=== PATIENT | male | born 1935 | race Caucasian/White ===

== ENCOUNTER 2019-10-30 22:46 | Inpatient (IN) | payer MEDICARE, SELFPAY ==
--- NOTE | ~2019-10-30 | XR_ITS ---
EXAMINATION: XR chest 2V DATE: 10/31/2019 00:09 INDICATION: Leukocytosis TECHNIQUE: PA and lateral views of the chest were obtained. COMPARISON: None FINDINGS: The lungs are clear with no focal airspace opacities, pulmonary edema, pleural effusion or pneumothor ax. The cardiomediastinal silhouette is normal with mildly prominent left paracardial fat pad. There are bridging osteophytes at multiple levels in the spine, consistent with diffuse idiopathic skeletal hyperostosis (DISH). IMPRESSION: 1. No acute cardiopulmonary disease. Reviewed, dictated and finalized at location A. NET MAKER
--- NOTE | ~2019-10-30 | CT_ITS ---
EXAMINATION: CT abdomen pelvis wo con DATE: 10/31/2019 00:12 INDICATION: Right lower abdominal pain and hematuria. TECHNIQUE: Computed tomography (CT) of the abdomen and pelvis was performed without intravenous contr ast. Automated exposure control and iterative reconstruction technique were employed. The dose-length product was 904.75 mGy-cm. COMPARISON: None FINDINGS: Lung bases are clear. Heart size is normal. Mild atherosclerotic calcification at the left main coron oneal artery. Small amount of aortic valve calcification. Tiny pericardial effusion. Small sliding-type hiatal hernia. Liver, gallbladder, spleen, pancreas, bilateral adrenal glands and left kidney are no rmal. Mild to moderate right hydroureteronephrosis. No urolithiasis. There is a likely malignant and obstru cting 6.1 x 5.7 cm mass involving the right trigonal region of the bladder which appears to extend in to the right seminal vesicle. The mass also appears contiguous with the enlarged prostate and is uncl ear whether this represents a primary bladder cancer or prostate cancer. There is some stranding arou nd the right seminal vesicle concerning for local invasion with 12 x 8 mm nodule along the right inte rnal iliac vasculature is suspicious for regional metastatic lymph node. No other evident pathologica lly enlarged abdominal or pelvic lymphadenopathy. There is moderate colonic diverticulosis with a sigmoid predominance. There is no adjacent inflammat ory change to suggest diverticulitis. Small bowel and appendix are normal. Trace ascites in the pelvi s. No free intraperitoneal gas. Severe lumbar spondylosis. There are bridging osteophytes at multiple levels in the lower thoracic spine, consistent with diffuse idiopathic skeletal hyperostosis (DISH). Bone island at the right sacral ala. No other suspicious lytic or blastic bone lesions. IMPRESSION: 1. 6.1 x 5.7 cm mass on the right trigonal region of the bladder which could represent either prostat e cancer of bladder cancer and which obstructs the distal right ureter results in mild to moderate ri ght hydroureteronephrosis. Likely local invasion of the right seminal vesicle and adjacent fat and li edita regional metastatic right internal iliac lymph node. Recommend urologic consultation. 2. Small sliding-type type hiatal hernia. 3. Moderate diverticulosis. Reviewed, dictated and finalized at location A. RS AND LAKES BOATMAN IMPRESSION: 1. 6.1 x 5.7 cm mass on the right trigonal region of the bladder which could re present either prostate cancer of bladder cancer and which obstructs the distal right ureter results in mild to moderate right hydroureteronephrosis. Likely l ocal invasion of the right seminal vesicle and adjacent fat and likely regional metastatic right internal iliac lymph node. Recommend urologic consultation. 2. Small sliding-type type hiatal hernia. 3. Moderate diverticulosis.
--- NOTE | ~2019-10-30 | XR_ITS ---
EXAMINATION: XR abdomen/kub 1V DATE: 10/31/2019 00:09 INDICATION: Hematuria TECHNIQUE: A supine view of the abdomen was obtained. COMPARISON: None. FINDINGS: Small to moderate amount of gas and stool throughout the colon. No dilated loops of gas-filled bowel to suggest obstruction. There appears to be moderate right hydroureteronephrosis extending from the r ight renal hilum. No evident urolithiasis. IMPRESSION: 1. Just of right hydroureteronephrosis with no evident urolithiasis. Reviewed, dictated and finalized at location A. NER MANAGER
--- NOTE | ~2019-10-30 | US_ITS ---
US renal BI 11/03/2019 11:01 Procedure: Realtime transabdominal ultrasound of the kidneys and bladder. Indication: Hydronephrosis Comparison: Ultrasound dated 10/31/2019 Findings: Renal echotexture is normal bilaterally without contour deforming mass or renal calculus. T here is persistent mild right hydronephrosis. The right kidney measures 10.3 cm and left kidney measu res 11.3 cm. Dietz catheter present in the bladder which is decompressed. Impression: 1: Mild right hydronephrosis. Reviewed, dictated and finalized at location A. EMIC PROGRAM SPECIALIST Impression: 1: Mild right hydronephrosis.
--- NOTE | ~2019-10-30 | US_ITS ---
EXAMINATION: US renal BI DATE: 10/31/2019 09:02 INDICATION: Right hydronephrosis on prior CT. TECHNIQUE: Multiple ultrasound grayscale images of the kidneys were obtained. COMPARISON: 10/24/2018 FINDINGS: The right kidney measures 10.6 x 5.6 x 5.8 cm. The left kidney measures 10.2 x 5.1 x 4.9 cm. The kidn eys demonstrate normal echogenicity. Mild right hydronephrosis. No hydronephrosis at the left kidney. No stones identified. The bladder is decompressed around a Dietz catheter which limits evaluation. T here appears to be increased hypoechoic soft tissue density posterior to the Dietz catheter bulb like ly representing the mass identified on prior CT. IMPRESSION: 1. Mild right hydronephrosis. 2. Hypoechoic region posterior to the Dietz catheter bulb within the decompressed bladder which likel y represents the mass of concern seen on prior CT. Reviewed, dictated and finalized at location A. H DRILLER IMPRESSION: 1. Mild right hydronephrosis. 2. Hypoechoic region posterior to the Dietz catheter bulb within the decompress ed bladder which likely represents the mass of concern seen on prior CT.
--- NOTE | ~2019-10-30 | XR_ITS ---
EXAMINATION: XR retrograde pyelo w/stent RT DATE: 11/02/2019 14:02 INDICATION: Right internal ureteral stent placement TECHNIQUE: Fluoroscopic images from a right internal ureteral stent placement are submitted for shawn islas 4 seconds of fluoroscopy time. 6 fluoroscopic images. FINDINGS: There is a right double-J internal ureteral stent projecting in expected position, with proximal Devens loop at the level of the renal pelvis. The distal cope loop is not demonstrated.. IMPRESSION: 1. Right internal ureteral stent placement. Please refer to real-time procedural findings for naman fung. Reviewed, dictated and finalized at location B. ANCE EDUCATION DIRECTOR IMPRESSION: 1. Right internal ureteral stent placement. Please refer to real-time procedu ral findings for details.
[2019-10-30 22:59] VITALS: BP 168/74; PULSE 73; RESP 18; TEMP 36.8; O2SAT 100
--- NOTE | 2019-10-30 23:03 | ED.MALEGU ---
HPI - Male Genitourinary General Chief complaint: Urogenital-Male Stated complaint: prostate issues Time Seen by Provider: 10/30/19 23:02 Source: patient, family and RN notes reviewed Mode of arrival: other Limitations: no limitations History of Present Illness HPI Narrative: Pt is an 83 y/o male who presents to the ED with c/o dysuria that began 3 days ago (10/27/19), but has worsened today. Pt is supposed to see Dr. Jerome on and have a surgery to clamp his prostate. Pt last saw Dr. Jerome two weeks ago. He states that he was given a medication from Dr. Jerome, but he is unable to clarify what the medication is. Pt is taking Flomax. He states that he is taking Prednisone because he had pruritic urticaria from taking Lisinopril. Pt's spouse notes that the pt is not currently himself. Pt also reports penile pain, frequent urination, urinary retention, difficulty sleeping d/t his dysuria, and intermittent RLQ abdominal pain, but denies nausea, vomiting, testicular pain, testicular swelling, fever, chills, and weakness. MD Complaint: dysuria Onset (ago): day(s) (3) Duration: progressively worsening Associated symptoms: Reports urinary retention and other (penile pain, frequent urination, difficulty sleeping d/t his dysuria, intermittent RLQ abdominal pain) Related Data Home Medications Medication Instructions Recorded Confirmed tamsulosin 0.4 mg PO HS 08/10/19 10/31/19 prednisone 30 mg PO DAILY 10/31/19 10/31/19 triamcinolone acetonide 1 applic TOPICAL BID 10/31/19 10/31/19 Allergies Allergy/AdvReac Type Severity Reaction Status Date / Time aspartame Allergy Unknown Unknown Verified 08/20/19 13:15 meperidine Allergy Unknown Unknown Verified 08/20/19 13:15 Review of Systems Review of Systems: All systems reviewed & are unremarkable except as noted in HPI and below Constitutional: Constitutional: Denies chills, Reports difficulty sleeping (d/t his dysuria) and Denies fever(s) Gastrointestinal: Gastrointestinal: Reports abdominal pain (intermittent RLQ), Denies nausea and Denies vomiting Genitourinary: Genitourinary: Reports dysuria, Denies scrotal swelling, Denies testicular pain and Reports other (penile pain, frequent urination, urinary retention) Neurologic: Denies weakness PMFSH Past Medical History Medical History (Updated 10/31/19 @ 06:52 by Bertha Vidal MD) Anemia in chronic kidney disease Anxiety with depression Benign prostatic hyperplasia BPPV (benign paroxysmal positional vertigo) Chronic idiopathic urticaria Chronic kidney disease, stage 4 (severe) Elbow fracture, right Essential (primary) hypertension Hyperparathyroidism 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 HEAD: Normocephalic, atraumatic EYES: PERRLA and EOMI, conjunctiva clear without discharge THROAT:Mucous membranes moist, Oropharynx normal without erythema, exudate, peritonsillar swelling or fluctuance NECK: Supple, without lymphadenopathy or mass RESPIRATORY: No respiratory distress, Airway patent, Respirations non-labored, Clear to auscultation without rales, rhonchi or wheeze HEART: Regular rate and rhythm. No murmur heard. Normal peripheral pulses. ABDOMEN: Soft, right lower abdominal tenderness, nondistended, normal active bowel sounds. No masses. No re
[2019-10-30 23:41] LABS: Basophils Percent Auto 0.1 % (0.2-1.2); Hematocrit 37.3 % (42.0-52.0); Hemoglobin 12.5 g/dL (14.0-18.0); Immature Granulocyte Absolute 0.14 K/mm3 (0.00-0.031); Immature Granulocyte Percent A 0.9 % (0-0.5); Lymphocytes Absolute Auto 0.78 K/mm3 (0.9-3.2); Lymphocytes Percent Auto 5.1 % (18.3-44.2); Mean Corpuscular HGB Conc 33.5 g/dl (32-36); Mean Corpuscular Hemoglobin 33.2 pg (26-34); Mean Corpuscular Volume 98.9 fl (80-100); Mean Platelet Volume 10.8 fl (7.4-10.4); Monocytes Absolute Auto 1.4 K/mm3 (0.1-0.6); Monocytes Percent Auto 8.8 % (2.6-8.5); Neutrophils Absolute Auto 13.1 K/mm3 (1.3-6.7); Neutrophils Percent Auto 85.1 % (45.5-73.1); Platelet Count Result 128 k/mm3 (150-375); Red Blood Count 3.77 M/mm3 (4.6-6.20); Red Cell Distribution Width 14.1 % (11.5-14.5); White Blood Count 15.4 K/mm3 (4.5-10.0)
[2019-10-30 23:46] LABS: Add Urine Microscopic? YES; Appearance Urine Clear (Clear); Bilirubin Urine Negative (Negative); Blood Urine 2+ (Negative); Color Urine Yellow (Yellow); Glucose Urine UA 3+ mg/dL (Negative); Ketones Urine Negative (Negative); Leukocyte Esterase Ur Negative LEU/UL (Negative); Mucus Urine Rare /lpf; Nitrate Urine Negative (Negative); Protein Urine 1+ mg/dL (Negative); Specific Grav Ur 1.021 (1.001-1.035); Squamous Epithelial Cell Urine Rare /hpf (Few); Urobilinogen Urine Negative mg/dL (<2.0); WBC Urine 0-3 /hpf
[2019-10-31] VITALS (17 sets, daily range): BP systolic 134–164; BP diastolic 42–72; PULSE 64–114; RESP 13–22; TEMP 36.6–37.2; O2SAT 93–99; BMI 31.6
[2019-10-31 00:10] LABS: Alanine Aminotransferase 16 U/L (4-50); Albumin Level 3.9 g/dL (3.5-5.1); Alkaline Phosphatase 88 U/L (38-126); Aspartate Amino Transferase 18 U/L (17-59); Bilirubin,Total 0.4 mg/dL (0.2-1.3); Blood Urea Nitrogen 42 mg/dL (9-20); Calcium 9.1 mg/dL (8.4-10.2); Carbon Dioxide 18 mmol/L (22-30); Chloride 103 mmol/L (98-107); Estimated CRCL calculation 25 ml/min; Estimated Glomerular Filt Rate 29; Glucose 165 mg/dL (75-110); Potassium 6.6 mmol/L (3.4-5.0); Sodium 133 mmol/L (137-145)
--- NOTE | 2019-10-31 00:14 | ECG_ITS ---
Measurements Intervals Cool Rate: 66 P: -6 TN: 167 QRS: -14 QRSD: 90 T: 42 QT: 347 QTc: 365 Interpretive Statements SINUS RHYTHM BORDERLINE R WAVE PROGRESSION, ANTERIOR LEADS BASELINE ARTIFACT- I, III, V1-V2 BORDERLINE ECG Electronically Signed On 10-31-2019 7:00:30 POWER ELECTRONICS RESEARCH ENGINEER by John Torres D.O.
[2019-10-31] MEDS: ALBUTEROL SULFATE NEB 2.5 MG/0.5 ML INH 10 MG INHALATION (01:08)
[2019-10-31] MEDS: DEXTROSE 50% 25 GM/50 ML SYRINGE IV PUSH (01:20)
[2019-10-31] MEDS: SODIUM BICARBONATE 8.4% 50 MEQ/50 ML VIAL IV PUSH (01:21)
[2019-10-31] MEDS: INSULIN HUMAN REGULAR (*BKC) 100 UNITS/ML 10 UNITS IV PUSH (01:22)
[2019-10-31] MEDS: CALCIUM GLUC 1,000 MG/NS 50 ML 1,000 MG/50 ML BAG 100 MG IVPB (01:40)
[2019-10-31] MEDS: SODIUM CHLORIDE 0.9% IV 1,000 ML 125 ML IV CONT ×3 (02:13→17:03)
--- NOTE | 2019-10-31 02:13 | PC.NURSE ---
Report faxed to IMU 2nd floor.
--- NOTE | 2019-10-31 02:13 | PM.IMHP ---
H&P: HPI History of Present Illness Chief complaint: obstructive uropathy,acute renal failure,prostate Narrative: This is a pleasant 83 year old male who presented to the hospital [facility] with a complaint of acute lower pelvic discomfort tonight. The patient has had ongoing painful urination over the past three days as well as increased urinary frequency, retention, and difficulty sleeping due to his symptoms. He denies any fevers or chills. He just recently finished a course of antibiotics for a urinary tract infection. The patient is known to follow up with Dr. Jerome for his prostate issues and was scheduled to see Dr. Jerome to discuss surgical options for his enlarged prostate. In the ER tonight the patient was found to have acute renal failure w/ hyperkalemia. Dietz catheter was placed in the ER and we have been asked to admit the patient to the hospital. He denies any other symptoms at this time. 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 IGOR (obstructive sleep apnea) S/P ORIF (open reduction internal fixation) fracture left arm Surgical History Surgical History H/O varicose vein ligation History of orthopedic surgery left arm reconstruction, right elbow surgery Social History Social History Smoking status: Never smoker Alcohol intake: never Substance use: never Gender identity (if verbalized by the patient): Male Agree to blood products: Yes Meds Home Medications and Allergies Home Medications Medication Instructions Recorded Confirmed Type compr.stocking,knee,long,large #2 each 08/10/19 08/20/19 Rx tamsulosin 0.4 mg PO HS 08/10/19 10/31/19 History losartan 50 mg tablet 50 mg PO DAILY #30 tablet 10/26/19 10/31/19 Rx prednisone 30 mg PO DAILY 10/31/19 10/31/19 History triamcinolone acetonide 1 applic TOPICAL BID 10/31/19 10/31/19 History Allergies Allergy/AdvReac Type Severity Reaction Status Date / Time aspartame Allergy Unknown Unknown Verified 08/20/19 13:15 meperidine Allergy Unknown Unknown Verified 08/20/19 13:15 Vital Signs Vital Signs - 24 hr 10/30/19 22:59 10/31/19 00:10 10/31/19 00:19 Temperature 36.8 C Pulse Rate 73 74 73 Respiratory Rate 18 18 Blood Pressure 168/74 H 163/71 H Pulse Oximetry 100 98 10/31/19 01:10 10/31/19 01:14 Temperature Pulse Rate 72 70 Respiratory Rate 18 13 Blood Pressure 156/72 H Pulse Oximetry 99 Exam Const: General: cooperative, healthy appearing, no acute distress, alert and awake Nutritional Appearance: well nourished Orientation/consciousness: patient oriented x3 HENMT: Head: normal to inspection General nose exam: Normal external nose present Face and sinus: normal facial exam Mouth: Yes Normal oral and palatal mucosa present and Yes oropharynx normal Eyes: Pupils: Equal, round and reactive pupils present EOM: EOMs intact bilaterally Neck: Neck: supple and no JVD Thyroid: thyroid normal Lymphatic: lymphadenopathy not noted Resp: Effort & Inspection: normal respiratory effort Auscultation: clear to auscultation bilaterally Cardio: Rate: regular rate Rhythm: regular rhythm Heart sounds: no murmurs GI: Inspection: normal to inspection Auscultation: normal bowel sounds Skin: General skin exam: normal color and no rashes or lesions noted Neuro: General: patient oriented x3 Cranial
[2019-10-31 05:14] LABS: Blood Urea Nitrogen 42 mg/dL (9-20); Calcium 9.3 mg/dL (8.4-10.2); Carbon Dioxide 21 mmol/L (22-30); Chloride 107 mmol/L (98-107); Estimated CRCL calculation 27 ml/min; Estimated Glomerular Filt Rate 30; Glucose 111 mg/dL (75-110); Potassium 5.4 mmol/L (3.4-5.0); Sodium 134 mmol/L (137-145)
--- NOTE | 2019-10-31 06:58 | ADMGEN ---
This patient, Dayron Areraga, was admitted to IMU Room 209-. Patient/family oriented to hospital policies and general routines including ID bracelet, bed and alarms, visiting hours, pain management, procedures, bathroom and other care routines, personal items, smoking policy, room service/diet, and visiting hours. Valuables list has been completed. Information on how to activate the Rapid Response Team has been discussed. Patient/Family are encouraged to report perceived risks to care and to ask questions if they do not understand what they are told or what they should do.
--- NOTE | 2019-10-31 17:21 | PM.IMPN ---
Progress Note: A&P Assessment and Plan (1) Hyperkalemia: Code(s): E87.5 - Hyperkalemia Status: Acute Assessment and Plan: Potassium 6.6 on admission related to the obstructive process and the acute kidney injury worsened by being on losartan. The patient received insulin, dextrose, albuterol and sodium bicarbonate in the ER. Potassium 5.4 today. Will continue monitoring closely with repeat lab work. Consider Kayexalate. Continue telemetry. (2) Acute on chronic renal failure: Qualifiers: Acute renal failure type: unspecified Chronic kidney disease stage: stage 3 (moderate) Qualified Code(s): N17.9 - Acute kidney failure, unspecified; N18.3 - Chronic kidney disease, stage 3 (moderate) Code(s): N17.9 - Acute kidney failure, unspecified; N18.9 - Chronic kidney disease, unspecified Status: Acute Assessment and Plan: Patient's estimated GFR runs in the 40-50 range consistent with CKD stage 3. Creatinine worse since admission probably related to the obstruction. Creatinine 2.2 on admission and relatively unchanged today. Patient may have mild ATN related to the obstructive process. Renal ultrasound results noted. Hopefully this will improve with time. Continue Dietz catheter. Continue IV fluid. Continue to monitor renal function and urine output. (3) Bladder mass: Code(s): N32.89 - Other specified disorders of bladder Status: Acute Assessment and Plan: CT scan showing 6.1 x 5.7 cm mass on the right trigonal region of the bladder which could represent either prostate cancer of bladder cancer. This is obstructing the distal right ureter resulting in mild to moderate right hydroureteronephrosis. 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 Patient informed of the above findings. Urology has been consulted and appreciate their input. (4) Urinary retention: Code(s): R33.9 - Retention of urine, unspecified Status: Acute Assessment and Plan: As above. Suspect mass was obstructing the urethral opening as well. Dietz catheter in place. Urology consultation. Appreciate Urology recommendations. Flomax continued. (5) Anemia in chronic kidney disease: Qualifiers: Chronic kidney disease stage: stage 3 (moderate) Qualified Code(s): N18.3 - Chronic kidney disease, stage 3 (moderate); D63.1 - Anemia in chronic kidney disease Code(s): N18.9 - Chronic kidney disease, unspecified; D63.1 - Anemia in chronic kidney disease Status: Chronic Assessment and Plan: Hemoglobin 10.8 which is similar to his baseline. Chronic anemia felt related to CKD. Continue to monitor hemoglobin. (6) Essential (primary) hypertension: Code(s): I10 - Essential (primary) hypertension Status: Chronic Assessment and Plan: Blood pressure was elevated earlier but better controlled today. Losartan on hold due to renal failure. Will add low-dose amlodipine. (7) Thrombocytopenia: Code(s): D69.6 - Thrombocytopenia, unspecified Status: Acute Assessment and Plan: Platelet count 128K on admission. Not repeated today. Will continue to monitor. (8) Leukocytosis: Qualifiers: Leukocytosis type: unspecified Qualified Code(s): D72.829 - Elevated white blood cell count, unspecified Code(s): D72.829 - Elevated white blood cell count, unspecified Status: Acute Assessment and Plan: WBC 15.4K on admission. Not repeated today. Chest x-ray is clear. UA not consistent with UTI. Elevated white count probably related to above. Repeat CBC in the morning. Subjective Date/time seen: 10/31/19 17:21 Interval history: 83yo male here for dysuria and found to have hyperkalemia and KEE. The is having burning at the catheter site. No n/v. No CP or palpitations. Does havae a headache
[2019-10-31] MEDS: ACETAMINOPHEN 325 MG TABLET 650 MG PO (17:44)
[2019-10-31 18:04] LABS: Blood Urea Nitrogen 41 mg/dL (9-20); Calcium 8.2 mg/dL (8.4-10.2); Carbon Dioxide 20 mmol/L (22-30); Chloride 103 mmol/L (98-107); Estimated CRCL calculation 26 ml/min; Estimated Glomerular Filt Rate 29; Glucose 155 mg/dL (75-110); Potassium 5.7 mmol/L (3.4-5.0); Sodium 134 mmol/L (137-145)
[2019-10-31] MEDS: TAMSULOSIN HCL 0.4 MG CAPSULE PO (21:46)
[2019-10-31] MEDS: SODIUM POLYSTYRENE SULFONONATE 15 GM/60 ML BTL PO (21:47)
[2019-11-01] VITALS (18 sets, daily range): BP systolic 114–146; BP diastolic 52–63; PULSE 61–73; RESP 17–20; TEMP 36.6–37.2; O2SAT 97–100
[2019-11-01] MEDS: ACETAMINOPHEN 325 MG TABLET 650 MG PO (00:36)
[2019-11-01] MEDS: SODIUM CHLORIDE 0.9% IV 1,000 ML 125 ML IV CONT ×3 (01:01→20:43)
[2019-11-01 05:18] LABS: Basophils Percent Auto 0.1 % (0.2-1.2); Eosinophils Absolute Auto 0.1 K/mm3 (0-0.3); Eosinophils Percent Auto 0.6 % (0-4.4); Hematocrit 31.8 % (42.0-52.0); Hemoglobin 10.5 g/dL (14.0-18.0); Immature Granulocyte Absolute 0.06 K/mm3 (0.00-0.031); Immature Granulocyte Percent A 0.6 % (0-0.5); Lymphocytes Absolute Auto 1.27 K/mm3 (0.9-3.2); Lymphocytes Percent Auto 11.9 % (18.3-44.2); Mean Platelet Volume 10.9 fl (7.4-10.4); Monocytes Percent Auto 9.6 % (2.6-8.5); Neutrophils Absolute Auto 8.2 K/mm3 (1.3-6.7); Neutrophils Percent Auto 77.2 % (45.5-73.1); Platelet Count Result 104 k/mm3 (150-375); Red Blood Count 3.18 M/mm3 (4.6-6.20); Red Cell Distribution Width 14.5 % (11.5-14.5); White Blood Count 10.6 K/mm3 (4.5-10.0)
[2019-11-01 05:53] LABS: Albumin Level 2.9 g/dL (3.5-5.1); Blood Urea Nitrogen 36 mg/dL (9-20); Carbon Dioxide 22 mmol/L (22-30); Chloride 109 mmol/L (98-107); Estimated CRCL calculation 27 ml/min; Estimated Glomerular Filt Rate 30; Glucose 101 mg/dL (75-110); Phosphorus 3.3 mg/dL (2.5-4.5); Potassium 5.3 mmol/L (3.4-5.0); Sodium 134 mmol/L (137-145)
--- NOTE | 2019-11-01 07:29 | WPDURCON ---
Assessment and Plan Assessment and plan (1) Obstructive uropathy: Code(s): N13.9 - Obstructive and reflux uropathy, unspecified Status: Acute Assessment and Plan: For etiology is unclear at this point time. Dietz catheter in place and creatinine still at 2.1. Renal ultrasound reveals some only some mild right hydroureter. Given the persistent elevation in creatinine question of a mass in the bladder will proceed with cystoscopy right retrograde pyelogram tomorrow. Will also discuss possible transurethral resection of any abnormal findings at that setting i.e. TURBT or TURP. Will need to be NPO after midnight. Will discuss possibility of nephrostomy tube if unable to locate or place a stent. (2) Bladder mass: Code(s): N32.89 - Other specified disorders of bladder Status: Acute Assessment and Plan: See above Urology Consult Note HPI Date Seen: 11/01/19 Requesting Physician: Cristóbal Quintana MD Primary Care Provider: Michele Lovell DO Consult Narrative Narrative: Dayron Arreaga is a 83 year old male with history of BPH who was admitted with hyperkalemia mild right hydronephrosis and slightly elevated creatinine level of 2.4. He was most recently seen in the office 1-2 weeks ago for some voiding symptoms. He had been on Flomax and was increased to b.i.d.. He developed some discomfort in his right flank as well as right lower quadrant and presented to the emergency room. Dietz catheter was placed in the emergency room. The time my evaluation his pain in his flank and his discomfort in his pelvis had improved slightly. CT scan reveals a some question of a 6 cm mass obstructing the right UVJ with differential of bladder versus prostate. Wea re asked to see for further management. 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 IGOR (obstructive sleep apnea) S/P ORIF (open reduction internal fixation) fracture left arm Surgical History Surgical History H/O varicose vein ligation History of orthopedic surgery left arm reconstruction, right elbow surgery Social History Social History Smoking status: Never smoker Alcohol intake: never Substance use: never Gender identity (if verbalized by the patient): Male Agree to blood products: Yes Meds Home Medications and Allergies Home Medications Medication Instructions Recorded Confirmed Type compr.stocking,knee,long,large #2 each 08/10/19 08/20/19 Rx tamsulosin 0.4 mg PO HS 08/10/19 10/31/19 History losartan 50 mg tablet 50 mg PO DAILY #30 tablet 10/26/19 10/31/19 Rx prednisone 30 mg PO DAILY 10/31/19 10/31/19 History triamcinolone acetonide 1 applic TOPICAL BID 10/31/19 10/31/19 History Allergies Allergy/AdvReac Type Severity Reaction Status Date / Time aspartame Allergy Unknown Unknown Verified 08/20/19 13:15 meperidine Allergy Unknown Unknown Verified 08/20/19 13:15 Vital Signs Vital Signs - 24 hr 10/31/19 08:00 10/31/19 10:00 10/31/19 12:00 Temperature 36.6 C 37.2 C Pulse Rate 72 80 73 Respiratory Rate 20 18 Blood Pressure 138/53 L 134/50 L Pulse Oximetry 99 98 10/31/19 14:00 10/31/19 16:00 10/31/19 18:00 Temperature 37.0 C Pulse Rate 69 71 76 Respiratory Rate 22 H Blood Pressure 145/60 H Pulse Oximetry 98 10/31/19 19:36 10/31/19 20:00 10/31/19
[2019-11-01] MEDS: SODIUM POLYSTYRENE SULFONONATE 15 GM/60 ML BTL PO (09:50)
[2019-11-01] MEDS: TRIAMCINOLONE ACET 0.1% CREAM 15 GM TUBE 1 APPLIC TOPICAL (09:51)
[2019-11-01] MEDS: AMLODIPINE BESYLATE 2.5 MG TABLET PO (09:51)
[2019-11-01 18:57] LABS: Potassium 4.7 mmol/L (3.4-5.0)
[2019-11-01 19:32] LABS: Prostate Specific Antigen 9.4 ng/mL (< OR = 4.0)
[2019-11-01] MEDS: TAMSULOSIN HCL 0.4 MG CAPSULE PO (20:42)
--- NOTE | 2019-11-01 22:17 | PM.IMPN ---
Progress Note: A&P Assessment and Plan (1) Acute on chronic renal failure: Qualifiers: Acute renal failure type: unspecified Chronic kidney disease stage: stage 3 (moderate) Qualified Code(s): N17.9 - Acute kidney failure, unspecified; N18.3 - Chronic kidney disease, stage 3 (moderate) Code(s): N17.9 - Acute kidney failure, unspecified; N18.9 - Chronic kidney disease, unspecified Status: Acute Assessment and Plan: Patient's estimated GFR runs in the 40-50 range consistent with CKD stage 3. Creatinine worse since admission probably related to the obstruction. Creatinine 2.2 on admission and relatively unchanged today. Patient may have mild ATN related to the obstructive process. UOP okay. Continue Dietz catheter. Continue IV fluid but decrease rate. Continue to monitor renal function and urine output. (2) Hyperkalemia: Code(s): E87.5 - Hyperkalemia Status: Acute Assessment and Plan: Potassium 6.6 on admission related to the obstructive process and the acute kidney injury worsened by being on losartan. The patient received insulin, dextrose, albuterol and sodium bicarbonate in the ER. Potassium 5.3 today. Kayexalate given. Potasium on recheck 4.7. Will continue monitoring closely. (3) Bladder mass: Code(s): N32.89 - Other specified disorders of bladder Status: Acute Assessment and Plan: CT scan showing 6.1 x 5.7 cm mass on the right trigonal region of the bladder which could represent either prostate cancer or bladder cancer. This is obstructing the distal right ureter resulting in mild to moderate right hydroureteronephrosis and possibly obstructing uropathy. 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 PSA ordered. Plan for cysto in the morning. Discussed with urology. (4) Urinary retention: Code(s): R33.9 - Retention of urine, unspecified Status: Acute Assessment and Plan: As above. Suspect mass was obstructing the urethral opening as well. Dietz catheter in place. Urology consultation. Appreciate Urology recommendations. Flomax continued. . (5) Anemia in chronic kidney disease: Qualifiers: Chronic kidney disease stage: stage 3 (moderate) Qualified Code(s): N18.3 - Chronic kidney disease, stage 3 (moderate); D63.1 - Anemia in chronic kidney disease Code(s): N18.9 - Chronic kidney disease, unspecified; D63.1 - Anemia in chronic kidney disease Status: Chronic Assessment and Plan: Hemoglobin normally in the 11-12 range but dropped to 10.5 today. mild chronic anemia felt related to CKD. Continue to monitor hemoglobin. (6) Essential (primary) hypertension: Code(s): I10 - Essential (primary) hypertension Status: Chronic Assessment and Plan: Blood pressure reviewed on 11/01/19. BP was elevated earlier but better controlled today. Losartan on hold due to renal failure. Continue amlodipine. (7) Leukocytosis: Qualifiers: Leukocytosis type: unspecified Qualified Code(s): D72.829 - Elevated white blood cell count, unspecified Code(s): D72.829 - Elevated white blood cell count, unspecified Status: Acute Assessment and Plan: WBC 15.4K on admission. Chest x-ray is clear. UA not consistent with UTI. Elevated white count probably related to above. Repeat WBC 10.6K. Contineu to follow. (8) Thrombocytopenia: Code(s): D69.6 - Thrombocytopenia, unspecified Status: Acute Assessment and Plan: Platelet count 128K on admission and has dropped to 104K. Autoimmune? Doubt TTP. Reactionary to above? Will continue to monitor for now. Subjective Date/time seen: 11/01/19 22:17 Interval history: 83yo male here for dysuria and found to have hyperkalemia and KEE. No complaints today. No CP or SOB. +BM. Exam Narrative: Ex
[2019-11-02] VITALS (18 sets, daily range): BP systolic 131–166; BP diastolic 54–77; PULSE 56–77; RESP 12–20; TEMP 36.5–37.2; O2SAT 13–100
[2019-11-02 05:24] LABS: Hematocrit 30.2 % (42.0-52.0); Mean Corpuscular HGB Conc 33.1 g/dl (32-36); Mean Corpuscular Hemoglobin 33.4 pg (26-34); Mean Platelet Volume 10.9 fl (7.4-10.4); Platelet Count Result 83 k/mm3 (150-375); Red Blood Count 2.99 M/mm3 (4.6-6.20); White Blood Count 9.3 K/mm3 (4.5-10.0)
[2019-11-02 05:50] LABS: Blood Urea Nitrogen 30 mg/dL (9-20); Calcium 7.7 mg/dL (8.4-10.2); Carbon Dioxide 18 mmol/L (22-30); Chloride 108 mmol/L (98-107); Estimated CRCL calculation 29 ml/min; Estimated Glomerular Filt Rate 34; Glucose 98 mg/dL (75-110); Potassium 4.6 mmol/L (3.4-5.0); Sodium 133 mmol/L (137-145)
[2019-11-02] MEDS: SODIUM CHLORIDE 0.9% IV 1,000 ML 70 ML IV CONT (07:26)
[2019-11-02 07:37] LABS: INR 1.2; Prothrombin Time 14.5 Seconds (11.1-14.7)
[2019-11-02 07:38] LABS: Partial Thromboplastin Time 27.8 SECONDS (22.3-36.8)
[2019-11-02] MEDS: AMLODIPINE BESYLATE 2.5 MG TABLET PO (08:10)
--- NOTE | 2019-11-02 10:02 | WPDANESEPP ---
Anes - Eval Pre Procedure Procedure: Operation Date: 11/02/19 11:30 Proposed Procedures p Cystoscopy, Bilateral Retrograde Pyelogram, Possible Bilateral Stent Placement, - J Luis Jerome MD s Possible Trans Urethral Resection Bladder Tumor, Possible Trans Urethral Resection Prostate - J Luis Jerome MD Date/Time: 11/02/19 10:02 Pre Op Diagnosis: obstructive uropathy,acute renal failure,prostate Patient Data Age: 83 Gender: M Height: 1.73 m Weight: 95.2 kg Last Vital Signs Temp 37.0 C 11/02/19 03:47 Pulse 58 L 11/02/19 08:00 Resp 16 11/02/19 03:47 BP 140/54 L 11/02/19 03:47 Pulse Ox 100 11/02/19 03:47 Allergies Allergy/AdvReac Type Severity Reaction Status Date / Time aspartame Allergy Unknown Unknown Verified 08/20/19 13:15 meperidine Allergy Unknown Unknown Verified 08/20/19 13:15 Home Medications Medication Instructions Recorded Confirmed Type compr.stocking,knee,long,large #2 each 08/10/19 08/20/19 Rx tamsulosin 0.4 mg PO HS 08/10/19 10/31/19 History losartan 50 mg tablet 50 mg PO DAILY #30 tablet 10/26/19 10/31/19 Rx prednisone 30 mg PO DAILY 10/31/19 10/31/19 History triamcinolone acetonide 1 applic TOPICAL BID 10/31/19 10/31/19 History Laboratory Tests 11/01/19 11/02/19 11/02/19 18:44 04:23 04:23 WBC 9.3 K/mm3 K/mm3 (4.5-10.0) RBC 2.99 M/mm3 L M/mm3 (4.6-6.20) Hgb 10.0 g/dL L g/dL (14.0-18.0) Hct 30.2 % L % (42.0-52.0) MCV 101.0 fl H fl (80-100) MCH 33.4 pg pg (26-34) MCHC 33.1 g/dl g/dl (32-36) RDW 14.0 % % (11.5-14.5) Plt Count 83 k/mm3 L k/mm3 (150-375) MPV 10.9 fl H fl (7.4-10.4) PT INR APTT Sodium 133 mmol/L L mmol/L (137-145) Potassium 4.7 mmol/L mmol/L 4.6 mmol/L mmol/L (3.4-5.0) (3.4-5.0) Chloride 108 mmol/L H mmol/L (98-107) Carbon Dioxide 18 mmol/L L mmol/L (22-30) BUN 30 mg/dL H mg/dL (9-20) Creatinine 1.90 mg/dL H mg/dL (0.7-1.3) Estim Creat Clear Calc 29 ml/min ml/min Estimated GFR 34 L (59 - ) Glucose 98 mg/dL mg/dL (75-110) Calcium 7.7 mg/dL L mg/dL (8.4-10.2) Prostate Specific Ag 9.4 ng/mL H ng/mL (< OR = 4.0) 11/02/19 07:22 WBC RBC Hgb Hct MCV MCH MCHC RDW Plt Count MPV PT 14.5 Seconds Seconds (11.1-14.7) INR 1.2 APTT 27.8 SECONDS SECONDS (22.3-36.8) Sodium Potassium Chloride Carbon Dioxide BUN Creatinine Estim Creat Clear Calc Estimated GFR Glucose Calcium Prostate Specific Ag Patient hx anesthesia problems: none Family hx anesthesia problems: none [facility] Past Medical History Medical History (Updated 11/02/19 @ 10:04 by Magdy Bullock MD) Anemia in chronic kidney disease Anxiety with depression Benign prostatic hyperplasia BPPV (benign paroxysmal positional vertigo) Chronic idiopathic urticaria Chronic kidney disease, stage 4 (severe) Elbow fracture, right Essential (primary) hypertension Hyperparathyroidism 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
--- NOTE | 2019-11-02 10:10 | PC.NURSE ---
To OR per stretcher. Family at bedside
[2019-11-02] MEDS: LACTATED RINGERS 1,000 ML 30 ML IV CONT ×2 (10:40→14:10)
--- NOTE | 2019-11-02 12:15 | WPDANESEPPF ---
Anes - Initial Pre Proc Eval Procedure: Operation Date: 11/02/19 11:30 Proposed Procedures p Cystoscopy, Bilateral Retrograde Pyelogram, Possible Bilateral Stent Placement, - J Luis Jerome MD s Possible Trans Urethral Resection Bladder Tumor, Possible Trans Urethral Resection Prostate - J Luis Jerome MD Date/Time: 11/02/19 12:15 Surgeon: Cristóbal Quintana MD Pre Op Diagnosis: obstructive uropathy,acute renal failure,prostate Patient Data Age: 83 Gender: M Height: 5 ft 8 in Weight: 95.2 kg Last Vital Signs Temp 98.9 F 11/02/19 11:16 Pulse 65 11/02/19 11:16 Resp 20 11/02/19 11:16 BP 137/55 L 11/02/19 11:16 Pulse Ox 98 11/02/19 11:16 Allergies Allergy/AdvReac Type Severity Reaction Status Date / Time lisinopril Allergy Intermediate Rash Verified 11/02/19 11:14 aspartame Allergy Unknown HIVE Verified 11/02/19 11:14 Home Medications Medication Instructions Recorded Confirmed Type compr.stocking,knee,long,large #2 each 08/10/19 08/20/19 Rx tamsulosin 0.4 mg PO HS 08/10/19 10/31/19 History losartan 50 mg tablet 50 mg PO DAILY #30 tablet 10/26/19 10/31/19 Rx prednisone 30 mg PO DAILY 10/31/19 10/31/19 History triamcinolone acetonide 1 applic TOPICAL BID 10/31/19 10/31/19 History Laboratory Tests 11/01/19 11/02/19 11/02/19 18:44 04:23 04:23 WBC 9.3 K/mm3 K/mm3 (4.5-10.0) RBC 2.99 M/mm3 L M/mm3 (4.6-6.20) Hgb 10.0 g/dL L g/dL (14.0-18.0) Hct 30.2 % L % (42.0-52.0) MCV 101.0 fl H fl (80-100) MCH 33.4 pg pg (26-34) MCHC 33.1 g/dl g/dl (32-36) RDW 14.0 % % (11.5-14.5) Plt Count 83 k/mm3 L k/mm3 (150-375) MPV 10.9 fl H fl (7.4-10.4) PT INR APTT Sodium 133 mmol/L L mmol/L (137-145) Potassium 4.7 mmol/L mmol/L 4.6 mmol/L mmol/L (3.4-5.0) (3.4-5.0) Chloride 108 mmol/L H mmol/L (98-107) Carbon Dioxide 18 mmol/L L mmol/L (22-30) BUN 30 mg/dL H mg/dL (9-20) Creatinine 1.90 mg/dL H mg/dL (0.7-1.3) Estim Creat Clear Calc 29 ml/min ml/min Estimated GFR 34 L (59 - ) Glucose 98 mg/dL mg/dL (75-110) Calcium 7.7 mg/dL L mg/dL (8.4-10.2) Prostate Specific Ag 9.4 ng/mL H ng/mL (< OR = 4.0) 11/02/19 07:22 WBC RBC Hgb Hct MCV MCH MCHC RDW Plt Count MPV PT 14.5 Seconds Seconds (11.1-14.7) INR 1.2 APTT 27.8 SECONDS SECONDS (22.3-36.8) Sodium Potassium Chloride Carbon Dioxide BUN Creatinine Estim Creat Clear Calc Estimated GFR Glucose Calcium Prostate Specific Ag Patient hx anesthesia problems: none Family hx anesthesia problems: none [facility] Past Medical History Medical History (Updated 11/02/19 @ 10:04 by Magdy Bullock MD) Anemia in chronic kidney disease Anxiety with depression Benign prostatic hyperplasia BPPV (benign paroxysmal positional vertigo) Chronic idiopathic urticaria Chronic kidney disease, stage 4 (severe) Elbow fracture, right Essential (primary) hypertension Hyperparathyroidism 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
[2019-11-02] MEDS: ceFAZolin 2 GM/D5W 50 ML 2 GM/50 ML BAG IVPB (12:30)
[2019-11-02] MEDS: METHYLENE BLUE 0.5% INJ 10 ML AMPULE IRRIGATION (13:29)
[2019-11-02] MEDS: LIDOCAINE HCL 2% GEL UROJET 10 ML PKG MUCOUS MEM (13:49)
--- NOTE | 2019-11-02 14:01 | PM.PROC ---
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 Once general anesthesia was obtained he was placed in dorsal lithotomy position and prepped and draped in usual sterile fashion. Twenty-four [place] resectoscope sheath inserted in the bladder. Bladder inspected. He has an enlarged friable prostate which is obstructive in nature and invading into the bladder neck area. Ureteral orifices are not visualized at this time. We went ahead and resected the prostate including all visible tissue invading the the bladder at the bladder neck and trigonal area. The boundaries were the proximal bladder neck area as well as the vera. After continued resection we were able to identify a right ureteral orifice. It took quite a bit of a resecting to identified. We then were able to place a [place] and angled guidewire into it and advanced it all the way up to the kidney. Pyelogram was then performed to confirm placement of this into the collecting system. Six [place] contour stent was then placed with the proximal end coiled in the renal pelvis and the distal end in the bladder. We were never able to visualize the left ureteral orifice. There was no hydro nephrosis at this point time on the recent ultrasound or CT scan. We will see how he does clinically he may require a ultrasound in the morning. If his renal function deteriorates or develops left hydronephrosis he will need a percutaneous nephrostomy tube on that side. 2% viscous lidocaine was inserted into the urethra. Twenty-four [place] [address] was placed with 20 cc in the balloon. He is taken recovery room in stable condition. Anesthesia: GLMA Surgeon: J Luis Jerome MD Drains: Yes Packing: No Pathology: yes Complications: No immediate complications Condition: stable Disposition: PACU
--- NOTE | 2019-11-02 16:32 | PM.IMPN ---
Progress Note: A&P Assessment and Plan (1) Acute on chronic renal failure: Qualifiers: Acute renal failure type: unspecified Chronic kidney disease stage: stage 3 (moderate) Qualified Code(s): N17.9 - Acute kidney failure, unspecified; N18.3 - Chronic kidney disease, stage 3 (moderate) Code(s): N17.9 - Acute kidney failure, unspecified; N18.9 - Chronic kidney disease, unspecified Status: Acute Assessment and Plan: Patient's estimated GFR runs in the 40-50 range consistent with CKD stage 3. Creatinine 2.2 on admission and related to the obstructive uropathy +/- ATN. Renal function better today at 1.9. UOP okay. Continue Dietz catheter. CBI running for post-op hematuria. Continue to monitor renal function and urine output. (2) Hyperkalemia: Code(s): E87.5 - Hyperkalemia Status: Acute Assessment and Plan: Potassium 6.6 on admission related to the obstructive process and the acute kidney injury worsened by being on losartan. The patient received insulin, dextrose, albuterol and sodium bicarbonate in the ER. Potassium 5.3 yesterday and Kayexalate given. Potasium today is 4.6. Will continue monitoring closely. (3) Bladder mass: Code(s): N32.89 - Other specified disorders of bladder Status: Acute Assessment and Plan: CT scan showing 6.1 x 5.7 cm mass on the right trigonal region of the bladder which appears most likely prostate cancer. This is obstructing the distal right ureter resulting in mild to moderate right hydroureteronephrosis and possibly the left side as well. TURP completed today and stent placed in the right. Left was difficult to visualized buth no hydro. 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 PSA 9.4. Discussed with urology. (4) Urinary retention: Code(s): R33.9 - Retention of urine, unspecified Status: Acute Assessment and Plan: As above. Mass was potentially obstructing both ureter openings and possibly the urethral opening as well. Dietz catheter in place. Flomax continued. Discussed with Urology. (5) Anemia in chronic kidney disease: Qualifiers: Chronic kidney disease stage: stage 3 (moderate) Qualified Code(s): N18.3 - Chronic kidney disease, stage 3 (moderate); D63.1 - Anemia in chronic kidney disease Code(s): N18.9 - Chronic kidney disease, unspecified; D63.1 - Anemia in chronic kidney disease Status: Chronic Assessment and Plan: Hemoglobin normally in the 11-12 range but dropped to 10.0 today. Mild chronic anemia felt related to CKD but now may drop further from the post-operative bleeding. Continue to monitor hemoglobin. (6) Essential (primary) hypertension: Code(s): I10 - Essential (primary) hypertension Status: Chronic Assessment and Plan: Blood pressure reviewed on 11/02/19. BP was reasonable this morning but more elevated now possibly related to pain. Losartan on hold due to renal failure. Continue amlodipine. (7) Leukocytosis: Qualifiers: Leukocytosis type: unspecified Qualified Code(s): D72.829 - Elevated white blood cell count, unspecified Code(s): D72.829 - Elevated white blood cell count, unspecified Status: Acute Assessment and Plan: WBC 15.4K on admission. Chest x-ray is clear. UA not consistent with UTI. Elevated white count probably related to above. Repeat WBC normal. Continue to follow. (8) Thrombocytopenia: Code(s): D69.6 - Thrombocytopenia, unspecified Status: Acute Assessment and Plan: Platelet count 128K on admission and has dropped to 83K today. Autoimmune? Consumptive? Doubt TTP. Spleen is normal. Reactionary to above? Will check plt Ab, LDH ect. Subjective Date/time seen: 11/02/19 16:32 Interval history: 83yo male here for dysuria and found to have
[2019-11-02] MEDS: MORPHINE SULFATE 2 MG/ML INJ IV PUSH (17:01)
[2019-11-02] MEDS: DOCUSATE SODIUM 100 MG CAPSULE PO (17:02)
[2019-11-02 20:03] LABS: Lactate Dehydrogenase 410 U/L (313-618)
[2019-11-02] MEDS: TAMSULOSIN HCL 0.4 MG CAPSULE PO (20:55)
[2019-11-02] MEDS: DEXTROSE 5%/LACTATED RINGERS 1,000 ML 125 ML IV CONT (20:56)
[2019-11-03] VITALS (7 sets, daily range): BP systolic 121–149; BP diastolic 44–55; PULSE 57–72; RESP 12–20; TEMP 36.9–37.7; O2SAT 97–99
[2019-11-03 04:49] LABS: Hematocrit 29.8 % (42.0-52.0); Hemoglobin 9.8 g/dL (14.0-18.0)
[2019-11-03 04:55] LABS: Blood Urea Nitrogen 21 mg/dL (9-20); Calcium 7.9 mg/dL (8.4-10.2); Carbon Dioxide 21 mmol/L (22-30); Chloride 105 mmol/L (98-107); Estimated CRCL calculation 46 ml/min; Estimated Glomerular Filt Rate 58; Glucose 145 mg/dL (75-110); Potassium 4.5 mmol/L (3.4-5.0); Sodium 131 mmol/L (137-145)
[2019-11-03] MEDS: DEXTROSE 5%/LACTATED RINGERS 1,000 ML 125 ML IV CONT (05:16)
--- NOTE | 2019-11-03 08:26 | WPDANESPN ---
Anes - Prog Note Post-Op Date/Time: 11/03/19 08:26 Cardiovascular status: normal Respiratory status: normal Airway patency: baseline Mental status: baseline Post-Op hydration status: normal Vital Signs: Last Vital Signs Temp 37.3 C 11/03/19 04:00 Pulse 72 11/03/19 08:00 Resp 12 11/03/19 04:00 BP 149/45 H 11/03/19 04:00 Pulse Ox 97 11/03/19 04:00 I/O: Intake & Output 11/02/19 11/03/19 11/03/19 23:59 07:59 15:59 Intake Total 300 1000 Output Total 850 1550 Balance -550 -550 Laboratory Tests 11/03/19 04:25 11/03/19 04:25 11/02/19 11/02/19 11/02/19 19:44 19:44 19:44 Hgb Hct [id number] Activity Pending [id number] Activity Intrp Pending Sodium Potassium Chloride Carbon Dioxide BUN Creatinine Estim Creat Clear Calc Estimated GFR Glucose Calcium Lactate Dehydrogenase 410 Vitamin B12 Direct Plt-Bound IgG Ab Heparin-induced Plt Ab Pending MAURO UFH Low Dose 0.1 Pending MAURO UFH Low Dose 0.5 Pending MAURO UFH High Dose 100 Pending MAURO Unfract Heparin Com Pending Hep-Induced Plt Ab Cmmt Pending LATON, Poly Interpret ALTON, Complement Interp 11/02/19 11/02/19 11/02/19 19:44 19:44 19:44 Hgb Hct [id number] Activity [id number] Activity Intrp Sodium Potassium Chloride Carbon Dioxide BUN Creatinine Estim Creat Clear Calc Estimated GFR Glucose Calcium Lactate Dehydrogenase Vitamin B12 254.0 Direct Plt-Bound IgG Ab Pending Heparin-induced Plt Ab MAURO UFH Low Dose 0.1 MAURO UFH Low Dose 0.5 MAURO UFH High Dose 100 MAURO Unfract Heparin Com Hep-Induced Plt Ab Cmmt ALTON, Poly Interpret Negative ALTON, Complement Interp Not Performed 11/03/19 11/03/19 04:25 04:25 Hgb 9.8 L Hct 29.8 L [id number] Activity [id number] Activity Intrp Sodium 131 L Potassium 4.5 Chloride 105 Carbon Dioxide 21 L BUN 21 H Creatinine 1.20 Estim Creat Clear Calc 46 Estimated GFR 58 L Glucose 145 H Calcium 7.9 L Lactate Dehydrogenase Vitamin B12 Direct Plt-Bound IgG Ab Heparin-induced Plt Ab MAURO UFH Low Dose 0.1 MAURO UFH Low Dose 0.5 MAURO UFH High Dose 100 MAURO Unfract Heparin Com Hep-Induced Plt Ab Cmmt ALTON, Poly Interpret ALTON, Complement Interp Post-procedural complaints: none Patient Feedback: Patient satisfied with anesthetic care.
[2019-11-03] MEDS: CEPHALEXIN 500 MG CAPSULE PO ×4 (08:41→21:25)
[2019-11-03] MEDS: DOCUSATE SODIUM 100 MG CAPSULE PO ×2 (08:41→17:26)
[2019-11-03] MEDS: AMLODIPINE BESYLATE 2.5 MG TABLET PO (08:42)
[2019-11-03 09:33] LABS: Hematocrit 29.3 % (42.0-52.0); Hemoglobin 9.7 g/dL (14.0-18.0); Immature Platelet Fraction Pct 4.1 % (0.9-11.2); Mean Corpuscular HGB Conc 33.1 g/dl (32-36); Mean Corpuscular Hemoglobin 33.2 pg (26-34); Mean Corpuscular Volume 100.3 fl (80-100); Mean Platelet Volume 10.8 fl (7.4-10.4); Platelet Count Result 77 k/mm3 (150-375); Red Blood Count 2.92 M/mm3 (4.6-6.20); Red Cell Distribution Width 13.6 % (11.5-14.5)
--- NOTE | 2019-11-03 09:33 | WPDUROPN2 ---
Progress Note: A&P Assessment and Plan (1) Obstructive uropathy: Code(s): N13.9 - Obstructive and reflux uropathy, unspecified Status: Acute (2) Urinary retention: Code(s): R33.9 - Retention of urine, unspecified Status: Acute (3) Acute on chronic renal failure: Qualifiers: Acute renal failure type: unspecified Chronic kidney disease stage: stage 3 (moderate) Qualified Code(s): N17.9 - Acute kidney failure, unspecified; N18.3 - Chronic kidney disease, stage 3 (moderate) Code(s): N17.9 - Acute kidney failure, unspecified; N18.9 - Chronic kidney disease, unspecified Status: Acute Assessment and Plan: Tolerated urological procedure yesterday well and renal function seems much improved with placement stent and catheter. Urine clear - will stop CBI today and entertain possible voiding trial in 1-2 days. Subjective Subjective Date/Time Seen: 11/03/19 09:33 POD #1 s/p TURP/right stent placement. Comfortable, no complaints. Review of Systems Cardiovascular: Cardiovascular: Denies chest pain, Denies lightheadedness, Denies palpitations and Denies dyspnea Respiratory: Respiratory: Denies dyspnea Gastrointestinal: Gastrointestinal: Denies diarrhea, Denies nausea and Denies vomiting Genitourinary: Genitourinary: Denies hematuria and Denies dysuria Endocrine: Endocrine: Denies palpitations Exam Const: General: no acute distress Resp: Effort & Inspection: normal respiratory effort GI: Inspection: non-distended GI Palp: No abdominal tenderness and No Guarding due to palpation present (GI) Auscultation: normal bowel sounds Objective Data Vital Signs Vital Signs: Vital Signs - 24 hr 11/02/19 11:16 11/02/19 14:10 11/02/19 14:20 Temperature 98.9 F 97.8 F Pulse Rate 65 74 62 Respiratory Rate 20 12 14 Blood Pressure 137/55 L 147/74 H 163/77 H Pulse Oximetry 98 100 96 11/02/19 14:38 11/02/19 14:41 11/02/19 14:56 Temperature Pulse Rate 63 63 60 Respiratory Rate 16 12 12 Blood Pressure 154/63 H 166/69 H 162/67 H Pulse Oximetry 98 96 98 11/02/19 15:11 11/02/19 15:20 11/02/19 17:00 Temperature 98 F Pulse Rate 59 L 58 L 56 L Respiratory Rate 17 14 18 Blood Pressure 156/56 H 166/64 H 150/58 H Pulse Oximetry 98 13 L 98 11/02/19 18:00 11/02/19 20:00 11/02/19 22:00 Temperature 98.8 F Pulse Rate 62 59 L 56 L Respiratory Rate 12 Blood Pressure 151/55 H Pulse Oximetry 99 11/03/19 00:00 11/03/19 04:00 11/03/19 08:00 Temperature 99.8 F H 99.1 F Pulse Rate 59 L 61 72 Respiratory Rate 14 12 Blood Pressure 138/55 L 149/45 H Pulse Oximetry 99 97 Intake/Output Intake/Output: Intake & Output 10/31/19 11/01/19 11/02/19 11/03/19 23:59 23:59 23:59 23:59 Intake Total 3570 3480 2630 1000 Output Total 1999 1625 4350 1550 Balance 1570 1855 -1720 -550 Meds/Results Medications: Active Medications Generic Name Dose Route Start Last Admin Trade Name Freq PRN Reason Stop Dose Admin Acetaminophen 650 mg 10/31/19 17:20 11/01/19 00:36 Tylenol Tablet PO 650 mg Q6H PRN Administration Mild Pain (1-3) or Fever Hydrocodone Bitart/Acetaminophen 1 tab 11/02/19 15:42 11/03/19 08:42 [place] 5-325 Mg PO 1 tab Q4H PRN Administration Pain Rated 4-6 Amlodipine Besylate 2.5 mg 11/01/19 09:00 11/03/19 08:42 Norvasc PO 2.5 mg QAM VIVEK Administration Cephalexin HCl 500 mg 11/03/19 09:00 11/03/19 08:41 Keflex Capsule PO 500 mg QID VIVEK Administration Docusate Sodium 100 mg 11/02/19 17:00 11/03/19 08:41 Colace Capsule PO 100 mg BID VIVEK Administration Hyoscyamine 0.125 mg 11/02/19 15:42 Levsin Tablet SUBLINGUAL Q6H PRN Bladder Spasm Dextrose/Lactated Ringer's 1,000 mls @ 125 mls/hr 11/02/19 15:42 11/03/19 05:16 Dextrose 5%/Lactated Ringers IV CONT 125 mls/hr .Q8H VIVEK Administration Morphine Sulfate 2 mg 11/02/19 15:42 11/02/19 17:01 Morphine S
--- NOTE | 2019-11-03 11:18 | PM.IMPN ---
Progress Note: A&P Assessment and Plan (1) Acute on chronic renal failure: Qualifiers: Acute renal failure type: unspecified Chronic kidney disease stage: stage 3 (moderate) Qualified Code(s): N17.9 - Acute kidney failure, unspecified; N18.3 - Chronic kidney disease, stage 3 (moderate) Code(s): N17.9 - Acute kidney failure, unspecified; N18.9 - Chronic kidney disease, unspecified Status: Acute Assessment and Plan: Patient's eGFR runs in the 40-50 range consistent with CKD stage 3. Creatinine 2.2 on admission and related to the obstructive uropathy +/- ATN. Renal function better today at 1.2. UOP unreliable due to the CBA. Continue Dietz catheter. Okay to stop IVF. Continue to monitor renal function and urine output. (2) Hyperkalemia: Code(s): E87.5 - Hyperkalemia Status: Acute Assessment and Plan: Potassium 6.6 on admission related to the obstructive process and KEE worsened by being on losartan. The patient received insulin, dextrose, albuterol and sodium bicarbonate in the ER. Potassium came down to 5.3 and Kayexalate given. Potasium today is 4.5 and stable. Will continue monitoring closely. Continue to hold Losartan (3) Bladder mass: Code(s): N32.89 - Other specified disorders of bladder Status: Acute Assessment and Plan: CT scan showing 6.1 x 5.7 cm mass on the right trigonal region of the bladder which appears most likely prostate cancer. This is obstructing the right ureter resulting in mild to moderate right hydroureteronephrosis and possibly the left side as well. TURP completed on 11/02/19 and stent placed in the right. Left was difficult to visualized but no hydro. Also concern for local invasion of the right seminal vesicle, adjacent fat and regional metastatic right internal iliac lymph node. Hematuria post-procedure but urine cleraing normally. CBI turned off this morning. Continue to monitor. PSA 9.4. Biopsy results pending. (4) Urinary retention: Code(s): R33.9 - Retention of urine, unspecified Status: Acute Assessment and Plan: As above. Mass was potentially obstructing both ureter openings and possibly the urethral opening as well. Dietz catheter in place. Flomax continued. (5) Anemia in chronic kidney disease: Qualifiers: Chronic kidney disease stage: stage 3 (moderate) Qualified Code(s): N18.3 - Chronic kidney disease, stage 3 (moderate); D63.1 - Anemia in chronic kidney disease Code(s): N18.9 - Chronic kidney disease, unspecified; D63.1 - Anemia in chronic kidney disease Status: Chronic Assessment and Plan: Hemoglobin normally in the 11-12 range but dropped to 9.8 today. Mild chronic anemia and family states he is followed by Dr Wagoner for this. Continue to monitor hemoglobin. (6) Essential (primary) hypertension: Code(s): I10 - Essential (primary) hypertension Status: Chronic Assessment and Plan: Blood pressure reviewed on 11/03/19. BP reasonable but elevated at times. Losartan on hold due to renal failure. Continue amlodipine. (7) Leukocytosis: Qualifiers: Leukocytosis type: unspecified Qualified Code(s): D72.829 - Elevated white blood cell count, unspecified Code(s): D72.829 - Elevated white blood cell count, unspecified Status: Acute Assessment and Plan: WBC 15.4K on admission. Chest x-ray is clear. UA not consistent with UTI. Elevated white count probably related to above. Repeat WBC remaining normal. Continue to follow. (8) Thrombocytopenia: Code(s): D69.6 - Thrombocytopenia, unspecified Status: Acute Assessment and Plan: Platelet count 128K on admission and has dropped to 77K today. Autoimmune? Consumptive? Doubt TTP. Spleen is normal on imaging. Reactionary to above? Autoimmune workup last year negative including TYLOR and Complements. Here, labs pending. B12 lev
[2019-11-03] MEDS: CYANOCOBALAMIN INJ 1,000 MCG/ML VIAL 1000 MCG IM (12:42)
[2019-11-03 12:46] LABS: Iron 43 ug/dL (49-181)
[2019-11-03 12:55] LABS: Percent Iron Saturation 21 % (20-50)
[2019-11-03] MEDS: AMINOCAPROIC ACID INJ 5,000 MG in DEXTROSE 5% IN WATER 250 ML 250 MG IVPB (13:12)
[2019-11-03] MEDS: AMINOCAPROIC ACID INJ 5,000 MG in DEXTROSE 5% IN WATER 250 ML 50 MG IVPB ×2 (14:14→19:47)
[2019-11-03] MEDS: TAMSULOSIN HCL 0.4 MG CAPSULE PO (21:25)
[2019-11-03] MEDS: FLUTICASONE PROPIONATE 0.05% NA SPR 16 GM BTL (*BKC) 1 SPRAY NASAL (22:28)
--- NOTE | 2019-11-04 03:10 | PC.NURSE ---
Daylight Savings Time For Daylight Savings Time Ending in the Fall - Clocks are moved back. For Daylight Savings Time Beginning in the Spring - Clocks are moved ahead. For [facility], the time of change occurs at 0200 hrs. Time is taken from the observer gravity prospecting. This entry on the patient's chart recognizes the change in time reflected during documentation. Example: 2 entries for vital signs may be charted for 0200 hrs.
[2019-11-04 05:03] LABS: Hematocrit 27.1 % (42.0-52.0); Mean Corpuscular HGB Conc 33.2 g/dl (32-36); Mean Corpuscular Hemoglobin 32.8 pg (26-34); Mean Corpuscular Volume 98.9 fl (80-100); Mean Platelet Volume 11.4 fl (7.4-10.4); Platelet Count Result 78 k/mm3 (150-375); Red Blood Count 2.74 M/mm3 (4.6-6.20); Red Cell Distribution Width 13.6 % (11.5-14.5); White Blood Count 8.2 K/mm3 (4.5-10.0)
[2019-11-04 05:25] LABS: Albumin Level 2.7 g/dL (3.5-5.1); Blood Urea Nitrogen 17 mg/dL (9-20); Calcium 7.8 mg/dL (8.4-10.2); Carbon Dioxide 21 mmol/L (22-30); Chloride 107 mmol/L (98-107); Estimated CRCL calculation 47 ml/min; Estimated Glomerular Filt Rate 58; Glucose 107 mg/dL (75-110); Phosphorus 2.9 mg/dL (2.5-4.5); Potassium 3.9 mmol/L (3.4-5.0); Sodium 131 mmol/L (137-145)
[2019-11-04 08:24] VITALS: BP 139/59; PULSE 68; RESP 20; TEMP 37.3; O2SAT 98
[2019-11-04] MEDS: CYANOCOBALAMIN 1,000 MCG TABLET 1000 MCG PO (10:12)
[2019-11-04] MEDS: DOCUSATE SODIUM 100 MG CAPSULE PO ×2 (10:12→16:53)
[2019-11-04] MEDS: AMLODIPINE BESYLATE 2.5 MG TABLET PO (10:12)
[2019-11-04] MEDS: CEPHALEXIN 500 MG CAPSULE PO ×4 (10:12→21:33)
--- NOTE | 2019-11-04 10:57 | WPDUROPN2 ---
Progress Note: A&P Assessment and Plan (1) Benign prostatic hyperplasia: Code(s): N40.0 - Benign prostatic hyperplasia without lower urinary tract symptoms Status: Acute (2) Obstructive uropathy: Code(s): N13.9 - Obstructive and reflux uropathy, unspecified Status: Acute Assessment and Plan: Urine remains clear. Creat. 1.2 this morning. Will defer voiding trial until pt. more ambulatory. Subjective Subjective Date/Time Seen: 11/04/19 10:57 Comfortable, urine clear. Review of Systems Cardiovascular: Cardiovascular: Denies chest pain, Denies lightheadedness, Denies palpitations and Denies dyspnea Respiratory: Respiratory: Denies dyspnea Gastrointestinal: Gastrointestinal: Denies diarrhea, Denies nausea and Denies vomiting Genitourinary: Genitourinary: Denies hematuria and Denies dysuria Endocrine: Endocrine: Denies palpitations Exam Const: General: no acute distress Resp: Effort & Inspection: normal respiratory effort GI: Inspection: non-distended GI Palp: No abdominal tenderness and No Guarding due to palpation present (GI) Auscultation: normal bowel sounds Urinary Catheter: Urinary Catheter: patent and draining and urine clear Objective Data Vital Signs Vital Signs: Vital Signs - 24 hr 11/03/19 12:00 11/03/19 16:00 11/03/19 19:29 Temperature 98.8 F 99.6 F 99.0 F Pulse Rate 64 65 63 Respiratory Rate 20 16 18 Blood Pressure 129/52 L 132/55 L 126/44 L Pulse Oximetry 99 98 97 11/03/19 23:59 11/04/19 08:24 Temperature 99.2 F 99.2 F Pulse Rate 64 68 Respiratory Rate 20 20 Blood Pressure 121/46 L 139/59 L Pulse Oximetry 98 98 Intake/Output Intake/Output: Intake & Output 11/01/19 11/02/19 11/03/19 11/05/19 23:59 23:59 23:59 00:59 Intake Total 3480 2630 1650 450 Output Total 1625 4350 1550 1175 Balance 1855 -1720 100 -725 Meds/Results Medications: Active Medications Generic Name Dose Route Start Last Admin Trade Name Freq PRN Reason Stop Dose Admin Acetaminophen 650 mg 10/31/19 17:20 11/01/19 00:36 Tylenol Tablet PO 650 mg Q6H PRN Administration Mild Pain (1-3) or Fever Hydrocodone Bitart/Acetaminophen 1 tab 11/02/19 15:42 11/03/19 22:39 [place] 5-325 Mg PO 1 tab Q4H PRN Administration Pain Rated 4-6 Amlodipine Besylate 2.5 mg 11/01/19 09:00 11/04/19 10:12 Norvasc PO 2.5 mg QAM VIVEK Administration Cephalexin HCl 500 mg 11/03/19 09:00 11/04/19 10:12 Keflex Capsule PO 500 mg QID [facility]IVEK Administration Cyanocobalamin 1,000 mcg 11/04/19 09:00 11/04/19 10:12 Vitamin B-12 Tab PO 1,000 mcg QAM [facility] Administration Docusate Sodium 100 mg 11/02/19 17:00 11/04/19 10:12 Colace Capsule PO 100 mg BID [facility] Administration Fluticasone Propionate 1 spray 11/03/19 21:45 11/04/19 10:13 Flonase 0.05% Nasal [place] NASAL Not Given Q12HR [facility] Hyoscyamine 0.125 mg 11/02/19 15:42 Levsin Tablet SUBLINGUAL Q6H PRN Bladder Spasm Morphine Sulfate 2 mg 11/02/19 15:42 11/02/19 17:01 Morphine Sulfate Inj IV PUSH 2 mg Q2H PRN Administration Pain Rated 7-10 Naloxone HCl 0.1 mg 11/02/19 15:42 Narcan IV PUSH Q2M PRN Opiate Reversal Ondansetron HCl 4 mg 11/02/19 15:42 Zofran Inj IV PUSH Q12H PRN Nausea And Vomiting Sodium Chloride 1 spray 11/03/19 15:09 [place] Nasal [place] NASAL Q6HR PRN Congestion Tamsulosin HCl 0.4 mg 10/31/19 21:00 11/03/19 21:25 Flomax PO 0.4 mg HS [facility] Administration Triamcinolone Acetonide 1 applic 10/31/19 09:00 11/04/19 10:12 Kenalog 0.1% Cream TOPICAL Not Given BID [facility] Radiology Results: ITS Impressions Chest X-Ray 10/31/19 07:45 IMPRESSION: 1. No acute cardiopulmonary disease. Abdomen X-Ray 10/31/19 07:47 IMPRESSION: 1. Just of right hydroureteronephrosis with no evident urolithiasis. Abdomen/Pelvis CT 10/31/19 07:49 IMPRESSION: 1. 6.1
[2019-11-04 16:00] VITALS: BP 137/52; PULSE 63; RESP 20; TEMP 37.3; O2SAT 100
--- NOTE | 2019-11-04 17:13 | PM.IMPN ---
Progress Note: A&P Assessment and Plan (1) Acute on chronic renal failure: Qualifiers: Acute renal failure type: unspecified Chronic kidney disease stage: stage 3 (moderate) Qualified Code(s): N17.9 - Acute kidney failure, unspecified; N18.3 - Chronic kidney disease, stage 3 (moderate) Code(s): N17.9 - Acute kidney failure, unspecified; N18.9 - Chronic kidney disease, unspecified Status: Acute Assessment and Plan: Patient's eGFR runs in the 40-50 range consistent with CKD stage 3. Creatinine 2.2 on admission and related to the obstructive uropathy +/- ATN. Renal function better today at 1.2. Continue Dietz catheter. Continue to monitor. Home if no further workup required. (2) Hyperkalemia: Code(s): E87.5 - Hyperkalemia Status: Acute Assessment and Plan: Potassium 6.6 on admission related to the obstructive process and KEE worsened by being on losartan. The patient received insulin, dextrose, albuterol and sodium bicarbonate in the ER. Potassium came down to 5.3 and Kayexalate given. Potasium today is 3.9 and stable. Will continue monitoring closely. Continue to hold Losartan (3) Bladder mass: Code(s): N32.89 - Other specified disorders of bladder Status: Acute Assessment and Plan: CT scan showing 6.1 x 5.7 cm mass on the right trigonal region of the bladder which appears most likely prostate cancer. PSA 9.4. This is obstructing the right ureter resulting in mild to moderate right hydroureteronephrosis and possibly the left side as well. TURP completed on 11/02/19 and stent placed in the right. Left was difficult to visualized but no hydro. Also concern for local invasion of the right seminal vesicle, adjacent fat and regional metastatic right internal iliac lymph node. Hematuria post-procedure but urine has now cleared. Continue to monitor. Biopsy results pending. (4) Urinary retention: Code(s): R33.9 - Retention of urine, unspecified Status: Acute Assessment and Plan: As above. Bladder mass was potentially obstructing both ureter openings and possibly the urethral opening as well. Dietz catheter in place. Flomax continued. (5) Anemia in chronic kidney disease: Qualifiers: Chronic kidney disease stage: stage 3 (moderate) Qualified Code(s): N18.3 - Chronic kidney disease, stage 3 (moderate); D63.1 - Anemia in chronic kidney disease Code(s): N18.9 - Chronic kidney disease, unspecified; D63.1 - Anemia in chronic kidney disease Status: Chronic Assessment and Plan: Hemoglobin normally in the 11-12 range but dropped to 9 range. Mild chronic anemia that he is followed by Dr Wagoner for this. There is also acute component with the recent procedure and gross hematuria. Continue to monitor hemoglobin. (6) Essential (primary) hypertension: Code(s): I10 - Essential (primary) hypertension Status: Chronic Assessment and Plan: Blood pressure reviewed on 11/04/19. BP well controlled. Losartan on hold due to renal failure. Continue amlodipine. (7) Leukocytosis: Qualifiers: Leukocytosis type: unspecified Qualified Code(s): D72.829 - Elevated white blood cell count, unspecified Code(s): D72.829 - Elevated white blood cell count, unspecified Status: Acute Assessment and Plan: WBC 15.4K on admission. Chest x-ray is clear. UA not consistent with UTI. Elevated white count probably related to above. Repeat WBC remaining normal. Continue to follow. (8) Thrombocytopenia: Code(s): D69.6 - Thrombocytopenia, unspecified Status: Acute Assessment and Plan: Platelet count 128K on admission and dropped to 77K yesterday. Platelet count today is relatively unchanged. Autoimmune? Consumptive? Doubt TTP. Spleen is normal on imaging. Reactionary to above? Autoimmune workup last year was negative including TYLOR and Complements. H
--- NOTE | 2019-11-04 19:52 | CONS_ITS ---
DATE OF CONSULTATION: 11/04/2019 REASON FOR CONSULTATION: Bleeding diastasis and thrombocytopenia. HISTORY OF PRESENTING ILLNESS: This is an 83-year-old pleasant male, who had been seeing me for history of anemia and last seen in 2018. The patient also has a history of elevated ferritin likely secondary to reactive process. He came into the hospital with complaints of lower pelvic discomfort. He was also dealing with dysuria over the last 3 days as well as increased urinary frequency and retention. He finished course of antibiotic therapy for UTI. He was followed up by Dr. Jerome for his prostate issues. He was brought into the hospital with the above complaint and found to be in acute renal failure along with hyperkalemia. CT abdomen and pelvis was performed on October 30, that showed 6.1 x 5.7 cm mass in the right trigonal region of the bladder could represent prostate cancer or bladder cancer as well as obstruction of distal ureter with moderate right hydroureteronephrosis. There was likely invasion of the right seminal vesicle and likely metastatic right inguinal lymphadenopathy. On November 01, patient had cystoscopy with transurethral resection of the prostate as well as right ureteral stent placement. He developed hematuria in the Dietz catheter. He was started on CBI. Labs showed platelet count of 77,000. PT and PTT were normal. I started him on Amicar to control the hematuria. Now, his urine looks yellow, but no further hematuria. Pathology report is pending. REVIEW OF SYSTEMS: 12-point review of system was reviewed and as per HPI, otherwise negative. PAST MEDICAL HISTORY: Anemia of chronic kidney disease, anxiety, benign prostatic hyperplasia, chronic kidney stage 4 disease, essential hypertension, hyperparathyroidism, obstructive sleep apnea, status post ORIF of left arm. PAST SURGICAL HISTORY: Status post ORIF, varicose vein ligation. SOCIAL HISTORY: The patient denies any history of smoking and drinking. The patient is . HOME MEDICATIONS: Reviewed. ALLERGIES: REVIEWED. PHYSICAL EXAMINATION: GENERAL: This patient is a well-developed, well-nourished male, in no apparent distress. Alert and oriented. VITAL SIGNS: Per nursing note. HEENT: Normocephalic, atraumatic. Clear oropharynx. LUNGS: Clear to auscultation bilaterally. CARDIOVASCULAR: Regular rate and rhythm. No murmurs. ABDOMEN: Soft, nontender, nondistended. Bowel sounds are positive in all 4 quadrants. No hepatosplenomegaly. EXTREMITIES: No edema. NEUROLOGIC: Grossly intact. LABORATORY DATA: WBC 8.2, hemoglobin 9.0, MCV 98, platelets 78,000, neutrophils 77%, lymphocytes 11%, reticulocyte count 4.1, INR 1.2, PTT 27. Creatinine 1.2, iron 43, iron saturation 21%, ferritin 630, vitamin B12 250, LDH 410, PSA 9.4. ASSESSMENT AND PLAN: 1. Thrombocytopenia, unclear etiology. I ordered the platelet antibodies unlikely a HIT. Abdominal CT showed no evidence of splenomegaly. We will continue to monitor. No need for bone marrow biopsy at this time. 2. Bleeding diathesis. The patient was having hematuria after the transurethral resection of the prostate done. Amicar was given with clearing of the hematuria. The patient will continue the CBI. Likely discharge home in the morning. 3. Likely prostate cancer. The patient is status post cystoscopy and TURP with right ureteral stent placement. Pathology is pending. CT scan showed a 6.1 x 5.7 cm mass of the right trigonal region of the bladder could represent either prostate or bladder cancer with invasion into the right seminal vesicle and metastatic right inguinal lymphadenopathy. PSA was elevated at 9.4. The patient will follow up with me in the office. For the confirmation of the diagnosis, we will order t
[2019-11-04] MEDS: FLUTICASONE PROPIONATE 0.05% NA SPR 16 GM BTL (*BKC) 1 SPRAY NASAL (21:33)
[2019-11-04] MEDS: TAMSULOSIN HCL 0.4 MG CAPSULE PO (21:33)
[2019-11-05 04:09] VITALS: BP 121/49; PULSE 60; RESP 18; TEMP 36.7; O2SAT 98
[2019-11-05 05:23] LABS: Basophils Percent Auto 0.1 % (0.2-1.2); Eosinophils Absolute Auto 0.3 K/mm3 (0-0.3); Eosinophils Percent Auto 4.4 % (0-4.4); Hematocrit 27.4 % (42.0-52.0); Hemoglobin 9.3 g/dL (14.0-18.0); Immature Granulocyte Absolute 0.03 K/mm3 (0.00-0.031); Immature Granulocyte Percent A 0.4 % (0-0.5); Lymphocytes Absolute Auto 1.01 K/mm3 (0.9-3.2); Lymphocytes Percent Auto 14.5 % (18.3-44.2); Mean Corpuscular HGB Conc 33.9 g/dl (32-36); Mean Corpuscular Hemoglobin 33.6 pg (26-34); Mean Corpuscular Volume 98.9 fl (80-100); Mean Platelet Volume 11.1 fl (7.4-10.4); Monocytes Absolute Auto 0.6 K/mm3 (0.1-0.6); Neutrophils Percent Auto 71.6 % (45.5-73.1); Platelet Count Result 90 k/mm3 (150-375); Red Blood Count 2.77 M/mm3 (4.6-6.20); Red Cell Distribution Width 13.3 % (11.5-14.5)
[2019-11-05 05:45] LABS: Blood Urea Nitrogen 16 mg/dL (9-20); Carbon Dioxide 22 mmol/L (22-30); Chloride 107 mmol/L (98-107); Estimated CRCL calculation 51 ml/min; Estimated Glomerular Filt Rate > 60; Glucose 102 mg/dL (75-110); Sodium 133 mmol/L (137-145)
--- NOTE | 2019-11-05 07:49 | WPDUROPN2 ---
Progress Note: A&P Assessment and Plan (1) Obstructive uropathy: Code(s): N13.9 - Obstructive and reflux uropathy, unspecified Status: Acute (2) Urinary retention: Code(s): R33.9 - Retention of urine, unspecified Status: Acute Assessment and Plan: Urine remains clear off CBI. Voiding trial today. Subjective Subjective Date/Time Seen: 11/05/19 07:49 Comfortable, urine remains clear. Review of Systems Cardiovascular: Cardiovascular: Denies chest pain, Denies lightheadedness, Denies palpitations and Denies dyspnea Respiratory: Respiratory: Denies dyspnea Gastrointestinal: Gastrointestinal: Denies diarrhea, Denies nausea and Denies vomiting Genitourinary: Genitourinary: Denies hematuria and Denies dysuria Endocrine: Endocrine: Denies palpitations Exam Const: General: no acute distress Resp: Effort & Inspection: normal respiratory effort GI: Inspection: non-distended GI Palp: No abdominal tenderness and No Guarding due to palpation present (GI) Auscultation: normal bowel sounds Objective Data Vital Signs Vital Signs: Vital Signs - 24 hr 11/04/19 08:24 11/04/19 16:00 11/05/19 04:09 Temperature 99.2 F 99.1 F 98.1 F Pulse Rate 68 63 60 Respiratory Rate 20 20 18 Blood Pressure 139/59 L 137/52 L 121/49 L Pulse Oximetry 98 100 98 Intake/Output Intake/Output: Intake & Output 11/02/19 11/03/19 11/04/19 11/05/19 22:59 22:59 23:59 23:59 Intake Total 1260 Output Total 1600 Balance -340 Meds/Results Medications: Active Medications Generic Name Dose Route Start Last Admin Trade Name Freq PRN Reason Stop Dose Admin Acetaminophen 650 mg 10/31/19 17:20 11/01/19 00:36 Tylenol Tablet PO 650 mg Q6H PRN Administration Mild Pain (1-3) or Fever Hydrocodone Bitart/Acetaminophen 1 tab 11/02/19 15:42 11/03/19 22:39 [place] 5-325 Mg PO 1 tab Q4H PRN Administration Pain Rated 4-6 Amlodipine Besylate 2.5 mg 11/01/19 09:00 11/04/19 10:12 Norvasc PO 2.5 mg QAM [facility]IVEK Administration Cephalexin HCl 500 mg 11/03/19 09:00 11/04/19 21:33 Keflex Capsule PO 500 mg QID [facility] Administration Cyanocobalamin 1,000 mcg 11/04/19 09:00 11/04/19 10:12 Vitamin B-12 Tab PO 1,000 mcg QAM [facility] Administration Docusate Sodium 100 mg 11/02/19 17:00 11/04/19 16:53 Colace Capsule PO 100 mg BID [facility] Administration Fluticasone Propionate 1 spray 11/03/19 21:45 11/04/19 21:33 Flonase 0.05% Nasal [place] NASAL 1 spray Q12HR [facility] Administration Hyoscyamine 0.125 mg 11/02/19 15:42 Levsin Tablet SUBLINGUAL Q6H PRN Bladder Spasm Morphine Sulfate 2 mg 11/02/19 15:42 11/02/19 17:01 Morphine Sulfate Inj IV PUSH 2 mg Q2H PRN Administration Pain Rated 7-10 Naloxone HCl 0.1 mg 11/02/19 15:42 Narcan IV PUSH Q2M PRN Opiate Reversal Ondansetron HCl 4 mg 11/02/19 15:42 Zofran Inj IV PUSH Q12H PRN Nausea And Vomiting Sodium Chloride 1 spray 11/03/19 15:09 [place] Nasal [place] NASAL Q6HR PRN Congestion Tamsulosin HCl 0.4 mg 10/31/19 21:00 11/04/19 21:33 Flomax PO 0.4 mg HS [facility] Administration Triamcinolone Acetonide 1 applic 10/31/19 09:00 11/04/19 16:52 Kenalog 0.1% Cream TOPICAL Not Given BID [facility] Radiology Results: ITS Impressions Chest X-Ray 10/31/19 07:45 IMPRESSION: 1. No acute cardiopulmonary disease. Abdomen X-Ray 10/31/19 07:47 IMPRESSION: 1. Just of right hydroureteronephrosis with no evident urolithiasis. Abdomen/Pelvis CT 10/31/19 07:49 IMPRESSION: 1. 6.1 x 5.7 cm mass on the right trigonal region of the bladder which could represent either prostate cancer of bladder cancer and which obstructs the distal right ureter results in mild to moderate right hydroureteronephrosis. Likely local invasion of the right seminal vesicle and adjacent fat and likely regional metastatic right internal il
[2019-11-05 07:54] VITALS: BP 129/66; PULSE 64; RESP 20; TEMP 37; O2SAT 99
[2019-11-05] MEDS: CYANOCOBALAMIN 1,000 MCG TABLET 1000 MCG PO (09:52)
[2019-11-05] MEDS: AMLODIPINE BESYLATE 2.5 MG TABLET PO (09:52)
[2019-11-05] MEDS: CEPHALEXIN 500 MG CAPSULE PO ×3 (09:52→17:37)
[2019-11-05] MEDS: DOCUSATE SODIUM 100 MG CAPSULE PO ×2 (09:53→17:37)
[2019-11-05] MEDS: FLUTICASONE PROPIONATE 0.05% NA SPR 16 GM BTL (*BKC) 1 SPRAY NASAL (09:53)
[2019-11-05 10:11] VITALS: O2SAT 100
--- NOTE | 2019-11-05 14:27 | PM.DS ---
DS: Diagnosis Admitting Diagnosis Admitting Diagnosis: Hyperkalemia Discharge Diagnosis (1) Acute on chronic renal failure: Qualifiers: Acute renal failure type: unspecified Chronic kidney disease stage: stage 3 (moderate) Qualified Code(s): N17.9 - Acute kidney failure, unspecified; N18.3 - Chronic kidney disease, stage 3 (moderate) Code(s): N17.9 - Acute kidney failure, unspecified; N18.9 - Chronic kidney disease, unspecified Status: Acute Assessment and Plan: Patient's eGFR runs in the 40-50 range consistent with CKD stage 3. Creatinine 2.2 on admission and related to the obstructive uropathy +/- ATN. Renal function better today at 1.1 with eGFR>60. Dietz catheter removed. Repeat lab work as outpatient (2) Hyperkalemia: Code(s): E87.5 - Hyperkalemia Status: Acute Assessment and Plan: Potassium 6.6 on admission related to the obstructive process and KEE worsened by being on losartan. The patient received insulin, dextrose, albuterol and sodium bicarbonate in the ER. Potassium came down to 5.3 and Kayexalate given. Potasium today is 4 and stable. WContinue to hold Losartan (3) Bladder mass: Code(s): N32.89 - Other specified disorders of bladder Status: Acute Assessment and Plan: CT scan showing 6.1 x 5.7 cm mass on the right trigonal region of the bladder which appears most likely prostate cancer. PSA 9.4. This is obstructing the right ureter resulting in mild to moderate right hydroureteronephrosis and possibly obstructing the left side as well but no left sided hydro noted. TURP completed on 11/02/19 and stent placed in the right. Left was difficult to visualized. Also concern for local invasion of the right seminal vesicle, adjacent fat and regional metastatic right internal iliac lymph node. Hematuria post-procedure but urine has now cleared with CBI. Biopsy results pending. Dietz removed and patient voiding normally. (4) Urinary retention: Code(s): R33.9 - Retention of urine, unspecified Status: Acute Assessment and Plan: As above. Bladder mass was potentially obstructing both ureter openings and possibly the urethral opening as well. s/p TURP now. Dietz catheter removed. Home Flomax continued. (5) Anemia in chronic kidney disease: Qualifiers: Chronic kidney disease stage: stage 3 (moderate) Qualified Code(s): N18.3 - Chronic kidney disease, stage 3 (moderate); D63.1 - Anemia in chronic kidney disease Code(s): N18.9 - Chronic kidney disease, unspecified; D63.1 - Anemia in chronic kidney disease Status: Chronic Assessment and Plan: Hemoglobin normally in the 11-12 range but dropped to 9 range. Mild chronic anemia that he sees Dr Wagoner for this. There is also acute component with the recent procedure and gross hematuria. Hemoglobin low but stable in the 9 range. (6) Essential (primary) hypertension: Code(s): I10 - Essential (primary) hypertension Status: Chronic Assessment and Plan: Blood pressure monitored closely. BP remained well controlled. Losartan on hold due to renal failure. Amlodipine added. (7) Leukocytosis: Qualifiers: Leukocytosis type: unspecified Qualified Code(s): D72.829 - Elevated white blood cell count, unspecified Code(s): D72.829 - Elevated white blood cell count, unspecified Status: Acute Assessment and Plan: WBC 15.4K on admission. Chest x-ray is clear. UA not consistent with UTI. Elevated white count probably related to above. Repeat WBC remaining normal. (8) Thrombocytopenia: Code(s): D69.6 - Thrombocytopenia, unspecified Status: Acute Assessment and Plan: Platelet count 128K on admission and dropped to 77K. Platelet count slowly climbed to 90K at time of discharge. Etiology unclear. B12 level 254 and this was replaced. Dr. Wagoner was consulted. DS: Sandhya
[2019-11-05 16:00] VITALS: BP 135/66; PULSE 77; RESP 14; TEMP 36.5; O2SAT 100
[2019-11-05] MEDS: polyethylene glycoL 3350 17 GM POWD.PACK PO (17:37)
[2019-11-06 10:45] LABS: ADAMTS-13 Activity 82 % Activity (68-163)
[2019-11-06 13:31] LABS: Heparin Induced Platelet Antib Negative (Negative)
[2019-11-06 14:44] LABS: UFH SRA Result Interpretation Negative (Negative)
[2019-11-08 02:01] LABS: Platelet Antibody, Direct IgG NEGATIVE (NEGATIVE)
--- NOTE | 2019-11-14 12:38 | PC.NURSE ---
Plt Ab direct IgG- negative ADAMT- 81 Hep Induced Ab- negative MAURO- negative Prostate Adenocarcinoma Faxed to . Dr. Quintana aware
== END 2019-11-05 17:20 | disposition home or self-care (01) | DRG 713 ==
LOC: ANHED 23:15 → ANHIMU 10-31 01:49
PROVIDERS: Internal Medicine Hematology & Oncology; Urology; Admitting Provider Family Medicine; Emergency Provider General Practice; PCP Internal Medicine; Visit Provider Internal Medicine
PROC: 0VT08ZZ Resection of Prostate, Via Natural or Artificial Opening Endoscopic (ICD-10-PCS; CPT 52352; principal; 2019-11-02 11:30)
PROC: 0VT08ZZ Resection of Prostate, Via Natural or Artificial Opening Endoscopic (ICD-10-PCS; CPT 52601; 2019-11-02 11:30)
DX: C61 Malignant neoplasm of prostate (principal); N17.0 Acute kidney failure with tubular necrosis; C77.4 Secondary and unspecified malignant neoplasm of inguinal and lower limb lymph nodes; N18.4 Chronic kidney disease, stage 4 (severe); N13.1 Hydronephrosis with ureteral stricture, not elsewhere classified; T46.5X5A Adverse effect of other antihypertensive drugs, initial encounter; I12.9 Hypertensive chronic kidney disease with stage 1 through stage 4 chronic kidney disease, or unspecified chronic kidney disease; E87.5 Hyperkalemia; N40.1 Benign prostatic hyperplasia with lower urinary tract symptoms; R33.9 Retention of urine, unspecified; N13.9 Obstructive and reflux uropathy, unspecified; D63.1 Anemia in chronic kidney disease; D72.829 Elevated white blood cell count, unspecified; D69.6 Thrombocytopenia, unspecified; F41.8 Other specified anxiety disorders; E21.3 Hyperparathyroidism, unspecified; G47.33 Obstructive sleep apnea (adult) (pediatric)
CPT/HCPCS: 36415; 51703; 71046; 74018; 74176; 74420; 76775; 80048; 80053; 80069; 81001; 82607; 82728; 83540; 83550; 83615; 84132; 84153; 85014; 85018; 85025; 85027; 85055; 85397; 85610; 85730; 86022; 86023; 86880; 87804; 88305; 88342; 93005; 94640; 96365; 96375; 99291; A9270; C1758; C1769; C2617; J0131; J0610; J0690; J1815; J2270; J2704; J3010; J3420; J7030; J7060; J7120; J7121; Q9966; Q9968

== ENCOUNTER 2019-11-12 09:59 | Inpatient (IN) | payer MEDICARE, SELFPAY ==
[2019-11-12] VITALS (15 sets, daily range): BP systolic 92–152; BP diastolic 46–65; PULSE 78–106; RESP 11–25; TEMP 36.8–39.1; O2SAT 94–100; BMI 30.6
--- NOTE | ~2019-11-12 | CT_ITS ---
EXAMINATION: CT abdomen pelvis wo con DATE: 11/12/2019 12:23 INDICATION: Blocked stent TECHNIQUE: Computed tomography (CT) of the abdomen and pelvis was performed without intravenous contr ast. Automated exposure control and iterative reconstruction technique were employed. Exam dose: 747 .20 mGy-cm total exam DLP. COMPARISON: 10/2019 CT abdomen pelvis FINDINGS: Again noted is abnormal soft tissue thickening of the right trigone of the urinary bladder, extending along the bladder wall and into the supra right seminal vesicle and prostate gland. This m ay be a primary prostate or primary bladder malignancy. There is an internal stent on the right, the distal pigtail situated in the right posterolateral superior aspect of the urinary bladder, the proxi mal pigtail in the right renal pelvis. There is mild diminished right hydroureteronephrosis compared to 10/31/2019. There is right greater than left perinephric stranding. Stable pelvic lymphadenopathy. The lung bases are clear of infiltrate or consolidation. Borderline heart size. No pericardial or ple ural effusion. The liver, gallbladder, bile ducts, spleen, pancreas and adrenal glands are unremarkable. No renal ma ss lesion is evident. There is atherosclerotic calcification of the abdominal aorta and prominent calcification at the orig in of the left renal artery. Diverticulosis of left and right colon; no CT evidence of diverticulitis. Normal appendix. No bowel obstruction or intraperitoneal free air. No suspicious osteolytic or osteoblastic lesions are noted. Degenerative changes of the thoracic and lumbar spine. IMPRESSION: Right internal urinary stent Again noted is either primary prostate or bladder malignancy with abnormal soft tissue density at the superior posterolateral aspect of the right urinary bladder, bladder trigone, extending into the rig ht seminal vesicle and prostate gland. Diminished hydroureteronephrosis of right kidney since 10/31/2019 Reviewed, dictated and finalized at [facility]. Reviewed, dictated and finalized at [facility]. IMPRESSION: Right internal urinary stent Again noted is either primary prostate or bladder malignancy with abnormal soft tissue density at the superior posterolateral aspect of the right urinary blad haley, bladder trigone, extending into the right seminal vesicle and prostate gla nd. Diminished hydroureteronephrosis of right kidney since 10/31/2019
--- NOTE | 2019-11-12 10:26 | ED.FEVER ---
HPI - Fever General Chief Complaint: Fever Stated Complaint: weakness,vomiting Time Seen by Provider: 11/12/19 10:26 Source: patient and family () Mode of arrival: ambulatory Limitations: no limitations History of Present Illness HPI Narrative: An 83 y/o male presents to the ED with c/o a fever and generalized weakness for a few days. Per , pt had surgery on his prostate on 11/01/[address] Norton because his prostate was invading his bladder and he had a stent placed because his kidney was not draining into his bladder. Pt has been experiencing decreased appetite since the surgery and he has lost weight. Pt had a couple episodes of N/V this morning. Pt has difficulty walking due to his generalized weakness and he keeps running into things. Pt takes a stool softener and notes that he had a BM yesterday. He denies constipation, hematuria, and any current pain in the ED bed. Onset (ago): day(s) (few) Context: recent procedure Related Data Home Medications Medication Instructions Recorded Confirmed tamsulosin 0.4 mg PO HS 08/10/19 10/31/19 Allergies Allergy/AdvReac Type Severity Reaction Status Date / Time lisinopril Allergy Intermediate Rash Verified 11/12/19 10:28 aspartame Allergy Unknown HIVE Verified 11/12/19 10:28 Review of Systems Review of Systems: All systems reviewed & are unremarkable except as noted in HPI and below Constitutional: Constitutional: Reports fever(s) Comments: Reports: generalized weakness, decreased appetite, weight loss; Denies: any current pain in the ED bed Gastrointestinal: Gastrointestinal: Denies constipation, Reports nausea and Reports vomiting Genitourinary: Genitourinary: Denies hematuria [facility] Past Medical History Medical History Anemia in chronic kidney disease Anxiety with depression Benign prostatic hyperplasia BPPV (benign paroxysmal positional vertigo) Chronic idiopathic urticaria Chronic kidney disease, stage 4 (severe) Elbow fracture, right Essential (primary) hypertension Hyperparathyroidism 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 Lovell Exam Const: General: no acute distress and alert Orientation/consciousness: patient oriented x3 HENMT: Head: normal to inspection Eyes: Conjunctivae: conjunctivae normal Pupils: Equal, round and reactive pupils present Neck: Neck: normal visual inspection Chest: Chest palpation & inspection: normal inspection of the chest Resp: Effort & Inspection: normal respiratory effort Auscultation: clear to auscultation bilaterally Cardio: Rate: regular rate Rhythm: regular rhythm GI: GI Palp: Yes Soft to palpation Back/Spine/Pelvis: Back: no CVA tenderness Skin: General skin exam: normal color Rashes: no rashes Neuro: General: patient oriented x3, moves all extremities, no meningeal signs and CN's II-XI intact bilaterally Course Course Emergency Course: informed pt and family about his lab and CT scan , will admit to the hospital will start on IV Zosyn and consult Dr Adan norton Consultations Consultation #1: Discussed case with Dr. Antoine and accepted admission. Date: 11/12/19 Time: 12:39 Vital Signs Vital signs: Vital Signs Pulse Rate 95 11/12/19 10:12 Respiratory Rate 11 L 11/12/19 10:12 Blood Pressure 138/59 L 11/12/19 10:12 Temperature 38.6 C H 11/12/19
[2019-11-12] MEDS: SODIUM CHLORIDE 0.9% IV 1,000 ML 150 ML IV CONT (10:41)
[2019-11-12] MEDS: ONDANSETRON INJ 4 MG/2 ML VIAL IV PUSH ×2 (10:41→16:38)
[2019-11-12 10:49] LABS: Basophils Percent Auto 0.1 % (0.2-1.2); Eosinophils Percent Auto 0.1 % (0-4.4); Hematocrit 28.7 % (42.0-52.0); Hemoglobin 9.7 g/dL (14.0-18.0); Immature Granulocyte Absolute 0.18 K/mm3 (0.00-0.031); Immature Granulocyte Percent A 1.2 % (0-0.5); Lymphocytes Percent Auto 4.7 % (18.3-44.2); Mean Corpuscular HGB Conc 33.8 g/dl (32-36); Mean Corpuscular Volume 97.6 fl (80-100); Mean Platelet Volume 10.7 fl (7.4-10.4); Monocytes Absolute Auto 1.1 K/mm3 (0.1-0.6); Monocytes Percent Auto 7.4 % (2.6-8.5); Neutrophils Absolute Auto 12.8 K/mm3 (1.3-6.7); Neutrophils Percent Auto 86.5 % (45.5-73.1); Platelet Count Result 206 k/mm3 (150-375); Red Blood Count 2.94 M/mm3 (4.6-6.20); Red Cell Distribution Width 13.5 % (11.5-14.5); White Blood Count 14.8 K/mm3 (4.5-10.0)
[2019-11-12 11:00] LABS: Alanine Aminotransferase 13 U/L (4-50); Albumin Level 3.4 g/dL (3.5-5.1); Alkaline Phosphatase 86 U/L (38-126); Aspartate Amino Transferase 18 U/L (17-59); Bilirubin,Total 0.6 mg/dL (0.2-1.3); Blood Urea Nitrogen 19 mg/dL (9-20); Calcium 8.2 mg/dL (8.4-10.2); Carbon Dioxide 21 mmol/L (22-30); Chloride 100 mmol/L (98-107); Estimated Glomerular Filt Rate 41; Glucose 181 mg/dL (75-110); Lactic Acid Reflex 1.3 mmol/L (0.7-2.1); Potassium 3.9 mmol/L (3.4-5.0); Sodium 130 mmol/L (137-145)
[2019-11-12 11:06] LABS: Add Urine Microscopic? YES; Appearance Urine Cloudy (Clear); Bacteria Urine Trace /hpf; Bilirubin Urine Negative (Negative); Blood Urine 2+ (Negative); Color Urine Yellow (Yellow); Glucose Urine UA Negative (Negative); Ketones Urine Trace mg/dL (Negative); Leukocyte Esterase Ur 3+ LEU/UL (Negative); Mucus Urine Few /lpf; Nitrate Urine Negative (Negative); Protein Urine 3+ mg/dL (Negative); RBC Urine >75 /hpf (0-2); Specific Grav Ur 1.013 (1.001-1.035); Squamous Epithelial Cell Urine Rare /hpf (Few); Urobilinogen Urine Negative mg/dL (<2.0); WBC Urine >75 /hpf
[2019-11-12 11:19] LABS: Lipase < 10 U/L (23-300)
--- NOTE | 2019-11-12 11:34 | ECG_ITS ---
Measurements Intervals [place] Rate: 82 P: 8 MD: 172 QRS: -17 QRSD: 97 T: 61 QT: 328 QTc: 384 Interpretive Statements SINUS RHYTHM NONSPECIFIC T-WAVE ABNORMALITY- ANTEROLAT/LAT LEADS BASELINE ARTIFACT- V3 BORDERLINE ECG Electronically Signed On 11-12-2019 12:20:04 CDT by John Torres D.O.
--- NOTE | 2019-11-12 12:59 | WPDURCON ---
Assessment and Plan Assessment and plan (1) Obstructive uropathy: Code(s): N13.9 - Obstructive and reflux uropathy, unspecified Status: Acute Assessment and Plan: Right ureteral stent in correct position, hydro is resolving. No Left sided hydronephrosis. No further surgical evaluation at this time. (2) Prostate cancer: Code(s): C61 - Malignant neoplasm of prostate Status: Acute Assessment and Plan: Patient was informed that his biopsy did come back positive for prostate cancer and that he will be starting hormone therapy in the office once he is well with Dr. Jerome. (3) Leukocytosis: Qualifiers: Leukocytosis type: unspecified Qualified Code(s): D72.829 - Elevated white blood cell count, unspecified Code(s): D72.829 - Elevated white blood cell count, unspecified Status: Acute Assessment and Plan: Urine culture pending, continue IV antibiotics and tailor to culture results. No further evaluation needed at this time. Urology Consult Note HPI Date Seen: 11/12/19 Primary Care Provider: Michele Lovell DO Consult Narrative Narrative: Dayron Arreaga is a 83 year old male who presented to the ER today with acute onset of vomiting , fever, chills, decreased appetite and increased weakness/fatigue. He is s/p TURP on 11/02/[address] Jerome. His WBC is 14.8, creatinine is 1.60, UA is suspcious for a UTI, urine culture is pending. A repeat CT scan shows right stent is in place and right hydronephrosis is improved, as well as no change in the malignant prostate protruding into the bladder. He denies hematuria, dysuria, abdominal pain or flank pain. He does state that he has RLQ irritation with urination from his stent but it goes away as soon as he stops urinating. He was informed that his prostate biopsy did come back showing prostate cancer with a [place] score of 10. Review of Systems Respiratory: Respiratory: Reports no additional respiratory complaints Gastrointestinal: Gastrointestinal: Reports abdominal pain, Denies nausea and Reports vomiting Genitourinary: Genitourinary: Denies hematuria, Denies dysuria, Denies flank pain and Denies urinary urgency PMFSH Past Medical History Medical History Anemia in chronic kidney disease Anxiety with depression Benign prostatic hyperplasia BPPV (benign paroxysmal positional vertigo) Chronic idiopathic urticaria Chronic kidney disease, stage 4 (severe) Elbow fracture, right Essential (primary) hypertension Hyperparathyroidism 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 Obesity IGOR (obstructive sleep apnea) S/P ORIF (open reduction internal fixation) fracture left arm Surgical History Surgical History H/O varicose vein ligation History of orthopedic surgery left arm reconstruction, right elbow surgery Social History Social History Smoking status: Never smoker Alcohol intake: never Substance use: never Gender identity (if verbalized by the patient): Female Agree to blood products: Yes Meds Home Medications and Allergies Home Medications Medication Instructions Recorded Confirmed Type compr.stocking,knee,long,large #2 each 08/10/19 11/02/19 Rx tamsulosin 0.4 mg PO HS 08/10/19 10/31/19 History losartan 50 mg tablet 50 mg PO DAILY #30 tablet 10/26/19 10/31/19 Rx amlodipine 2.5 mg PO QAM #30 tablet 11/05/19 Rx cyanocobalamin (vitamin B-12) 1,000 mcg PO QAM #30 tablet 11/05/19 Rx [Vitamin B-12] docusate sodium 100 mg PO BID #60 cap 11/05/19 Rx fluticasone propionate 1 spray INTRANASAL Q12HR #9.9 ml 11/05/19 Rx sodium chloride [Saline Mist] 1 spray INTRANASAL Q6HR PRN #15 ml 11/05/19 Rx Allergies Allergy/AdvReac Type Severity Reaction Status Date / Time lisinopril Allergy Intermed
--- NOTE | 2019-11-12 15:40 | ADMGEN ---
This patient, Dayron Arreaga, was admitted to [facility] Surg Room 302-01. Patient/family oriented to hospital policies and general routines including ID bracelet, bed and alarms, visiting hours, pain management, procedures, bathroom and other care routines, personal items, smoking policy, room service/diet, and visiting hours. Valuables list has been completed. Information on how to activate the Rapid Response Team has been discussed. Patient/Family are encouraged to report perceived risks to care and to ask questions if they do not understand what they are told or what they should do.
[2019-11-12] MEDS: SODIUM CHLORIDE 0.9% IV 1,000 ML 125 ML IV CONT (16:37)
--- NOTE | 2019-11-12 20:30 | PC.NURSE ---
notified of pt's vs:99.3,92,20,96/46,95(RA). MD also made aware that pt had received ABT in ER without any blood cultures being drawn prior to administration. (Pt also made aware). asked if pt requires cardiac monitoring- states that this is not necessary but that he is going to order an IV fluid bolus. 5(RA)
[2019-11-12] MEDS: SODIUM CHLORIDE 0.9% IV 500 ML 999 ML IV CONT ×2 (21:10→23:17)
[2019-11-12 21:14] LABS: Lactic Acid Reflex 1.2 mmol/L (0.7-2.1)
--- NOTE | 2019-11-12 23:39 | PM.IMHP ---
H&P: HPI History of Present Illness Chief complaint: weakness,vomiting Narrative: This is a pleasant 83 year old male with known history of BPH, CKD stage IV, and HTN who presented to the hospital today with a complaint of generalized weakness, vomiting, and not feeling well for the past few days. The patient states that he felt very nauseated and has had intermittent fevers. He just recently had a TURP on 11/02/[address] Jerome. He denies any chest pain or shortness of breath but has had an intermittent dry cough. The patient was just diagnosed with prostate cancer. He was evaluated in the ER today and found to be septic with an elevated WBC of 14,800, tachycardic and hypotensive. Urinalysis was grossly abnormal. The patient was admitted to our service for further care and IV antibiotics were started. On my encounter with the patient he denies any other symptoms at this time although he does seem somewhat confused. 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 Meds Home Medications and Allergies Home Medications Medication Instructions Recorded Confirmed Type compr.stocking,knee,long,large #2 each 08/10/19 11/12/19 Rx tamsulosin [Flomax] 0.4 mg PO HS 08/10/19 11/12/19 History cyanocobalamin (vitamin B-12) 1,000 mcg PO QAM #30 tablet 11/05/19 11/12/19 Rx [Vitamin B-12] amlodipine [Norvasc] 2.5 mg PO QAM 11/12/19 11/12/19 History bupropion HCl 150 mg PO QAM 11/12/19 11/12/19 History docusate sodium [Colace] 100 mg PO QAM 11/12/19 11/12/19 History fluticasone propionate [Flonase 1 spray INTRANASAL Q12HR PRN 11/12/19 11/12/19 History Allergy Relief] paroxetine HCl 40 mg PO QPM 11/12/19 11/12/19 History Allergies Allergy/AdvReac Type Severity Reaction Status Date / Time lisinopril Allergy Intermediate Rash Verified 11/12/19 10:28 aspartame Allergy Unknown HIVE Verified 11/12/19 10:28 Vital Signs Vital Signs - 24 hr 11/12/19 10:12 11/12/19 10:15 11/12/19 10:16 Temperature Pulse Rate 95 82 83 Respiratory Rate 11 L 14 13 Blood Pressure 138/59 L 128/51 L Pulse Oximetry 99 98 11/12/19 10:23 11/12/19 10:31 11/12/19 10:46 Temperature 38.6 C H Pulse Rate 83 80 106 H Respiratory Rate 14 12 22 H Blood Pressure 125/52 L 124/49 L 97/47 L Pulse Oximetry 100 98 11/12/19 11:01 11/12/19 11:16 11/12/19 14:39 Temperature Pulse Rate 89 88 104 H Respiratory Rate 25 H 24 H 16 Blood Pressure 120/47 L 119/46 L 130/65 Pulse Oximetry 94 11/12/19 14:45 11/12/19 17:38 11/12/19 18:08 Temperature 39.1 C H 39.1 C H 36.8 C Pulse Rate 105 H Respiratory Rate 18 Blood Pressure 152/52 H Pulse Oximetry 95 11/12/19 18:49 11/12/19 19:55 11/12/19 22:00 Temperature 36.8 C 37.4 C 37.1 C Pulse Rate 92 78 Respirat
[2019-11-13] MEDS: SODIUM CHLORIDE 0.9% IV 1,000 ML 125 ML IV CONT ×2 (01:38→11:14)
[2019-11-13 05:15] VITALS: TEMP 38.5
[2019-11-13] MEDS: ONDANSETRON INJ 4 MG/2 ML VIAL IV PUSH (05:15)
[2019-11-13] MEDS: ACETAMINOPHEN 325 MG TABLET 650 MG PO (05:15)
[2019-11-13 05:55] LABS: Basophils Percent Auto 0.2 % (0.2-1.2); Hematocrit 25.6 % (42.0-52.0); Hemoglobin 8.5 g/dL (14.0-18.0); Immature Granulocyte Percent A 1.6 % (0-0.5); Lymphocytes Absolute Auto 0.55 K/mm3 (0.9-3.2); Lymphocytes Percent Auto 4.5 % (18.3-44.2); Mean Corpuscular HGB Conc 33.2 g/dl (32-36); Mean Corpuscular Hemoglobin 33.2 pg (26-34); Mean Platelet Volume 10.1 fl (7.4-10.4); Monocytes Absolute Auto 0.9 K/mm3 (0.1-0.6); Monocytes Percent Auto 7.3 % (2.6-8.5); Neutrophils Absolute Auto 10.6 K/mm3 (1.3-6.7); Neutrophils Percent Auto 86.4 % (45.5-73.1); Platelet Count Result 147 k/mm3 (150-375); Red Blood Count 2.56 M/mm3 (4.6-6.20); Red Cell Distribution Width 13.7 % (11.5-14.5); White Blood Count 12.3 K/mm3 (4.5-10.0)
[2019-11-13 06:00] VITALS: BP 115/47; PULSE 91; RESP 20; TEMP 38.5; O2SAT 96
[2019-11-13 06:04] LABS: Hemoglobin A1C 6.1 % (<5.7)
[2019-11-13 06:09] LABS: Blood Urea Nitrogen 20 mg/dL (9-20); Calcium 7.1 mg/dL (8.4-10.2); Carbon Dioxide 22 mmol/L (22-30); Chloride 105 mmol/L (98-107); Estimated CRCL calculation 32 ml/min; Estimated Glomerular Filt Rate 39; Glucose 127 mg/dL (75-110); Potassium 3.7 mmol/L (3.4-5.0); Sodium 130 mmol/L (137-145)
[2019-11-13 06:15] VITALS: TEMP 37.1
[2019-11-13] MEDS: CYANOCOBALAMIN 1,000 MCG TABLET 1000 MCG PO (09:36)
--- NOTE | 2019-11-13 10:59 | PM.IMPN ---
Progress Note: A&P Assessment and Plan (1) Sepsis: Qualifiers: Acute renal failure type: unspecified Sepsis acute organ dysfunction status: with acute organ dysfunction Sepsis type: sepsis due to unspecified organism Severe sepsis acute organ dysfunction type: acute renal failure Severe sepsis shock status: without septic shock Qualified Code(s): A41.9 - Sepsis, unspecified organism; R65.20 - Severe sepsis without septic shock; N17.9 - Acute kidney failure, unspecified <Maryannanton Martines PA-C - Last Filed: 11/13/19 17:21> Code(s): A41.9 - Sepsis, unspecified organism <Maryann Robles Martines PA-C - Last Filed: 11/13/19 17:21> Status: Acute <Maryann Robles Martines PA-C - Last Filed: 11/13/19 17:21> Assessment and Plan: Patient previously met SIRS criteria with fever, tachycardia, and leukocytosis. Today, WBC decreased to 12.2, heart rate and respiratory rate stable. Temperature 98.7F. Source of infection likely due to urinary tract infection. Blood pressure still low at 115/47. Lactic within normal limits at 1.2. - Continue IV normal saline - Continue IV Zosyn - Continue to monitor vitals - Consider central line placement with vasopressors if hypotension becomes refractory to IV fluids. <Maryann Martines PA-C - Last Filed: 11/13/19 17:21> (2) UTI (urinary tract infection): Qualifiers: Hematuria presence: without hematuria Urinary tract infection type: site unspecified Qualified Code(s): N39.0 - Urinary tract infection, site not specified <Maryannanton Martines PA-C - Last Filed: 11/13/19 17:21> Code(s): N39.0 - Urinary tract infection, site not specified <Maryannanton Martines PA-C - Last Filed: 11/13/19 17:21> Status: Acute <Maryannanton Martines PA-C - Last Filed: 11/13/19 17:21> Assessment and Plan: Urinalysis revealed 3+ leuk esterase and >75 WBC. Urine culture pending - Continue IV Zosyn. Await results of urine culture. Tailor antibiotics based on culture and sensitivity. - Continue IV fluids - Patient currently has condom catheter in place but indication is unclear. Will await urology recommendations and d/c catheter as appropriate. <Maryann Martines PA-C - Last Filed: 11/13/19 17:21> (3) Prostate cancer: Code(s): C61 - Malignant neoplasm of prostate <Maryann Martines PA-C - Last Filed: 11/13/19 17:21> Status: Acute <Maryann Martines PA-C - Last Filed: 11/13/19 17:21> Assessment and Plan: Patient informed of positive malignancy of prostate. - Will begin hormone therapy with Dr. Jerome as an outpatient. <Maryann Martines PA-C - Last Filed: 11/13/19 17:21> (4) Obstructive uropathy: Code(s): N13.9 - Obstructive and reflux uropathy, unspecified <Maryann Martines PA-C - Last Filed: 11/13/19 17:21> Status: Acute <Maryann Martines PA-C - Last Filed: 11/13/19 17:21> Assessment and Plan: Patient is s/p placement of right ureteral stent on 11/02/2019. Previously with right hydronephrosis which appears to be resolving. - Continue to monitor. Urology recommendations are appreciated. <Maryann Martines PA-C - Last Filed: 11/13/19 17:21> (5) Acute on chronic renal failure: Qualifiers: Acute renal failure type: unspecified Chronic kidney disease stage: stage 4 (severe) Qualified Code(s): N17.9 - Acute kidney failure, unspecified; N18.4 - Chronic kidney disease, stage 4 (severe) <Maryann Martines PA-C - Last Filed: 11/13/19 17:21> Code(s): N17.9 - Acute kidney failure, unspecified; N18.9 - Chronic kidney disease, unspecified <Maryann Martines PA-C - Last Filed: 11/13/19 17:21> Status: Acute <Maryann Martines PA-C - Last Filed: 11/13/19 17:21> Assessment and Plan: Creatinine at admission was 1.6. Creatinine 1.7 today. May be pre-renal and will continue IV fluids. However, may be
--- NOTE | 2019-11-13 11:03 | WPDUROPN2 ---
Progress Note: A&P Assessment and Plan (1) Prostate cancer: Code(s): C61 - Malignant neoplasm of prostate Status: Acute Assessment and Plan: Will need to initiate outpatient hormonal therapy. Can follow up once discharged. (2) Obstructive uropathy: Code(s): N13.9 - Obstructive and reflux uropathy, unspecified Status: Acute Assessment and Plan: Unclear as to the need for condom catheter. Will have to check postvoid residual. Subjective Subjective Date/Time Seen: 11/13/19 11:03 Principal diagnosis: Leukocytosis, adenocarcinoma of the prostate. Weakness Interval history: Dayron is feeling slightly better today. He currently has a condom catheter on. Not exactly sure why he needs a catheter. will need to address that. Review of Systems Review of Systems: All systems reviewed & are unremarkable except as noted in HPI and below Exam HENMT: General nose exam: Normal nares present GI: Inspection: non-distended Objective Data Vital Signs Vital Signs: Vital Signs - 24 hr 11/12/19 11:16 11/12/19 14:39 11/12/19 14:45 Temperature 39.1 C H Pulse Rate 88 104 H 105 H Respiratory Rate 24 H 16 18 Blood Pressure 119/46 L 130/65 152/52 H Pulse Oximetry 94 95 11/12/19 17:38 11/12/19 18:08 11/12/19 18:49 Temperature 39.1 C H 36.8 C 36.8 C Pulse Rate Respiratory Rate Blood Pressure Pulse Oximetry 11/12/19 19:55 11/12/19 22:00 11/13/19 05:15 Temperature 37.4 C 37.1 C 38.5 C H Pulse Rate 92 78 Respiratory Rate 20 20 Blood Pressure 96/46 L 92/46 L Pulse Oximetry 95 96 11/13/19 06:00 11/13/19 06:15 Temperature 38.5 C H 37.1 C Pulse Rate 91 Respiratory Rate 20 Blood Pressure 115/47 L Pulse Oximetry 96 Intake/Output Intake/Output: Intake & Output 11/10/19 11/11/19 11/12/19 11/13/19 23:59 23:59 23:59 23:59 Intake Total 1880 1600 Output Total 500 500 Balance 1380 1100 Meds/Results Medications: Active Medications Generic Name Dose Route Start Last Admin Trade Name Freq PRN Reason Stop Dose Admin Acetaminophen 650 mg 11/12/19 13:07 11/13/19 05:15 Tylenol Tablet PO 650 mg Q4H PRN Administration Mild Pain (1-3) or Fever Cyanocobalamin 1,000 mcg 11/13/19 09:00 11/13/19 09:36 Vitamin B-12 Tab PO 1,000 mcg QAM VIVEK Administration Fluticasone Propionate 1 spray 11/12/19 23:08 Flonase 0.05% Nasal [place] NASAL Q12HR PRN Allergic Symptoms Sodium Chloride 1,000 mls @ 125 mls/hr 11/12/19 13:10 11/13/19 05:16 Normal Saline Iv IV CONT Not Given .Q8H VIVEK Acetaminophen 1,000 mg in 100 mls @ 400 mls/hr 11/12/19 17:16 11/12/19 17:53 Ofirmev 1,000 Mg Ivpb IVPB 11/13/19 17:17 Infused Q6H PRN Infusion Fever Piperacillin/Tazobactam/Dextrose 3.375 gm in 50 mls @ 100 mls/hr 11/12/19 18:45 11/13/19 05:45 Zosyn 3.375 Gm/D5w 50ml Pm IVPB Infused Q6HR VIVEK Infusion Ondansetron HCl 4 mg 11/12/19 13:07 11/13/19 05:15 Zofran Inj IV PUSH 4 mg Q4H PRN Administration Nausea Paroxetine HCl 40 mg 11/13/19 18:00 Paxil PO QPM [facility] Radiology Results: ITS Impressions Abdomen/Pelvis CT 11/12/19 12:24 IMPRESSION: Right internal urinary stent Again noted is either primary prostate or bladder malignancy with abnormal soft tissue density at the superior posterolateral aspect of the right urinary bladder, bladder trigone, extending into the right seminal vesicle and prostate gland. Diminished hydroureteronephrosis of right kidney since 10/31/2019 Labs Labs: Laboratory Results - last 24 hr 11/12/19 11/12/19 11/12/19 10:40 10:49 20:55 WBC RBC Hgb Hct MCV MCH MCHC RDW Plt Count MPV Immature Gran % (Auto) Neut % (Auto) Lymph % (Auto) [place] % (Auto) Eos % (Auto) Baso % (Auto) Lymph # (Auto) [place] # (Auto) Eos # (Auto) Baso # (Auto) Abs Immat Gran (auto) [place]
[2019-11-13 14:00] VITALS: BP 125/49; PULSE 91; RESP 16; TEMP 37.9; O2SAT 97
[2019-11-13] MEDS: PAROXETINE 20 MG TABLET 40 MG PO (17:48)
[2019-11-13] MEDS: SODIUM CHLORIDE 0.9% IV 1,000 ML 90 ML IV CONT (20:47)
[2019-11-13 22:00] VITALS: BP 135/54; PULSE 78; RESP 16; TEMP 38.3; O2SAT 98
[2019-11-14 06:00] VITALS: BP 127/53; PULSE 69; RESP 16; TEMP 37.1; O2SAT 98
[2019-11-14] MEDS: CYANOCOBALAMIN 1,000 MCG TABLET 1000 MCG PO (08:59)
[2019-11-14] MEDS: SODIUM CHLORIDE 0.9% IV 1,000 ML 90 ML IV CONT (09:00)
[2019-11-14 09:09] LABS: Basophils Percent Auto 0.2 % (0.2-1.2); Eosinophils Absolute Auto 0.2 K/mm3 (0-0.3); Hematocrit 25.8 % (42.0-52.0); Hemoglobin 8.7 g/dL (14.0-18.0); Immature Granulocyte Absolute 0.16 K/mm3 (0.00-0.031); Immature Granulocyte Percent A 1.7 % (0-0.5); Lymphocytes Absolute Auto 0.63 K/mm3 (0.9-3.2); Lymphocytes Percent Auto 6.6 % (18.3-44.2); Mean Corpuscular HGB Conc 33.7 g/dl (32-36); Mean Corpuscular Hemoglobin 33.5 pg (26-34); Mean Corpuscular Volume 99.2 fl (80-100); Mean Platelet Volume 10.6 fl (7.4-10.4); Neutrophils Absolute Auto 7.6 K/mm3 (1.3-6.7); Neutrophils Percent Auto 79.5 % (45.5-73.1); Platelet Count Result 147 k/mm3 (150-375); Red Cell Distribution Width 13.5 % (11.5-14.5); White Blood Count 9.6 K/mm3 (4.5-10.0)
[2019-11-14 09:22] LABS: Alanine Aminotransferase 19 U/L (4-50); Albumin Level 2.7 g/dL (3.5-5.1); Alkaline Phosphatase 82 U/L (38-126); Aspartate Amino Transferase 28 U/L (17-59); Bilirubin,Total 0.3 mg/dL (0.2-1.3); Blood Urea Nitrogen 23 mg/dL (9-20); Calcium 7.4 mg/dL (8.4-10.2); Carbon Dioxide 20 mmol/L (22-30); Chloride 104 mmol/L (98-107); Estimated CRCL calculation 36 ml/min; Estimated Glomerular Filt Rate 45; Glucose 98 mg/dL (75-110); Potassium 3.8 mmol/L (3.4-5.0); Sodium 130 mmol/L (137-145)
--- NOTE | 2019-11-14 12:09 | PM.IMPN ---
Progress Note: A&P Assessment and Plan (1) Sepsis: Qualifiers: Acute renal failure type: unspecified Sepsis acute organ dysfunction status: with acute organ dysfunction Sepsis type: sepsis due to unspecified organism Severe sepsis acute organ dysfunction type: acute renal failure Severe sepsis shock status: without septic shock Qualified Code(s): A41.9 - Sepsis, unspecified organism; R65.20 - Severe sepsis without septic shock; N17.9 - Acute kidney failure, unspecified <Maryannanton Martines PA-C - Last Filed: 11/14/19 14:18> Code(s): A41.9 - Sepsis, unspecified organism <Maryann Robles Martines, PA-C - Last Filed: 11/14/19 14:18> Status: Acute <Maryann Robles Martines PA-C - Last Filed: 11/14/19 14:18> Assessment and Plan: Patient previously met SIRS criteria with fever, tachycardia, and leukocytosis. Today, WBC decreased to 9.6, heart rate and respiratory rate stable. Temperature 98.7F. Source of infection likely due to urinary tract infection. Blood pressure stable at 127/53. Lactic within normal limits at 1.2. - Continue IV normal saline - Stop IV Zosyn - Continue IV Vancomycin - Continue to monitor vitals <Maryann Martines PA-C - Last Filed: 11/14/19 14:18> (2) UTI (urinary tract infection): Qualifiers: Hematuria presence: without hematuria Urinary tract infection type: site unspecified Qualified Code(s): N39.0 - Urinary tract infection, site not specified <Maryannanton Martines PA-C - Last Filed: 11/14/19 14:18> Code(s): N39.0 - Urinary tract infection, site not specified <Maryann Robles Martines, PA-C - Last Filed: 11/14/19 14:18> Status: Acute <Maryannanton Martines PA-C - Last Filed: 11/14/19 14:18> Assessment and Plan: Urinalysis revealed 3+ leuk esterase and >75 WBC. Urine culture reveals >100,000 CFU Enterococcus with susceptibility to Vancomycin. - Discontinue IV Zosyn. - Continue IV Vancomycin. Monitor trough and renal function. - Continue IV fluids - Patient currently has condom catheter due to difficulty of use with urinal. Will await urology recommendations and d/c catheter as appropriate. <Maryann BarahonaAdan Martines PA-C - Last Filed: 11/14/19 14:18> (3) Prostate cancer: Code(s): C61 - Malignant neoplasm of prostate <Maryann JunAdan Martines, PA-C - Last Filed: 11/14/19 14:18> Status: Acute <Maryann JAdan Ermelindajason, PA-C - Last Filed: 11/14/19 14:18> Assessment and Plan: Patient informed of positive malignancy of prostate. - Will begin hormone therapy with Dr. Jerome as an outpatient. <Maryann Martines PA-C - Last Filed: 11/14/19 14:18> (4) Obstructive uropathy: Code(s): N13.9 - Obstructive and reflux uropathy, unspecified <Maryann JAdan Martines, PA-C - Last Filed: 11/14/19 14:18> Status: Acute <Maryann JAdan Stimjason, PA-C - Last Filed: 11/14/19 14:18> Assessment and Plan: Patient is s/p placement of right ureteral stent on 11/02/2019. Previously with right hydronephrosis which appears to be resolving. - Will continue to monitor <Maryann JAdan Martines PA-C - Last Filed: 11/14/19 14:18> (5) Acute on chronic renal failure: Qualifiers: Acute renal failure type: unspecified Chronic kidney disease stage: stage 4 (severe) Qualified Code(s): N17.9 - Acute kidney failure, unspecified; N18.4 - Chronic kidney disease, stage 4 (severe) <Maryann JAdan Martines, PA-C - Last Filed: 11/14/19 14:18> Code(s): N17.9 - Acute kidney failure, unspecified; N18.9 - Chronic kidney disease, unspecified <Maryann J. Conrad, PA-C - Last Filed: 11/14/19 14:18> Status: Acute <Maryann JAdan Stimac, PA-C - Last Filed: 11/14/19 14:18> Assessment and Plan: Creatinine at admission was 1.6. Creatinine 1.5 today. Baseline Cr appears to be 1.1. - Continue IV fluids watching closely for fluid overload. - Avoid nephrotoxic agents - Continue to m
[2019-11-14 14:00] VITALS: BP 124/54; PULSE 72; RESP 16; TEMP 36.6; O2SAT 98
[2019-11-14] MEDS: SODIUM CHLORIDE 0.9% IV 1,000 ML 100 ML IV CONT (19:33)
[2019-11-14] MEDS: ACETAMINOPHEN 325 MG TABLET 650 MG PO (19:34)
[2019-11-14] MEDS: ONDANSETRON INJ 4 MG/2 ML VIAL IV PUSH (19:34)
[2019-11-14] MEDS: TAMSULOSIN HCL 0.4 MG CAPSULE PO (19:47)
[2019-11-14 22:00] VITALS: BP 134/58; PULSE 70; RESP 16; TEMP 37.2; O2SAT 99
[2019-11-15 06:00] VITALS: BP 131/56; PULSE 75; RESP 16; TEMP 37.1; O2SAT 98
[2019-11-15 06:17] LABS: Basophils Percent Auto 0.2 % (0.2-1.2); Eosinophils Absolute Auto 0.4 K/mm3 (0-0.3); Eosinophils Percent Auto 4.2 % (0-4.4); Hematocrit 27.4 % (42.0-52.0); Immature Granulocyte Absolute 0.15 K/mm3 (0.00-0.031); Immature Granulocyte Percent A 1.7 % (0-0.5); Lymphocytes Absolute Auto 0.59 K/mm3 (0.9-3.2); Lymphocytes Percent Auto 6.8 % (18.3-44.2); Mean Corpuscular HGB Conc 32.8 g/dl (32-36); Mean Corpuscular Hemoglobin 32.7 pg (26-34); Mean Corpuscular Volume 99.6 fl (80-100); Mean Platelet Volume 10.3 fl (7.4-10.4); Monocytes Absolute Auto 0.9 K/mm3 (0.1-0.6); Monocytes Percent Auto 10.7 % (2.6-8.5); Neutrophils Absolute Auto 6.6 K/mm3 (1.3-6.7); Neutrophils Percent Auto 76.4 % (45.5-73.1); Platelet Count Result 163 k/mm3 (150-375); Red Blood Count 2.75 M/mm3 (4.6-6.20); Red Cell Distribution Width 13.6 % (11.5-14.5); White Blood Count 8.6 K/mm3 (4.5-10.0)
[2019-11-15 06:28] LABS: Alanine Aminotransferase 42 U/L (4-50); Albumin Level 2.7 g/dL (3.5-5.1); Alkaline Phosphatase 114 U/L (38-126); Aspartate Amino Transferase 56 U/L (17-59); Bilirubin,Total 0.3 mg/dL (0.2-1.3); Blood Urea Nitrogen 23 mg/dL (9-20); Calcium 7.5 mg/dL (8.4-10.2); Carbon Dioxide 20 mmol/L (22-30); Chloride 106 mmol/L (98-107); Estimated CRCL calculation 42 ml/min; Estimated Glomerular Filt Rate 53; Glucose 93 mg/dL (75-110); Potassium 4.1 mmol/L (3.4-5.0); Sodium 132 mmol/L (137-145)
[2019-11-15] MEDS: SODIUM CHLORIDE 0.9% IV 1,000 ML 100 ML IV CONT (07:22)
[2019-11-15] MEDS: buPROPion HCL XL (24 HR) 150 MG TABCR PO (08:28)
[2019-11-15] MEDS: DOCUSATE SODIUM 100 MG CAPSULE PO (08:28)
[2019-11-15] MEDS: CYANOCOBALAMIN 1,000 MCG TABLET 1000 MCG PO (08:28)
--- NOTE | 2019-11-15 11:07 | PM.IMPN ---
Progress Note: A&P Assessment and Plan (1) Sepsis: Qualifiers: Acute renal failure type: unspecified Sepsis acute organ dysfunction status: with acute organ dysfunction Sepsis type: sepsis due to unspecified organism Severe sepsis acute organ dysfunction type: acute renal failure Severe sepsis shock status: without septic shock Qualified Code(s): A41.9 - Sepsis, unspecified organism; R65.20 - Severe sepsis without septic shock; N17.9 - Acute kidney failure, unspecified <Maryann BarahonaAdan Martines PA-C - Last Filed: 11/15/19 17:29> Code(s): A41.9 - Sepsis, unspecified organism <Maryannanton Wadsworthjason, PA-C - Last Filed: 11/15/19 17:29> Status: Acute <Maryannanton Wadsworthjason, PA-C - Last Filed: 11/15/19 17:29> Assessment and Plan: Patient previously met SIRS criteria with fever, tachycardia, and leukocytosis. Today, WBC decreased to 8.6, heart rate and respiratory rate stable. Temperature 98.8F and afebrile since 11/12. Source of infection likely due to urinary tract infection. Blood pressure stable at 127/53. Lactic within normal limits at 1.2. Blood cultures NGTD. Treated with IV Zosyn 11/11-11/12. - Stop IV normal saline - Continue IV Vancomycin - Continue to monitor vitals <Maryann BarahonaAdan Martiens PA-C - Last Filed: 11/15/19 17:29> (2) UTI (urinary tract infection): Qualifiers: Hematuria presence: without hematuria Urinary tract infection type: site unspecified Qualified Code(s): N39.0 - Urinary tract infection, site not specified <Maryann JAdan Ermelindajason, PA-C - Last Filed: 11/15/19 17:29> Code(s): N39.0 - Urinary tract infection, site not specified <Maryann JAdan Martines, PA-C - Last Filed: 11/15/19 17:29> Status: Acute <Maryann JunAdan Ermelindajason, PA-C - Last Filed: 11/15/19 17:29> Assessment and Plan: Urinalysis revealed 3+ leuk esterase and >75 WBC. Urine culture reveals >100,000 CFU Enterococcus with susceptibility to Vancomycin. - Continue IV Vancomycin. Monitor trough and renal function. - Stop IV fluids - Discontinue external catheter. Patient able to ambulate or use urinal. Continue to monitor for urinary symptoms. <Maryann Martines PA-C - Last Filed: 11/15/19 17:29> (3) Prostate cancer: Code(s): C61 - Malignant neoplasm of prostate <Maryann Martines PA-C - Last Filed: 11/15/19 17:29> Status: Acute <Maryann Robles Martines PA-C - Last Filed: 11/15/19 17:29> Assessment and Plan: Patient informed of positive malignancy of prostate. - Will begin hormone therapy with Dr. Jerome as an outpatient. <Maryann Martines PA-C - Last Filed: 11/15/19 17:29> (4) Obstructive uropathy: Code(s): N13.9 - Obstructive and reflux uropathy, unspecified <Maryannanton Martines PA-C - Last Filed: 11/15/19 17:29> Status: Acute <Maryannanton Martines PA-C - Last Filed: 11/15/19 17:29> Assessment and Plan: Patient is s/p placement of right ureteral stent on 11/02/2019. Previously with right hydronephrosis which appears to be resolving. - Will continue to monitor <Maryann Martines PA-C - Last Filed: 11/15/19 17:29> (5) Acute on chronic renal failure: Qualifiers: Acute renal failure type: unspecified Chronic kidney disease stage: stage 4 (severe) Qualified Code(s): N17.9 - Acute kidney failure, unspecified; N18.4 - Chronic kidney disease, stage 4 (severe) <Maryannanton Martines PA-C - Last Filed: 11/15/19 17:29> Code(s): N17.9 - Acute kidney failure, unspecified; N18.9 - Chronic kidney disease, unspecified <Maryann JAdan Martines PA-C - Last Filed: 11/15/19 17:29> Status: Acute <Maryann JAdan Martines PA-C - Last Filed: 11/15/19 17:29> Assessment and Plan: Creatinine at admission was 1.6. Creatinine 1.3 today. Baseline Cr appears to be 1.1. - Discontinue IV fluids - Avoid nephrotoxic agents - Continue to monitor kidney function <Maryann
[2019-11-15 14:00] VITALS: BP 121/55; PULSE 69; RESP 18; TEMP 37.3; O2SAT 100
[2019-11-15] MEDS: PAROXETINE 20 MG TABLET 40 MG PO (16:52)
[2019-11-15] MEDS: BISACODYL 10 MG SUPPOSITORY RECTAL (16:57)
[2019-11-15] MEDS: TAMSULOSIN HCL 0.4 MG CAPSULE PO (21:25)
[2019-11-15] MEDS: MIRTAZAPINE 15 MG TABLET PO (21:25)
[2019-11-15 22:00] VITALS: BP 148/55; PULSE 83; RESP 16; TEMP 36.9; O2SAT 97
[2019-11-16 06:00] VITALS: BP 134/58; PULSE 95; RESP 18; TEMP 37; O2SAT 97
[2019-11-16 06:16] LABS: Hematocrit 27.4 % (42.0-52.0); Hemoglobin 9.1 g/dL (14.0-18.0); Mean Corpuscular HGB Conc 33.2 g/dl (32-36); Mean Corpuscular Hemoglobin 32.4 pg (26-34); Mean Corpuscular Volume 97.5 fl (80-100); Mean Platelet Volume 11.2 fl (7.4-10.4); Platelet Count Result 202 k/mm3 (150-375); Red Blood Count 2.81 M/mm3 (4.6-6.20); Red Cell Distribution Width 13.9 % (11.5-14.5); White Blood Count 8.4 K/mm3 (4.5-10.0)
[2019-11-16 06:28] LABS: Blood Urea Nitrogen 21 mg/dL (9-20); Calcium 7.9 mg/dL (8.4-10.2); Carbon Dioxide 23 mmol/L (22-30); Chloride 103 mmol/L (98-107); Estimated CRCL calculation 42 ml/min; Estimated Glomerular Filt Rate 53; Glucose 95 mg/dL (75-110); Potassium 4.4 mmol/L (3.4-5.0); Sodium 131 mmol/L (137-145)
--- NOTE | 2019-11-16 08:24 | PCOTNOTE ---
Attempted to see patient this am, however patient declined at this time. Pt reported ordering breakfast and stated, I'd like to lay here until it comes.
[2019-11-16] MEDS: buPROPion HCL XL (24 HR) 150 MG TABCR PO (09:05)
[2019-11-16] MEDS: CYANOCOBALAMIN 1,000 MCG TABLET 1000 MCG PO (09:05)
[2019-11-16] MEDS: DOCUSATE SODIUM 100 MG CAPSULE PO (09:05)
--- NOTE | 2019-11-16 10:30 | P.CDI_ITS ---
CDI Query Clarification Request -UTI documented -Urine culture growing >100,000 enterococcus -There is documentation that patient has an indwelling right ureteral stent since 11/01 Please clarify if the UTI is: * Due to indwelling right ureteral stent * Not due to indwelling stent * Unable to determine if due to indwelling stent or not
--- NOTE | 2019-11-16 10:30 | WPDCDIQUERY2 ---
CDI Query Clarification Request -UTI documented -Urine culture growing >100,000 enterococcus -There is documentation that patient has an indwelling right ureteral stent since 11/01 Please clarify if the UTI is: Due to indwelling right ureteral stent Not due to indwelling stent Unable to determine if due to indwelling stent or not
--- NOTE | 2019-11-16 12:22 | PM.IMPN ---
Progress Note: A&P Assessment and Plan (1) Sepsis: Qualifiers: Acute renal failure type: unspecified Sepsis acute organ dysfunction status: with acute organ dysfunction Sepsis type: sepsis due to unspecified organism Severe sepsis acute organ dysfunction type: acute renal failure Severe sepsis shock status: without septic shock Qualified Code(s): A41.9 - Sepsis, unspecified organism; R65.20 - Severe sepsis without septic shock; N17.9 - Acute kidney failure, unspecified Code(s): A41.9 - Sepsis, unspecified organism Status: Resolved Assessment and Plan: Cancelled document - discharged on 11/16/2019. See discharge summary Patient previously met SIRS criteria with fever, tachycardia, and leukocytosis. Today, WBC decreased to 8.6, heart rate and respiratory rate stable. Temperature 98.8F and afebrile since 11/12. Source of infection likely due to urinary tract infection. Blood pressure stable at 127/53. Lactic within normal limits at 1.2. Blood cultures NGTD. Treated with IV Zosyn 11/11-11/12. - Stop IV normal saline - Continue IV Vancomycin - Continue to monitor vitals (2) UTI (urinary tract infection): Qualifiers: Hematuria presence: without hematuria Urinary tract infection type: site unspecified Qualified Code(s): N39.0 - Urinary tract infection, site not specified Code(s): N39.0 - Urinary tract infection, site not specified Status: Acute Assessment and Plan: Urinalysis revealed 3+ leuk esterase and >75 WBC. Urine culture reveals >100,000 CFU Enterococcus with susceptibility to Vancomycin. - Continue IV Vancomycin. Monitor trough and renal function. - Stop IV fluids - Discontinue external catheter. Patient able to ambulate or use urinal. Continue to monitor for urinary symptoms. (3) Prostate cancer: Code(s): C61 - Malignant neoplasm of prostate Status: Acute Assessment and Plan: Patient informed of positive malignancy of prostate. - Will begin hormone therapy with Dr. Jerome as an outpatient. (4) Obstructive uropathy: Code(s): N13.9 - Obstructive and reflux uropathy, unspecified Status: Acute Assessment and Plan: Patient is s/p placement of right ureteral stent on 11/02/2019. Previously with right hydronephrosis which appears to be resolving. - Will continue to monitor (5) Acute on chronic renal failure: Qualifiers: Acute renal failure type: unspecified Chronic kidney disease stage: stage 4 (severe) Qualified Code(s): N17.9 - Acute kidney failure, unspecified; N18.4 - Chronic kidney disease, stage 4 (severe) Code(s): N17.9 - Acute kidney failure, unspecified; N18.9 - Chronic kidney disease, unspecified Status: Acute Assessment and Plan: Creatinine at admission was 1.6. Creatinine 1.3 today. Baseline Cr appears to be 1.1. - Discontinue IV fluids - Avoid nephrotoxic agents - Continue to monitor kidney function (6) Abnormal glucose: Code(s): R73.09 - Other abnormal glucose Status: Acute Assessment and Plan: Patient had elevated glucose at admission of 181. Today, glucose is 93 and has been well controlled throughout stay. Hgb A1c is 6.1 which indicates increased risk for developing diabetes. - Discuss importance of diet and exercise - Continue to monitor blood sugars - Consider initiation of sliding scale insulin if blood sugars become uncontrolled. - Will need follow up as an outpatient with primary care. (7) Normocytic anemia: Code(s): D64.9 - Anemia, unspecified Status: Acute Assessment and Plan: CBC evaluated today with Hgb 9.0 and Hct 27.4. The patient is asymptomatic, there is no sign of active bleeding, and vitals are stable. Baseline from prior hospitalization appears to be 10-12. Anemia likely explained by CKD. - Continue to monitor H&H - Transfuse prn. (8) Essential (primary) hypertension:
[2019-11-16 13:05] LABS: Vitamin D 25 Hydroxy 21.2 ng/mL
[2019-11-16 14:00] VITALS: BP 133/48; PULSE 73; RESP 18; TEMP 37.6; O2SAT 97
[2019-11-16 15:39] LABS: Folic Acid 9.8 ng/mL (2.76->20)
--- NOTE | 2019-11-16 16:29 | PM.DS ---
DS: Diagnosis Admitting Diagnosis Admitting Diagnosis: Obstructive and reflux uropathy, unspecified <FRANCISCO Leavitt-C - Last Filed: 11/17/19 08:56> Discharge Diagnosis (1) Sepsis: Qualifiers: Acute renal failure type: unspecified Sepsis acute organ dysfunction status: with acute organ dysfunction Sepsis type: sepsis due to unspecified organism Severe sepsis acute organ dysfunction type: acute renal failure Severe sepsis shock status: without septic shock Qualified Code(s): A41.9 - Sepsis, unspecified organism; R65.20 - Severe sepsis without septic shock; N17.9 - Acute kidney failure, unspecified <Maryann Martines PA-C - Last Filed: 11/17/19 08:56> Code(s): A41.9 - Sepsis, unspecified organism <Maryann Martines PA-C - Last Filed: 11/17/19 08:56> Status: Resolved <Maryann Martines PA-C - Last Filed: 11/17/19 08:56> Assessment and Plan: Dayron Arreaga is a 83 year old male with a past medical history significant for BPH, prostate cancer, CKD stage IV, and HTN who presented to the emergency department on 11/12/2019 with weakness, vomiting, fever, and general malaise. He was septic at admission with fever, leukocytosis, and tachycardia. He was mildly hypotensive. Source of infection was UTI. He was started on IV Zosyn and IV fluids. Urine culture revealed >100,000 CFU Enterococcus and he was started on Vancomycin. His white count and vitals improved and he remained afebrile. Blood cultures reveal NGTD and lactic remained within normal limits. <Maryann Martines PA-C - Last Filed: 11/17/19 08:56> (2) UTI (urinary tract infection): Qualifiers: Hematuria presence: without hematuria Urinary tract infection type: site unspecified Qualified Code(s): N39.0 - Urinary tract infection, site not specified <Maryann Martines PA-C - Last Filed: 11/17/19 08:56> Code(s): N39.0 - Urinary tract infection, site not specified <Maryann Martines PA-C - Last Filed: 11/17/19 08:56> Status: Acute <Maryann JAdan Martines PA-C - Last Filed: 11/17/19 08:56> Assessment and Plan: He was urinating without difficulty. He was discharged with 5 days of oral macrobid, creatinine clearance was noted. He was followed by Dr. Jerome while hospitalized and will call to set up an outpatient follow up appointment. <Maryann Martines PA-C - Last Filed: 11/17/19 08:56> (3) Prostate cancer: Code(s): C61 - Malignant neoplasm of prostate <Maryann JAdan Martines, PA-C - Last Filed: 11/17/19 08:56> Status: Acute <Maryann JAdan Martines PA-C - Last Filed: 11/17/19 08:56> Assessment and Plan: Will begin hormone therapy with Dr. Jerome as an outpatient. <Maryann Martines PA-C - Last Filed: 11/17/19 08:56> (4) Obstructive uropathy: Code(s): N13.9 - Obstructive and reflux uropathy, unspecified <Maryann JAdan Martines, PA-C - Last Filed: 11/17/19 08:56> Status: Acute <Maryann JAdan Martines, PA-C - Last Filed: 11/17/19 08:56> Assessment and Plan: Patient is s/p placement of right ureteral stent on 11/02/2019. Previously with right hydronephrosis which has resolved. <Maryann Martines PA-C - Last Filed: 11/17/19 08:56> (5) Acute on chronic renal failure: Qualifiers: Acute renal failure type: unspecified Chronic kidney disease stage: stage 4 (severe) Qualified Code(s): N17.9 - Acute kidney failure, unspecified; N18.4 - Chronic kidney disease, stage 4 (severe) <Maryann JAdan Martines PA-C - Last Filed: 11/17/19 08:56> Code(s): N17.9 - Acute kidney failure, unspecified; N18.9 - Chronic kidney disease, unspecified <Maryann JAdan Martines, PA-C - Last Filed: 11/17/19 08:56> Status: Acute <Maryann JAdan Stimac, PA-C - Last Filed: 11/17/19 08:56> Assessment and Plan: Creatinine at admission was 1.6 and improved to 1.3 at discharge, progressing back toward ba
== END 2019-11-16 18:06 | disposition home or self-care (01) | DRG 872 ==
LOC: ANHED 13:12 → ANH3MEDSUR 11-13 06:53
PROVIDERS: Family Medicine; Admitting Provider Hospitalist; Emergency Provider Family Medicine; PCP Internal Medicine; Visit Provider Physician Assistant
DX: A41.9 Sepsis, unspecified organism (principal); N39.0 Urinary tract infection, site not specified; N17.9 Acute kidney failure, unspecified; E87.1 Hypo-osmolality and hyponatremia; N18.4 Chronic kidney disease, stage 4 (severe); E87.2 Acidosis; R65.20 Severe sepsis without septic shock; B95.2 Enterococcus as the cause of diseases classified elsewhere; I12.9 Hypertensive chronic kidney disease with stage 1 through stage 4 chronic kidney disease, or unspecified chronic kidney disease; N40.0 Benign prostatic hyperplasia without lower urinary tract symptoms; N13.9 Obstructive and reflux uropathy, unspecified; C61 Malignant neoplasm of prostate; R73.09 Other abnormal glucose; D63.1 Anemia in chronic kidney disease; F41.8 Other specified anxiety disorders; G47.33 Obstructive sleep apnea (adult) (pediatric); E66.9 Obesity, unspecified; Z68.30 Body mass index [BMI] 30.0-30.9, adult
CPT/HCPCS: 36415; 74176; 80048; 80053; 81001; 82306; 82607; 82746; 83036; 83605; 83690; 84443; 85025; 85027; 87040; 87077; 87086; 87088; 87186; 93005; 96361; 96374; 96375; 97110; 97116; 97161; 97165; 97530; 97535; 99285; A9270; J0131; J2405; J2543; J3370; J7030; J7040

== ENCOUNTER 2020-02-19 14:53 | Outpatient (CLI) | payer MEDICARE, SELFPAY ==
[2020-02-19 15:24] LABS: Basophils Percent Auto 0.5 % (0.2-1.2); Eosinophils Absolute Auto 0.2 K/mm3 (0-0.3); Eosinophils Percent Auto 3.5 % (0-4.4); Hematocrit 29.6 % (42.0-52.0); Hemoglobin 9.8 g/dL (14.0-18.0); Immature Granulocyte Absolute 0.01 K/mm3 (0.00-0.031); Immature Granulocyte Percent A 0.2 % (0-0.5); Lymphocytes Absolute Auto 1.35 K/mm3 (0.9-3.2); Lymphocytes Percent Auto 21.7 % (18.3-44.2); Mean Corpuscular HGB Conc 33.1 g/dl (32-36); Mean Corpuscular Hemoglobin 31.1 pg (26-34); Monocytes Absolute Auto 0.6 K/mm3 (0.1-0.6); Monocytes Percent Auto 9.2 % (2.6-8.5); Neutrophils Percent Auto 64.9 % (45.5-73.1); Platelet Count Result 227 k/mm3 (150-375); Red Blood Count 3.15 M/mm3 (4.6-6.20); Red Cell Distribution Width 14.4 % (11.5-14.5); White Blood Count 6.2 K/mm3 (4.5-10.0)
[2020-02-19 15:40] LABS: Alanine Aminotransferase 10 U/L (4-50); Albumin Level 4.1 g/dL (3.5-5.1); Alkaline Phosphatase 92 U/L (38-126); Aspartate Amino Transferase 19 U/L (17-59); Bilirubin,Total 0.3 mg/dL (0.2-1.3); Blood Urea Nitrogen 28 mg/dL (9-20); Calcium 9.5 mg/dL (8.4-10.2); Carbon Dioxide 22 mmol/L (22-30); Chloride 103 mmol/L (98-107); Estimated Glomerular Filt Rate 34; Glucose 125 mg/dL (75-110); Potassium 4.1 mmol/L (3.4-5.0); Sodium 134 mmol/L (137-145)
== END 2020-02-19 14:54 | disposition home or self-care (01) ==
PROVIDERS: PCP Internal Medicine; Visit Provider Internal Medicine
DX: D64.9 Anemia, unspecified (principal); R53.1 Weakness
CPT/HCPCS: 36415; 80053; 85025

== ENCOUNTER 2020-02-26 09:53 | Outpatient (CLI) | payer MEDICARE, SELFPAY ==
[2020-02-26 10:12] LABS: Basophils Percent Auto 0.5 % (0.2-1.2); Eosinophils Absolute Auto 0.2 K/mm3 (0-0.3); Eosinophils Percent Auto 3.5 % (0-4.4); Hematocrit 31.5 % (42.0-52.0); Hemoglobin 10.3 g/dL (14.0-18.0); Immature Granulocyte Absolute 0.02 K/mm3 (0.00-0.031); Immature Granulocyte Percent A 0.3 % (0-0.5); Lymphocytes Absolute Auto 1.47 K/mm3 (0.9-3.2); Lymphocytes Percent Auto 22.1 % (18.3-44.2); Mean Corpuscular HGB Conc 32.7 g/dl (32-36); Mean Corpuscular Hemoglobin 30.9 pg (26-34); Mean Corpuscular Volume 94.6 fl (80-100); Mean Platelet Volume 9.6 fl (7.4-10.4); Monocytes Absolute Auto 0.7 K/mm3 (0.1-0.6); Monocytes Percent Auto 10.8 % (2.6-8.5); Neutrophils Absolute Auto 4.2 K/mm3 (1.3-6.7); Neutrophils Percent Auto 62.8 % (45.5-73.1); Platelet Count Result 236 k/mm3 (150-375); Red Blood Count 3.33 M/mm3 (4.6-6.20); Red Cell Distribution Width 14.2 % (11.5-14.5); White Blood Count 6.7 K/mm3 (4.5-10.0)
[2020-02-26 12:00] LABS: Iron 91 ug/dL (49-181)
[2020-02-26 12:08] LABS: Alanine Aminotransferase 10 U/L (4-50); Alkaline Phosphatase 98 U/L (38-126); Aspartate Amino Transferase 19 U/L (17-59); Bilirubin,Total 0.2 mg/dL (0.2-1.3); Blood Urea Nitrogen 27 mg/dL (9-20); Calcium 9.7 mg/dL (8.4-10.2); Carbon Dioxide 24 mmol/L (22-30); Chloride 100 mmol/L (98-107); Estimated Glomerular Filt Rate 36; Glucose 116 mg/dL (75-110); Potassium 4.2 mmol/L (3.4-5.0); Sodium 134 mmol/L (137-145)
[2020-02-26 12:10] LABS: Percent Iron Saturation 31 % (20-50)
[2020-02-26 12:32] LABS: Prostate Specific Antigen 0.7 ng/mL (< OR = 4.0)
== END 2020-02-26 09:54 | disposition home or self-care (01) ==
PROVIDERS: PCP Internal Medicine; Visit Provider Internal Medicine Hematology & Oncology
DX: C61 Malignant neoplasm of prostate (principal); R79.89 Other specified abnormal findings of blood chemistry
CPT/HCPCS: 36415; 80053; 82728; 83540; 83550; 84153; 85025

== ENCOUNTER 2020-04-04 15:41 | Outpatient (CLI) | payer MEDICARE, SELFPAY | END 2020-04-04 15:42 | disposition home or self-care (01) | PROVIDERS: PCP Internal Medicine; Visit Provider Urology | DX: N39.0 Urinary tract infection, site not specified (principal) | CPT/HCPCS: 87086 ==

== ENCOUNTER 2020-04-05 01:07 | Outpatient (CLI) | payer MEDICARE, SELFPAY ==
[2020-04-05 18:11] LABS: SARS-CoV-2 RNA PCR Negative
== END 2020-04-05 01:08 | disposition home or self-care (01) ==
LOC: ANHCOVIDDT 01:12
PROVIDERS: PCP Internal Medicine; Visit Provider Urology
DX: Z01.812 Encounter for preprocedural laboratory examination (principal); Z11.59 Encounter for screening for other viral diseases; N13.30 Unspecified hydronephrosis
CPT/HCPCS: 87635; C9803; U0003

== ENCOUNTER 2020-04-08 01:58 | Day surgery (SDC) | payer MEDICARE, SELFPAY ==
[2020-04-04 13:25] VITALS: BMI 27.5
[2020-04-08] VITALS (17 sets, daily range): BP systolic 122–161; BP diastolic 54–73; PULSE 64–85; RESP 12–18; TEMP 36.2–36.7; O2SAT 96–100
--- NOTE | ~2020-04-08 | XR_ITS ---
EXAMINATION: XR retrograde pyelo w/stent RT EXAM DATE: 04/08/2020 13:50 INDICATION: Right stent exchange. TECHNIQUE: Fluoroscopy used during XR retrograde pyelo w/stent RT performed by Dr. J Luis levine MD. The DAP for this procedure was 0.3 mGym2. FINDINGS: Document Clerk images Image demonstrates a right-sided double-J ureteral stent. Pyelogram demonstrat ing moderate right-sided caliectasis. Final images demonstrate a double-J ureteral stent again overly ing expected position. Correlate with procedure note. IMPRESSION: Fluoroscopy used during XR retrograde pyelo w/stent RT. Reviewed, dictated and finalized at location A.
[2020-04-08] MEDS: LACTATED RINGERS 1,000 ML 30 ML IV CONT ×2 (09:40→15:06)
--- NOTE | 2020-04-08 10:45 | WPDANESEPPF ---
Anes - Initial Pre Proc Eval Procedure: Operation Date: 04/08/20 11:30 Proposed Procedures p Cystoscopy, Bilateral Retrograde Pyelogram, Possible Bilateral Stent Exchange - J Luis Jerome MD Date/Time: 04/08/20 10:45 Surgeon: J Luis Jerome MD Pre Op Diagnosis: Hydronephrosis Patient Data Age: 84 Gender: M Height: 5 ft 8 in Weight: 82.2 kg Last Vital Signs Temp 36.3 C L 04/08/20 09:54 Pulse 65 04/08/20 09:54 Resp 16 04/08/20 09:54 BP 123/60 04/08/20 09:54 Pulse Ox 100 04/08/20 09:54 Allergies Allergy/AdvReac Type Severity Reaction Status Date / Time aspartame Allergy Severe HIVE Verified 04/08/20 09:21 lisinopril AdvReac Intermediate Rash Verified 04/08/20 09:21 Home Medications Medication Instructions Recorded Confirmed Type compr.stocking,knee,long,large #2 each 08/10/19 11/12/19 Rx cyanocobalamin (vitamin B-12) 1,000 mcg PO QAM #30 tablet 11/05/19 04/08/20 Rx [Vitamin B-12] amlodipine [Norvasc] 2.5 mg PO QAM PRN 11/12/19 04/08/20 History docusate sodium [Colace] 100 mg PO QAM 11/12/19 04/08/20 History fluticasone propionate [Flonase 1 spray INTRANASAL Q12HR PRN 11/12/19 04/08/20 History Allergy Relief] paroxetine HCl 20 mg tablet 20 mg PO DAILY #90 tablet 11/27/19 04/08/20 Rx tamsulosin 0.4 mg capsule 0.4 mg PO HS #90 cap 02/21/20 04/08/20 Rx enzalutamide [Xtandi] 120 mg PO DAILY 04/04/20 04/08/20 History Patient hx anesthesia problems: none Family hx anesthesia problems: none PMFSH Past Medical History Medical History Anemia in chronic kidney disease Anxiety with depression Benign prostatic hyperplasia BPPV (benign paroxysmal positional vertigo) Chronic idiopathic urticaria Chronic kidney disease, stage 4 (severe) Depression Elbow fracture, right Essential (primary) hypertension Hyperparathyroidism Nocturnal myoclonus Obesity IGOR (obstructive sleep apnea) S/P ORIF (open reduction internal fixation) fracture left arm Surgical History Surgical History H/O varicose vein ligation History of orthopedic surgery left arm reconstruction, right elbow surgery Social History Social History Smoking status: Never smoker Second hand tobacco smoke exposure: No Alcohol intake: never Substance use: never Living arrangements: with family Gender identity (if verbalized by the patient): Male Spiritual care concerns: No Agree to blood products: Yes Anes - Eval Final PreProcedure Day of Procedure 04/08/20 10:45 Patient weight: overweight Heart: regular rate and rhythm Lungs: clear to auscultation Airway: Mallampati scale class II Neurological: alert and oriented Last oral intake: >/= 8 hours ASA classification: III Emergent: no Anesthetic plan: proceed Anesthesia type and monitoring: general LMA and standard monitoring Informed Consent: The patient's anesthetic plan and its attendant risks and benefits were discussed with the patient/family/POA. Questions were solicited and answers provided to the satisfaction of the patient/family/POA.
--- NOTE | 2020-04-08 12:38 | WPDHPUPDATE1 ---
History and Physical Update Update Date/Time: 04/08/20 12:38 History and Physical has been reviewed, including an updated exam of the patient. There are NO changes in the patient's condition. Risks, benefits, and alternatives have been discussed and questions answered. Patient agrees to proceed with procedure.
[2020-04-08] MEDS: ceFAZolin 2 GM/D5W 50 ML 2 GM/50 ML BAG IVPB (13:04)
--- NOTE | 2020-04-08 13:52 | PM.PROC ---
Procedure Note - Detailed Date of procedure: 04/08/20 Pre-op diagnosis: Hydronephrosis Post-op diagnosis: same Procedure performed: Cystoscopy, right retrograde pyelogram, right ureteral stent exchange 6 Moroccan contour, transurethral resection of friable prostatic tissue Description of procedure: patient was taken the operative suite and correctly identified. Once anesthesia was obtained he was placed in the dorsal lithotomy position and prepped and draped usual sterile fashion. Twenty-two Moroccan scope was inserted into the bladder direct vision. He does have some friable prostatic tissue consistent with his prostate carcinoma. It was very friable in oozy. It did appear to overlie near the right ureteral orifice. We were able to grasp the prior stent in retrieve it. A guidewire was placed through it and a [place] was passed over the wire. Pyelogram was then performed to confirm placement. There was some mild hydronephrosis. Six Moroccan contour stent was then placed with the proximal end coiled in the renal pelvis and the distal in the bladder. It was somewhat difficult to visualize the left ureteral orifice however there was no hydronephrosis on renal ultrasound. At this point time we exchanged the scope out for a 24 Moroccan resectoscope sheath. Some of the friable tissue was then resected and sent for analysis. Used a rollerball for hemostasis. 2% viscous lidocaine was inserted urethra and a [address] was [address]. 15 cc were placed in the balloon. He is taken recovery stable condition. We will see how his urine does with continuous bladder irrigation recovery room. For able to clear it he may simply go home with a Dietz catheter never removed later in the week. If it appears it is somewhat bloody a will keep him overnight for continuous bladder irriga Surgeon: J Luis Jerome MD Drains: Yes Packing: No Pathology: yes Complications: No immediate complications Condition: stable Disposition: PACU
[2020-04-08] MEDS: LIDOCAINE HCL 2% GEL UROJET 10 ML PKG MUCOUS MEM (14:31)
--- NOTE | 2020-04-08 16:32 | SUR.PHASEII ---
[address] CABALLERO- UPDATE GIVEN. ORDERED TO ADMIT PT OVERNIGHT WITH [facility].
--- NOTE | 2020-04-08 18:13 | ADMGEN ---
This patient, Dayron Arreaga, was admitted to [facility] Surg Room 320-01 @ 1736. Patient/family oriented to hospital policies and general routines including ID bracelet, bed and alarms, visiting hours, pain management, procedures, bathroom and other care routines, personal items, smoking policy, room service/diet, and visiting hours. Valuables list has been completed. Information on how to activate the Rapid Response Team has been discussed. Patient/Family are encouraged to report perceived risks to care and to ask questions if they do not understand what they are told or what they should do.
[2020-04-08] MEDS: DOCUSATE SODIUM 100 MG CAPSULE PO (18:28)
[2020-04-08] MEDS: HYOSCYAMINE SULFATE 0.125 MG TABLET SUBLINGUAL (20:51)
[2020-04-08] MEDS: TAMSULOSIN HCL 0.4 MG CAPSULE PO (20:52)
[2020-04-09 02:00] VITALS: BP 119/44; PULSE 82; RESP 18; TEMP 36.8; O2SAT 97
[2020-04-09] MEDS: HYOSCYAMINE SULFATE 0.125 MG TABLET SUBLINGUAL (05:25)
[2020-04-09 05:54] VITALS: BP 119/46; PULSE 72; RESP 18; TEMP 36.8; O2SAT 96
--- NOTE | 2020-04-09 08:24 | WPDANESPN ---
Anes - Prog Note Post-Op Date/Time: 04/09/20 08:24 Cardiovascular status: normal Respiratory status: normal Airway patency: baseline Mental status: baseline Post-Op hydration status: normal Vital Signs: Last Vital Signs Temp 36.8 C 04/09/20 05:54 Pulse 72 04/09/20 05:54 Resp 18 04/09/20 05:54 BP 119/46 L 04/09/20 05:54 Pulse Ox 96 04/09/20 05:54 Pain Score (VAS): 0/10. Patient resting in bed at time of assessment, appears comfortable. I/O: Intake & Output 04/08/20 04/09/20 04/09/20 23:59 07:59 15:59 Intake Total 4020 500 Output Total 4300 600 Balance -280 -100 Post-procedural complaints: none Patient Feedback: Patient satisfied with anesthetic care.
[2020-04-09] MEDS: DOCUSATE SODIUM 100 MG CAPSULE PO (09:23)
[2020-04-09] MEDS: PARoxetine 20 MG TABLET PO (09:23)
[2020-04-09] MEDS: CYANOCOBALAMIN 1,000 MCG TABLET 1000 MCG PO (09:23)
[2020-04-09 10:18] VITALS: BP 136/48; PULSE 73; RESP 18; TEMP 36.6; O2SAT 98
--- NOTE | 2020-04-09 12:25 | WPDUROPN2 ---
Progress Note: A&P Assessment and Plan (1) Prostate cancer: Code(s): C61 - Malignant neoplasm of prostate Status: Acute Assessment and Plan: Patient ok to discharge home with Lugo. Will come in Tuesday to remove the lugo. Urine is clear off CBI. NO further evaluation at this time. (2) Urinary retention: Code(s): R33.9 - Retention of urine, unspecified Status: Acute Subjective Subjective Date/Time Seen: 04/09/20 12:25 POD #1 Cystoscopy, right retrograde pyelogram, right ureteral stent exchange 6 American contour, transurethral resection of friable prostatic tissue. URine clear off CBI. No pain, tolerating diet. Review of Systems Cardiovascular: Cardiovascular: Denies chest pain Respiratory: Respiratory: Reports no additional respiratory complaints Gastrointestinal: Gastrointestinal: Denies abdominal pain, Denies nausea and Denies vomiting Genitourinary: Genitourinary: Denies hematuria and Reports other Exam Resp: Effort & Inspection: normal respiratory effort Cardio: Rate: regular rate GI: GI Palp: Yes Soft to palpation and No Tenderness to palpation present (GI) : General: Yes no CVA tenderness Meatus: Blood at meatus present Urinary Catheter: Urinary Catheter: patent and draining and urine clear Extrem: General: no edema Objective Data Vital Signs Vital Signs: Vital Signs - 24 hr 04/08/20 13:58 04/08/20 14:15 04/08/20 14:31 Temperature 97.2 F L Pulse Rate 68 68 66 Respiratory Rate 12 16 13 Blood Pressure 156/73 H 144/60 H 125/60 Pulse Oximetry 100 100 97 04/08/20 14:45 04/08/20 15:02 04/08/20 15:07 Temperature Pulse Rate 64 65 77 Respiratory Rate 14 14 14 Blood Pressure 133/55 L 129/64 161/68 H Pulse Oximetry 96 97 04/08/20 15:30 04/08/20 16:00 04/08/20 16:30 Temperature Pulse Rate 71 67 80 Respiratory Rate 14 14 14 Blood Pressure 146/68 H 144/67 H 155/67 H Pulse Oximetry 04/08/20 17:00 04/08/20 17:28 04/08/20 17:45 Temperature 97.4 F L Pulse Rate 73 66 71 Respiratory Rate 14 14 18 Blood Pressure 160/68 H 123/61 122/68 Pulse Oximetry 100 04/08/20 18:03 04/08/20 18:15 04/08/20 19:30 Temperature 97.4 F L 97.6 F 97.3 F L Pulse Rate 70 66 83 Respiratory Rate 18 18 18 Blood Pressure 125/54 L 148/55 H 147/60 H Pulse Oximetry 100 99 99 04/08/20 22:00 04/09/20 02:00 04/09/20 05:54 Temperature 98.1 F 98.3 F 98.3 F Pulse Rate 85 82 72 Respiratory Rate 18 18 18 Blood Pressure 149/61 H 119/44 L 119/46 L Pulse Oximetry 98 97 96 04/09/20 10:18 Temperature 97.9 F Pulse Rate 73 Respiratory Rate 18 Blood Pressure 136/48 L Pulse Oximetry 98 Intake/Output Intake/Output: Intake & Output 04/06/20 04/07/20 04/08/20 04/09/20 23:59 23:59 23:59 23:59 Intake Total 4620 740 Output Total 6250 600 Balance -1630 140 Meds/Results Medications: Active Medications Generic Name Dose Route Start Last Admin Trade Name Freq PRN Reason Stop Dose Admin Hydrocodone Bitart/Acetaminophen 1 tab 04/08/20 17:30 04/09/20 05:25 [place] 5-325 Mg PO 1 tab Q4H PRN Administration Pain Rated 1-6 Amlodipine Besylate 2.5 mg 04/08/20 17:30 Norvasc PO QAM PRN Blood Pressure Cephalexin HCl 500 mg 04/09/20 13:00 Keflex Capsule PO QID VIVEK Cyanocobalamin 1,000 mcg 04/09/20 09:00 04/09/20 09:23 Vitamin B-12 Tab PO 1,000 mcg QAM VIVEK Administration Docusate Sodium 100 mg 04/08/20 18:30 04/09/20 09:23 Colace Capsule PO 100 mg BID VIVEK Administration Fluticasone Propionate 1 spray 04/08/20 17:30 Flonase 0.05% Nasal [place] NASAL Q12HR PRN Allergic Symptoms Hyoscyamine 0.125 mg 04/08/20 17:30 04/09/20 05:25 Levsin Tablet SUBLINGUAL 0.125 mg Q6H PRN Administration Bladder Spasm Morphine Sulfate 2 mg 04/08/20 17:30 Morphine Sulfate Inj IV PUSH Q2H PRN Pain Rated 7-10 Naloxone HCl 0.1 mg 04/08/20 17:30 Narcan IV PUSH
[2020-04-09] MEDS: CEPHALEXIN 500 MG CAPSULE PO (12:29)
[2020-04-09] MEDS: polyethylene glycoL 3350 17 GM POWD.PACK PO (12:30)
--- NOTE | 2020-04-10 13:15 | PM.DS ---
DS: Admitting Diagnosis Admitting Diagnosis Admitting Diagnosis: Hydronephrosis DS: Discharge Diagnosis Discharge Diagnosis (1) Urinary retention: Code(s): R33.9 - Retention of urine, unspecified Status: Acute (2) Hydronephrosis: Code(s): N13.30 - Unspecified hydronephrosis Status: Acute DS: Summary Hospital Course Reason for hospitalization: This is Maryjo lowery cl a nurse practitioner urology calling a discharge dictation on patient Dayron fever patient underwent cystoscopy right retrograde pyelogram right ureteral stent exchange transurethral resection of friable prostatic tissue on April 08, [address] Janay Jerome. patient's preop diagnosis hydronephrosis postop diagnosis hydronephrosis patient tolerated procedure well was transferred recovery in stable condition and to the floor for further observation he stayed overnight without complication and was discharged on April 09, 2020 Time Spent with Patient Time attestation: Total time spent providing and/or coordinating discharge services: Exam Resp: Effort & Inspection: normal respiratory effort Cardio: Rate: regular rate GI: GI Palp: Yes Soft to palpation and No Tenderness to palpation present (GI) : General: Yes no CVA tenderness Urinary Catheter: Urinary Catheter: patent and draining and urine clear Extrem: General: no edema DS: Data Data Completed and Pending Pending studies at discharge: Pending at discharge 04/09/20 09:36 Surgical [PTH] Routine Discharge Plan Discharge Patient Disposition: Home, Self-Care Discharge Instructions: Discharge to home if urine is clear with Dietz catheter. Will plan on Dietz catheter removal on if urine is clear. OXYCODONE 2.5MG WAS GIVEN TO YOU AT 3:30PM. DO NOT TAKE ADDITIONAL PAIN MEDICATION UNTIL AFTER 7:30PM. Patient Instructions: Pain Management (DC), Transurethral Prostatectomy (DC) Stand Alone Forms: Fiber Supplement, General Discharge Instructions Follow-up/Referrals: J Luis Jerome MD [Physician] - Discharge Medications: New sulfamethoxazole-trimethoprim [Bactrim DS] 800-160 mg tablet 1 tablet PO Q12H Qty: 14 RF: 0 tramadol [Ultram] 50 mg tablet 50 mg PO Q6H PRN (Reason: pain) Qty: 20 RF: 0 Continued (DME) compr.stocking,knee,long,large Misc See Rx Instructions .ROUTE .MEDSUPPLY Qty: 2 RF: 0 amlodipine [Norvasc] 2.5 mg tablet 2.5 mg PO QAM PRN (Reason: Blood Pressure) RF: 0 Hold Instructions: Hold until follow up with PCP docusate sodium [Colace] 100 mg capsule 100 mg PO QAM RF: 0 fluticasone propionate [Flonase Allergy Relief] 50 mcg/actuation spray,suspension 1 spray intranasal Q12HR PRN (Reason: Allergic Symptoms) RF: 0 cyanocobalamin (vitamin B-12) [Vitamin B-12] 1,000 mcg Tablet 1,000 mcg PO QAM Qty: 30 RF: 1 Xtandi 40 mg Capsule 120 mg PO DAILY RF: 0 paroxetine HCl 20 mg tablet 20 mg PO DAILY Qty: 90 RF: 1 tamsulosin [Flomax] 0.4 mg capsule 0.4 mg PO HS Qty: 90 RF: 1 Discharge Date/Time: 04/09/20 13:52
== END 2020-04-09 13:52 | disposition home or self-care (01) ==
LOC: ANHSURGERY 15:52 → ANH3MEDSUR 17:57
PROVIDERS: PCP Internal Medicine; Visit Provider Urology
PROC: (CPT 52352; principal; 2020-04-08 11:30)
DX: N13.30 Unspecified hydronephrosis (principal); N40.1 Benign prostatic hyperplasia with lower urinary tract symptoms; R33.8 Other retention of urine; C61 Malignant neoplasm of prostate; N18.4 Chronic kidney disease, stage 4 (severe); F41.9 Anxiety disorder, unspecified; F32.9 Major depressive disorder, single episode, unspecified; G47.33 Obstructive sleep apnea (adult) (pediatric); E66.9 Obesity, unspecified; Z68.27 Body mass index [BMI] 27.0-27.9, adult; Z79.899 Other long term (current) drug therapy
CPT/HCPCS: 52332; 52601; 74420; 88305; A9270; C1769; C2617; J0690; J1100; J2405; J2704; J3010; J7120; Q9966

== ENCOUNTER 2020-05-19 12:02 | Outpatient (CLI) | payer MEDICARE, SELFPAY | END 2020-05-19 12:03 | disposition home or self-care (01) | PROVIDERS: PCP Internal Medicine; Visit Provider Internal Medicine | DX: D64.9 Anemia, unspecified (principal); R53.1 Weakness | CPT/HCPCS: 36415; 84443; 85014; 85018 ==

== ENCOUNTER 2020-07-21 15:18 | Inpatient (IN) | payer MEDICARE, SELFPAY ==
--- NOTE | ~2020-07-21 | XR_ITS ---
EXAMINATION: XR abdomen/kub 1V DATE: 07/21/2020 17:53 INDICATION: Constipation. Rectal pain. TECHNIQUE: A supine view of the abdomen on 2 radiographs was obtained. COMPARISON: CT dated 11/12/2019 FINDINGS: Large amount of stool scattered throughout the colon extending to the rectum consistent with given hi story of constipation. No dilated loops of gas-filled small bowel to suggest obstruction. Right inter nal ureteral stent with loops in expected positions of the right renal pelvis and bladder. Visualized lung bases are clear. Heart size is normal. Severe disc height loss with vacuum phenomena at L2-L3. Otherwise mild to moderate lumbar spondylosis. IMPRESSION: 1. Large amount of colonic stool consistent with given history of constipation. Reviewed, dictated and finalized at location H. NG COMMISSIONER
--- NOTE | ~2020-07-21 | CT_ITS ---
EXAMINATION: CT abdomen pelvis w con DATE: 07/21/2020 19:01 INDICATION: Constipation. Cramping. TECHNIQUE: Computed tomography (CT) of the abdomen and pelvis was performed with 100 mL Omnipaque-350 intravenous contrast. Automated exposure control and iterative reconstruction technique were employe d. The dose-length product was 730.65 mGy-cm. COMPARISON: 11/12/2019 FINDINGS: Lung bases are clear. Borderline heart size. Atherosclerotic coronary artery calcific calcification i s. Aortic valve calcification. No pericardial or pleural effusion. Small sliding-type hiatal hernia. 6 mm cyst in the right hepatic lobe. Gallbladder, spleen, pancreas and left kidney and bilateral adre nal glands are normal. Mild right hydronephrosis and mildly delayed right nephrogram relative to the left kidney. Right internal ureteral stent is in place with proximal loop formed in the right renal p magalie and with distal loop formed in the partially decompressed bladder. Suggestion of prior transure thral prostatectomy. Again seen is asymmetric increased soft tissue density situated between the pros [place], the trigonal region of the bladder and along the right seminal vesicle which raises concern for malignancy. Large amount of stool scattered throughout the colon with 6.5 cm ball of stool at the re ctum. There is mild haziness to the perirectal fat suggestive of stercoral colitis. Small bowel and a ppendix are normal. No free intraperitoneal gas or fluid. No pathologically enlarged abdominal or pel ester lymphadenopathy. Severe degenerative disc disease at L2-L3 with posterior disc osteophyte complex resulting in at least moderate central canal stenosis. Otherwise mild to moderate lumbar spondylosis . There are bridging osteophytes at multiple levels in the lower thoracic spine, consistent with diff use idiopathic skeletal hyperostosis (DISH). IMPRESSION: 1. Large amount of colonic stool extending to the rectum where there is haziness to the perirectal fa t consistent with constipation and rectal stercoral colitis. 2. Mild right hydronephrosis and mildly delayed right nephrogram although a right internal ureteral s tent remains in expected position which suggest possibility of encrustation/obstruction of the stent. Correlate with clinical history for time since prior study change. Alternatively this could be relat ed to obstruction at the level of the distal right ureter where there is increased surrounding soft t issue density raising concern for malignancy which could be of either a bladder, prostatic or distal ureteral origin. Correlate with clinical/urologic history. 3. Small sliding-type hiatal hernia. Reviewed, dictated and finalized at location H. MAID IMPRESSION: 1. Large amount of colonic stool extending to the rectum where there is hazines s to the perirectal fat consistent with constipation and rectal stercoral colit is. 2. Mild right hydronephrosis and mildly delayed right nephrogram although a rig ht internal ureteral stent remains in expected position which suggest possibili ty of encrustation/obstruction of the stent. Correlate with clinical history fo r time since prior study change. Alternatively this could be related to obstruc tion at the level of the distal right ureter where there is increased surroundi ng soft tissue density raising concern for malignancy which could be of either a bladder, prostatic or distal ureteral origin. Correlate with clinical/urologi c history. 3. Small sliding-type hiatal hernia.
--- NOTE | ~2020-07-21 | XR_ITS ---
XR abdomen/kub 1V 07/22/2020 08:17 Indication: Fecal impaction Procedure: KUB Comparison: 07/21/2020 Findings: Bowel pattern is nonobstructive. Moderate colonic fecal loading. Right internal ureteral st ent in expected position. Moderate lumbar spondylosis. No acute abdominal abnormality. Lung bases unr emarkable. Impression: 1: Nonobstructive bowel gas pattern. Reviewed, dictated and finalized at location A. LER TENDER Impression: 1: Nonobstructive bowel gas pattern.
[2020-07-21 16:17] VITALS: BP 134/77; PULSE 72; RESP 18; TEMP 36.4; O2SAT 100
[2020-07-21 17:37] VITALS: BP 129/72; PULSE 95; RESP 17; O2SAT 99
--- NOTE | 2020-07-21 17:46 | PC.NURSE ---
Pt to XRAY via WC.
[2020-07-21] MEDS: FAMOTIDINE 20 MG/2 ML VIAL IV PUSH (18:12)
[2020-07-21] MEDS: SODIUM CHLORIDE 0.9% IV 1,000 ML 999 ML IV CONT ×2 (18:12→19:22)
[2020-07-21 18:21] LABS: Basophils Percent Auto 0.4 % (0.2-1.2); Eosinophils Absolute Auto 0.1 K/mm3 (0-0.3); Eosinophils Percent Auto 1.6 % (0-4.4); Hematocrit 32.6 % (42.0-52.0); Hemoglobin 11.1 g/dL (14.0-18.0); Immature Granulocyte Absolute 0.02 K/mm3 (0.00-0.031); Immature Granulocyte Percent A 0.4 % (0-0.5); Lymphocytes Absolute Auto 1.49 K/mm3 (0.9-3.2); Lymphocytes Percent Auto 29.1 % (18.3-44.2); Mean Corpuscular Hemoglobin 34.2 pg (26-34); Mean Corpuscular Volume 100.3 fl (80-100); Mean Platelet Volume 10.2 fl (7.4-10.4); Monocytes Absolute Auto 0.5 K/mm3 (0.1-0.6); Monocytes Percent Auto 10.4 % (2.6-8.5); Neutrophils Percent Auto 58.1 % (45.5-73.1); Platelet Count Result 207 k/mm3 (150-375); Red Blood Count 3.25 M/mm3 (4.6-6.20); Red Cell Distribution Width 13.4 % (11.5-14.5); White Blood Count 5.1 K/mm3 (4.5-10.0)
--- NOTE | 2020-07-21 18:34 | ED.GENADULT ---
HPI - General Adult General Chief complaint: Unspecified <JHONATHAN Coleman Last Filed: 07/21/20 20:52> Stated complaint: Constipation <JHONATHAN Coleman Last Filed: 07/21/20 20:52> Time Seen by Provider: 07/21/20 17:37 <JHONATHAN Coleman Last Filed: 07/21/20 20:52> Source: patient <JHONATHAN Coleman Last Filed: 07/21/20 20:52> Mode of arrival: ambulatory <JHONATHAN Coleman Last Filed: 07/21/20 20:52> Limitations: no limitations <JHONATHAN Coleman Last Filed: 07/21/20 20:52> History of Present Illness HPI narrative: Patient is an 84-year-old male who presents with constipation noting that he has not had a bowel movement in over a week he has taken a stool softener by mouth with no improvement patient denies any pain patient notes he had had constipation in the past but this is worse than normal patient notes that he has not been seen for this complaint presents per private vehicle in no distress lives at home with his denies any narcotic use <JHONATHAN Coleman Last Filed: 07/21/20 20:52> Related Data Home medications: Home Medications Medication Instructions Recorded Confirmed amlodipine [Norvasc] 2.5 mg PO QAM PRN 11/12/19 07/22/20 docusate sodium [Colace] 100 mg PO QAM 11/12/19 07/22/20 fluticasone propionate [Flonase 1 spray INTRANASAL Q12HR PRN 11/12/19 07/22/20 Allergy Relief] Xtandi 160 mg PO DAILY 04/04/20 07/22/20 <JHONATHAN Coleman Last Filed: 07/21/20 20:52> Allergies/adverse reactions: Allergies Allergy/AdvReac Type Severity Reaction Status Date / Time aspartame Allergy Severe HIVE Verified 07/22/20 00:07 lisinopril AdvReac Intermediate Rash Verified 07/22/20 00:07 <JHONATHAN Coleman Last Filed: 07/21/20 20:52> Review of Systems Review of Systems: All systems reviewed & are unremarkable except as noted in HPI and below <Raciel Soto PA-C - Last Filed: 07/21/20 20:52> PMFSH Past Medical History Medical History: Medical History Anemia in chronic kidney disease Anxiety with depression Benign prostatic hyperplasia BPPV (benign paroxysmal positional vertigo) Chronic idiopathic urticaria Chronic kidney disease, stage 4 (severe) Depression Elbow fracture, right Essential (primary) hypertension Hyperparathyroidism Nocturnal myoclonus Obesity IGOR (obstructive sleep apnea) S/P ORIF (open reduction internal fixation) fracture left arm <Raciel Soto PA-C - Last Filed: 07/21/20 20:52> Surgical History Surgical History: Surgical History H/O varicose vein ligation History of orthopedic surgery left arm reconstruction, right elbow surgery History of prostate surgery 11/26/2019 & 01/2020 <Raciel Soto PA-C - Last Filed: 07/21/20 20:52> Family History Family History: Family History Mother Breast cancer <Raciel Soto PA-C - Last Filed: 07/21/20 20:52> Social History Social History: Social History Smoking status: Never smoker Second hand tobacco smoke exposure: No Alcohol intake: never Substance use: never Living arrangements: with family Additional living arrangements comments: Lives with his . Occupation/Education: retired Gender identity (if verbalized by the patient): Male Spiritual care concerns: No Agree to blood products: Yes <Raciel Soto PA-C - Last Filed: 07/21/20 20:52> Exam Narrative: Exam Narrative: GENERAL: Well-appearing, well-nourished, and in no acute distress. HEAD: Normocephalic, atraumatic. EYES: PERRLA and EOMI. ENT: Nares clear, no rhinorrhea or epistaxis. Mucous membranes moist. CHEST: Clear to auscultation. No respiratory distress. No wheezes rales or rh
[2020-07-21 18:36] LABS: Alanine Aminotransferase 11 U/L (4-50); Alkaline Phosphatase 91 U/L (38-126); Anion Gap 9 mmol/L (8-16); Aspartate Amino Transferase 23 U/L (17-59); Bilirubin,Total 0.7 mg/dL (0.2-1.3); Blood Urea Nitrogen 26 mg/dL (9-20); Calcium 9.7 mg/dL (8.4-10.2); Carbon Dioxide 26 mmol/L (22-30); Chloride 102 mmol/L (98-107); Estimated CRCL calculation 31 ml/min; Estimated Glomerular Filt Rate 44; Glucose 109 mg/dL (75-110); Potassium 4.1 mmol/L (3.4-5.0); Sodium 137 mmol/L (137-145)
[2020-07-21] MEDS: polyethylene glycoL 3350 17 GM POWD.PACK PO (19:07)
[2020-07-21 19:24] VITALS: BP 149/83; PULSE 105; RESP 18; O2SAT 100
[2020-07-21 20:46] VITALS: BP 134/77; PULSE 99; RESP 16; O2SAT 100
--- NOTE | 2020-07-21 20:51 | PC.NURSE ---
pt unable to provide urine specimen refusing catheter at this time provider aware, no nno
--- NOTE | 2020-07-21 21:50 | PC.NURSE ---
pt sitting on bedside commode, pt still has feeling of fullness from stool. pt continues to refuse straight cath for urine specimen provider aware given update on poc
[2020-07-21 21:52] VITALS: BP 136/88; PULSE 88; RESP 16; O2SAT 98
--- NOTE | 2020-07-21 23:10 | PM.IMHP ---
H&P: HPI History of Present Illness Date/Time: 07/21/20 23:10 Chief complaint: constipation, dehydration Narrative: This is a pleasant 84 year old male with known history of prostate cancer who presented to the hospital with one week of constipation and rectal pain over the past few days. He denies any abdominal pain, nausea, vomiting, fevers, chills, headache, blurry vision, shortness of breath, dysuria, hematuria, or LE swelling. He did report some minimal rectal leakage. He denies any abdominal distension or abdominal pain. The patient was evaluated in the ER this evening and CT demonstrated a large amount of colonic stool extending to the rectum where there is haziness to the perirectal fat consistent with constipation and rectal stercoral colitis. ER provider attempted to manually disimpact the patient and was not successful. Routine labs obtained demonstrated mild dehydration. The patient does not use narcotic medications. ER provider has consulted General Surgery. No other complaints. Review of Systems Review of Systems: All systems reviewed & are unremarkable except as noted in HPI and below PMFSH Past Medical History Medical History Anemia in chronic kidney disease Anxiety with depression Benign prostatic hyperplasia BPPV (benign paroxysmal positional vertigo) Chronic idiopathic urticaria Chronic kidney disease, stage 4 (severe) Depression Elbow fracture, right Essential (primary) hypertension Hyperparathyroidism Nocturnal myoclonus Obesity IGOR (obstructive sleep apnea) S/P ORIF (open reduction internal fixation) fracture left arm Surgical History Surgical History H/O varicose vein ligation History of orthopedic surgery left arm reconstruction, right elbow surgery History of prostate surgery 11/26/2019 & 01/2020 Family History Family History Mother Breast cancer Social History Social History Smoking status: Never smoker Second hand tobacco smoke exposure: No Alcohol intake: never Substance use: never Gender identity (if verbalized by the patient): Male Spiritual care concerns: No Agree to blood products: Yes Meds Home Medications and Allergies Home Medications Medication Instructions Recorded Confirmed Type cyanocobalamin (vitamin B-12) 1,000 mcg PO QAM #30 tablet 11/05/19 07/22/20 Rx [Vitamin B-12] amlodipine [Norvasc] 2.5 mg PO QAM PRN 11/12/19 07/22/20 History docusate sodium [Colace] 100 mg PO QAM 11/12/19 07/22/20 History fluticasone propionate [Flonase 1 spray INTRANASAL Q12HR PRN 11/12/19 07/22/20 History Allergy Relief] tamsulosin 0.4 mg capsule 0.4 mg PO HS #90 cap 02/21/20 07/22/20 Rx Xtandi 160 mg PO DAILY 04/04/20 07/22/20 History paroxetine HCl 40 mg tablet 40 mg PO DAILY #90 tablet 05/26/20 07/22/20 Rx Allergies Allergy/AdvReac Type Severity Reaction Status Date / Time aspartame Allergy Severe HIVE Verified 07/22/20 00:07 lisinopril AdvReac Intermediate Rash Verified 07/22/20 00:07 Vital Signs Vital Signs - 24 hr 07/21/20 16:17 07/21/20 17:37 07/21/20 19:24 Temperature 36.4 C Pulse Rate 72 95 105 H Respiratory Rate 18 17 18 Blood Pressure 134/77 129/72 149/83 H Pulse Oximetry 100 99 100 07/21/20 20:46 07/21/20 21:52 Temperature Pulse Rate 99 88 Respiratory Rate 16 16 Blood Pressure 134/77 136/88 Pulse Oximetry 100 98 Exam Const: General: cooperative, no acute distress, alert and awake Nutritional Appearance: well nourished Orientation/consciousness: patient oriented x3 HENMT: Head: normal to inspection General nose exam: Normal external nose present Face and sinus: normal facial exam Mouth: Yes Normal oral and palatal mucosa present and Yes oropharynx normal Eyes: Pupils: Equal, round and reactive pupil
[2020-07-21 23:12] LABS: Add Urine Microscopic? YES; Appearance Urine Clear (Clear); Bacteria Urine Trace /hpf; Bilirubin Urine Negative (Negative); Blood Urine 1+ (Negative); Color Urine Yellow (Yellow); Glucose Urine UA Negative (Negative); Ketones Urine Negative (Negative); Leukocyte Esterase Ur Trace LEU/UL (Negative); Mucus Urine Rare /lpf; Nitrate Urine Negative (Negative); Protein Urine 1+ mg/dL (Negative); Squamous Epithelial Cell Urine Rare /hpf (Few); Urobilinogen Urine Negative mg/dL (<2.0)
[2020-07-21 23:16] LABS: Specific Grav Ur 1.057 (1.001-1.035)
--- NOTE | 2020-07-22 00:08 | ADMGEN ---
This patient, Dayron Arreaga, was admitted to Medical Room 255-. Patient/family oriented to hospital policies and general routines including ID bracelet, bed and alarms, visiting hours, pain management, procedures, bathroom and other care routines, personal items, smoking policy, room service/diet, and visiting hours. Information on how to activate the Rapid Response Team has been discussed. Patient/Family are encouraged to report perceived risks to care and to ask questions if they do not understand what they are told or what they should do.
[2020-07-22 00:22] VITALS: BP 161/70; PULSE 71; RESP 16; TEMP 36.2; O2SAT 100; BMI 25.9
[2020-07-22] MEDS: LACTATED RINGERS 1,000 ML 75 ML IV CONT ×2 (00:34→16:03)
[2020-07-22 05:47] VITALS: BP 133/45; PULSE 73; RESP 16; TEMP 36.2; O2SAT 100
[2020-07-22 05:56] LABS: Basophils Percent Auto 0.2 % (0.2-1.2); Eosinophils Absolute Auto 0.1 K/mm3 (0-0.3); Eosinophils Percent Auto 2.1 % (0-4.4); Hematocrit 27.2 % (42.0-52.0); Hemoglobin 9.2 g/dL (14.0-18.0); Immature Granulocyte Absolute 0.02 K/mm3 (0.00-0.031); Immature Granulocyte Percent A 0.4 % (0-0.5); Lymphocytes Absolute Auto 1.37 K/mm3 (0.9-3.2); Lymphocytes Percent Auto 26.4 % (18.3-44.2); Mean Corpuscular HGB Conc 33.8 g/dl (32-36); Mean Corpuscular Hemoglobin 33.8 pg (26-34); Mean Platelet Volume 10.3 fl (7.4-10.4); Monocytes Absolute Auto 0.5 K/mm3 (0.1-0.6); Monocytes Percent Auto 10.4 % (2.6-8.5); Neutrophils Absolute Auto 3.1 K/mm3 (1.3-6.7); Neutrophils Percent Auto 60.5 % (45.5-73.1); Platelet Count Result 169 k/mm3 (150-375); Red Blood Count 2.72 M/mm3 (4.6-6.20); Red Cell Distribution Width 13.7 % (11.5-14.5); White Blood Count 5.2 K/mm3 (4.5-10.0)
[2020-07-22 06:15] LABS: Anion Gap 7 mmol/L (8-16); Blood Urea Nitrogen 22 mg/dL (9-20); Calcium 8.7 mg/dL (8.4-10.2); Carbon Dioxide 22 mmol/L (22-30); Chloride 107 mmol/L (98-107); Estimated CRCL calculation 34 ml/min; Estimated Glomerular Filt Rate 48; Glucose 92 mg/dL (75-110); Sodium 136 mmol/L (137-145)
--- NOTE | 2020-07-22 07:06 | WPDURCON ---
Assessment and Plan Assessment and plan (1) Prostate cancer: Code(s): C61 - Malignant neoplasm of prostate Status: Chronic (2) Hydronephrosis: Qualifiers: Hydronephrosis type: unspecified Qualified Code(s): N13.30 - Unspecified hydronephrosis Code(s): N13.30 - Unspecified hydronephrosis Status: Acute Assessment and Plan: High-risk, locally advanced prostate cancer being managed with androgen deprivation Right hydronephrosis resulting from local extension of prostate cancer into the bladder trigone. Appearance of mild right hydronephrosis on admitting CT scan likely results from ureteral reflux up his ureteral stent. Given the recent change of the stent and normal serum creatinine I do not believe stent incrustation/obstruction is likely. Patient can follow-up subsequent to his admitting problem (constipation). We could order an outpatient cystogram to see if there is reflux up the stent. He is currently scheduled for have his right ureteral stent exchanged in September 2020. Urology Consult Note HPI Date Seen: 07/22/20 Requesting Physician: Maryann Martines PA-C Primary Care Provider: Michele Lovell DO Consult Narrative Narrative: Dayron Arreaga is a 84 year old male with known high-grade/ high risk prostate carcinoma diagnosed the time of a TURP. He has since developed locally extensive disease that is caused ureteral obstruction. February 2020 had a right ureteral stent placed that was changed last in late March 2020. He is admitted now with constipation and on CT scan was noted to have some mild right hydronephrosis. He denies significant flank pain or hematuria. Serum creatinine at the time of admission was normal. Review of Systems Cardiovascular: Cardiovascular: Denies chest pain, Denies lightheadedness, Denies palpitations and Denies dyspnea Respiratory: Respiratory: Denies dyspnea Gastrointestinal: Gastrointestinal: Denies diarrhea, Denies nausea and Denies vomiting Genitourinary: Genitourinary: Denies hematuria and Denies dysuria Endocrine: Endocrine: Denies palpitations PMFSH Past Medical History Medical History Anemia in chronic kidney disease Anxiety with depression Benign prostatic hyperplasia BPPV (benign paroxysmal positional vertigo) Chronic idiopathic urticaria Chronic kidney disease, stage 4 (severe) Depression Elbow fracture, right Essential (primary) hypertension Hyperparathyroidism Nocturnal myoclonus Obesity IGOR (obstructive sleep apnea) S/P ORIF (open reduction internal fixation) fracture left arm Surgical History Surgical History H/O varicose vein ligation History of orthopedic surgery left arm reconstruction, right elbow surgery History of prostate surgery 11/26/2019 & 01/2020 Family History Family History Mother Breast cancer Social History Social History Smoking status: Never smoker Second hand tobacco smoke exposure: No Alcohol intake: never Substance use: never Gender identity (if verbalized by the patient): Male Spiritual care concerns: No Agree to blood products: Yes Meds Home Medications and Allergies Home Medications Medication Instructions Recorded Confirmed Type cyanocobalamin (vitamin B-12) 1,000 mcg PO QAM #30 tablet 11/05/19 07/22/20 Rx [Vitamin B-12] amlodipine [Norvasc] 2.5 mg PO QAM PRN 11/12/19 07/22/20 History docusate sodium [Colace] 100 mg PO QAM 11/12/19 07/22/20 History fluticasone propionate [Flonase 1 spray INTRANASAL Q12HR PRN 11/12/19 07/22/20 History Allergy Relief] tamsulosin 0.4 mg capsule 0.4 mg PO HS #90 cap 02/21/20 07/22/20 Rx Xtandi 160 mg PO DAILY 04/04/20 07/22/20 History paroxetine HCl 40 mg tablet 40 mg PO DAILY #90 tablet 05/26/20
[2020-07-22] MEDS: PANTOPRAZOLE SODIUM IV 40 MG VIAL IV PUSH (09:31)
[2020-07-22] MEDS: PARoxetine 20 MG TABLET 40 MG PO (09:31)
[2020-07-22] MEDS: CYANOCOBALAMIN 1,000 MCG TABLET 1000 MCG PO (09:31)
[2020-07-22] MEDS: DOCUSATE SODIUM 100 MG CAPSULE PO (09:31)
[2020-07-22] MEDS: FAMOTIDINE 20 MG/2 ML VIAL IV PUSH ×2 (09:31→20:56)
[2020-07-22 10:00] VITALS: BP 140/59; PULSE 65; RESP 18; TEMP 36.3; O2SAT 100
--- NOTE | 2020-07-22 10:56 | PM.IMPN ---
Progress Note: A&P Assessment and Plan (1) Constipation: Qualifiers: Constipation type: unspecified constipation type Qualified Code(s): K59.00 - Constipation, unspecified Code(s): K59.00 - Constipation, unspecified Status: Acute Assessment and Plan: Patient reported constipation ongoing 1.[address] a/p showed large amount of colonic stool extending toward rectum, consistent with constipation. He received soap suds enema in the ED and had a bowel movement following. No abdominal pain, cramping, or distension. Abdominal XR today showed nonobstructive bowel gas pattern. Continue colace He will need to adhere to bowel regimen upon discharge home to prevent further episodes of constipation. (2) Colitis: Code(s): K52.9 - Noninfective gastroenteritis and colitis, unspecified Status: Acute Assessment and Plan: CT a/p showed rectal stercoral colitis secondary to constipation. No signs or symptoms of infection. General surgery has been consulted and recommendations are appreciated. Continue clear liquid diet. Continue gentle IV fluids (3) Acute dehydration: Code(s): E86.0 - Dehydration Status: Acute Assessment and Plan: Secondary to poor PO intake. Continue gentle IV fluids at this time. Plan to discontinue when patient is tolerating oral intake. (4) Hydronephrosis: Qualifiers: Hydronephrosis type: unspecified Qualified Code(s): N13.30 - Unspecified hydronephrosis Code(s): N13.30 - Unspecified hydronephrosis Status: Acute Assessment and Plan: CT a/p showed mild right hydronephrosis with suggestion of possible encrustation/obstruction of right internal ureteral stent. Urology has been consulted and recommendations are appreciated. Follow up with urology as an outpatient for cystogram to evaluate for reflux. (5) Chronic anemia: Code(s): D64.9 - Anemia, unspecified Status: Chronic Assessment and Plan: H&H consistent with baseline. Suspect anemia of chronic disease secondary to CKD and prostate cancer. No evidence of acute blood loss. VSS. Monitor H/H and transfuse prn. (6) Abnormal urinalysis: Code(s): R82.90 - Unspecified abnormal findings in urine Status: Acute Assessment and Plan: Urinalysis abnormal upon presentation. Patient denies urinary symptoms. May be secondary to contamination vs. asymptomatic bacteruria. Urine culture pending. Will hold off on antibiotics while awaiting culture results. (7) Prostate cancer: Code(s): C61 - Malignant neoplasm of prostate Status: Chronic Assessment and Plan: S/p transurethral resection. Established with Dr. Jerome. Continue xtandi (8) Chronic kidney disease, stage 4 (severe): Code(s): N18.4 - Chronic kidney disease, stage 4 (severe) Status: Chronic Assessment and Plan: Creatinine appears consistent with his baseline. Monitor renal function closely. Avoid nephrotoxic agents. Continue gentle IV hydration. (9) Essential (primary) hypertension: Code(s): I10 - Essential (primary) hypertension Status: Chronic Assessment and Plan: BP evaluated today and is stable at 133/45. Amlodipine placed on hold by PCP as BP had been borderline low. Monitor BP daily Subjective Date/time seen: 07/22/20 10:56 Interval history: Date of service: 07/22/2020 Dayron Arreaga 84-year-old male with history chronic kidney disease, hypertension, IGOR, and anemia who is seen in follow-up for constipation with associated stercoral colitis. He reports having a bowel movement yesterday. He has been passing gas. He denies abdominal pain, distention, or cramping. He notes that he just does not feel right but is having trouble elaborating on his symptoms. He endorses decreased appetite. He denies dysuria, hematuria, urgency, frequency, or other ur
--- NOTE | 2020-07-22 12:43 | PHAR ---
HOME MEDICATION: (Enzalutamide [Xtandi] 40 mg Capsule) VERIFIED BY PHARMACY
[2020-07-22 13:56] VITALS: BP 142/51; PULSE 64; RESP 18; TEMP 36.3; O2SAT 100
--- NOTE | 2020-07-22 14:42 | PM.CNGS ---
Assessment and Plan Assessment and plan (1) Fecal impaction: Code(s): K56.41 - Fecal impaction Status: Acute Assessment and Plan: CT scan reviewed and discussed with the patient in detail. Evidence of a fecal impaction with the CT suggesting stercoral colitis. He has had a very large bowel movement since admission. His abdominal exam is benign and he is tolerating a clear liquid diet. Abdominal x-ray repeated today and showed some improvement compared to the KUB from the ER. No indication for surgical intervention at this time. I will give the patient magnesium citrate today now and restart his Miralax starting tomorrow. We can advance his diet to full liquids for tonight. We will continue to monitor the patient with serial abdominal exams and imaging as needed. Thank you for allowing us to see the patient in consultation and we will continue to follow along with you. (2) Colitis: Code(s): K52.9 - Noninfective gastroenteritis and colitis, unspecified Status: Acute (3) Constipation: Qualifiers: Constipation type: unspecified constipation type Qualified Code(s): K59.00 - Constipation, unspecified Code(s): K59.00 - Constipation, unspecified Status: Acute Assessment and Plan: Patient currently takes Miralax daily and a stool softener daily. Will restart Miralax daily. (4) Chronic anemia: Code(s): D64.9 - Anemia, unspecified Status: Chronic (5) Prostate cancer: Code(s): C61 - Malignant neoplasm of prostate Status: Chronic Assessment and Plan: High-risk, locally advanced prostate cancer being managed with androgen deprivation. Urology consulted. (6) Chronic kidney disease, stage 4 (severe): Code(s): N18.4 - Chronic kidney disease, stage 4 (severe) Status: Chronic Assessment and Plan: Creatinine 1.4 today. (7) Essential (primary) hypertension: Code(s): I10 - Essential (primary) hypertension Status: Chronic (8) IGOR (obstructive sleep apnea): Code(s): G47.33 - Obstructive sleep apnea (adult) (pediatric) Status: Acute Additional Plan Discussed the patient's plan of care with Dr. Little. History of Present Illness Consult details Consult date: 07/22/20 Reason for consult: other (Fecal impaction with stercoral colitis) Requesting physician: Young,Raciel Jose, PA-C Narrative: This is an 84-year-old male who has known prostate cancer with a history of hypertension, obstructive sleep apnea, and chronic anemia, who presented to the emergency department with complaints of constipation. The patient reports not having a bowel movement for about 1 and a half weeks. He reports typically having a bowel movement every 2-3 days and taking MiraLax and a stool softener once daily. CT scan of abdomen and pelvis in the ER showed large amount of colonic stool extending to the rectum where there is haziness to the perirectal fat consistent with constipation and rectal stercoral colitis, mild right hydronephrosis and mildly delayed right nephrogram, and small sliding type hiatal hernia. Labs revealed a normal white blood cell count and creatinine of 1.5. The patient was given a soapsuds enema in the ER. The patient reports having a very large bowel movement after having the enema. He is now seen on the medical floor. He denies any abdominal or rectal pain at this time. Denies any nausea, vomiting, or bloating. Reports tolerating clear liquids today. No other complaints at this time. Review of Systems Constitutional: Constitutional: Reports as per HPI, Denies chills, Denies excessive sweating, Denies fatigue, Denies fever(s), Denies headache(s) and Denies weakness Eyes: Eyes: Denies change in vision and Denies loss of vision ENT: Reports Normal hearing present, Denies dizziness and Denies headache(s) Cardiovascular: Cardiovascular: Denies chest pain, Denies syncope, Denies leg edema, Denies lightheadedness, D
[2020-07-22] MEDS: MINERAL OIL 30 ML UDC PO (16:03)
[2020-07-22] MEDS: MAGNESIUM CITRATE 300 ML BTL 150 ML PO (16:06)
[2020-07-22 17:33] VITALS: BP 102/53; PULSE 77; RESP 18; TEMP 36.2; O2SAT 99
[2020-07-22 20:00] VITALS: BP 128/54; PULSE 63; RESP 20; TEMP 36.2; O2SAT 98
[2020-07-22] MEDS: TAMSULOSIN HCL 0.4 MG CAPSULE PO (20:56)
[2020-07-23] VITALS: BP 108/70; PULSE 66; RESP 20; TEMP 36.2; O2SAT 98
[2020-07-23] MEDS: LACTATED RINGERS 1,000 ML 75 ML IV CONT (03:32)
[2020-07-23 04:00] VITALS: BP 132/75; PULSE 62; RESP 18; TEMP 36.2; O2SAT 100
[2020-07-23 06:00] LABS: Hematocrit 25.9 % (42.0-52.0); Mean Corpuscular HGB Conc 34.7 g/dl (32-36); Mean Corpuscular Hemoglobin 34.6 pg (26-34); Mean Corpuscular Volume 99.6 fl (80-100); Mean Platelet Volume 10.3 fl (7.4-10.4); Platelet Count Result 164 k/mm3 (150-375); Red Cell Distribution Width 13.3 % (11.5-14.5); White Blood Count 4.6 K/mm3 (4.5-10.0)
[2020-07-23 06:13] LABS: Anion Gap 7 mmol/L (8-16); Blood Urea Nitrogen 18 mg/dL (9-20); Calcium 8.8 mg/dL (8.4-10.2); Carbon Dioxide 25 mmol/L (22-30); Chloride 105 mmol/L (98-107); Estimated CRCL calculation 31 ml/min; Estimated Glomerular Filt Rate 44; Glucose 87 mg/dL (75-110); Potassium 3.9 mmol/L (3.4-5.0); Sodium 137 mmol/L (137-145)
[2020-07-23] MEDS: DOCUSATE SODIUM 100 MG CAPSULE PO (09:54)
[2020-07-23] MEDS: MINERAL OIL 30 ML UDC PO (09:54)
[2020-07-23] MEDS: polyethylene glycoL 3350 17 GM POWD.PACK PO (09:55)
[2020-07-23] MEDS: CYANOCOBALAMIN 1,000 MCG TABLET 1000 MCG PO (09:55)
[2020-07-23] MEDS: amLODIPine BESYLATE 2.5 MG TABLET PO (09:55)
[2020-07-23] MEDS: PARoxetine 20 MG TABLET 40 MG PO (09:55)
[2020-07-23] MEDS: PANTOPRAZOLE SODIUM IV 40 MG VIAL IV PUSH (09:55)
[2020-07-23 10:00] VITALS: BP 138/60; PULSE 68; RESP 18; TEMP 36.4; O2SAT 99
--- NOTE | 2020-07-23 11:39 | PM.PNGS ---
Progress Note: A&P Assessment and Plan (1) Fecal impaction: Code(s): K56.41 - Fecal impaction Status: Resolved Assessment and Plan: Advance diet, OK to discharge from surgical standpoint. Continue stool softeners/laxatives to prevent constipation. (2) Constipation: Qualifiers: Constipation type: unspecified constipation type Qualified Code(s): K59.00 - Constipation, unspecified Code(s): K59.00 - Constipation, unspecified Status: Acute Subjective Subjective Date/Time Seen: 07/23/20 11:39 Tolerating diet, bowels moving, no abdominal pain. Exam GI: Inspection: normal to inspection GI Palp: Yes Soft to palpation, No Tenderness to palpation present (GI) and No Guarding due to palpation present (GI) Percussion: Yes normal to percussion Auscultation: normal bowel sounds Objective Data Vital Signs Vital Signs: Vital Signs - 24 hr 07/22/20 13:56 07/22/20 17:33 07/22/20 20:00 Temperature 36.3 C L 36.2 C L 36.2 C L Pulse Rate 64 77 63 Respiratory Rate 18 18 20 Blood Pressure 142/51 H 102/53 L 128/54 L Pulse Oximetry 100 99 98 07/23/20 00:00 07/23/20 04:00 07/23/20 10:00 Temperature 36.2 C L 36.2 C L 36.4 C Pulse Rate 66 62 68 Respiratory Rate 20 18 18 Blood Pressure 108/70 132/75 138/60 Pulse Oximetry 98 100 99 Intake/Output Intake/Output: Intake & Output 07/20/20 07/21/20 07/22/20 07/23/20 23:59 23:59 23:59 23:59 Intake Total 1999 2700 1952 Output Total 1000 1350 Balance 1999 1700 602 Meds/Results Medications: Active Medications Generic Name Dose Route Start Last Admin Trade Name Freq PRN Reason Stop Dose Admin Amlodipine Besylate 2.5 mg 07/22/20 03:40 07/23/20 09:55 Amlodipine Besylate 2.5 Mg Tablet PO 2.5 mg QAM PRN Administration Blood Pressure Cyanocobalamin 1,000 mcg 07/22/20 09:00 07/23/20 09:55 Cyanocobalamin 1,000 Mcg Tablet PO 1,000 mcg QAM VIVEK Administration Docusate Sodium 100 mg 07/22/20 09:00 07/23/20 09:54 Docusate Sodium 100 Mg Capsule PO 100 mg QAM VIVEK Administration Fluticasone Propionate 1 spray 07/22/20 03:40 Fluticasone Propionate 0.05% Na Spr 16 Gm Btl (*Bkc) NASAL Q12HR PRN Allergic Symptoms Mineral Oil 30 ml 07/22/20 14:15 07/23/20 09:54 Mineral Oil 30 Ml Udc PO 30 ml DAILY VIVEK Administration Pantoprazole Sodium 40 mg 07/22/20 09:00 07/23/20 09:55 Pantoprazole Sodium Iv 40 Mg Vial IV PUSH 40 mg QAM VIVEK Administration Paroxetine HCl 40 mg 07/22/20 09:00 07/23/20 09:55 Paroxetine 20 Mg Tablet PO 40 mg DAILY VIVEK Administration Polyethylene Glycol 17 gm 07/23/20 09:00 07/23/20 09:55 Polyethylene Glycol 3350 17 Gm Powd.Pack PO 17 gm QAM VIVEK Administration Tamsulosin HCl 0.4 mg 07/22/20 21:00 07/22/20 20:56 Tamsulosin Hcl 0.4 Mg Capsule PO 0.4 mg HS VIVEK Administration Radiology Results: ITS Impressions Abdomen/Pelvis CT 07/21/20 19:11 IMPRESSION: 1. Large amount of colonic stool extending to the rectum where there is haziness to the perirectal fat consistent with constipation and rectal stercoral colitis. 2. Mild right hydronephrosis and mildly delayed right nephrogram although a right internal ureteral stent remains in expected position which suggest possibility of encrustation/obstruction of the stent. Correlate with clinical history for time since prior study change. Alternatively this could be related to obstruction at the level of the distal right ureter where there is increased surrounding soft tissue density raising concern for malignancy which could be of either a bladder, prostatic or distal ureteral origin. Correlate with clinical/urologic history. 3. Small sliding-type hiatal hernia. Abdomen X-Ray 07/22/20 08:18 Impression: 1: Nonobstructive bowel gas pattern. Labs Labs: Laboratory Results - last 24 hr 07/23/20 07/23/20 05:27 05:27 WBC 4.6 RBC 2.60 L Hgb 9.0 L Hct 2
--- NOTE | 2020-07-23 14:28 | PM.DS ---
DS: Admitting Diagnosis Admitting Diagnosis Admitting Diagnosis: constipation, dehydration DS: Discharge Diagnosis Discharge Diagnosis (1) Constipation: Qualifiers: Constipation type: unspecified constipation type Qualified Code(s): K59.00 - Constipation, unspecified Code(s): K59.00 - Constipation, unspecified Status: Acute Assessment and Plan: Patient reported constipation ongoing 1.[address] a/p showed large amount of colonic stool extending toward rectum, consistent with constipation. He received soap suds enema in the ED and had a bowel movement following. No abdominal pain, cramping, or distension. Abdominal XR 07/22 showed nonobstructive bowel gas pattern. He will need to continue miralax and colace daily to prevent further episodes of constipation. (2) Colitis: Code(s): K52.9 - Noninfective gastroenteritis and colitis, unspecified Status: Acute Assessment and Plan: CT a/p showed rectal stercoral colitis secondary to constipation. No signs or symptoms of infection. Seen in consultation by general surgery. Diet was advanced and he was able to tolerate regular diet. Constipation resolved. (3) Acute dehydration: Code(s): E86.0 - Dehydration Status: Acute Assessment and Plan: Secondary to poor PO intake. He was rehydrated with IV fluids. Discussed importance of maintaining adequate hydration. (4) Hydronephrosis: Qualifiers: Hydronephrosis type: unspecified Qualified Code(s): N13.30 - Unspecified hydronephrosis Code(s): N13.30 - Unspecified hydronephrosis Status: Acute Assessment and Plan: CT a/p showed mild right hydronephrosis with suggestion of possible encrustation/obstruction of right internal ureteral stent. He was seen in consultation by Urology who recommended outpatient follow-up for cystogram to evaluate for reflux. Patient given office information and understands need for follow-up. (5) Chronic anemia: Code(s): D64.9 - Anemia, unspecified Status: Chronic Assessment and Plan: H&H consistent with baseline. Suspect anemia of chronic disease secondary to CKD and prostate cancer. No evidence of acute blood loss. Vital signs remained stable. (6) Abnormal urinalysis: Code(s): R82.90 - Unspecified abnormal findings in urine Status: Acute Assessment and Plan: Urinalysis abnormal although patient denied any urinary symptoms. Urine culture negative. Suspect contamination. No treatment required. (7) Prostate cancer: Code(s): C61 - Malignant neoplasm of prostate Status: Chronic Assessment and Plan: S/p transurethral resection. Established with Dr. Jerome and on androgen deprivation therapy. Continue xtandi (8) Chronic kidney disease, stage 4 (severe): Code(s): N18.4 - Chronic kidney disease, stage 4 (severe) Status: Chronic Assessment and Plan: Creatinine remained consistent with his baseline. (9) Essential (primary) hypertension: Code(s): I10 - Essential (primary) hypertension Status: Chronic Assessment and Plan: Blood pressure evaluated daily and remained well controlled. Patient's amlodipine was recently put on hold by his PCP as blood pressures had been borderline low. Continue to hold amlodipine and follow up with PCP. DS: Summary Hospital Course Reason for hospitalization: constipation Hospital Course: date of admission: 07/21/2020 date of discharge: 07/23/2020 Dayron Arthurromelia 84-year-old male with history chronic kidney disease, hypertension, IGOR, and anemia who presented to the emergency department on 07/21/2020 with complaints of constipation, stating that he had not had a bowel movement in over 1 week and no improvement with taking stool softeners. At presentation, vital signs stable, he was mildly anemic, creatinine slightly elevated with additional electrolytes stable,
== END 2020-07-23 15:40 | disposition home or self-care (01) | DRG 392 ==
LOC: ANHED 20:43 → ANH2MED 23:28
PROVIDERS: Emergency Medicine Emergency Medical Services; Physician Assistant; Admitting Provider Family Medicine; Emergency Provider Emergency Medicine; PCP Internal Medicine; Visit Provider Family Medicine
DX: K59.00 Constipation, unspecified (principal); N18.4 Chronic kidney disease, stage 4 (severe); N13.30 Unspecified hydronephrosis; C61 Malignant neoplasm of prostate; D63.0 Anemia in neoplastic disease; K52.9 Noninfective gastroenteritis and colitis, unspecified; E86.0 Dehydration; N40.0 Benign prostatic hyperplasia without lower urinary tract symptoms; R82.90 Unspecified abnormal findings in urine; I12.9 Hypertensive chronic kidney disease with stage 1 through stage 4 chronic kidney disease, or unspecified chronic kidney disease; D63.1 Anemia in chronic kidney disease; F41.8 Other specified anxiety disorders; G47.33 Obstructive sleep apnea (adult) (pediatric); Z79.899 Other long term (current) drug therapy
CPT/HCPCS: 36415; 74018; 74177; 80048; 80053; 81001; 85025; 85027; 87086; 87088; 96361; 96374; 96375; 96376; 99285; A9270; C9113; G0378; J7030; J7120; Q9967

== ENCOUNTER 2020-08-25 13:25 | Outpatient (CLI) | payer MEDICARE, SELFPAY ==
[2020-08-25 13:48] LABS: Basophils Percent Auto 0.5 % (0.2-1.2); Eosinophils Absolute Auto 0.2 K/mm3 (0-0.3); Eosinophils Percent Auto 3.6 % (0-4.4); Hematocrit 31.7 % (42.0-52.0); Hemoglobin 10.7 g/dL (14.0-18.0); Immature Granulocyte Absolute 0.02 K/mm3 (0.00-0.031); Immature Granulocyte Percent A 0.5 % (0-0.5); Lymphocytes Absolute Auto 1.42 K/mm3 (0.9-3.2); Lymphocytes Percent Auto 34.5 % (18.3-44.2); Mean Corpuscular HGB Conc 33.8 g/dl (32-36); Mean Corpuscular Hemoglobin 34.5 pg (26-34); Mean Corpuscular Volume 102.3 fl (80-100); Mean Platelet Volume 9.7 fl (7.4-10.4); Monocytes Absolute Auto 0.5 K/mm3 (0.1-0.6); Monocytes Percent Auto 12.2 % (2.6-8.5); Neutrophils Percent Auto 48.7 % (45.5-73.1); Platelet Count Result 179 k/mm3 (150-375); Red Cell Distribution Width 13.4 % (11.5-14.5); White Blood Count 4.1 K/mm3 (4.5-10.0)
[2020-08-25 17:05] LABS: Iron 109 ug/dL (49-181)
[2020-08-25 17:09] LABS: Alanine Aminotransferase 9 U/L (4-50); Albumin Level 3.7 g/dL (3.5-5.1); Alkaline Phosphatase 72 U/L (38-126); Anion Gap 9 mmol/L (8-16); Aspartate Amino Transferase 21 U/L (17-59); Bilirubin,Total 0.6 mg/dL (0.2-1.3); Blood Urea Nitrogen 29 mg/dL (9-20); Calcium 9.6 mg/dL (8.4-10.2); Carbon Dioxide 25 mmol/L (22-30); Chloride 101 mmol/L (98-107); Estimated Glomerular Filt Rate 41; Glucose 114 mg/dL (75-110); Potassium 4.2 mmol/L (3.4-5.0); Sodium 135 mmol/L (137-145)
[2020-08-25 17:14] LABS: Percent Iron Saturation 36 % (20-50)
[2020-08-25 17:39] LABS: Prostate Specific Antigen 0.3 ng/mL (< OR = 4.0)
== END 2020-08-25 13:26 | disposition home or self-care (01) ==
LOC: ANHLAB 13:27
PROVIDERS: PCP Internal Medicine; Visit Provider Internal Medicine Hematology & Oncology
DX: R79.89 Other specified abnormal findings of blood chemistry (principal); C61 Malignant neoplasm of prostate
CPT/HCPCS: 36415; 80053; 82728; 83540; 83550; 84153; 85025

== ENCOUNTER 2020-09-23 12:39 | Outpatient (CLI) | payer MEDICARE, SELFPAY | END 2020-09-23 12:40 | disposition home or self-care (01) | LOC: ANHSURGERY 12:45 | PROVIDERS: Family Provider Internal Medicine; PCP Internal Medicine; Visit Provider Urology | DX: Z01.818 Encounter for other preprocedural examination (principal); N13.30 Unspecified hydronephrosis | CPT/HCPCS: 87086 ==

== ENCOUNTER 2020-09-27 01:19 | Outpatient (CLI) | payer MEDICARE, SELFPAY ==
[2020-09-27 18:46] LABS: SARS-CoV-2 RNA PCR Negative
== END 2020-09-27 01:20 | disposition home or self-care (01) ==
LOC: ANHCOVIDDT 01:19
PROVIDERS: Family Provider Internal Medicine; PCP Internal Medicine; Visit Provider Urology
DX: Z01.812 Encounter for preprocedural laboratory examination (principal); Z20.822 Contact with and (suspected) exposure to COVID-19
CPT/HCPCS: C9803; U0003; U0005

== ENCOUNTER 2020-09-30 01:57 | Day surgery (SDC) | payer MEDICARE, SELFPAY ==
[2020-09-22 12:33] VITALS: BMI 27.8
--- NOTE | 2020-09-29 14:52 | WPDANESEPPF ---
Anes - Initial Pre Proc Eval Procedure: Operation Date: 09/30/20 11:30 Proposed Procedures p Cystoscopy, Right Retrograde Pyelogram With Right Stent Exchange - J Luis Jerome MD Date/Time: 09/29/20 14:52 Surgeon: J Luis Jerome MD Pre Op Diagnosis: Hydronephrosis Right Side Patient Data Age: 84 Gender: M Height: 1.73 m Weight: 83 kg Allergies Allergy/AdvReac Type Severity Reaction Status Date / Time aspartame Allergy Severe HIVE Verified 09/30/20 09:23 lisinopril AdvReac Intermediate Rash Verified 09/30/20 09:23 Home Medications Medication Instructions Recorded Confirmed Type cyanocobalamin (vitamin B-12) 1,000 mcg PO QAM #30 tablet 11/05/19 09/30/20 Rx [Vitamin B-12] amlodipine [Norvasc] 2.5 mg PO QAM PRN 11/12/19 09/22/20 History docusate sodium [Colace] 100 mg PO QAM PRN 11/12/19 09/30/20 History fluticasone propionate [Flonase 1 spray INTRANASAL Q12HR PRN 11/12/19 09/30/20 History Allergy Relief] Xtandi 160 mg PO USEASDIRECTD 04/04/20 09/30/20 History polyethylene glycol 3350 [Miralax] 17 g PO QAM #30 ea 07/23/20 09/30/20 Rx tamsulosin 0.4 mg capsule 0.4 mg PO HS #90 cap 09/08/20 09/30/20 Rx paroxetine HCl 40 mg PO QAM 09/22/20 09/30/20 History Patient hx anesthesia problems: none Family hx anesthesia problems: none PMFSH Past Medical History Medical History Anemia in chronic kidney disease Anxiety with depression Benign prostatic hyperplasia BPPV (benign paroxysmal positional vertigo) Chronic idiopathic urticaria Chronic kidney disease, stage 4 (severe) Depression Elbow fracture, right Essential (primary) hypertension Hyperparathyroidism Nocturnal myoclonus Obesity IGOR (obstructive sleep apnea) S/P ORIF (open reduction internal fixation) fracture left arm Surgical History Surgical History H/O varicose vein ligation History of orthopedic surgery left arm reconstruction, right elbow surgery History of prostate surgery 11/26/2019 & 01/2020 Family History Family History Mother Breast cancer Social History Social History Smoking status: Former smoker Second hand tobacco smoke exposure: No Alcohol intake: never Substance use: never Living arrangements: with family Additional living arrangements comments: Gender identity (if verbalized by the patient): Male Spiritual care concerns: No Agree to blood products: Yes Anes - Eval Final PreProcedure Day of Procedure 09/29/20 14:52 Patient weight: obese Heart: regular rate and rhythm Lungs: clear to auscultation and normal air movement Airway: Mallampati scale class II Neurological: alert and oriented Last oral intake: >/= 8 hours ASA classification: III Emergent: no Anesthetic plan: proceed Anesthesia type and monitoring: general LMA Informed Consent: The patient's anesthetic plan and its attendant risks and benefits were discussed with the patient/family/POA. Questions were solicited and answers provided to the satisfaction of the patient/family/POA.
[2020-09-30] VITALS (8 sets, daily range): BP systolic 145–181; BP diastolic 50–69; PULSE 59–73; RESP 14–18; TEMP 36.3–36.6; O2SAT 98–100
--- NOTE | ~2020-09-30 | XR_ITS ---
EXAMINATION: XR retrograde pyelo w/stent RT EXAM DATE: 09/30/2020 11:37 INDICATION: Right-sided retrograde, stent exchange. TECHNIQUE: Fluoroscopy used during XR retrograde pyelo w/stent RT performed by Dr. J Luis levine MD. The DAP for this procedure was 271 radcm2 FINDINGS: Images demonstrate right double-J ureteral stent in position. Contrast was injected, there is severe right-sided hydronephrosis. Post pyelogram images also demonstrate a right double-J ureter al stent in position. Correlate with procedure note. IMPRESSION: Severe right hydronephrosis. Stent in position. Reviewed, dictated and finalized at location B. [employer]
[2020-09-30] MEDS: LACTATED RINGERS 1,000 ML 30 ML IV CONT (10:10)
--- NOTE | 2020-09-30 10:31 | WPDHPUPDATE1 ---
History and Physical Update Update Date/Time: 09/30/20 10:31 History and Physical has been reviewed, including an updated exam of the patient. There are NO changes in the patient's condition. Risks, benefits, and alternatives have been discussed and questions answered. Patient agrees to proceed with procedure.
[2020-09-30] MEDS: ceFAZolin 2 GM/D5W 50 ML 2 GM/50 ML BAG IVPB (11:13)
[2020-09-30] MEDS: LIDOCAINE HCL 2% GEL UROJET 10 ML PKG MUCOUS MEM (11:25)
--- NOTE | 2020-09-30 11:39 | P.OP_ITS ---
Procedure Note - Detailed Date of procedure: 09/30/20 Pre-op diagnosis: Hydronephrosis Right Side Post-op diagnosis: same Procedure performed: Cystoscopy, right retrograde pyelogram, right ureteral stent exchange 4.8 [place] contour, fulguration of prostatic fossa Description of procedure: Patient is taken the operative suite and correctly identified. Once anesthesia was obtained he was placed in the dorsal lithotomy position and prepped and draped usual sterile fashion. Twenty-two [place] scope was inserted in bladder in direct vision. Prostatic fossa was fairly open. It is still not completely healed has some friable tissue. It is somewhat oozing in nature. The bladder itself was than expected again were unable to identify left ureteral orifice. The right ureteral stent was then grasped and brought out the meatus. A guidewire was placed through it up into the renal pelvis. Trevor catheter was then passed over the pyelogram was performed to confirm placement of the stent. 4.8 [place] contour stent was then passed over the wire with the proximal end coiled in the renal pelvis and the distal in the bladder. At this point time we used a Bugbee electrode to fulgurate the prostatic fossa oozing. Appeared to be good hemostasis in termination. 2% viscous lidocaine was inserted urethra. He is taken recovery stable condition. Will plan on exchanging the stent probably in approximately 8 months or so. Anesthesia: GLMA Surgeon: J Luis Jerome MD Drains: Yes Packing: No Pathology: none sent Complications: No immediate complications Condition: stable Disposition: PACU
== END 2020-09-30 13:55 | disposition home or self-care (01) ==
PROVIDERS: Family Provider Internal Medicine; PCP Internal Medicine; Visit Provider Urology
PROC: (CPT 52352; principal; 2020-09-30 11:30)
DX: N13.30 Unspecified hydronephrosis (principal); N40.0 Benign prostatic hyperplasia without lower urinary tract symptoms; I12.9 Hypertensive chronic kidney disease with stage 1 through stage 4 chronic kidney disease, or unspecified chronic kidney disease; N18.4 Chronic kidney disease, stage 4 (severe); G47.33 Obstructive sleep apnea (adult) (pediatric); D63.1 Anemia in chronic kidney disease; F41.8 Other specified anxiety disorders; E21.3 Hyperparathyroidism, unspecified; Z87.891 Personal history of nicotine dependence; E66.9 Obesity, unspecified; Z68.28 Body mass index [BMI] 28.0-28.9, adult
CPT/HCPCS: 52214; 52332; 74420; A9270; C1758; C1769; C2617; J0690; J1100; J2405; J2704; J3010; J7120; Q9966

== ENCOUNTER 2020-10-20 09:03 | Observation (INO) | payer MEDICARE, SELFPAY ==
[2020-10-20] VITALS (22 sets, daily range): BP systolic 126–167; BP diastolic 45–80; PULSE 62–93; RESP 12–20; TEMP 35.8–36.7; O2SAT 97–100
--- NOTE | ~2020-10-20 | MR_ITS ---
EXAMINATION: MR femur RT wo/w con DATE: 10/22/2020 12:10 INDICATION: Right thigh pain TECHNIQUE: Magnetic resonance imaging (MRI) of the right thigh was performed without and with 18 mL M ultihance intravenous contrast. A marker was placed over the mass. Sequences included axial, sagitta l and coronal T1-weighted FSE and fluid sensitive FSE STIR, axial T1-weighted FS FSE and post contras t axial and coronal T1-weighted FS FSE were also obtained. COMPARISON: Right femur radiographs dated 10/20/2020 FINDINGS: Complete avulsion at the lesser trochanteric insertion of the right iliopsoas tendon which is retract ed approximately 4.5 cm anterosuperiorly. There is moderate tendinopathy and fraying extending 2-3 cm proximal from the retracted tear margin. There is a very small fluid collection filling the tear def ect between the retracted tear margin the lesser trochanter. There is some edema primarily epimysial in the adductor compartment which is most prominent extending proximally and distally along the abduc tor longus muscle which most likely represents extension of reactive edema related to the iliopsoas t endon tear although differential would include low-grade strain of the abductor longus. Mild tendinop athy without discrete tear at the right ischial tuberosity origin of the proximal hamstring tendons. Bone marrow signal is normal throughout. No right hip joint effusion. There is asymmetric contiguous enhancing soft tissue extending between the right posterior margin of the prostate and extending into the region of the right seminal vesicle and distal right ureter raising concern for extraprostatic i nvasion of prostate cancer. IMPRESSION: 1. Complete avulsion of the right iliopsoas tendon from its lesser trochanteric insertion. 2. Likely secondary reactive edema in the abductor compartment most prominent extending caudally micahel g the right adductor longus muscle belly with differential including low-grade strain. 3. Suggestion of enhancing prostate cancer invading the region of the right seminal vesicle and dista l right ureter. Reviewed, dictated and finalized at location A. LITIES COORDINATOR IMPRESSION: 1. Complete avulsion of the right iliopsoas tendon from its lesser trochanteric insertion. 2. Likely secondary reactive edema in the abductor compartment most prominent e xtending caudally along the right adductor longus muscle belly with differentia l including low-grade strain. 3. Suggestion of enhancing prostate cancer invading the region of the right ryan inal vesicle and distal right ureter.
--- NOTE | ~2020-10-20 | XR_ITS ---
EXAMINATION: XR hip RT min 3V w AP pelvis, XR femur RT min 2V EXAM DATE: 10/20/2020 10:48 INDICATION: Pelvic, right hip and femur pain. No reported recent injury. TECHNIQUE: Right hip frontal, crosstable lateral and 'frog-leg' projections for interpretation. Front al projection pelvis. Right femur frontal and lateral projections of the proximal aspect, frontal and lateral projections of the lower aspect for review. There is no prior study for comparison. FINDINGS: Smooth right hip femoral head contour, no radiographic evidence of avascular necrosis. The re is mild symmetric bilateral hip primary osteoarthritis. There is a right-sided double-J ureteral stent. There are no acute fractures identified. Pelvis, femur are unremarkable. IMPRESSION: 1. Mild bilateral hip osteoarthritis. 2. Right ureteral stent. Reviewed, dictated and finalized at location B. LLMENT COUNSELOR IMPRESSION: 1. Mild bilateral hip osteoarthritis. 2. Right ureteral stent.
--- NOTE | ~2020-10-20 | MR_ITS ---
EXAMINATION: MR lumbar spine wo/w con EXAM DATE: 10/22/2020 12:10 INDICATION: Right thigh pain, radicular pain. TECHNIQUE: Multi-sequential, multiplanar MR images of the lumbar spine were obtained without contrast . Sagittal T1, T2, T2 fat saturation images. Axial T2 weighted images. Axial T1 weighted sequence. Patient was then injected with 18 mL Multihance intravenous contrast and reimaged. Postcontrast axi al and sagittal T1-weighted fat saturation sequences were obtained. FINDINGS: There is moderate to severe disc disease at L2-3, mild to moderate at L1-2, L3-4 and L4-5. There is 3 mm anterolisthesis L4 on L5, 3 mm retrolisthesis L2 on L3 and 2 mm retrolisthesis L3 on L4 . The conus medullaris terminates at the L1/2 level and has normal signal intensity and morphology. There is mild enhancement of the nerve roots at the L4-5 level, where there is severe central canal s tenosis. Probably enhancement indicates mild inflammation or arachnoiditis, but no nerve root clumpin g.. Level by level evaluation: T12-L1: Disc does not extend beyond the endplate margin. Facet arthropathy: Mild. Neural foraminal stenosis: No stenosis. Central canal stenosis: No stenosis. L1-L2: There is a mild diffuse disc bulge. Facet arthropathy: Mild. Neural foraminal stenosis: Mild left. Central canal stenosis: Mild. L2-L3: There is a moderate diffuse disc bulge. Facet arthropathy: Mild to moderate. Neural foraminal stenosis: Mild to moderate bilateral. Central canal stenosis: Mild to moderate. L3-L4: There is a mild to moderate diffuse disc bulge. Facet arthropathy: Moderate. Neural foraminal stenosis: Mild to moderate bilateral. Central canal stenosis: Mild to moderate. L4-L5: There is a large diffuse disc bulge. Facet arthropathy: Severe . Ligamentum flavum enlargement. Neural foraminal stenosis: Moderate to severe left, moderate right. Central canal stenosis: Severe. L5-S1: There is a mild diffuse disc bulge. Facet arthropathy: Moderate. Neural foraminal stenosis: Mild bilateral. Central canal stenosis: Mild. IMPRESSION: 1. L4-5 grade 1 anterolisthesis, severe central canal stenosis, and suspect faint enhancement of ner ve roots at this level which could indicate some inflammation, arachnoiditis. 2. Less stenosis at other levels. Reviewed, dictated and finalized at location B. [employer]OR MAINTENANCE AND C[employer]ODIANS IMPRESSION: 1. L4-5 grade 1 anterolisthesis, severe central canal stenosis, and suspect fa int enhancement of nerve roots at this level which could indicate some inflamma tion, arachnoiditis. 2. Less stenosis at other levels.
--- NOTE | ~2020-10-20 | CT_ITS ---
EXAMINATION: CT lumbar spine wo con EXAM DATE: 10/20/2020 11:10 INDICATION: Right leg pain. TECHNIQUE: Spiral CT of the lumbar spine was performed without contrast. Axial, coronal and sagittal images were reviewed. The dose-length product (DLP) for this examination was 1132.38 mGy-cm. The exposure was tailored according to patient size (auto mA exposure control), and iterative reconstruct ion (ASIR) was used as additional dose reduction technique. There is no prior study for comparison. FINDINGS: Right-sided double-J ureteral stent in position. Mild right hydroureteronephrosis. There ar e no acute fractures identified. There is moderate to severe disc disease at L2-3 with 4 mm retrolist hesis. Moderate disc disease at L1-2 and L4-5, mild to moderate at L3-4. No spondylolysis. There is 3 mm anterolisthesis L4 on L5. Level by level evaluation: T12-L1: Disc does not extend beyond the endplate margin. Facet arthropathy: None. Neural foraminal stenosis: No stenosis. Central canal stenosis: No stenosis. L1-L2: There is a mild diffuse disc bulge. Facet arthropathy: Mild. Neural foraminal stenosis: Mild bilateral. Central canal stenosis: Mild. L2-L3: There is a moderate diffuse disc bulge. Facet arthropathy: Moderate. Neural foraminal stenosis: Moderate right, mild to moderate left. Central canal stenosis: Moderate. L3-L4: There is a mild to moderate diffuse Facet arthropathy: Moderate . Ligamentum flavum enlargement . Neural foraminal stenosis: Moderate bilateral. Central canal stenosis: Moderate to severe. L4-L5: There is a moderate diffuse disc bulge. Facet arthropathy: Severe . Ligamentum flavum enlargement. Neural foraminal stenosis: Moderate to severe left, moderate right. Central canal stenosis: Severe. L5-S1: There is a mild diffuse disc bulge. Facet arthropathy: Moderate to severe left, moderate right. Neural foraminal stenosis: Mild to moderate bilateral. Central canal stenosis: Mild. IMPRESSION: 1. L4-5 grade 1 anterolisthesis, severe central canal stenosis. 2. Moderate central canal stenosis L2-3 and L3-4. Reviewed, dictated and finalized at location B. YNAECOLOGIST
--- NOTE | ~2020-10-20 | US_ITS ---
EXAMINATION: US venous doppler LE RT EXAM DATE: 10/20/2020 10:34 INDICATION: Right leg pain, right thigh pain. TECHNIQUE: Multiple grayscale, color flow and Doppler images of the right lower extremity deep venous system were obtained and reviewed. There is no prior study for comparison. FINDINGS: The right common femoral, femoral and profunda veins demonstrate normal color flow, respira tory variation, augmentation and compressibility. Compressibility, color flow confirmed within the r ight popliteal, posterior tibial, peroneal, and greater saphenous veins. IMPRESSION: 1. No right lower extremity deep venous thrombosis. Reviewed, dictated and finalized at location B. R TECHNOLOGIST
[2020-10-20] MEDS: HYDROcodone/acetaminophen (*CRX) 5-325 MG TABLET 1 TAB PO (09:55)
--- NOTE | 2020-10-20 10:04 | ED.GENADULT ---
HPI - General Adult General Chief complaint: Extremity Injury, Lower <JHONATHAN Coleman Last Filed: 10/20/20 13:44> Stated complaint: Right Leg Injury <JHONATHAN Coleman Last Filed: 10/20/20 13:44> Time Seen by Provider: 10/20/20 09:10 <JHONATHAN Coleman Last Filed: 10/20/20 13:44> Source: patient, family and old records reviewed <JHONATHAN Coleman Last Filed: 10/20/20 13:44> Mode of arrival: ambulatory <JHONATHAN Coleman Last Filed: 10/20/20 13:44> Limitations: no limitations <JHONATHAN Coleman Last Filed: 10/20/20 13:44> History of Present Illness HPI narrative: Patient is a 4-year-old male who presents with right thigh pain has been present for 3 days denies injury or trauma notes moderate to severe pain causing difficulty using the extremity pain radiates down sometimes to the foot patient denies similar occurrence in the past patient has history of prostate cancer patient on arrival lying in the bed does not appear uncomfortable but with any activity or movement becomes uncomfortable. Patient denies swelling deformity. Patient has been taking Tylenol with minimal improvement <JHONATHAN Coleman Last Filed: 10/20/20 13:44> Related Data Home medications: Home Medications Medication Instructions Recorded Confirmed docusate sodium [Colace] 100 mg PO QAM PRN 11/12/19 09/30/20 fluticasone propionate [Flonase 1 spray INTRANASAL Q12HR PRN 11/12/19 09/30/20 Allergy Relief] Xtandi 160 mg PO USEASDIRECTD 04/04/20 09/30/20 paroxetine HCl 40 mg PO QAM 09/22/20 09/30/20 <JHONATHAN Coleman Last Filed: 10/20/20 13:44> Allergies/adverse reactions: Allergies Allergy/AdvReac Type Severity Reaction Status Date / Time aspartame Allergy Severe HIVE Verified 10/20/20 09:11 lisinopril AdvReac Intermediate Rash Verified 10/20/20 09:11 <JHONATHAN Coleman Last Filed: 10/20/20 13:44> Review of Systems Review of Systems: All systems reviewed & are unremarkable except as noted in HPI and below <Raciel Soto PA-C - Last Filed: 10/20/20 13:44> PMFSH Past Medical History Medical History: Medical History Anemia in chronic kidney disease Anxiety with depression Benign prostatic hyperplasia BPPV (benign paroxysmal positional vertigo) Chronic idiopathic urticaria Chronic kidney disease, stage 4 (severe) Depression Elbow fracture, right Essential (primary) hypertension Hyperparathyroidism Nocturnal myoclonus Obesity IGOR (obstructive sleep apnea) S/P ORIF (open reduction internal fixation) fracture left arm <Raciel Soto PA-C - Last Filed: 10/20/20 13:44> Surgical History Surgical History: Surgical History H/O varicose vein ligation History of orthopedic surgery left arm reconstruction, right elbow surgery History of prostate surgery 11/26/2019 & 01/2020 <Raciel Soto PA-C - Last Filed: 10/20/20 13:44> Family History Family History: Family History Mother Breast cancer <Raciel Soto PA-C - Last Filed: 10/20/20 13:44> Social History Social History: Social History Smoking status: Former smoker Second hand tobacco smoke exposure: No Alcohol intake: never Substance use: never Additional living arrangements comments: Gender identity (if verbalized by the patient): Male Spiritual care concerns: No Agree to blood products: Yes <Raciel Soto PA-C - Last Filed: 10/20/20 13:44> Exam Narrative: Exam Narrative: GENERAL: Well-appearing, well-nourished, and in no acute distress. HEAD: Normocephalic, atraumatic. EYES: PERRLA and EOMI. ENT: Nares clear, no rhinorrhea or epistaxis. Mucous membranes moist. CHEST: Clear to ausc
[2020-10-20 10:17] LABS: Basophils Percent Auto 0.2 % (0.2-1.2); Eosinophils Absolute Auto 0.1 K/mm3 (0-0.3); Eosinophils Percent Auto 1.2 % (0-4.4); Hematocrit 31.5 % (42.0-52.0); Hemoglobin 10.5 g/dL (14.0-18.0); Immature Granulocyte Absolute 0.03 K/mm3 (0.00-0.031); Immature Granulocyte Percent A 0.5 % (0-0.5); Lymphocytes Absolute Auto 0.92 K/mm3 (0.9-3.2); Lymphocytes Percent Auto 16.1 % (18.3-44.2); Mean Corpuscular HGB Conc 33.3 g/dl (32-36); Mean Corpuscular Hemoglobin 34.5 pg (26-34); Mean Corpuscular Volume 103.6 fl (80-100); Mean Platelet Volume 9.9 fl (7.4-10.4); Monocytes Absolute Auto 0.5 K/mm3 (0.1-0.6); Monocytes Percent Auto 7.9 % (2.6-8.5); Neutrophils Absolute Auto 4.2 K/mm3 (1.3-6.7); Neutrophils Percent Auto 74.1 % (45.5-73.1); Platelet Count Result 229 k/mm3 (150-375); Red Blood Count 3.04 M/mm3 (4.6-6.20); Red Cell Distribution Width 12.7 % (11.5-14.5); White Blood Count 5.7 K/mm3 (4.5-10.0)
[2020-10-20 10:38] LABS: Alanine Aminotransferase 10 U/L (4-50); Albumin Level 3.8 g/dL (3.5-5.1); Alkaline Phosphatase 89 U/L (38-126); Anion Gap 9 mmol/L (8-16); Aspartate Amino Transferase 19 U/L (17-59); Bilirubin,Total 0.3 mg/dL (0.2-1.3); Blood Urea Nitrogen 31 mg/dL (9-20); CRP 0.6 mg/dL (<1.0); Calcium 9.4 mg/dL (8.4-10.2); Carbon Dioxide 26 mmol/L (22-30); Chloride 102 mmol/L (98-107); Creatine Kinase 69 U/L (55-170); Estimated CRCL calculation 31 ml/min; Estimated Glomerular Filt Rate 44; Glucose 155 mg/dL (75-110); Potassium 4.3 mmol/L (3.4-5.0); Sodium 137 mmol/L (137-145)
[2020-10-20 11:00] LABS: Erythrocyte Sedimentation Rate 71 mm/hr (0-20)
[2020-10-20 11:17] LABS: Add Urine Microscopic? YES; Appearance Urine Clear (Clear); Bilirubin Urine Negative (Negative); Blood Urine 1+ (Negative); Color Urine Yellow (Yellow); Glucose Urine UA Negative (Negative); Ketones Urine Negative (Negative); Leukocyte Esterase Ur 1+ LEU/UL (Negative); Mucus Urine Rare /lpf; Nitrate Urine Negative (Negative); Protein Urine 2+ mg/dL (Negative); RBC Urine 21-50 /hpf (0-2); Specific Grav Ur 1.021 (1.001-1.035); Urobilinogen Urine Negative mg/dL (<2.0)
[2020-10-20] MEDS: SODIUM CHLORIDE 0.9% IV 500 ML 999 ML IV CONT (11:39)
--- NOTE | 2020-10-20 13:05 | PC.NURSE ---
Attempted to ambulate patient. Pt. able to stand up but unable to walk farther than one step without severe pain in their right. ERP aware.
--- NOTE | 2020-10-20 15:01 | PCOTNOTE ---
Attempted OT evaluation, per RN patient is still being admitted and is not in assigned room. Will follow and attempt evaluation at later time.
--- NOTE | 2020-10-20 15:23 | ADMGEN ---
This patient, Dayron Arreaga, was admitted to 2 Medical Room 240-. Patient/family oriented to hospital policies and general routines including ID bracelet, bed and alarms, visiting hours, pain management, procedures, bathroom and other care routines, personal items, smoking policy, room service/diet, and visiting hours. Information on how to activate the Rapid Response Team has been discussed. Patient/Family are encouraged to report perceived risks to care and to ask questions if they do not understand what they are told or what they should do.
[2020-10-20] MEDS: LACTATED RINGERS 1,000 ML 75 ML IV CONT (15:38)
[2020-10-20] MEDS: TAMSULOSIN HCL 0.4 MG CAPSULE PO (22:11)
[2020-10-21 04:00] VITALS: BP 141/53; PULSE 65; RESP 20; TEMP 36.1; O2SAT 99
[2020-10-21] MEDS: LACTATED RINGERS 1,000 ML 75 ML IV CONT (05:16)
[2020-10-21 05:44] LABS: Basophils Percent Auto 0.2 % (0.2-1.2); Eosinophils Absolute Auto 0.2 K/mm3 (0-0.3); Eosinophils Percent Auto 2.9 % (0-4.4); Hematocrit 28.2 % (42.0-52.0); Hemoglobin 9.5 g/dL (14.0-18.0); Immature Granulocyte Absolute 0.02 K/mm3 (0.00-0.031); Immature Granulocyte Percent A 0.4 % (0-0.5); Lymphocytes Absolute Auto 1.36 K/mm3 (0.9-3.2); Lymphocytes Percent Auto 24.4 % (18.3-44.2); Mean Corpuscular HGB Conc 33.7 g/dl (32-36); Mean Corpuscular Hemoglobin 34.3 pg (26-34); Mean Corpuscular Volume 101.8 fl (80-100); Mean Platelet Volume 10.2 fl (7.4-10.4); Monocytes Absolute Auto 0.7 K/mm3 (0.1-0.6); Monocytes Percent Auto 11.6 % (2.6-8.5); Neutrophils Absolute Auto 3.4 K/mm3 (1.3-6.7); Neutrophils Percent Auto 60.5 % (45.5-73.1); Platelet Count Result 214 k/mm3 (150-375); Red Blood Count 2.77 M/mm3 (4.6-6.20); Red Cell Distribution Width 12.3 % (11.5-14.5); White Blood Count 5.6 K/mm3 (4.5-10.0)
[2020-10-21 05:53] LABS: Alanine Aminotransferase 7 U/L (4-50); Albumin Level 3.1 g/dL (3.5-5.1); Alkaline Phosphatase 84 U/L (38-126); Anion Gap 2 mmol/L (8-16); Aspartate Amino Transferase 20 U/L (17-59); Bilirubin,Total 0.5 mg/dL (0.2-1.3); Blood Urea Nitrogen 24 mg/dL (9-20); Calcium 8.7 mg/dL (8.4-10.2); Carbon Dioxide 28 mmol/L (22-30); Chloride 105 mmol/L (98-107); Estimated CRCL calculation 38 ml/min; Estimated Glomerular Filt Rate 48; Glucose 100 mg/dL (75-110); Potassium 4.2 mmol/L (3.4-5.0); Sodium 135 mmol/L (137-145)
--- NOTE | 2020-10-21 07:34 | PM.CNOR ---
Assessment and Plan Assessment and plan (1) Acute pain of right lower extremity: Code(s): M79.604 - Pain in right leg Status: Acute Assessment and Plan: 84-year-old male with an acute onset of pain in his right lower extremity over the past week. It is unclear the exact etiology of this. With his history of prostate cancer, there is concern for metastases to the hip or even to the spine affecting the femoral nerve.? MRI of either area? I will also talk with Dr. Jerome to see if there is potentially an issue with the stent contributing to the symptomatology. Thank you for the consultation. History of Present Illness HPI Consult date: 10/21/20 Chief complaint: Right Leg Pain Narrative: 84-year-old male who for about a week has had pain in his right leg. It had gotten progressively worse to the point yesterday he had quite a bit of pain with any type of movement. He was admitted for further evaluation and treatment. It does not sound like he had an issue like this previously. The pain is mainly in his thigh and he said that he could not even extend his knee yesterday. It is much better today although he does have a little bit of ache. He has been getting pain medication however. His history is significant for prostate cancer as well as a urinary obstruction. He gets stents placed every three months and had one done recently. He is getting hormonal treatment for his cancer. Review of Systems Constitutional: Constitutional: Denies chills and Denies fever(s) Eyes: Eyes: Reports no additional eye complaints ENT: Reports system reviewed and no additional complaints, except as documented Cardiovascular: Cardiovascular: Denies chest pain and Denies dyspnea on exertion Respiratory: Respiratory: Reports no additional respiratory complaints and Denies dyspnea on exertion Gastrointestinal: Gastrointestinal: Denies abdominal pain and Denies bloating PMFSH Past Medical History Medical History Anemia in chronic kidney disease Anxiety with depression Benign prostatic hyperplasia BPPV (benign paroxysmal positional vertigo) Chronic idiopathic urticaria Chronic kidney disease, stage 4 (severe) Depression Elbow fracture, right Essential (primary) hypertension Hyperparathyroidism Nocturnal myoclonus Obesity IGOR (obstructive sleep apnea) S/P ORIF (open reduction internal fixation) fracture left arm Surgical History Surgical History H/O varicose vein ligation History of orthopedic surgery left arm reconstruction, right elbow surgery History of prostate surgery 11/26/2019 & 01/2020 Family History Family History Mother Breast cancer Social History Social History Smoking status: Never smoker Second hand tobacco smoke exposure: No Alcohol intake: former Substance use: never Additional living arrangements comments: Gender identity (if verbalized by the patient): Male Sexual Orientation (if Verbalized by the Patient): Straight or Heterosexual Spiritual care concerns: No Agree to blood products: Yes Meds Home Medications and Allergies Home Medications Medication Instructions Recorded Confirmed Type cyanocobalamin (vitamin B-12) 1,000 mcg PO QAM #30 tablet 11/05/19 10/20/20 Rx [Vitamin B-12] docusate sodium [Colace] 100 mg PO QAM PRN 11/12/19 10/20/20 History fluticasone propionate [Flonase 1 spray INTRANASAL Q12HR PRN 11/12/19 10/20/20 History Allergy Relief] tamsulosin 0.4 mg capsule 0.4 mg PO HS #90 cap 09/08/20 10/20/20 Rx paroxetine HCl 40 mg PO QAM 09/22/20 10/20/20 History Allergies Allergy/AdvReac Type Severity Reaction Status Date / Time aspartame Allergy Severe HIVE Verified 10/20/20 15:56 lisinopril AdvReac Intermediate Rash Verified 10/20/20 15
[2020-10-21] MEDS: PARoxetine 20 MG TABLET 40 MG PO (08:16)
[2020-10-21] MEDS: CYANOCOBALAMIN 1,000 MCG TABLET 1000 MCG PO (08:16)
--- NOTE | 2020-10-21 10:42 | PM.IMHP ---
H&P: HPI History of Present Illness Date/Time: 10/21/20 10:42 Chief Complaint: Right thigh pain Narrative: Dayron Arreaga is a 84 year old male with PMH significant for prostate cancer on hormonal therapy followed by Dr. Jerome, CKD stage III, hypertension who presented to the emergency department 10/20/20 for the evaluation of right thigh pain since 10/16/20. Pain is localized to the right anterior thigh and he did note occasional radiation down to the right ankle and foot. He stated that the pain seemed to improve for a day or so but then returned and worsened to 10/10 prompting ED evaluation. He denies lateralizing weakness but noted that the pain was so severe that it was limiting his range of motion and mobility. Pain is worse with hip extension and flexion and he could not extend the right knee yesterday due to the hip pain. He reports no precipitating injury or trauma. He denies numbness and tingling. He denies low back pain. He denies leg swelling. He denies claudication. He does note generalized weakness and deconditioning associated with his prostate cancer. He denies fever and chills. He denies nausea, vomiting, and abdominal pain. He recently had a right ureteral stent exchange by Dr. Jerome on 09/30/20 and reports no hematuria. He does note chronic urinary urgency. He is on lupron and xtandi for his prostate cancer. He reports chronic constipation but he is maintained on a bowel regimen and had a regular bowel movement today without hematochezia or melena. In the emergency department, vitals were stable on arrival. Labs demonstrated microcytic anemia with Hb 10.5, Hct 31.5, Cr 1.5, BUN 31 with known underlying CKD III. Venous doppler US was negative for DVT. Lumbar spine CT showed right-sided double-J ureteral stent in position with mild right hydrourteronephrosis, L4-5 grade 1 anterolisthesis with severe central canal stenosis, and moderate central canal stenosis L2-3 and L3-4. Plain films of the right femur hips and pelvis showed bilateral hip primary osteoarthritis without acute fracture. He was treated with analgesics and IV fluids and admitted to the hospitalist service for further care. Orthopedic surgery was consulted. He is feeling better today. He has been up to ambulate twice with therapy and reports pain is now 1-2/10, aching with occasional sharp quality, only present with hip flexion and extension. Review of Systems Review of Systems: Narrative: Constitutional: Denies fever, chills, fatigue, and appetite change. Reports generalized weakness due to hx of prostate cancer. Eyes: Denies vision change. No additional eye complaints. ENT: Denies change in hearing, nasal congestion, dysphagia, odynophagia, and sore throat. Cardiovascular: Denies palpitations and chest pain. Denies PND and orthopnea. Denies dyspnea on exertion. Respiratory: Denies cough and shortness of breath. Gastrointestinal: Denies abdominal pain, nausea, and vomiting. Reports chronic constipation. Denies diarrhea. Genitourinary: Denies dysuria, frequency, and hesitancy. Reports chronic urgency. Denies hematuria. Musculoskeletal: As above. Skin: Denies lesions and wounds. Neurologic: Denies focal weakness, paresthesias, confusion, and speech change. Denies headache. Psychiatric: Denies mood change. Denies anxiety and depression. Hematologic: Denies easy bruising and bleeding. All systems reviewed & are unremarkable except as noted in HPI and below PMFSH Past Medical History Medical History (Updated 10/21/20 @ 11:[address] PA-C) Anemia in chronic kidney disease Anxiety with depression Benign prostatic hyperplasia BPPV (benign paroxysmal positional vertigo) Chronic idiopathic urticaria Chronic kidney disease, stage 4 (severe) Constipation Depression Elbow fracture, right Essential (primary) hypertension Hyperparathyroidism Nocturnal myoclonus Obesity IGOR (obstructive sleep apnea) Prostate cancer S/P ORIF (open reduction internal fixation) fr
[2020-10-21 12:11] VITALS: O2SAT 96
[2020-10-21 14:54] VITALS: BP 137/53; PULSE 69; RESP 17; TEMP 36.8; O2SAT 99
[2020-10-21 17:56] VITALS: BP 139/52; PULSE 75; RESP 19; TEMP 37.1; O2SAT 99
[2020-10-21] MEDS: TAMSULOSIN HCL 0.4 MG CAPSULE PO (21:31)
[2020-10-21] MEDS: ACETAMINOPHEN 325 MG TABLET 650 MG PO (21:31)
[2020-10-21] MEDS: ENOXAPARIN 40 MG/0.4 ML SYRINGE SUB-Q (21:31)
[2020-10-21 22:00] VITALS: BP 141/57; PULSE 61; RESP 20; TEMP 36.3; O2SAT 99
[2020-10-22 02:00] VITALS: BP 117/49; PULSE 76; RESP 20; TEMP 36.3; O2SAT 98
[2020-10-22 06:00] VITALS: BP 127/53; PULSE 64; RESP 18; TEMP 36.3; O2SAT 96
[2020-10-22 06:49] LABS: Basophils Percent Auto 0.4 % (0.2-1.2); Eosinophils Absolute Auto 0.2 K/mm3 (0-0.3); Eosinophils Percent Auto 4.4 % (0-4.4); Hematocrit 27.4 % (42.0-52.0); Hemoglobin 9.3 g/dL (14.0-18.0); Immature Granulocyte Absolute 0.01 K/mm3 (0.00-0.031); Immature Granulocyte Percent A 0.2 % (0-0.5); Lymphocytes Absolute Auto 1.73 K/mm3 (0.9-3.2); Lymphocytes Percent Auto 37.9 % (18.3-44.2); Mean Corpuscular HGB Conc 33.9 g/dl (32-36); Mean Corpuscular Hemoglobin 34.8 pg (26-34); Mean Corpuscular Volume 102.6 fl (80-100); Mean Platelet Volume 10.5 fl (7.4-10.4); Monocytes Absolute Auto 0.5 K/mm3 (0.1-0.6); Monocytes Percent Auto 11.8 % (2.6-8.5); Neutrophils Absolute Auto 2.1 K/mm3 (1.3-6.7); Neutrophils Percent Auto 45.3 % (45.5-73.1); Platelet Count Result 199 k/mm3 (150-375); Red Blood Count 2.67 M/mm3 (4.6-6.20); Red Cell Distribution Width 12.3 % (11.5-14.5); White Blood Count 4.6 K/mm3 (4.5-10.0)
[2020-10-22 07:09] LABS: Anion Gap 5 mmol/L (8-16); Blood Urea Nitrogen 21 mg/dL (9-20); Carbon Dioxide 26 mmol/L (22-30); Chloride 105 mmol/L (98-107); Estimated CRCL calculation 41 ml/min; Estimated Glomerular Filt Rate 52; Glucose 102 mg/dL (75-110); Potassium 3.8 mmol/L (3.4-5.0); Sodium 136 mmol/L (137-145)
[2020-10-22 08:08] LABS: Folic Acid 11.3 ng/mL (2.76->20); Vitamin B12 > 1000.0 pg/mL (239-931)
[2020-10-22] MEDS: PARoxetine 20 MG TABLET 40 MG PO (08:59)
[2020-10-22] MEDS: CYANOCOBALAMIN 1,000 MCG TABLET 1000 MCG PO (08:59)
[2020-10-22 10:00] VITALS: BP 111/69; PULSE 90; RESP 16; TEMP 36.1; O2SAT 98
[2020-10-22 14:00] VITALS: BP 109/70; PULSE 78; RESP 16; TEMP 36.2; O2SAT 99
--- NOTE | 2020-10-22 14:01 | PM.DS ---
DS: Admitting Diagnosis Admitting Diagnosis Admitting Diagnosis: Right thigh pain DS: Discharge Diagnosis Discharge Diagnosis (1) Tendon rupture, nontraumatic: Code(s): M66.9 - Spontaneous rupture of unspecified tendon Status: Acute Assessment and Plan: Discharge Summary (Date of service 10/22/20): Mr. Arreaga is a 84 year old male with PMH significant for prostate cancer on hormonal therapy followed by Dr. Jerome, CKD stage III, and hypertension who presented to the emergency department 10/20/20 for the evaluation of right thigh pain since 10/16/20. Pain was localized to the right anterior thigh with occasional radiation down to the right ankle and foot. He stated that the pain seemed to improve for a day or so but then returned and worsened to 10/10 prompting ED evaluation. He denied significant weakness but noted that the pain was limiting his range of motion and mobility. Pain was worse with hip extension and flexion. There was no precipitating injury or trauma and he reported no paresthesias/numbness. He noted no low back pain, leg swelling, or claudication. In the emergency department, vitals were stable. Labs demonstrated marocytic anemia with Hb 10.5, Hct 31.5, Cr 1.5, BUN 31 with known underlying CKD III. Venous doppler US was negative for DVT. Lumbar spine CT showed right-sided double-J ureteral stent in position with mild right hydrourteronephrosis, L4-5 grade 1 anterolisthesis with severe central canal stenosis, and moderate central canal stenosis L2-3 and L3-4. Plain films of the right femur hips and pelvis showed bilateral hip primary osteoarthritis without acute fracture. He was treated with analgesics and IV fluids and admitted to the hospitalist service for further care. Orthopedic surgery was consulted. He was able to ambulate the day following admission and pain was significantly improved. Lumbar spine MRI was ordered and demonstrated multilevel disc disease and stenosis, worst at L4-5 with grade 1 anterolisthesis, severe central canal stenosis, and enhancement of nerve roots at this level which could indicate some inflammation or arachnoiditis with no nerve clumping. MRI of the femur demonstrated complete avulsion of the right iliopsoas tendon from its lesser trochanteric insertion with likely secondary reactive edema in the abductor compartment most prominent extending caudally along the right adductor longus muscle belly with differential including low-grade strain. This was felt to be the likely etiology for his acute right thigh pain. There was no evidence of bony metastases. There was also evidence of known locally advanced prostate cancer invading the right seminal vesicle and right distal ureter which was discussed with the patient and he follows regularly with Dr. Jerome. He is on androgen deprivation therapy under the direction of Dr. Jerome. I did call Dr. Jerome to notify him of the MRI findings demonstrating locally advanced prostate cancer and the patient will continue to follow-up with him outpatient. His pain was significantly improved and he was ambulating and transferring very well and did well with PT/OT. MRI findings were discussed with Dr. Seo who also saw Mr. Arreaga and he recommended pain control and continued use as tolerated with no surgical intervention needed. He was felt stable for discharge and discharged in hemodynamically stable condition on the afternoon of 10/22/20. He was referred for outpatient physical and occupational therapy. (2) Acute pain of right lower extremity: Code(s): M79.604 - Pain in right leg Status: Acute Assessment and Plan: As above. (3) Prostate cancer: Code(s): C61 - Malignant neoplasm of prostate Status: Chronic Assessment and Plan: Locally advanced. S/P transurethral resection 03/2020. Established with Dr. Jerome and on androgen deprivation therapy with lupron and xtandi. He also sees Dr. Wagoner. Xtjonasi is held currently for
== END 2020-10-22 14:50 | disposition home or self-care (01) ==
LOC: ANHED 13:44 → ANH2MED 14:30
PROVIDERS: Emergency Medicine Emergency Medical Services; Admitting Provider Family Medicine; Emergency Provider Emergency Medicine; PCP Internal Medicine; Visit Provider Physician Assistant
DX: M66.9 Spontaneous rupture of unspecified tendon (principal); C61 Malignant neoplasm of prostate; M79.604 Pain in right leg; I12.9 Hypertensive chronic kidney disease with stage 1 through stage 4 chronic kidney disease, or unspecified chronic kidney disease; N18.30 Chronic kidney disease, stage 3 unspecified; M16.0 Bilateral primary osteoarthritis of hip; D63.1 Anemia in chronic kidney disease; M48.061 Spinal stenosis, lumbar region without neurogenic claudication; Z96.0 Presence of urogenital implants; R39.15 Urgency of urination
CPT/HCPCS: 36415; 72131; 72158; 73502; 73552; 73720; 80048; 80053; 81001; 82550; 82607; 82746; 85025; 85652; 86140; 87086; 87088; 93971; 96361; 96365; 96372; 97110; 97161; 97165; 97530; 99285; A9270; A9577; G0378; J0131; J1650; J7040; J7120

== ENCOUNTER 2020-10-30 11:40 | Outpatient (CLI) | payer MEDICARE, SELFPAY ==
[2020-10-30 11:53] LABS: Hematocrit 32.6 % (42.0-52.0); Mean Corpuscular HGB Conc 33.7 g/dl (32-36); Mean Corpuscular Hemoglobin 34.9 pg (26-34); Mean Corpuscular Volume 103.5 fl (80-100); Mean Platelet Volume 9.5 fl (7.4-10.4); Platelet Count Result 200 k/mm3 (150-375); Red Blood Count 3.15 M/mm3 (4.6-6.20); Red Cell Distribution Width 12.7 % (11.5-14.5); White Blood Count 5.1 K/mm3 (4.5-10.0)
[2020-10-30 12:05] LABS: Anion Gap 9 mmol/L (8-16); Blood Urea Nitrogen 26 mg/dL (9-20); Calcium 9.5 mg/dL (8.4-10.2); Carbon Dioxide 25 mmol/L (22-30); Chloride 103 mmol/L (98-107); Estimated Glomerular Filt Rate 44; Glucose 114 mg/dL (75-110); Potassium 4.1 mmol/L (3.4-5.0); Sodium 137 mmol/L (137-145)
[2020-10-30 13:11] LABS: Vitamin B12 > 1000.0 pg/mL (239-931)
== END 2020-10-30 11:41 | disposition home or self-care (01) ==
LOC: ANHLAB 11:42
PROVIDERS: PCP Internal Medicine; Visit Provider Physician Assistant
DX: D53.9 Nutritional anemia, unspecified (principal); N18.9 Chronic kidney disease, unspecified; E53.8 Deficiency of other specified B group vitamins
CPT/HCPCS: 36415; 80048; 82607; 85027

== ENCOUNTER 2020-12-04 09:41 | Outpatient (CLI) | payer MEDICARE, SELFPAY ==
[2020-12-04 10:18] LABS: Hematocrit 31.1 % (42.0-52.0); Hemoglobin 10.5 g/dL (14.0-18.0)
== END 2020-12-04 09:42 | disposition home or self-care (01) ==
LOC: ANHLAB 09:47
PROVIDERS: PCP Internal Medicine; Visit Provider Internal Medicine
DX: D64.9 Anemia, unspecified (principal)
CPT/HCPCS: 36415; 85014; 85018

== ENCOUNTER 2020-12-23 14:20 | Outpatient (CLI) | payer MEDICARE, SELFPAY ==
[2020-12-23 15:30] LABS: Hematocrit 31.3 % (42.0-52.0); Hemoglobin 10.6 g/dL (14.0-18.0)
[2020-12-23 16:19] LABS: Iron 96 ug/dL (49-181)
[2020-12-23 16:29] LABS: Percent Iron Saturation 38 % (20-50)
== END 2020-12-23 14:21 | disposition home or self-care (01) ==
PROVIDERS: PCP Internal Medicine; Visit Provider Internal Medicine
DX: D64.9 Anemia, unspecified (principal); D53.9 Nutritional anemia, unspecified
CPT/HCPCS: 36415; 83540; 83550; 85014; 85018

== ENCOUNTER 2021-01-08 13:28 | Outpatient (CLI) | payer MEDICARE, SELFPAY ==
[2021-01-08 14:49] LABS: Prostate Specific Antigen 0.2 ng/mL (< OR = 4.0)
[2021-01-13 17:20] LABS: Testosterone Total 9 ng/dL (250-1100)
== END 2021-01-08 13:29 | disposition home or self-care (01) ==
LOC: ANHLAB 13:32
PROVIDERS: PCP Internal Medicine; Visit Provider Urology
DX: C61 Malignant neoplasm of prostate (principal)
CPT/HCPCS: 36415; 84153; 84403

== ENCOUNTER 2021-01-21 07:39 | Outpatient (CLI) | payer MEDICARE, SELFPAY ==
--- NOTE | 2021-01-21 08:30 | ECG_ITS ---
Measurements Intervals Panther Burn Rate: 74 P: 8 TN: 186 QRS: -25 QRSD: 87 T: 54 QT: 373 QTc: 414 Interpretive Statements SINUS RHYTHM DELAYED PRECORDIAL R/S TRANSITION BORDERLINE ST-T WAVE ABNORMALITY- ANT/HIGH LAT LEADS BASELINE ARTIFACT- I, II, III, AVR, AVL, AVF BORDERLINE ECG Electronically Signed On 01-21-2021 8:16:39 CDT by John Torres D.O.
[2021-01-21 08:39] LABS: Anion Gap 8 mmol/L (8-16); Blood Urea Nitrogen 28 mg/dL (9-20); Calcium 9.8 mg/dL (8.4-10.2); Carbon Dioxide 27 mmol/L (22-30); Chloride 105 mmol/L (98-107); Estimated Glomerular Filt Rate 44; Glucose 144 mg/dL (75-110); INR 0.9; Partial Thromboplastin Time 26.4 SECONDS (22.3-36.8); Potassium 4.1 mmol/L (3.4-5.0); Prothrombin Time 12.8 Seconds (11.1-14.7); Sodium 140 mmol/L (137-145)
== END 2021-01-21 07:40 | disposition home or self-care (01) ==
LOC: ANHSURGERY 07:44
PROVIDERS: Anesthesiology; PCP Internal Medicine; Visit Provider Urology
DX: N13.30 Unspecified hydronephrosis (principal); I12.9 Hypertensive chronic kidney disease with stage 1 through stage 4 chronic kidney disease, or unspecified chronic kidney disease; N18.9 Chronic kidney disease, unspecified; Z01.818 Encounter for other preprocedural examination; R94.31 Abnormal electrocardiogram [ECG] [EKG]
CPT/HCPCS: 36415; 80048; 82607; 85610; 85730; 87086; 93005

== ENCOUNTER 2021-01-21 07:46 | Outpatient (CLI) | payer MEDICARE, SELFPAY | END 2021-01-21 07:47 | disposition home or self-care (01) | PROVIDERS: PCP Internal Medicine; Visit Provider Internal Medicine | DX: E53.8 Deficiency of other specified B group vitamins (principal) | CPT/HCPCS: 36415; 82607 ==

== ENCOUNTER → 2021-01-24 04:01 | Outpatient (CLI) | payer MEDICARE, SELFPAY ==
[2021-01-24 19:46] LABS: SARS-CoV-2 RNA PCR Negative
== END ==
PROVIDERS: PCP Internal Medicine; Visit Provider Urology
DX: Z01.812 Encounter for preprocedural laboratory examination (principal); Z20.822 Contact with and (suspected) exposure to COVID-19
CPT/HCPCS: C9803; U0003; U0005

== ENCOUNTER 2021-01-27 01:43 | Day surgery (SDC) | payer MEDICARE, SELFPAY ==
[2021-01-16 09:35] VITALS: BMI 28.1
[2021-01-27] VITALS (8 sets, daily range): BP systolic 120–171; BP diastolic 46–64; PULSE 55–76; RESP 13–18; TEMP 36.1–36.4; O2SAT 95–100; BMI 29.0
--- NOTE | ~2021-01-27 | XR_ITS ---
EXAMINATION: XR retrograde pyelo w/stent RT EXAM DATE: 01/27/2021 12:31 INDICATION: Right-sided retrograde, stent exchange. TECHNIQUE: Fluoroscopy used during XR retrograde pyelo w/stent RT performed by Dr. J Luis levine MD, urologist. The radiologist Darien Peters M.D. dictating this report of the image(s) availabl e was not present for the procedure. Total fluoroscopic time of 18 seconds. The DAP for this proced ure was 207 radcm2. A total of 8 images sent to PACS from the exam. FINDINGS: Icing And Glaze Maker images demonstrate a right-sided double-J ureteral stent in position. Retrograde mani logram was performed. Final images also demonstrate a right ureteral stent in position presumably fol lowing exchange. There is mild to moderate right hydronephrosis. Correlate with procedure note. IMPRESSION: Mild to moderate right hydronephrosis. Stent in position. Reviewed, dictated and finalized at location B.
--- NOTE | 2021-01-27 10:35 | SUR.PREOP ---
DR UMANA NOTIFIED THAT PT STATES SHE FELL GETTING OFF THE TOILET THIS MORNING. PT STATES SHE IS UNHARMED
[2021-01-27] MEDS: LACTATED RINGERS 1,000 ML 30 ML IV CONT ×2 (10:58→12:42)
--- NOTE | 2021-01-27 11:05 | WPDANESEPPF ---
Anes - Initial Pre Proc Eval Procedure: Operation Date: 01/27/21 12:15 Proposed Procedures p Cystoscopy, Right Retrograde Pyelogram, Right Ureteral Stent Exchange - J Luis Jerome MD Date/Time: 01/27/21 11:05 Surgeon: J Luis Jerome MD Pre Op Diagnosis: hydronephrosis, prostate ca Patient Data Age: 85 Gender: M Height: 5 ft 8 in Weight: 86.6 kg Last Vital Signs Temp 36.4 C 01/27/21 10:32 Pulse 55 L 01/27/21 10:32 Resp 18 01/27/21 10:32 BP 171/53 H 01/27/21 10:32 Pulse Ox 100 01/27/21 10:32 Allergies Allergy/AdvReac Type Severity Reaction Status Date / Time aspartame Allergy Severe HIVE Verified 01/27/21 10:44 lisinopril AdvReac Intermediate Rash Verified 01/27/21 10:44 Home Medications Medication Instructions Recorded Confirmed Type docusate sodium [Colace] 100 mg PO QAM PRN 11/12/19 01/27/21 History fluticasone propionate [Flonase 1 spray INTRANASAL Q12HR PRN 11/12/19 01/27/21 History Allergy Relief] tamsulosin 0.4 mg capsule 0.4 mg PO HS #90 cap 09/08/20 01/27/21 Rx acetaminophen [Mapap 650 mg PO Q4H PRN #30 tablet 10/22/20 01/27/21 Rx (acetaminophen)] enzalutamide 40 mg capsule 160 mg PO DAILY #30 cap 12/04/20 01/27/21 Rx paroxetine HCl 40 mg DAILY 01/16/21 01/27/21 History Patient hx anesthesia problems: none Family hx anesthesia problems: none PMFSH Past Medical History Medical History Anemia in chronic kidney disease Anxiety with depression Benign prostatic hyperplasia BPPV (benign paroxysmal positional vertigo) Chronic idiopathic urticaria Chronic kidney disease, stage 4 (severe) Constipation Depression Elbow fracture, right Essential (primary) hypertension Hyperparathyroidism Lumbar stenosis Nocturnal myoclonus Obesity IGOR (obstructive sleep apnea) Prostate cancer S/P ORIF (open reduction internal fixation) fracture left arm Surgical History Surgical History H/O varicose vein ligation Bilateral History of orthopedic surgery left arm reconstruction, right elbow surgery History of prostate surgery 11/26/2019 & 01/2020 Family History Family History Mother Breast cancer Social History Social History Social History: Mr. Arreaga lives in [place] with his . He is a never smoker and denies alcohol and drug use. He has two children. 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 He wishes to be a DNR and has designated his , Faith Arreaga, as his surrogate medical decision maker. Smoking status: Never smoker Second hand tobacco smoke exposure: No Alcohol intake: former Substance use: never Substance use type: does not use Living arrangements: with family Additional living arrangements comments: Gender identity (if verbalized by the patient): Male Spiritual care concerns: No Agree to blood products: Yes Anes - Eval Final PreProcedure Day of Procedure 01/27/21 11:05 Patient weight: overweight Heart: regular rate and rhythm Lungs: clear to auscultation Airway: Mallampati scale class II Neurological: alert and oriented Last oral intake: >/= 8 hours ASA classification: III Emergent: no Anesthetic plan: proceed Anesthesia type and monitoring: general LMA and standard monitoring Informed Consent: The patient's anesthetic plan and its attendant risks and benefits were discussed with the patient/family/POA. Questions were solicited and answers provided to the satisfaction of the patient/family/POA.
--- NOTE | 2021-01-27 11:40 | WPDHPUPDATE1 ---
History and Physical Update Update Date/Time: 01/27/21 11:40 History and Physical has been reviewed, including an updated exam of the patient. There are NO changes in the patient's condition. Risks, benefits, and alternatives have been discussed and questions answered. Patient agrees to proceed with procedure.
[2021-01-27] MEDS: ceFAZolin 2 GM/D5W 50 ML 2 GM/50 ML BAG IVPB (12:06)
[2021-01-27] MEDS: LIDOCAINE HCL 2% GEL UROJET 10 ML PKG MUCOUS MEM (12:35)
--- NOTE | 2021-01-27 12:37 | P.OP_ITS ---
Procedure Note - Detailed Date of procedure: 01/27/21 Pre-op diagnosis: hydronephrosis, prostate ca Post-op diagnosis: same Procedure performed: Cystoscopy, right retrograde pyelogram, right ureteral stent exchange 4.8 [place] contour, prostate biopsy with fulguration Description of procedure: Patient is taken the operative suite correctly identified. Once anesthesia was obtained was placed in dorsal lithotomy position prepped draped usual sterile fashion. Twenty-two [place]ian scope inserted in the bladder. He has somewhat of a type prostatic fossa in friable tissue present. Simply doing this cause some mild bleeding. There were no tumors noted in the bladder. The right stent was grasped brought out the meatus. Guidewire was inserted through the stent. A ureteral catheter was then placed in a pyelogram was performed to confirm placement. A 4.8 [place] contour stent was then placed with the proximal end coiled in the renal pelvis and the distal in the bladder. At this point time we placed a 24 [place] resectoscope sheath in. We did take some prostatic tissue from the left lobe which appeared friable and somewhat oozy. We went ahead and fulgurated this area as well as the entire prostatic fossa channel. 2% viscous lidocaine was inserted urethra [address] was placed with 15 cc in the balloon. The skin and connected to continuous bladder irrigation. If the urine remains clear to be discharged home with a Dietz catheter and have it removed on or Tuesday. We will plan on another stent exchange for another 8-9 months. Surgeon: J Luis Jerome MD
== END 2021-01-27 14:23 | disposition home or self-care (01) ==
PROVIDERS: PCP Internal Medicine; Visit Provider Urology
PROC: (CPT 52352; principal; 2021-01-27 12:15)
DX: C61 Malignant neoplasm of prostate (principal); N13.30 Unspecified hydronephrosis; N41.1 Chronic prostatitis; N34.2 Other urethritis; I12.9 Hypertensive chronic kidney disease with stage 1 through stage 4 chronic kidney disease, or unspecified chronic kidney disease; N18.4 Chronic kidney disease, stage 4 (severe); D63.1 Anemia in chronic kidney disease; F32.9 Major depressive disorder, single episode, unspecified; E21.3 Hyperparathyroidism, unspecified; G47.33 Obstructive sleep apnea (adult) (pediatric); E66.9 Obesity, unspecified; Z68.29 Body mass index [BMI] 29.0-29.9, adult
CPT/HCPCS: 52332; 55899; 74420; 88305; 88342; A9270; C1758; C1769; C2617; J0690; J2704; J7120; Q9966

== ENCOUNTER 2021-04-09 14:50 | Outpatient (CLI) | payer MEDICARE, SELFPAY ==
[2021-04-09 15:34] LABS: Anion Gap 6 mmol/L (8-16); Blood Urea Nitrogen 33 mg/dL (9-20); Calcium 9.5 mg/dL (8.4-10.2); Carbon Dioxide 23 mmol/L (22-30); Chloride 107 mmol/L (98-107); Estimated Glomerular Filt Rate 36; Glucose 99 mg/dL (65-110); Potassium 4.6 mmol/L (3.4-5.0); Sodium 136 mmol/L (137-145)
== END 2021-04-09 14:51 | disposition home or self-care (01) ==
LOC: ANHLAB 14:54
PROVIDERS: PCP Internal Medicine; Visit Provider Internal Medicine
DX: I10 Essential (primary) hypertension (principal)
CPT/HCPCS: 36415; 80048

== ENCOUNTER 2021-05-15 10:58 | Outpatient (CLI) | payer MEDICARE, SELFPAY ==
[2021-05-15 11:49] LABS: Basophils Percent Auto 0.4 % (0.2-1.2); Eosinophils Absolute Auto 0.2 K/mm3 (0-0.3); Eosinophils Percent Auto 4.6 % (0-4.4); Hematocrit 31.4 % (42.0-52.0); Hemoglobin 10.3 g/dL (14.0-18.0); Immature Granulocyte Absolute 0.01 K/mm3 (0.00-0.031); Immature Granulocyte Percent A 0.2 % (0-0.5); Lymphocytes Absolute Auto 1.26 K/mm3 (0.9-3.2); Lymphocytes Percent Auto 27.4 % (18.3-44.2); Mean Corpuscular HGB Conc 32.8 g/dl (32-36); Mean Corpuscular Volume 106.8 fl (80-100); Mean Platelet Volume 10.3 fl (7.4-10.4); Monocytes Absolute Auto 0.6 K/mm3 (0.1-0.6); Neutrophils Absolute Auto 2.6 K/mm3 (1.3-6.7); Neutrophils Percent Auto 55.4 % (45.5-73.1); Platelet Count Result 177 k/mm3 (150-375); Red Blood Count 2.94 M/mm3 (4.6-6.20); Red Cell Distribution Width 13.4 % (11.5-14.5); White Blood Count 4.6 K/mm3 (4.5-10.0)
[2021-05-15 12:04] LABS: Alanine Aminotransferase 10 U/L (4-50); Albumin Level 3.7 g/dL (3.5-5.1); Alkaline Phosphatase 84 U/L (38-126); Anion Gap 10 mmol/L (8-16); Aspartate Amino Transferase 25 U/L (17-59); Bilirubin,Total 0.5 mg/dL (0.2-1.3); Blood Urea Nitrogen 31 mg/dL (9-20); Calcium 9.4 mg/dL (8.4-10.2); Carbon Dioxide 22 mmol/L (22-30); Chloride 106 mmol/L (98-107); Estimated Glomerular Filt Rate 44; Glucose 123 mg/dL (65-110); Potassium 4.3 mmol/L (3.4-5.0); Sodium 138 mmol/L (137-145)
[2021-05-15 12:24] LABS: Iron 84 ug/dL (49-181)
[2021-05-15 12:32] LABS: Prostate Specific Antigen 0.2 ng/mL (< OR = 4.0)
[2021-05-15 12:33] LABS: Percent Iron Saturation 33 % (20-50)
== END 2021-05-15 10:59 | disposition home or self-care (01) ==
PROVIDERS: PCP Internal Medicine; Visit Provider Internal Medicine Hematology & Oncology
DX: D64.89 Other specified anemias (principal); D50.9 Iron deficiency anemia, unspecified; C61 Malignant neoplasm of prostate
CPT/HCPCS: 36415; 80053; 82728; 83540; 83550; 84153; 85025

== ENCOUNTER 2021-10-06 10:48 | Outpatient (CLI) | payer MEDICARE, SELFPAY ==
[2021-10-06 12:01] LABS: Hematocrit 32.8 % (42.0-52.0)
[2021-10-06 12:19] LABS: Anion Gap 5 mmol/L (8-16); Blood Urea Nitrogen 28 mg/dL (9-20); Calcium 9.4 mg/dL (8.4-10.2); Carbon Dioxide 26 mmol/L (22-30); Chloride 104 mmol/L (98-107); Estimated Glomerular Filt Rate 36; Glucose 96 mg/dL (65-110); Potassium 4.3 mmol/L (3.4-5.0); Sodium 135 mmol/L (137-145)
[2021-10-06 12:22] LABS: INR 0.9; Prothrombin Time 12.3 Seconds (11.1-14.7)
[2021-10-06 12:23] LABS: Partial Thromboplastin Time 27.1 SECONDS (22.3-36.8)
== END 2021-10-06 10:49 | disposition home or self-care (01) ==
LOC: ANHSURGERY 10:49
PROVIDERS: Anesthesiology; PCP Internal Medicine; Visit Provider Urology
DX: N13.30 Unspecified hydronephrosis (principal); N18.4 Chronic kidney disease, stage 4 (severe); D53.9 Nutritional anemia, unspecified; Z01.818 Encounter for other preprocedural examination
CPT/HCPCS: 36415; 80048; 85014; 85018; 85610; 85730; 87086

== ENCOUNTER 2021-10-13 00:53 | Day surgery (SDC) | payer MEDICARE, SELFPAY ==
[2021-10-05 13:01] VITALS: BMI 28.1
--- NOTE | 2021-10-05 13:21 | PC.NURSE ---
Report to the Outpatient Waiting Room, entrance under the green pavilion located off [facility], at time __10:30AM on date _10/13/21 . OR Time: ___12:30PM . - You will be asked a series of questions to screen for COVID 19 for your protection. - A mask is required within the hospital. - No visitors are allowed at this time. Preoperative COVID Testing Requirements: No COVID Test needed if: (proof is required; if not received patient will have Rapid Test prior to entry) - Patient has received COVID Vaccine at least 14 days prior to procedure date or - Patient has positive COVID test result within last 90 days of surgery date. COVID Test needed if above criteria is not met If not COVID vaccinated a COVID test must be conducted within 72 hours of surgery and patient is asked to isolate self from time of testing until procedure. You will go to the [facility] for your COVID testing. The [facility] is located at the corner of [address] [facility]. You will only be called if COVID results are positive and your surgeon may reschedule your elective surgery date. Patients may have clear liquids (water, carbonated beverages, clear teas, apple juice) until 3 hours prior to surgery with a maximum of 20 ounces. - No food from midnight until time of surgery - Infants may have breast milk until 4 hours before surgery, formula 6 hours prior to surgery. - Children will be allowed to drink immediately following surgery. If applicable, please bring a bottle or sippy cup to assist with drinking. Juice, water, soda, and popsicles are readily available. For infants on formula, please bring formula the day of surgery. Pacifiers are allowed. Take the following medications with a SIP of water the morning of surgery: ____PAROXETINE Medications to discontinue per physician NONE Date to take last dose Please no make-up, nail romansh, hairspray, perfume, deodorant, or body powder the day of surgery. No jewelry (including any body piercings) or valuables the day of surgery, leave them at home. Please take a shower or bath the night before, or the morning of, surgery with an antibacterial soap. Wear comfortable, loose fitting clothing. Children are encouraged to wear pajamas. - Jewelry must be removed prior to entering the operating room. Rings and piercings that are not removed may be cut off. - The hospital will not accept responsibility for valuables. - Please leave all valuables, including medications, at home the day of surgery. If you are going home after surgery, a licensed company tanker truck driver must drive you home. - NO public transportation without another adult. - We recommend that an adult stay with you for 24 hours following discharge. - We also recommend that you do not drive, make important decision, drink alcoholic beverages, or take any drugs that were not prescribed by your health care provider for at least 24 hours after your discharge time. For Pediatric surgeries, we recommend two adults accompany the child home (only one inside the building at this time). Follow any additional instructions given to you from your surgeon. Telephone instructions given to ___PATIENT & EDNA and asked if any additional questions and then verbalized understanding. Patient advised to call surgeon office or pre surgery nurse liaison [phone] if any additional questions.
[2021-10-13] VITALS (10 sets, daily range): BP systolic 129–200; BP diastolic 51–81; PULSE 52–63; RESP 12–20; TEMP 36.1–36.8; O2SAT 98–100
--- NOTE | ~2021-10-13 | XR_ITS ---
EXAMINATION: XR stent kub - surgery DATE: 10/13/2021 11:23 INDICATION: Right renal stent replacement TECHNIQUE: 10 fluoroscopic images of the abdomen and pelvis were obtained during procedure performed by Dr. Jerome. Radiologist was not present for the imaging or procedure. The amount of fluoroscopy time used during this procedure was 0.3 minutes. COMPARISON: 01/27/2021 FINDINGS: Again seen on the initial commercial loan closer images a right internal ureteral stent. Subsequent images demonstrate a wire extending along the right ureter into the right renal pelvis with removal of the prior stent. Subsequent images demonstrate placement of a new right internal ureteral stent with loops formed in the right renal pelvis and in the bladder. IMPRESSION: 1. Fluoroscopy utilized during right internal ureteral stent exchange with stent in expected position on the final images. See procedure note for further detail. Reviewed, dictated and finalized at location A. MACHINE OPERATOR IMPRESSION: 1. Fluoroscopy utilized during right internal ureteral stent exchange with sten t in expected position on the final images. See procedure note for further deta il.
--- NOTE | 2021-10-13 09:04 | WPDHPUPDATE1 ---
History and Physical Update Update Date/Time: 10/13/21 09:04 History and Physical has been reviewed, including an updated exam of the patient. There are NO changes in the patient's condition. Risks, benefits, and alternatives have been discussed and questions answered. Patient agrees to proceed with procedure. Proceed with cysto right retrograde right stent placement/exchange
[2021-10-13] MEDS: LACTATED RINGERS 1,000 ML 30 ML IV CONT (09:35)
--- NOTE | 2021-10-13 09:58 | WPDANESEPPF ---
Anes - Initial Pre Proc Eval Procedure: Operation Date: 10/13/21 11:00 Proposed Procedures p Cystoscopy, Right Retrograde Pyelogram, Right Stent Exchange - J Luis Jeroem MD Date/Time: 10/13/21 09:58 Surgeon: J Luis Jerome MD Pre Op Diagnosis: right hydronephrosis Patient Data Age: 85 Gender: M Height: 1.73 m Weight: 87.5 kg Last Vital Signs Temp 36.8 C 10/13/21 08:50 Pulse 58 L 10/13/21 08:50 Resp 20 10/13/21 08:50 BP 167/67 H 10/13/21 09:31 Pulse Ox 100 10/13/21 08:50 Allergies Allergy/AdvReac Type Severity Reaction Status Date / Time aspartame Allergy Severe HIVE Verified 10/13/21 09:26 lisinopril Allergy Intermediate Rash, Verified 10/13/21 09:26 itching Home Medications Medication Instructions Recorded Confirmed Type docusate sodium [Colace] 100 mg PO BID 11/12/19 10/13/21 History fluticasone propionate [Flonase 1 spray INTRANASAL Q12HR PRN 11/12/19 10/05/21 History Allergy Relief] acetaminophen [Mapap 650 mg PO Q4H PRN #30 tablet 10/22/20 10/13/21 Rx (acetaminophen)] enzalutamide 40 mg capsule 160 mg PO DAILY #30 cap 12/04/20 10/13/21 Rx paroxetine HCl 40 mg PO QAM 10/05/21 10/13/21 History polyethylene glycol 3350 [Miralax] 17 g PO DAILY PRN 10/05/21 10/13/21 History tamsulosin 0.4 mg PO HS 10/05/21 10/13/21 History Patient hx anesthesia problems: none Family hx anesthesia problems: none Results Review: All pre-operative results and documents have been reviewed as part of the pre-operative evaluation. [facility] Past Medical History Medical History Anemia in chronic kidney disease Anxiety with depression Benign prostatic hyperplasia BPPV (benign paroxysmal positional vertigo) Chronic idiopathic urticaria Chronic kidney disease, stage 4 (severe) Constipation Depression Elbow fracture, right Essential (primary) hypertension Hyperparathyroidism Lumbar stenosis Nocturnal myoclonus Obesity IGOR (obstructive sleep apnea) Prostate cancer Surgical History Surgical History H/O varicose vein ligation Bilateral History of orthopedic surgery left arm reconstruction, right elbow surgery History of prostate surgery 11/26/2019 & 01/2020 S/P ORIF (open reduction internal fixation) fracture left arm Family History Family History Mother Breast cancer Social History Social History Social History: Mr. Arreaga lives in [place] with his . He is a never smoker and denies alcohol and drug use. He has two children. 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 He wishes to be a DNR and has designated his , Faith Arreaga, as his surrogate medical decision maker. Smoking status: Never smoker Second hand tobacco smoke exposure: No Alcohol intake: former Substance use: never Substance use type: does not use Living arrangements: with family Additional living arrangements comments: Gender identity (if verbalized by the patient): Male Sexual Orientation (if Verbalized by the Patient): Straight or Heterosexual Spiritual care concerns: No Agree to blood products: Yes Anes - Eval Final PreProcedure Day of Procedure 10/13/21 09:58 Patient weight: overweight Heart: regular rate and rhythm Lungs: clear to auscultation Airway: Mallampati scale class II Neurological: alert and oriented Last oral intake: >/= 8 hours ASA classification: III Emergent: no Anesthetic plan: proceed Anesthesia type and monitoring: general LMA and standard monitoring Results Review: All pre-operative results and documents have been reviewed as part of the pre-operative evaluation. Informed Consent: The patient's anesthetic plan and its attendant risks and benefits were discussed with the
[2021-10-13] MEDS: ceFAZolin 2 GM/D5W 50 ML 2 GM/50 ML BAG IVPB (10:44)
[2021-10-13] MEDS: LIDOCAINE HCL 2% GEL UROJET 10 ML PKG MUCOUS MEM (11:16)
--- NOTE | 2021-10-13 11:20 | W.PM.PROC2 ---
Procedure Note - Detailed Date of Procedure 10/13/21 Pre-op Diagnosis right hydronephrosis Post-op Diagnosis same Procedure Performed Cystoscopy, right ureteral stent exchange with 4.8 Citizen [place] contour stent, fulguration of prostate Surgeon J Luis Jerome MD Anesthesia general Description of Procedure Patient is taken the operative suite correctly identified. Once anesthesia was obtained he was placed in the dorsal lithotomy position and prepped and draped usual sterile fashion. Twenty-two Citizen [place] scope was inserted into the urethra but his prostatic fossa was very tight. We thus used a 19 Citizen [place] scope to enter the bladder. There were no discrete tumors noted. The prostate is friable in nature due to his prostatic carcinoma. The right ureteral stent was visualized. It was grasped with a grasper and brought out to the meatus. A guidewire was passed through the stent. 4.8 [place] contour stent was then placed with the proximal end coiled in the renal pelvis and the distal in the bladder. Due to the fixation the prostate and the carcinoma there was oozing in the prostatic fossa. We used a Bugbee to fulgurate this area. 2% viscous lidocaine was inserted urethra and a 16 Citizen [place] coude was inserted. 10 cc were placed in the balloon. Patient is taken recovery stable condition. The Dietz catheter can be removed in a couple days. Will plan on stent exchange in 8-9 months Drains Yes Packing No Pathology none sent Complications No immediate complications Condition stable Disposition PACU
== END 2021-10-13 13:26 | disposition home or self-care (01) ==
PROVIDERS: PCP Internal Medicine; Visit Provider Urology
PROC: (CPT 52352; principal; 2021-10-13 11:00)
DX: N13.30 Unspecified hydronephrosis (principal); C61 Malignant neoplasm of prostate; I12.9 Hypertensive chronic kidney disease with stage 1 through stage 4 chronic kidney disease, or unspecified chronic kidney disease; N18.4 Chronic kidney disease, stage 4 (severe); D63.1 Anemia in chronic kidney disease; F41.8 Other specified anxiety disorders; H81.10 Benign paroxysmal vertigo, unspecified ear; L50.1 Idiopathic urticaria; E21.3 Hyperparathyroidism, unspecified; G47.33 Obstructive sleep apnea (adult) (pediatric); G25.3 Myoclonus
CPT/HCPCS: 52332; 52214; A9270; C1769; C2617; J0690; J1100; J2405; J2704; J3010; J7120; Q9966

== ENCOUNTER → 2021-10-19 08:08 | Outpatient (CLI) | payer MEDICARE, SELFPAY ==
[2021-10-19 12:24] LABS: Influenza A QL RT-PCR Negative (Negative); Influenza B QL RT-PCR Negative (Negative); SARS-CoV-2 RNA PCR Negative
== END ==
PROVIDERS: PCP Internal Medicine; Visit Provider Internal Medicine
DX: R68.89 Other general symptoms and signs (principal); Z20.822 Contact with and (suspected) exposure to COVID-19
CPT/HCPCS: 87502; C9803; U0003; U0005

== ENCOUNTER 2022-04-06 03:37 | Emergency (ER) | payer MEDICARE, SELFPAY ==
[2022-04-06 03:41] VITALS: BP 166/61; PULSE 77; RESP 18; TEMP 36.7; O2SAT 100
[2022-04-06 04:37] LABS: Add Urine Microscopic? YES; Appearance Urine Clear (Clear); Bilirubin Urine Negative (Negative); Blood Urine 1+ (Negative); Color Urine Yellow (Yellow); Glucose Urine UA Negative (Negative); Ketones Urine Negative (Negative); Leukocyte Esterase Ur Negative LEU/UL (Negative); Nitrate Urine Negative (Negative); Protein Urine Negative (Negative); Urobilinogen Urine 0.2 mg/dL (<2.0)
[2022-04-06 04:41] LABS: Mucus Urine Rare /lpf; Squamous Epithelial Cell Urine Rare /hpf (Few); WBC Urine 0-3 /hpf
[2022-04-06] MEDS: LIDOCAINE HCL 2% GEL UROJET 10 ML PKG (05:00)
--- NOTE | 2022-04-06 05:01 | ED.GENADULT ---
HPI - General Adult General Chief complaint: Urogenital-Male Stated complaint: burning urination cancer pt Time Seen by Provider: 04/06/22 04:00 History of Present Illness HPI narrative: 86-year-old male with history of prostate cancer presented to the emergency department for evaluation of urinary retention, increased urinary frequency with urge and overflow. Patient does have a history of prostate cancer which went to his bladder and affected the ureter. Patient does have follow-up with urology, Dr. Jerome. Patient does have a ureteral stent in place. Patient states over the last few days he has had increased difficulty with urination. Patient has previously required a Dietz catheter. Bedside ultrasound showed patient had greater than 500 mL of retained urine and was unable to void. Related Data Home Medications Medication Instructions Recorded Confirmed docusate sodium 100 mg capsule 100 mg PO BID 11/12/19 10/23/21 (Colace) fluticasone propionate 50 1 spray intranasal Q12HR PRN 11/12/19 10/23/21 mcg/actuation nasal Allergic Symptoms spray,suspension (Flonase Allergy Relief) polyethylene glycol 3350 17 17 g PO DAILY PRN Constipation 10/05/21 10/23/21 gram/dose oral powder (Miralax) Allergies Allergy/AdvReac Type Severity Reaction Status Date / Time aspartame Allergy Severe HIVE Verified 04/06/22 03:43 lisinopril Allergy Intermediate Rash, Verified 04/06/22 03:43 itching Review of Systems Review of Systems: CONSTITUTIONAL: Denies fever, chills, or sweats. EYES: Denies visual changes, redness, or discharge. ENT: Denies rhinorrhea, congestion, sore throat, or otalgia. CARDIOVASCULAR: Denies chest pain, palpitations, or edema. RESPIRATORY: Denies cough or dyspnea. GASTROINTESTINAL: Denies abdominal pain, nausea, vomiting, or diarrhea. GENITOURINARY: See HPI SKIN: Denies rash or itching. MUSCULOSKELETAL: Denies back pain, joint pain, or myalgia. NEUROLOGIC: Denies headache, numbness, or weakness. [facility] Past Medical History Medical History Anemia in chronic kidney disease Anxiety with depression Benign prostatic hyperplasia BPPV (benign paroxysmal positional vertigo) Chronic idiopathic urticaria Chronic kidney disease, stage 4 (severe) Constipation Depression Elbow fracture, right Essential (primary) hypertension Hyperparathyroidism Lumbar stenosis Nocturnal myoclonus Obesity IGOR (obstructive sleep apnea) Prostate cancer Surgical History Surgical History H/O varicose vein ligation Bilateral History of orthopedic surgery left arm reconstruction, right elbow surgery History of prostate surgery 11/26/2019 & 01/2020 S/P ORIF (open reduction internal fixation) fracture left arm Family History Family History Mother Breast cancer Social History Social History Social History: Mr. Arreaga lives in [place] with his . He is a never smoker and denies alcohol and drug use. He has two children. 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 He wishes to be a DNR and has designated his , Faith Arreaga, as his surrogate medical decision maker. Smoking status: Never smoker Second hand tobacco smoke exposure: No Alcohol intake: never Substance use: never Substance use type: does not use Additional living arrangements comments: Gender identity (if verbalized by the patient): Male Sexual Orientation (if Verbalized by the Patient): Straight or Heterosexual Spiritual care concerns: No Agree to blood products: Yes Exam Narrative: APPEARANCE: Well appearing, no pain, no distress, well-nourished. HEAD: normocephalic, atraumatic. EYES: PERRLA/EOMI, conjunctivae clear. NOSE: Normal no draina
[2022-04-06 05:30] VITALS: BP 140/70; PULSE 70; RESP 16; O2SAT 97
== END 2022-04-06 05:30 | disposition home or self-care (01) ==
PROVIDERS: Emergency Provider Emergency Medicine; PCP Internal Medicine
DX: R33.9 Retention of urine, unspecified (principal); I12.9 Hypertensive chronic kidney disease with stage 1 through stage 4 chronic kidney disease, or unspecified chronic kidney disease; N18.4 Chronic kidney disease, stage 4 (severe); D63.1 Anemia in chronic kidney disease; E21.3 Hyperparathyroidism, unspecified; G47.33 Obstructive sleep apnea (adult) (pediatric); E66.9 Obesity, unspecified; Z68.28 Body mass index [BMI] 28.0-28.9, adult; Z85.46 Personal history of malignant neoplasm of prostate; Z96.0 Presence of urogenital implants; Z66 Do not resuscitate
CPT/HCPCS: 51702; 81001; 99283

== ENCOUNTER 2022-04-26 13:21 | Outpatient (CLI) | payer MEDICARE, SELFPAY ==
[2022-04-26 14:03] LABS: Alanine Aminotransferase 11 U/L (6-50); Albumin Level 3.9 g/dL (3.5-5.1); Alkaline Phosphatase 108 U/L (38-126); Anion Gap 6 mmol/L (8-16); Aspartate Amino Transferase 17 U/L (17-59); Bilirubin,Total 0.8 mg/dL (0.2-1.3); Blood Urea Nitrogen 26 mg/dL (9-20); Calcium 8.7 mg/dL (8.4-10.2); Carbon Dioxide 20 mmol/L (22-30); Chloride 104 mmol/L (98-107); Estimated Glomerular Filt Rate 38; Glucose 179 mg/dL (65-110); Potassium 4.1 mmol/L (3.4-5.0); Sodium 130 mmol/L (137-145)
== END 2022-04-26 13:22 | disposition home or self-care (01) ==
PROVIDERS: PCP Internal Medicine; Visit Provider Internal Medicine
DX: N17.9 Acute kidney failure, unspecified (principal); I12.9 Hypertensive chronic kidney disease with stage 1 through stage 4 chronic kidney disease, or unspecified chronic kidney disease; N18.4 Chronic kidney disease, stage 4 (severe)
CPT/HCPCS: 36415; 80053

== ENCOUNTER 2022-04-26 14:56 | Inpatient (IN) | payer MEDICARE, SELFPAY ==
[2022-04-26] VITALS (8 sets, daily range): BP systolic 131–165; BP diastolic 53–62; PULSE 60–96; RESP 16–20; TEMP 36.1–37; O2SAT 96–100; BMI 27.8
--- NOTE | 2022-04-26 16:14 | ED.WEAKNESS ---
HPI - Weakness General Chief complaint: Weakness Stated complaint: generalized weakness and cough Time Seen by Provider: 04/26/22 15:48 History of Present Illness HPI Narrative: Pt presents with generalized weakness since last week. Pt denies CP or SOB or MANNING. Pt had cathter placed for urinary obstruction which was removed a week ago. Pt denies fever. Pt unable to get up from seated position or walk without walker due to weakness. Related Data Home Medications Medication Instructions Recorded Confirmed docusate sodium 100 mg capsule 100 mg PO BID 11/12/19 04/26/22 (Colace) fluticasone propionate 50 1 spray intranasal Q12HR PRN 11/12/19 04/26/22 mcg/actuation nasal Allergic Symptoms spray,suspension (Flonase Allergy Relief) polyethylene glycol 3350 17 17 g PO DAILY PRN Constipation 10/05/21 04/26/22 gram/dose oral powder (Miralax) Allergies Allergy/AdvReac Type Severity Reaction Status Date / Time aspartame Allergy Severe HIVE Verified 04/26/22 14:26 lisinopril Allergy Intermediate Rash, Verified 04/26/22 14:26 itching Review of Systems Review of Systems: All systems reviewed & are unremarkable except as noted in HPI and below PMFSH Past Medical History Medical History Anemia in chronic kidney disease Anxiety with depression Benign prostatic hyperplasia BPPV (benign paroxysmal positional vertigo) Chronic idiopathic urticaria Chronic kidney disease, stage 4 (severe) Constipation Depression Elbow fracture, right Essential (primary) hypertension Hyperparathyroidism Lumbar stenosis Nocturnal myoclonus Obesity IGOR (obstructive sleep apnea) Prostate cancer Surgical History Surgical History H/O varicose vein ligation Bilateral History of orthopedic surgery left arm reconstruction, right elbow surgery History of prostate surgery 11/26/2019 & 01/2020 S/P ORIF (open reduction internal fixation) fracture left arm Family History Family History Mother Breast cancer Social History Social History Social History: Mr. Arreaga lives in [place] with his . He is a never smoker and denies alcohol and drug use. He has two children. 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 He wishes to be a DNR and has designated his , Faith Arreaga, as his surrogate medical decision maker. Smoking status: Never smoker Second hand tobacco smoke exposure: No Alcohol intake: never Substance use: never Substance use type: does not use Additional living arrangements comments: Gender identity (if verbalized by the patient): Male Sexual Orientation (if Verbalized by the Patient): Straight or Heterosexual Spiritual care concerns: No Agree to blood products: Yes Exam Const: General: healthy appearing and no acute distress Nutritional Appearance: thin Orientation/consciousness: patient oriented x3 Limitations: no limitations HENMT: Head: normal to inspection Mouth: Yes Normal oral and palatal mucosa present Eyes: EOM: EOMs intact bilaterally Neck: Neck: normal visual inspection, no lymphadenopathy and no meningeal signs Resp: Effort & Inspection: normal respiratory effort Auscultation: clear to auscultation bilaterally Cardio: Rate: regular rate Rhythm: regular rhythm GI: GI Palp: Yes Soft to palpation Auscultation: normal bowel sounds Skin: General skin exam: normal color Rashes: no rashes Neuro: General: patient oriented x3, moves all extremities, no meningeal signs and no focal motor deficits Cranial nerves: Yes Nystagmus not present Speech: normal speech Gait exam (Neuro): Normal gait present Extrem: General: normal to inspection and no clubbing, cyanosis or edema Psych: Mental Status: mental status grossly
--- NOTE | 2022-04-26 16:20 | ECG_ITS ---
Measurements Intervals [place] Rate: 61 P: 8 MA: 178 QRS: -18 QRSD: 89 T: 37 QT: 424 QTc: 427 Interpretive Statements SINUS RHYTHM NONSPECIFIC T-WAVE ABNORMALITY COMPARED TO ECG 01/21/2021 08:08:08 NO SIGNIFICANT DIFFERENCE Electronically Signed On 04-26-2022 17:14:42 CDT by Lucien Goodson M.D.
[2022-04-26 16:49] LABS: Basophils Percent Auto 0.3 % (0.2-1.2); Eosinophils Absolute Auto 0.1 K/mm3 (0-0.3); Hematocrit 29.9 % (42.0-52.0); Immature Granulocyte Absolute 0.02 K/mm3 (0.00-0.031); Immature Granulocyte Percent A 0.3 % (0-0.5); Lymphocytes Absolute Auto 1.47 K/mm3 (0.9-3.2); Lymphocytes Percent Auto 22.6 % (18.3-44.2); Mean Corpuscular HGB Conc 33.4 g/dl (32-36); Mean Corpuscular Hemoglobin 34.8 pg (26-34); Mean Corpuscular Volume 104.2 fl (80-100); Monocytes Absolute Auto 0.6 K/mm3 (0.1-0.6); Monocytes Percent Auto 9.8 % (2.6-8.5); Neutrophils Absolute Auto 4.2 K/mm3 (1.3-6.7); Platelet Count Result 204 k/mm3 (150-375); Red Blood Count 2.87 M/mm3 (4.6-6.20); Red Cell Distribution Width 12.9 % (11.5-14.5); White Blood Count 6.5 K/mm3 (4.5-10.0)
[2022-04-26 17:04] LABS: Alanine Aminotransferase 7 U/L (6-50); Albumin Level 3.6 g/dL (3.5-5.1); Alkaline Phosphatase 111 U/L (38-126); Anion Gap 8 mmol/L (8-16); Aspartate Amino Transferase 17 U/L (17-59); Bilirubin,Total 0.9 mg/dL (0.2-1.3); Blood Urea Nitrogen 29 mg/dL (9-20); Calcium 8.9 mg/dL (8.4-10.2); Carbon Dioxide 22 mmol/L (22-30); Chloride 104 mmol/L (98-107); Estimated CRCL calculation 28 ml/min; Estimated Glomerular Filt Rate 41; Glucose 89 mg/dL (65-110); Magnesium 2.2 mg/dL (1.6-2.3); Potassium 4.2 mmol/L (3.4-5.0); Sodium 134 mmol/L (137-145)
[2022-04-26 17:11] LABS: Appearance Urine Cloudy (Clear); Bilirubin Urine Negative (Negative); Blood Urine 2+ (Negative); Color Urine Yellow (Yellow); Glucose Urine UA Negative (Negative); Ketones Urine Negative (Negative); Leukocyte Esterase Ur 3+ LEU/UL (Negative); Nitrate Urine Negative (Negative); Protein Urine 1+ mg/dL (Negative); Specific Grav Ur 1.015 (1.001-1.035)
[2022-04-26 17:16] LABS: NT Pro B Type Natriuretic Pept 443 pg/mL (5-100); Troponin I < 0.012 ng/mL (0.000-0.034)
[2022-04-26 17:18] LABS: Bacteria Urine Trace /hpf; Mucus Urine Rare /lpf; WBC Urine >75 /hpf
[2022-04-26 17:19] LABS: Add Urine Microscopic? YES
--- NOTE | 2022-04-26 17:45 | PM.IMHP ---
H&P: HPI History of Present Illness Date/Time: 04/26/22 17:45 Chief Complaint: Weakness. Narrative: This is a very pleasant 86-year-old male with prostate cancer, chronic kidney disease, benign prostatic hyperplasia, chronic anemia, and other comorbidities presented to the emergency department for evaluation of weakness. ?I just lost my spunk? over the past week or so with malaise, generalized weakness, and fatigue. He sleeps for 12+ hours a day and he has not been getting out of bed much due to the weakness. In fact he has not even been able to stand up for more than a minute without having to sit down due to weakness though he denies lightheadedness and dizziness. A couple of days ago his appetite was poor and he had nausea for about half a day but is appetite has rebounded somewhat. He was afebrile on arrival to the emergency department his other vital signs have been stable. Labs were reviewed and they are reassuring, similar to his baseline. Urinalysis was positive for 3+ leukocyte esterase, greater than 75 WBCs, and trace bacteria and he is being admitted in this setting for treatment of presumed UTI. With further questioning he does have some suprapubic discomfort and dysuria which has been ongoing for several days. He noticed a small amount of blood in his urine last week though that was shortly after a Dietz catheter was removed which was apparently in for quite some time due to retention. He feels like he is emptying his bladder okay. He has not had a documented fever but does report sweats though that is not necessarily unusual for him. He has had about 2 loose stools a day for the past couple of days but nothing significant. Review of Systems Review of Systems: Twelve systems were reviewed. No syncope or presyncope. No headache, congestion, or sore throat. No chest pain or shortness of breath. No cough. No sick contacts. No vertigo, focal weakness, paresthesias, facial asymmetry, dysphagia, or dysarthria. Except as documented, all other systems were reviewed and are negative. [facility] Past Medical History Medical History (Updated 04/26/22 @ 23:47 by Romy Henry PA-C) Anemia in chronic kidney disease Anxiety with depression Benign prostatic hyperplasia Chronic idiopathic urticaria Chronic kidney disease, stage 4 (severe) Constipation Depression Elbow fracture, right Essential (primary) hypertension Hyperparathyroidism Lumbar stenosis Nocturnal myoclonus Obesity Obstructive sleep apnea Prostate cancer Surgical History Surgical History (Updated 04/26/22 @ 23:41 by Romy Henry PA-C) History of cystoscopy History of open reduction and internal fixation (ORIF) procedure Repair of left arm fracture. History of transurethral resection of prostate (10/2019) History of ureter stent History of varicose vein ligation Bilateral. Family History Family History Mother Breast cancer Social History Social History (Updated 04/26/22 @ 23:42 by Romy Henry PA-C) Social History: The patient lives with his in [place]. They have 2 children. He retired from doing factory work. Lifelong nonsmoker. No alcohol or illicit substance abuse. He designates his , Faith Arreaga, as his surrogate medical decision maker. Code status: Full code. Spiritual care concerns: No Agree to blood products: Yes Meds Home Medications and Allergies Home Medications Medication Instructions Recorded Confirmed Type docusate sodium 100 mg capsule 100 mg PO BID 11/12/19 04/26/22 History (Colace) fluticasone propionate 50 1 spray intranasal Q12HR PRN 11/12/19 04/26/22 History mcg/actuation nasal Allergic Symptoms spray,suspension (Flonase Allergy Relief) acetaminophen 325 mg tablet (Mapap 650 mg PO Q4H PRN pain #30 tabs 10/22/20 04/26/22 Rx (acetaminophen)) enzalutamide 40 mg capsule (Xtandi) 160 mg PO DAILY #30 caps 12/04/20 04/26/22 Rx po
[2022-04-26] MEDS: cefTRIAXone 2 GM in SODIUM CHLORIDE 0.9% IV 100 ML 200 ML IVPB (17:46)
[2022-04-26 18:33] LABS: SARS-CoV-2 RNA PCR Negative
--- NOTE | 2022-04-26 20:00 | ADMGEN ---
This patient, Dayron Arreaga, was admitted to Medical Room 250-01. Patient/family oriented to hospital policies and general routines including ID bracelet, bed and alarms, visiting hours, pain management, procedures, bathroom and other care routines, personal items, smoking policy, room service/diet, and visiting hours. Information on how to activate the Rapid Response Team has been discussed. Patient/Family are encouraged to report perceived risks to care and to ask questions if they do not understand what they are told or what they should do.
[2022-04-27 05:01] VITALS: BP 159/47; PULSE 60; RESP 12; TEMP 36.5; O2SAT 97
[2022-04-27 05:12] LABS: Hematocrit 30.3 % (42.0-52.0); Hemoglobin 10.5 g/dL (14.0-18.0); Mean Corpuscular HGB Conc 34.7 g/dl (32-36); Mean Corpuscular Volume 103.8 fl (80-100); Mean Platelet Volume 10.1 fl (7.4-10.4); Platelet Count Result 195 k/mm3 (150-375); Red Blood Count 2.92 M/mm3 (4.6-6.20); Red Cell Distribution Width 12.6 % (11.5-14.5); White Blood Count 8.5 K/mm3 (4.5-10.0)
[2022-04-27 05:32] LABS: Anion Gap 4 mmol/L (8-16); Blood Urea Nitrogen 26 mg/dL (9-20); Calcium 8.6 mg/dL (8.4-10.2); Carbon Dioxide 22 mmol/L (22-30); Chloride 103 mmol/L (98-107); Estimated CRCL calculation 27 ml/min; Estimated Glomerular Filt Rate 38; Glucose 116 mg/dL (65-110); Magnesium 2.1 mg/dL (1.6-2.3); Potassium 4.2 mmol/L (3.4-5.0); Sodium 129 mmol/L (137-145)
[2022-04-27 08:12] VITALS: O2SAT 94
[2022-04-27] MEDS: ENOXAPARIN 40 MG/0.4 ML SYRINGE SUB-Q (08:17)
[2022-04-27] MEDS: DOCUSATE SODIUM 100 MG CAPSULE PO ×2 (08:17→17:18)
--- NOTE | 2022-04-27 11:04 | PM.IMPN ---
Progress Note: A&P Assessment and Plan (1) Urinary tract infection: Code(s): N39.0 - Urinary tract infection, site not specified Status: Acute Assessment and Plan: UA 3+ leukocytes, >75 WBC, trace bacteria. Continue ceftriaxone 1 gram IV Q24 hours x 7 days and adjust per urine culture. Urine culture pending. Check PVR x1 to ensure patient is not retaining urine. He reports previous lugo catheter x3 weeks, removed 1.5 days prior to admission. (2) Generalized weakness: Code(s): R53.1 - Weakness Status: Acute Assessment and Plan: Secondary to UTI. PT/OT consulted. (3) Chronic kidney disease: Code(s): N18.9 - Chronic kidney disease, unspecified Status: Chronic Assessment and Plan: BUN 26, Creatinine 1.7, GFR 38. Appears at baseline. Monitor I/O and renal function. Avoid nephrotoxic agents. (4) Chronic anemia: Code(s): D64.9 - Anemia, unspecified Status: Chronic Assessment and Plan: Macrocytic, hyperchromic anemia. H/H 10.5/30.3 and stable on review of previous labs. Check B12 and folate. (5) Benign prostatic hyperplasia: Code(s): N40.0 - Benign prostatic hyperplasia without lower urinary tract symptoms Status: Chronic Assessment and Plan: Continue Tamsulosin. Check PVR. Straight cath if needed. (6) Prostate cancer: Code(s): C61 - Malignant neoplasm of prostate Status: Chronic Assessment and Plan: Patient may bring enzalutamide from home. Continue enzalutamide at home dose. Continue outpatient follow up with Urology. Plan CODE STATUS: FULL CODE Disposition: Home with spouse in the next 24-48 hours. Diet: Regular Time Spent With Patient Time with patient: 15 - 25 minutes Subjective Date/time seen: 04/27/22 11:04 Interval history: Patient is an 86 yo male with medical history of prostate cancer, BPH, CKD stage 3, hypertension, and chronic anemia. He presented to the ED for evaluation of generalized weakness and UA was concerning for infection. He was referred for observation and management of UTI. Patient is lying in bed. He denies dysuria, frequency, hematuria, urgency or flank pain at this time. No fevers overnight. He still feels weak and tired. Review of Systems Review of Systems: All systems reviewed & are unremarkable except as noted in HPI and below Exam Narrative: General: No distress. Well-developed older adult male supine in bed. HEENT: PERRL, EOMI. Sclerae anicteric. Mucous membranes moist. Grossly normal hearing. Neck: Supple. No lymphadenopathy or jugular venous distention. Respiratory: Lungs are clear to auscultation bilaterally. RR regular and unlabored. No adventitious breath sounds. Cardiovascular: Regular rate and rhythm with normal S1-S2. No murmurs, gallops or rubs. Gastrointestinal: Abdomen is soft and nondistended with positive bowel sounds. Mild tenderness to palpation in the suprapubic region. No CVA tenderness. No guarding or rebound tenderness. Skin: Warm and dry. Mild pallor. No open wounds, rashes or lesions. Extremities: No cyanosis or clubbing. Trace santino ankle edema bilaterally. Radial and pedal pulses intact. Moves all 4 extremities equally and with fulls strength. Neurological: Alert. Oriented x4. Cranial nerves 2-12 are grossly intact. Generalized weakness 4/5 all extremities without focal findings. Psychiatric: Pleasant and cooperative with appropriate mood and affect. Objective Data Vital Signs Vital Signs: Vital Signs - 24 hr 04/26/22 15:05 04/26/22 15:36 04/26/22 15:39 Temperature 96.9 F L 98.6 F Pulse Rate 60 96 63 Respiratory Rate 18 16 Blood Pressure 131/55 L 149/55 H Pulse Oximetry 100 100 Oxygen Delivery Room Air Room Air 04/26/22 16:44 04/26/22 17:57 04/26/22 18:59 Temperature Pulse Rate 61 60 60 Respiratory Rate 18 18 18 Blood Pressure 157/60 H 163/62 H 158/58 H Pulse Ox
[2022-04-27 14:00] VITALS: BP 138/48; PULSE 66; RESP 20; TEMP 37; O2SAT 100
[2022-04-27] MEDS: PARoxetine 20 MG TABLET 40 MG PO (15:31)
[2022-04-27 19:08] VITALS: BP 128/47; PULSE 65; RESP 17; TEMP 36.3; O2SAT 97
[2022-04-27] MEDS: TAMSULOSIN HCL 0.4 MG CAPSULE PO (20:38)
[2022-04-28] MEDS: LIDOCAINE HCL 2% GEL UROJET 10 ML PKG MUCOUS MEM (01:56)
[2022-04-28 03:33] VITALS: BP 144/55; PULSE 64; RESP 17; TEMP 36.4; O2SAT 98
[2022-04-28 05:39] LABS: Basophils Percent Auto 0.5 % (0.2-1.2); Eosinophils Absolute Auto 0.2 K/mm3 (0-0.3); Eosinophils Percent Auto 3.7 % (0-4.4); Hematocrit 29.4 % (42.0-52.0); Hemoglobin 9.7 g/dL (14.0-18.0); Immature Granulocyte Absolute 0.02 K/mm3 (0.00-0.031); Immature Granulocyte Percent A 0.4 % (0-0.5); Lymphocytes Absolute Auto 1.65 K/mm3 (0.9-3.2); Lymphocytes Percent Auto 29.3 % (18.3-44.2); Mean Corpuscular Hemoglobin 34.6 pg (26-34); Mean Platelet Volume 10.4 fl (7.4-10.4); Monocytes Absolute Auto 0.6 K/mm3 (0.1-0.6); Monocytes Percent Auto 10.3 % (2.6-8.5); Neutrophils Absolute Auto 3.1 K/mm3 (1.3-6.7); Neutrophils Percent Auto 55.8 % (45.5-73.1); Platelet Count Result 191 k/mm3 (150-375); Red Cell Distribution Width 12.6 % (11.5-14.5); White Blood Count 5.6 K/mm3 (4.5-10.0)
[2022-04-28 05:51] LABS: Albumin Level 3.3 g/dL (3.5-5.1); Anion Gap 9 mmol/L (8-16); Blood Urea Nitrogen 28 mg/dL (9-20); Calcium 8.7 mg/dL (8.4-10.2); Carbon Dioxide 25 mmol/L (22-30); Chloride 103 mmol/L (98-107); Estimated CRCL calculation 25 ml/min; Estimated Glomerular Filt Rate 36; Glucose 103 mg/dL (65-110); Magnesium 2.3 mg/dL (1.6-2.3); Phosphorus 4.4 mg/dL (2.5-4.5); Potassium 4.4 mmol/L (3.4-5.0); Sodium 137 mmol/L (137-145)
[2022-04-28 06:56] LABS: Folic Acid 6.2 ng/mL (2.76->20)
[2022-04-28 09:39] VITALS: RESP 18; O2SAT 98
[2022-04-28] MEDS: DOCUSATE SODIUM 100 MG CAPSULE PO ×2 (09:39→17:04)
[2022-04-28] MEDS: ENOXAPARIN 40 MG/0.4 ML SYRINGE SUB-Q (09:39)
--- NOTE | 2022-04-28 09:58 | PM.IMPN ---
Progress Note: A&P Assessment and Plan (1) Urinary tract infection: Code(s): N39.0 - Urinary tract infection, site not specified Status: Acute Assessment and Plan: UA 3+ leukocytes, >75 WBC, trace bacteria. Continue ceftriaxone 1 gram IV Q24 hours day 3 of 7 days and adjust per urine culture. Urine culture with pansensitive e.coli. Transition to ciprofloxacin 250 mg PO BID x 4 days for complicated UTI. (2) Urinary retention: Code(s): R33.9 - Retention of urine, unspecified Status: Acute Assessment and Plan: PVR >500 mL. Intermittent cath ~600 mL x1. Coude catheter placed 04/28 0100 and patent. He is currently on tamsulosin 0.4 mg daily Consult Urology and appreciate recommendations. He reports previous lugo catheter x3 weeks, removed 1.5 days prior to admission. He is a patient of Dr. Jerome. He reports his managed his previous urinary catheter and does not think he needs further assistance. (3) Generalized weakness: Code(s): R53.1 - Weakness Status: Acute Assessment and Plan: Secondary to UTI. PT/OT evaluation- no home needs. Improving. (4) Chronic kidney disease: Code(s): N18.9 - Chronic kidney disease, unspecified Status: Chronic Assessment and Plan: BUN 28, Creatinine 1.8, GFR 38. Appears at baseline. Monitor I/O and renal function. Avoid nephrotoxic agents. (5) Chronic anemia: Code(s): D64.9 - Anemia, unspecified Status: Chronic Assessment and Plan: Macrocytic, hyperchromic anemia. H/H 10.5/30.3 and stable on review of previous labs. B12 ~200 and folate within normal limits. Start B12 1000 mcg supplement PO daily. (6) Benign prostatic hyperplasia: Code(s): N40.0 - Benign prostatic hyperplasia without lower urinary tract symptoms Status: Chronic Assessment and Plan: Continue Tamsulosin. as above. (7) Prostate cancer: Code(s): C61 - Malignant neoplasm of prostate Status: Chronic Assessment and Plan: Patient may bring enzalutamide from home. Continue enzalutamide at home dose. Continue outpatient follow up with Urology. (8) B12 deficiency anemia: Code(s): D51.9 - Vitamin B12 deficiency anemia, unspecified Status: Acute Assessment and Plan: c/o weakness. Hgb 9.7/29. B12 level 200 Start B12 1000 mcg PO daily supplement. Plan CODE STATUS: FULL CODE Disposition: Home with spouse pending evaluation by Urology. Diet: Regular Time Spent With Patient Time with patient: 15 - 25 minutes Subjective Date/time seen: 04/28/22 09:58 Interval history: Patient is an 86 yo male with medical history of prostate cancer, BPH, CKD stage 3, hypertension, and chronic anemia. He presented to the ED for evaluation of generalized weakness and UA was concerning for infection. He was referred for observation and management of UTI. Patient is lying in bed. He reports sleeping well last night and no new complaints. PVR yesterday >500 and he was intermittently catheterized x1. Overnight, he was again unable to void and coude catheter was inserted. He denies flank pain or suprapubic tenderness today. Review of Systems Review of Systems: All systems reviewed & are unremarkable except as noted in HPI and below Exam Narrative: General: No distress. Non-toxic appearing. Supine in bed. HEENT: PERRL, EOMI. Sclerae anicteric. Mucous membranes moist. Grossly normal hearing. Neck: Supple. No lymphadenopathy or jugular venous distention. Respiratory: Lungs are clear to auscultation bilaterally. RR regular and unlabored. No adventitious breath sounds. Cardiovascular: Regular rate and rhythm with normal S1-S2. No murmurs, gallops or rubs. Gastrointestinal: Abdomen is soft and nondistended with positive bowel sounds. Mild tenderness to palpation in the suprapubic region. No CVA tenderness. No guarding or rebound tenderness
[2022-04-28] MEDS: PARoxetine 20 MG TABLET 40 MG PO (10:15)
--- NOTE | 2022-04-28 11:57 | PHAR ---
HOME MED: XTANDI (ENZALUTAMIDE) 40 MG; TAKE 4 TABLETS (160 MG) BY MOUTH ONCE DAILY. VERIFIED BY PHARMACY
[2022-04-28 13:45] VITALS: BP 141/51; PULSE 67; RESP 16; TEMP 36.3; O2SAT 97
--- NOTE | 2022-04-28 15:48 | WPDURCON ---
Assessment and Plan Assessment and plan (1) Urinary tract infection: Code(s): N39.0 - Urinary tract infection, site not specified Status: Acute Assessment and Plan: Culture grew Escherichia Vulneris, continue Ceftriaxone and discharge home with culture appropriate oral antibiotics. (2) Benign prostatic hyperplasia: Code(s): N40.0 - Benign prostatic hyperplasia without lower urinary tract symptoms Status: Chronic Assessment and Plan: Continue Tamsulosin, but we will plan to schedule an outpatient TURP in the next month, he will keep his lugo in until then. (3) Urinary retention: Code(s): R33.9 - Retention of urine, unspecified Status: Acute Assessment and Plan: He will have a monthly catheter change in the office if he is unable to have a TURP before then. (4) Prostate cancer: Code(s): C61 - Malignant neoplasm of prostate Status: Acute Assessment and Plan: He will proceed with q 6 month Eligard injections and monitoring of PSA in the office as well as regularly scheduled right stent exchanges and bilateral retrograde pyelograms as well as a cystoscopy. No further intervention at this time, ok to discharge when stable per urology. We will schedule him as an outpatient. Urology Consult Note HPI Date Seen: 04/28/22 Time Seen: 15:48 Requesting Physician: Monty Seay MD Primary Care Provider: Michele Lovell DO Consult Narrative Reason for consult: Retention/BPH/Prostate Cancer Narrative: Dayron Arreaga is a 86 year old male who presented to the ER with generalized weakness and difficulty with urination, specifically urgency, frequency and straining to urinate on 04/26/22. He was found to have a UTI and started on Ceftriaxone. His urine culture grew Escherichia Vulneris sensitive to Ceftriaxone. He was also found to be in retention with a PVR of >500cc on bladder scan and a straight cath of >600cc. He then had a lugo placed yesterday. He is a patient of Dr. Veliz who had his lugo removed in the office on 04/23/22 for a voiding trial. His WBC at this time is 5.6, creatinine is 1.80 and he is afebrile. His prostate cancer is treated with Eligard injections in the office q 6 months and periodic stent exchanges d/t his prostate cancer that obstructs his right ureter. His most recent PSA was 0.1 in 01/17 at the time of his Eligard injection 45mg in the office. If he was unable to pass his voiding trial, it was suggested by Dr. Jerome that at his next Cystoscopy with bilateral retrograde pyelograms and right ureteral stent exchange, he would also do a TURP. Review of Systems Cardiovascular: Cardiovascular: Denies chest pain Respiratory: Respiratory: Reports no additional respiratory complaints Gastrointestinal: Gastrointestinal: Denies abdominal pain, Denies nausea and Denies vomiting Genitourinary: Genitourinary: Denies hematuria, Denies dysuria, Denies flank pain, Reports urinary frequency, Reports urinary hesitancy and Reports urinary urgency [facility] Past Medical History Medical History Anemia in chronic kidney disease Anxiety with depression Benign prostatic hyperplasia Chronic idiopathic urticaria Chronic kidney disease, stage 4 (severe) Constipation Depression Elbow fracture, right Essential (primary) hypertension Hyperparathyroidism Lumbar stenosis Nocturnal myoclonus Obesity Obstructive sleep apnea Prostate cancer Surgical History Surgical History History of cystoscopy History of open reduction and internal fixation (ORIF) procedure Repair of left arm fracture. History of transurethral resection of prostate (10/2019) History of ureter stent History of varicose vein ligation Bilateral. Family History Family History Mother Breast cancer Social History
[2022-04-28 20:01] VITALS: BP 135/56; PULSE 62; RESP 16; TEMP 37.1; O2SAT 98
[2022-04-28] MEDS: TAMSULOSIN HCL 0.4 MG CAPSULE PO (20:15)
--- NOTE | 2022-04-29 00:57 | PC.NURSE ---
Pt up on the side of the bed. Pt ambulated with staff in room. Pt compliant with medication. Pt has been resting comfortably. Pt has lugo catheter. Pt has no complaints of pain at this time. Will continue to monitor pt.
[2022-04-29 05:05] VITALS: BP 148/55; PULSE 58; RESP 16; TEMP 36.8; O2SAT 98
[2022-04-29 05:40] LABS: Anion Gap 9 mmol/L (8-16); Blood Urea Nitrogen 28 mg/dL (9-20); Carbon Dioxide 25 mmol/L (22-30); Chloride 101 mmol/L (98-107); Estimated CRCL calculation 25 ml/min; Estimated Glomerular Filt Rate 36; Glucose 99 mg/dL (65-110); Potassium 4.8 mmol/L (3.4-5.0); Sodium 135 mmol/L (137-145)
[2022-04-29] MEDS: ENOXAPARIN 40 MG/0.4 ML SYRINGE SUB-Q (09:00)
[2022-04-29] MEDS: DOCUSATE SODIUM 100 MG CAPSULE PO (09:02)
[2022-04-29] MEDS: CYANOCOBALAMIN 1,000 MCG TABLET 1000 MCG PO (09:02)
[2022-04-29] MEDS: PARoxetine 20 MG TABLET 40 MG PO (09:02)
[2022-04-29] MEDS: CIPROFLOXACIN 250 MG TABLET PO (09:02)
--- NOTE | 2022-04-29 09:17 | PM.DS ---
DS: Admitting Diagnosis Discharge Date Admitting Diagnosis acute UTI Generalized weakness Chronic anemia DS: Discharge Diagnosis Discharge Diagnosis (1) Urinary tract infection: Code(s): N39.0 - Urinary tract infection, site not specified Status: Acute Assessment and Plan: UA 3+ leukocytes, >75 WBC, trace bacteria. treated with ceftriaxone 1 gram IV Q24 hours x3 days. Urine culture with pansensitive e.coli. Transition to ciprofloxacin 250 mg PO BID x 4 days for complicated UTI. (2) Urinary retention: Code(s): R33.9 - Retention of urine, unspecified Status: Acute Assessment and Plan: PVR >500 mL. Intermittent cath ~600 mL x1. Coude catheter placed 04/28 100 and patent. He is currently on tamsulosin 0.4 mg daily Urology consult and appreciate recommendations- patient to keep Lugo catheter at discharge follow-up in the urology office for management. Patient will eventually be scheduled for TURP procedure He reports previous lugo catheter x3 weeks, removed 1.5 days prior to admission. He is a patient of Dr. Jerome. He reports his managed his previous urinary catheter and does not think he needs further assistance. (3) Generalized weakness: Code(s): R53.1 - Weakness Status: Acute Assessment and Plan: Secondary to UTI. PT/OT evaluation- no home needs. Improved- near/at baseline (4) Chronic kidney disease: Code(s): N18.9 - Chronic kidney disease, unspecified Status: Chronic Assessment and Plan: BUN 28, Creatinine 1.8, GFR 38. Appears at baseline. Monitor I/O and renal function. Avoid nephrotoxic agents. (5) Chronic anemia: Code(s): D64.9 - Anemia, unspecified Status: Chronic Assessment and Plan: Macrocytic, hyperchromic anemia. H/H 10.5/30.3 and stable on review of previous labs. B12 ~200 and folate within normal limits. Started B12 1000 mcg supplement PO daily. (6) Benign prostatic hyperplasia: Code(s): N40.0 - Benign prostatic hyperplasia without lower urinary tract symptoms Status: Chronic Assessment and Plan: Continue Tamsulosin. as above. (7) Prostate cancer: Code(s): C61 - Malignant neoplasm of prostate Status: Chronic Assessment and Plan: Patient may bring enzalutamide from home. Continue enzalutamide at home dose. Continue outpatient follow up with Urology. (8) B12 deficiency anemia: Code(s): D51.9 - Vitamin B12 deficiency anemia, unspecified Status: Acute Assessment and Plan: c/o weakness. Hgb 9.03/26. B12 level 200 B12 1000 mcg PO daily supplement. DS: Summary Hospital Course Reason for hospitalization: weakness Hospital Course: Dayron Arreaga is an 86 year old male with history of prostate cancer on enzalutamide, chronic kidney disease stage 4, BPH, chronic anemia, and hypertension. The patient presented to the ED from home for evaluation of weakness. He reportedly stated I just lost my stomach over the past week or so. He reported malaise, generalized weakness, and fatigue. He endorsed hypersomnia . He also stated he had not been able to stand up for more than a minute without having to sit down due to weakness. He denied lightheadedness and dizziness. He endorsed poor appetite as well as nausea without vomiting. In the ED he was afebrile with stable vital signs. Lab work was unremarkable. Urinalysis was positive for 3+ leukocytes, greater than 75 wbc's, and trace bacteria. Upon further questioning the patient did complain of suprapubic discomfort and dysuria. He had small amounts of blood in his urine on the previous week. This was following Lugo catheter removal which she had for acute urinary retention. He was treated with IV Rocephin in the ED and referred for observation. Patient was monitored on the medical floor. IV Rocephin 1 g Q 24 hours was continued until urin
== END 2022-04-29 12:05 | disposition home or self-care (01) | DRG 690 ==
LOC: ANHED 17:43 → ANH2MED 19:44
PROVIDERS: Physician Assistant; Admitting Provider Internal Medicine; Emergency Provider Emergency Medicine; PCP Internal Medicine; Visit Provider Nurse Practitioner Family
DX: N39.0 Urinary tract infection, site not specified (principal); N18.4 Chronic kidney disease, stage 4 (severe); I12.9 Hypertensive chronic kidney disease with stage 1 through stage 4 chronic kidney disease, or unspecified chronic kidney disease; E21.3 Hyperparathyroidism, unspecified; E66.9 Obesity, unspecified; E53.8 Deficiency of other specified B group vitamins; D63.1 Anemia in chronic kidney disease; C61 Malignant neoplasm of prostate; N40.1 Benign prostatic hyperplasia with lower urinary tract symptoms; R33.8 Other retention of urine; L50.1 Idiopathic urticaria; M48.061 Spinal stenosis, lumbar region without neurogenic claudication; G47.33 Obstructive sleep apnea (adult) (pediatric); G25.3 Myoclonus; H81.10 Benign paroxysmal vertigo, unspecified ear; B96.89 Other specified bacterial agents as the cause of diseases classified elsewhere; F41.9 Anxiety disorder, unspecified; F32.A Depression, unspecified; Z20.822 Contact with and (suspected) exposure to COVID-19; Z66 Do not resuscitate
CPT/HCPCS: 36415; 80048; 80053; 80069; 81001; 82607; 82746; 83735; 83880; 84484; 85025; 85027; 87077; 87086; 87186; 93005; 96365; 96366; 96372; 97161; 97165; 99285; A9270; C9803; G0378; J0696; J1650; U0003; U0005

== ENCOUNTER 2022-05-14 15:02 | Outpatient (CLI) | payer MEDICARE, SELFPAY ==
[2022-05-14 15:15] LABS: Basophils Percent Auto 0.8 % (0.2-1.2); Eosinophils Absolute Auto 0.3 K/mm3 (0-0.3); Eosinophils Percent Auto 5.7 % (0-4.4); Hematocrit 32.2 % (42.0-52.0); Hemoglobin 10.7 g/dL (14.0-18.0); Immature Granulocyte Absolute 0.02 K/mm3 (0.00-0.031); Immature Granulocyte Percent A 0.4 % (0-0.5); Lymphocytes Absolute Auto 1.65 K/mm3 (0.9-3.2); Lymphocytes Percent Auto 33.9 % (18.3-44.2); Mean Corpuscular HGB Conc 33.2 g/dl (32-36); Mean Corpuscular Hemoglobin 35.4 pg (26-34); Mean Corpuscular Volume 106.6 fl (80-100); Mean Platelet Volume 9.6 fl (7.4-10.4); Monocytes Absolute Auto 0.5 K/mm3 (0.1-0.6); Monocytes Percent Auto 9.4 % (2.6-8.5); Neutrophils Absolute Auto 2.4 K/mm3 (1.3-6.7); Neutrophils Percent Auto 49.8 % (45.5-73.1); Platelet Count Result 242 k/mm3 (150-375); Red Blood Count 3.02 M/mm3 (4.6-6.20); White Blood Count 4.9 K/mm3 (4.5-10.0)
[2022-05-14 16:03] LABS: Iron 100 ug/dL (49-181)
[2022-05-14 16:05] LABS: Anion Gap 8 mmol/L (8-16); Blood Urea Nitrogen 28 mg/dL (9-20); Calcium 9.4 mg/dL (8.4-10.2); Carbon Dioxide 23 mmol/L (22-30); Chloride 104 mmol/L (98-107); Estimated Glomerular Filt Rate 36; Glucose 126 mg/dL (65-110); Potassium 4.3 mmol/L (3.4-5.0); Sodium 135 mmol/L (137-145)
[2022-05-14 16:13] LABS: Percent Iron Saturation 36 % (20-50)
[2022-05-14 17:11] LABS: Folic Acid 8.8 ng/mL (2.76->20)
== END 2022-05-14 15:03 | disposition home or self-care (01) ==
LOC: ANHLAB 15:04
PROVIDERS: PCP Internal Medicine; Visit Provider Internal Medicine Hematology & Oncology
DX: D64.89 Other specified anemias (principal)
CPT/HCPCS: 36415; 80048; 82607; 82728; 82746; 83540; 83550; 85025

== ENCOUNTER 2022-06-14 13:19 | Outpatient (CLI) | payer MEDICARE, SELFPAY | END 2022-06-14 13:20 | disposition home or self-care (01) | LOC: ANHSURGERY 13:26 | PROVIDERS: PCP Internal Medicine; Visit Provider Urology | DX: N13.30 Unspecified hydronephrosis (principal); Z01.818 Encounter for other preprocedural examination | CPT/HCPCS: 87086; 87147; 87181; 87186 ==

== ENCOUNTER 2022-06-22 01:55 | Day surgery (SDC) | payer MEDICARE, SELFPAY ==
[2022-06-11 09:24] VITALS: BMI 27.8
--- NOTE | 2022-06-11 09:50 | PC.NURSE ---
Report to the Outpatient Waiting Room, entrance under the green pavilion located off [facility], at time __9:15AM on date __06/22/22 . OR Time: __11:15AM . Time changes happen often and if your time is changed the preop area will call you the afternoon before. - You and your visitor will be asked to self-screen and do not enter if you have any COVID symptoms. - We encourage only one visitor and NO visitors under age 16 are allowed at this time. Your visitor will receive communication by the phone number that is given day of service. - The patient visitor is requested to social distance or may leave the building when not with patient due to restrictions. - A mask is required within the hospital. Patients may have clear liquids (water, carbonated beverages, clear teas, apple juice) until 3 hours prior to surgery with a maximum of 20 ounces. - No food from midnight until time of surgery Take the following medications with a SIP of water the morning of surgery: ____PAROXETINE Medications to discontinue per physician HOLD ALL VITAMINS/SUPPLEMENTS 3 DAYS PRE-OP Date to take last dose___06/18/22 Please no make-up, nail mauritian, hairspray, perfume, deodorant, or body powder the day of surgery. No jewelry (including any body piercings) or valuables the day of surgery, leave them at home. Please take a shower or bath the night before, or the morning of, surgery with an antibacterial soap. Wear comfortable, loose fitting clothing. Children are encouraged to wear pajamas. - Jewelry must be removed prior to entering the operating room. Rings and piercings that are not removed may be cut off. - The hospital will not accept responsibility for valuables. - Please leave all valuables, including medications, at home the day of surgery. If you are going home after surgery, a licensed truck driver rubbish collector must drive you home. - NO public transportation without another adult. - We recommend that an adult stay with you for 24 hours following discharge. - We also recommend that you do not drive, make important decision, drink alcoholic beverages, or take any drugs that were not prescribed by your health care provider for at least 24 hours after your discharge time. Follow any additional instructions given to you from your surgeon. If you or anyone in your household have experienced Covid symptoms in the past week, please notify your surgeon or the nurse liaison at the phone number below for possible testing. Telephone instructions given to __PATIENT and asked if any additional questions and then verbalized understanding. Patient advised to call surgeon office or pre surgery nurse liaison [phone] if any additional questions.
--- NOTE | 2022-06-21 12:07 | WPDANESEPPF ---
Anes - Initial Pre Proc Eval Procedure: Operation Date: 06/22/22 11:15 Proposed Procedures p Cystoscopy, Bilateral Retrogrades, Right Stent Exchange, - J Luis Jerome MD s Possible Trans Urethral Resection Prostate - J Luis Jerome MD Date/Time: 06/21/22 12:07 Surgeon: J Luis Jerome MD Pre Op Diagnosis: urinary retention, bph, hydronephrosis Patient Data Age: 86 Gender: M Height: 1.73 m Weight: 83 kg Allergies Allergy/AdvReac Type Severity Reaction Status Date / Time aspartame Allergy Intermediate HIVE Verified 06/22/22 10:05 lisinopril Allergy Intermediate Rash, Verified 06/22/22 10:05 itching Home Medications Medication Instructions Recorded Confirmed Type docusate sodium 100 mg capsule 100 mg PO BID 11/12/19 06/22/22 History (Colace) acetaminophen 325 mg tablet (Mapap 650 mg PO Q4H PRN pain #30 tabs 10/22/20 06/22/22 Rx (acetaminophen)) polyethylene glycol 3350 17 17 g PO DAILY PRN Constipation 10/05/21 06/11/22 History gram/dose oral powder (Miralax) tamsulosin 0.4 mg capsule 0.4 mg PO HS #90 caps 03/12/22 06/22/22 Rx cyanocobalamin (vitamin B-12) 1,000 mcg PO QAM #60 tabs 04/29/22 06/22/22 Rx 1,000 mcg tablet (Vitamin B-12) enzalutamide 40 mg capsule (Xtandi) 160 mg PO QACLUNCH 06/11/22 06/22/22 History paroxetine HCl 20 mg tablet 20 mg PO QAM 06/11/22 06/22/22 History nitrofurantoin 100 mg PO BID 06/22/22 06/22/22 History Patient hx anesthesia problems: none Family hx anesthesia problems: none Results Review: All pre-operative results and documents have been reviewed as part of the pre-operative evaluation. [facility] Past Medical History Medical History Anemia in chronic kidney disease Anxiety with depression Benign prostatic hyperplasia Chronic idiopathic urticaria Chronic kidney disease, stage 4 (severe) Constipation Depression Elbow fracture, right Essential (primary) hypertension Hyperparathyroidism Lumbar stenosis Nocturnal myoclonus Obesity Obstructive sleep apnea Prostate cancer Surgical History Surgical History History of cystoscopy History of open reduction and internal fixation (ORIF) procedure Repair of left arm fracture. History of transurethral resection of prostate (10/2019) History of ureter stent History of varicose vein ligation Bilateral. Family History Family History Mother Breast cancer Social History Social History Social History: The patient lives with his in [place]. They have 2 children. He retired from doing factory work. Lifelong nonsmoker. No alcohol or illicit substance abuse. He designates his , Faith Arreaga, as his surrogate medical decision maker. Code status: Full code. Living arrangements: with family Spiritual care concerns: No Agree to blood products: Yes Anes - Eval Final PreProcedure Day of Procedure 06/21/22 12:07 Patient weight: overweight Heart: regular rate and rhythm Lungs: clear to auscultation Airway: Mallampati scale class II Neurological: alert and oriented Last oral intake: >/= 8 hours ASA classification: III Emergent: no Anesthetic plan: proceed Anesthesia type and monitoring: general LMA and standard monitoring Results Review: All pre-operative results and documents have been reviewed as part of the pre-operative evaluation. Informed Consent: The patient's anesthetic plan and its attendant risks and benefits were discussed with the patient/family/POA. Questions were solicited and answers provided to the satisfaction of the patient/family/POA.
[2022-06-22] VITALS (10 sets, daily range): BP systolic 118–168; BP diastolic 40–58; PULSE 51–73; RESP 10–16; TEMP 36.3–36.6; O2SAT 98–100
--- NOTE | ~2022-06-22 | XR_ITS ---
EXAMINATION: XR retrograde pyelo w/stent RT DATE: 06/22/2022 13:23 INDICATION: Prostate cancer presenting with urinary retention and right hydronephrosis. TECHNIQUE: 3 fluoroscopic images of the abdomen and pelvis were obtained during procedure performed daniele Jerome. Radiologist was not present for the imaging or procedure. The amount of fluoroscopy t randy used during this procedure was 0.3 minutes. COMPARISON: None. FINDINGS: Initial image demonstrates cannulation of the right ureter and retrograde contrast injection demonstr ating moderate right hydronephrosis. Subsequent images demonstrate placement of a right internal uret eral stent with loops formed in upper pole calyx of the right kidney and in the bladder. IMPRESSION: 1. Moderate right hydronephrosis with placement of a right internal ureteral stent which is in expect ed position. Reviewed, dictated and finalized at location A. IMPRESSION: 1. Moderate right hydronephrosis with placement of a right internal ureteral st ent which is in expected position.
[2022-06-22] MEDS: LACTATED RINGERS 1,000 ML 30 ML IV CONT (10:25)
[2022-06-22 10:36] LABS: Prothrombin Time 12.6 Seconds (11.1-14.7)
[2022-06-22 10:37] LABS: Partial Thromboplastin Time 27.3 SECONDS (22.3-36.8)
--- NOTE | 2022-06-22 10:45 | SUR.PREOP ---
pt instructed delay in procedure
--- NOTE | 2022-06-22 10:58 | WPDHPUPDATE1 ---
History and Physical Update Update Date/Time: 06/22/22 10:58 History and Physical has been reviewed, including an updated exam of the patient. There are NO changes in the patient's condition. Risks, benefits, and alternatives have been discussed and questions answered. Patient agrees to proceed with procedure.
[2022-06-22] MEDS: ceFAZolin 2 GM/D5W 50 ML 2 GM/50 ML BAG IVPB (12:55)
[2022-06-22] MEDS: LIDOCAINE HCL 2% GEL UROJET 10 ML PKG MUCOUS MEM (13:09)
--- NOTE | 2022-06-22 13:14 | SUR.OPER ---
4.8 STENT RIGHT URETER EXP LOT [id number]
--- NOTE | 2022-06-22 13:24 | W.PM.PROC2 ---
Procedure Note - Detailed Date of Procedure 06/22/22 Pre-op Diagnosis urinary retention, prostate cancer, right hydronephrosis Post-op Diagnosis Same Procedure Performed Cystoscopy, right retrograde pyelogram, right ureteral stent exchange 4.8 [place] contour, fulguration of prostatic fossa Surgeon J Luis Jerome MD Anesthesia General Description of Procedure Patient is taken the operative suite correctly identified. Once anesthesia was obtained was placed in dorsal lithotomy position and prepped and draped usual sterile fashion. Twenty-two [place] scope was inserted the bladder. The right ureteral stent was visualized grasped brought out to the meatus. A guidewire was inserted into this stent. A Waldo was placed over the guidewire into the renal pelvis. Pyelogram was performed. He does have somewhat of a dilated system chronically. A 4.8 contour stent was then placed with the proximal end coiled in the renal pelvis and the distal in the bladder. The left ureteral orifice was visualized at this time. Patient does not have any evidence of hydronephrosis on that side at this time. The prostatic fossa was oozing somewhat. As such we placed a 24 [place]an resectoscope sheath in and fulgurated the fossa using a rollerball. There appeared to be good hemostasis at termination procedure. 2% viscous lidocaine was inserted urethra. Sixteen [place] Dietz was placed with 10 cc in the balloon. Patient is taken recovery stable condition. Will plan on repeating this procedure in approximately 9 months to 12 months time since the stent has not shown any evidence of calcification Estimated Blood Loss 0 Drains Yes Packing No Pathology None sent Complications No immediate complications Condition Stable Disposition PACU
== END 2022-06-22 16:05 | disposition home or self-care (01) ==
PROVIDERS: PCP Internal Medicine; Visit Provider Urology
PROC: (CPT 52352; principal; 2022-06-22 11:15)
PROC: 0VT08ZZ Resection of Prostate, Via Natural or Artificial Opening Endoscopic (ICD-10-PCS; CPT 52601; 2022-06-22 11:15)
DX: N13.30 Unspecified hydronephrosis (principal); R33.9 Retention of urine, unspecified; I12.9 Hypertensive chronic kidney disease with stage 1 through stage 4 chronic kidney disease, or unspecified chronic kidney disease; N18.4 Chronic kidney disease, stage 4 (severe); D63.1 Anemia in chronic kidney disease; G47.33 Obstructive sleep apnea (adult) (pediatric); F41.8 Other specified anxiety disorders; N40.0 Benign prostatic hyperplasia without lower urinary tract symptoms; K59.00 Constipation, unspecified; F32.A Depression, unspecified; E21.3 Hyperparathyroidism, unspecified; Z85.46 Personal history of malignant neoplasm of prostate
CPT/HCPCS: 52214; 52332; 36415; 74420; 85610; 85730; A9270; C1758; C1769; C2617; J0690; J2405; J2704; J3010; J7120; Q9966

== ENCOUNTER 2022-07-12 13:02 | Inpatient (IN) | payer MEDICARE, SELFPAY ==
--- NOTE | ~2022-07-12 | CT_ITS ---
EXAMINATION: CT abdomen pelvis wo con DATE: 07/12/2022 17:26 INDICATION: Difficulty urinating and fever post cystoscopy TECHNIQUE: Computed tomography (CT) of the abdomen and pelvis was performed without intravenous contr ast. The dose-length product (DLP) was 669.53 mGy-cm. Automated exposure control and iterative recons truction technique were employed. COMPARISON: 07/21/2020 FINDINGS: Minimal dependent atelectasis is present in the lung bases. The heart size is normal. There is a 5 mm cyst of the liver. The spleen, pancreas, gallbladder, and adrenal glands are normal. A rig ht internal ureteral stent is in expected position. There is moderate right hydroureteronephrosis and mild left hydroureteronephrosis. There is atrophy of the right kidney. There is a 3 mm nonobstructin g stone of the left kidney. The urinary bladder is distended. No pathologically enlarged abdominal or pelvic lymph nodes are identified. There is no free intraperitoneal gas or evidence of bowel obstruc tion. Colonic diverticulosis is present without evidence of diverticulitis. There is severe lumbar sp ondylosis. There is interval fracture of the T12 vertebral body. IMPRESSION: 1. Distended urinary bladder with moderate right and mild left hydroureteronephrosis. Right internal ureteral stent in expected position. Reviewed, dictated and finalized at location F. [employer] IMPRESSION: 1. Distended urinary bladder with moderate right and mild left hydroureteroneph rosis. Right internal ureteral stent in expected position.
--- NOTE | ~2022-07-12 | XR_ITS ---
EXAMINATION: XR chest 1V portable DATE: 07/12/2022 15:11 INDICATION: Postoperative fever TECHNIQUE: frontal view of the chest was obtained. COMPARISON: Chest radiograph dated 10/31/2019 FINDINGS: Eventration along the right hemidiaphragm. No focal airspace opacities, pulmonary edema, pleural effu acosta or pneumothorax. The cardiomediastinal silhouette is normal. There are bridging osteophytes at m ultiple levels in the spine, consistent with diffuse idiopathic skeletal hyperostosis (DISH). IMPRESSION: 1. No acute cardiopulmonary disease. Reviewed, dictated and finalized at location B. [employer] HELPER
[2022-07-12 13:35] VITALS: BMI 29.1
--- NOTE | 2022-07-12 13:49 | ADMGEN ---
This patient, Dayron Arreaga, was admitted to [facility] Surg Room 305-02. Patient/family oriented to hospital policies and general routines including ID bracelet, bed and alarms, visiting hours, pain management, procedures, bathroom and other care routines, personal items, smoking policy, room service/diet, and visiting hours. Information on how to activate the Rapid Response Team has been discussed. Patient/Family are encouraged to report perceived risks to care and to ask questions if they do not understand what they are told or what they should do.
[2022-07-12 14:00] VITALS: BP 140/58; PULSE 83; RESP 22; TEMP 37.7; O2SAT 99
[2022-07-12 14:12] VITALS: TEMP 37.7
[2022-07-12] MEDS: ACETAMINOPHEN 325 MG TABLET 650 MG PO (14:12)
[2022-07-12 14:38] LABS: Basophils Percent Auto 0.2 % (0.2-1.2); Hematocrit 28.2 % (42.0-52.0); Hemoglobin 9.1 g/dL (14.0-18.0); Immature Granulocyte Absolute 0.06 K/mm3 (0.00-0.031); Lymphocytes Absolute Auto 0.39 K/mm3 (0.9-3.2); Lymphocytes Percent Auto 6.8 % (18.3-44.2); Mean Corpuscular HGB Conc 32.3 g/dl (32-36); Mean Corpuscular Hemoglobin 35.3 pg (26-34); Mean Corpuscular Volume 109.3 fl (80-100); Mean Platelet Volume 9.7 fl (7.4-10.4); Monocytes Absolute Auto 0.4 K/mm3 (0.1-0.6); Monocytes Percent Auto 7.7 % (2.6-8.5); Neutrophils Absolute Auto 4.8 K/mm3 (1.3-6.7); Neutrophils Percent Auto 84.3 % (45.5-73.1); Platelet Count Result 121 k/mm3 (150-375); Red Blood Count 2.58 M/mm3 (4.6-6.20); Red Cell Distribution Width 13.8 % (11.5-14.5); White Blood Count 5.7 K/mm3 (4.5-10.0)
[2022-07-12 14:43] LABS: Lactic Acid Reflex 0.9 mmol/L (0.7-2.0)
[2022-07-12 15:02] LABS: Platelet Estimate Decreased (Adequate)
[2022-07-12 15:03] LABS: Macrocytosis 1+ (NORMAL); Ovalocytes 1+ (NORMAL); Schistocytes None Seen (NORMAL)
[2022-07-12 15:09] LABS: Procalcitonin 1.1 ng/mL
[2022-07-12 15:10] VITALS: TEMP 36.7
[2022-07-12 15:28] LABS: Alanine Aminotransferase 10 U/L (6-50); Albumin Level 3.3 g/dL (3.5-5.1); Alkaline Phosphatase 101 U/L (38-126); Anion Gap 13 mmol/L (8-16); Aspartate Amino Transferase 28 U/L (17-59); Bilirubin,Total 0.8 mg/dL (0.2-1.3); Blood Urea Nitrogen 58 mg/dL (9-20); Calcium 8.1 mg/dL (8.4-10.2); Carbon Dioxide 11 mmol/L (22-30); Chloride 100 mmol/L (98-107); Estimated CRCL calculation 9 ml/min; Estimated Glomerular Filt Rate 11; Glucose 93 mg/dL (65-110); Magnesium 2.3 mg/dL (1.6-2.3); Potassium 5.1 mmol/L (3.4-5.0); Sodium 124 mmol/L (137-145)
[2022-07-12 15:29] LABS: CRP 24.3 mg/dL (<1.0)
--- NOTE | 2022-07-12 15:30 | PM.IMHP ---
H&P: HPI History of Present Illness Date/Time: 07/12/22 15:30 Chief Complaint: Fever. Narrative: This is a very pleasant 86-year-old male with prostate cancer, chronic kidney disease, benign prostatic hyperplasia, chronic anemia, and other comorbidities presented to the emergency department for evaluation of weakness and fever. He has had ongoing issues with urinary retention and he had a cystoscopy with right retrograde pyelogram and right ureteral stent exchange fulguration of prostatic fossa per Dr. Jerome on 06/22/2022. He felt okay initially however over the last several weeks he has gotten progressively more weak with decreased appetite, nausea, lightheadedness and dizziness on standing, loose stools, and occasional dysuria with difficulty starting his stream and dribbling of urine. He had a follow-up appointment with Dr. Jerome today at which time he was found to be quite weak with a fever and I was asked to direct admit him to the hospital. He has had a low-grade temperature up to 100? and his labs today were significant for sodium of 124, potassium 5.1, chloride 100, carbon dioxide 11, anion gap 13, BUN 58, creatinine 5.20, CRP 24.3, and procalcitonin 1.1. CT of the abdomen pelvis showed a distended urinary bladder with moderate right and mild left hydroureteronephrosis (right internal ureteral stent in expected position) and Dietz catheter has since been inserted. That yielded at least 1200 mL of urine immediately and he reports feeling a bit better at this time. Review of Systems Review of Systems: Twelve systems were reviewed. He denies headache. No syncope or near syncope. No focal weakness or paresthesias. He has not had any chest pain or pleuritic pain. He has mild shortness of breath with exertion but nothing significant. He has an occasional cough which is rarely productive of clear sputum. He denies sick contacts. He has had nausea but no vomiting. No loose stools today. He has not had any falls. Except as documented, all other systems were reviewed and are negative. [facility] Past Medical History Medical History Anemia in chronic kidney disease Anxiety with depression Benign prostatic hyperplasia Chronic idiopathic urticaria Chronic kidney disease, stage 4 (severe) Constipation Depression Elbow fracture, right Essential (primary) hypertension Hyperparathyroidism Lumbar stenosis Nocturnal myoclonus Obesity Obstructive sleep apnea Prostate cancer Surgical History Surgical History History of cystoscopy History of open reduction and internal fixation (ORIF) procedure Repair of left arm fracture. History of transurethral resection of prostate (10/2019) History of ureter stent History of varicose vein ligation Bilateral. Family History Family History Mother Breast cancer Social History Social History Social History: The patient lives with his in [place]. They have 2 children. He retired from doing factory work. Lifelong nonsmoker. No alcohol or illicit substance abuse. He designates his , Faith Arreaga, as his surrogate medical decision maker. Code status: Full code. Smoking status: Never smoker Alcohol intake: never Substance use: never Spiritual care concerns: No Agree to blood products: Yes Meds Home Medications and Allergies Home Medications Medication Instructions Recorded Confirmed Type docusate sodium 100 mg capsule 100 mg PO BID 11/12/19 07/12/22 History (Colace) polyethylene glycol 3350 17 17 g PO DAILY PRN Constipation 10/05/21 07/12/22 History gram/dose oral powder (Miralax) tamsulosin 0.4 mg capsule 0.4 mg PO HS #90 caps 03/12/22 07/12/22 Rx enzalutamide 40 mg capsule (Xtandi) 160 mg PO QACLUNCH 06/11/22 07/12/22 History paro
[2022-07-12 17:07] LABS: Alveolar/Arterial O2 Gradient 24.3 mmHg; Base Excess ABG -8.7 mEq/l (+/-2.0); Carboxyhemoglobin 0.2 % THb (0-2.0); Fractional Inspired Oxygen 21 %; HCO3 ABG 14.8 mEq/l (22.0-26.0); Methemoglobin ABG 0.3 %THb (0-1.5); Oxygen Content ABG 13.6 %vol (16.0-22.0); Oxygen Saturation ABG 97.4 % (95.0-100.0); Oxyhemoglobin 95.8 % THb (90.0-100.0); PCO2 ABG 24.7 mmHg (35.0-45.0); PO2 ABG 95.9 mmHg (80.0-100.0); PO2 FiO2 Ratio Arterial Blood 4.57 %; Reduced Hemoglobin 3.7 %THb (0-5.0); pH ABG 7.396 (7.350-7.450)
[2022-07-12 17:10] LABS: Device ROOM AIR; Modified Allen's Test Pass; Site Drawn RIGHT RADIAL
[2022-07-12 17:47] LABS: Creatine Kinase 190 U/L (55-170)
[2022-07-12 18:34] VITALS: O2SAT 99
[2022-07-12] MEDS: SODIUM CHLORIDE 0.9% IV 1,000 ML 999 ML IV CONT (18:46)
[2022-07-12 22:00] VITALS: BP 141/57; PULSE 75; RESP 18; TEMP 36.3; O2SAT 99
[2022-07-13 00:31] LABS: Anion Gap 10 mmol/L (8-16); Blood Urea Nitrogen 54 mg/dL (9-20); Calcium 8.3 mg/dL (8.4-10.2); Carbon Dioxide 17 mmol/L (22-30); Chloride 103 mmol/L (98-107); Estimated CRCL calculation 11 ml/min; Estimated Glomerular Filt Rate 13; Glucose 93 mg/dL (65-110); Potassium 4.7 mmol/L (3.4-5.0); Sodium 130 mmol/L (137-145)
[2022-07-13] MEDS: TAMSULOSIN HCL 0.4 MG CAPSULE PO ×2 (00:56→19:57)
--- NOTE | 2022-07-13 02:14 | PHAR ---
Enzalutamide [Xtandi] 40 mg capsule TAKE 4 TABLETS (160MG) BY MOUTH ONCE DAILY DIRECTED BY PHYSICIAN. Verified in pharmacy and sent back to 3 Med-surg.
[2022-07-13 03:13] LABS: Appearance Urine Slightly Cloudy (Clear); Bilirubin Urine Negative (Negative); Blood Urine 2+ (Negative); Glucose Urine UA Negative (Negative); Ketones Urine Negative (Negative); Leukocyte Esterase Ur 1+ LEU/UL (Negative); Nitrate Urine Negative (Negative); Protein Urine 2+ mg/dL (Negative); Specific Grav Ur 1.015 (1.001-1.035); Urobilinogen Urine 0.2 mg/dL (<2.0); pH Urine 5.5 (5.0-9.0)
[2022-07-13 03:23] LABS: Mucus Urine Rare /lpf; RBC Urine 21-50 /hpf (0-2); WBC Urine >75 /hpf
[2022-07-13 03:27] LABS: Add Urine Microscopic? YES; Color Urine Light Yellow (Yellow)
[2022-07-13 03:45] LABS: Creatinine Urine 72.8 mg/dL
[2022-07-13 04:03] LABS: Sodium Urine Random 69 meq/L
[2022-07-13] MEDS: SODIUM CHLORIDE 0.9% IV 1,000 ML 75 ML IV CONT ×2 (04:24→19:56)
[2022-07-13 06:00] VITALS: BP 144/54; PULSE 82; RESP 18; TEMP 36.4; O2SAT 98
[2022-07-13 06:38] LABS: Basophils Percent Auto 0.2 % (0.2-1.2); Eosinophils Percent Auto 0.5 % (0-4.4); Hematocrit 24.6 % (42.0-52.0); Hemoglobin 8.3 g/dL (14.0-18.0); Immature Granulocyte Absolute 0.04 K/mm3 (0.00-0.031); Immature Granulocyte Percent A 0.9 % (0-0.5); Lymphocytes Absolute Auto 0.46 K/mm3 (0.9-3.2); Lymphocytes Percent Auto 10.5 % (18.3-44.2); Mean Corpuscular HGB Conc 33.7 g/dl (32-36); Mean Corpuscular Hemoglobin 35.3 pg (26-34); Mean Corpuscular Volume 104.7 fl (80-100); Mean Platelet Volume 9.8 fl (7.4-10.4); Monocytes Absolute Auto 0.4 K/mm3 (0.1-0.6); Monocytes Percent Auto 9.8 % (2.6-8.5); Neutrophils Absolute Auto 3.4 K/mm3 (1.3-6.7); Neutrophils Percent Auto 78.1 % (45.5-73.1); Platelet Count Result 155 k/mm3 (150-375); Red Blood Count 2.35 M/mm3 (4.6-6.20); Red Cell Distribution Width 13.5 % (11.5-14.5); White Blood Count 4.4 K/mm3 (4.5-10.0)
[2022-07-13 06:41] LABS: Alanine Aminotransferase 13 U/L (6-50); Alkaline Phosphatase 78 U/L (38-126); Anion Gap 13 mmol/L (8-16); Aspartate Amino Transferase 30 U/L (17-59); Bilirubin,Total 0.5 mg/dL (0.2-1.3); Blood Urea Nitrogen 51 mg/dL (9-20); Calcium 7.7 mg/dL (8.4-10.2); Carbon Dioxide 16 mmol/L (22-30); Chloride 101 mmol/L (98-107); Creatine Kinase 153 U/L (55-170); Estimated CRCL calculation 14 ml/min; Estimated Glomerular Filt Rate 17; Glucose 90 mg/dL (65-110); Potassium 4.4 mmol/L (3.4-5.0); Sodium 130 mmol/L (137-145)
[2022-07-13] MEDS: CYANOCOBALAMIN 500 MCG TABLET 2500 MCG PO (08:08)
[2022-07-13] MEDS: DOCUSATE SODIUM 100 MG CAPSULE PO (08:08)
[2022-07-13] MEDS: PARoxetine 20 MG TABLET 40 MG PO (08:09)
[2022-07-13] MEDS: HEPARIN SODIUM 5,000 UNITS/ML VIAL 5000 UNITS SUB-Q ×2 (08:09→19:57)
--- NOTE | 2022-07-13 08:45 | PM.IMPN ---
Progress Note: A&P Assessment and Plan (1) Acute on chronic renal failure: Code(s): N17.9 - Acute kidney failure, unspecified; N18.9 - Chronic kidney disease, unspecified Status: Acute Assessment and Plan: Creatinine upon discharge was 4.4, currently 3.40 baseline appears to be 1.3-1.8 chronic kidney disease stage IIIA noted sodium chloride run at 75 mL an hour could be related to dehydration, urinary tension, UTI continue trend labs trend urine output urinary catheter Urology on board consider nephrology if renal functions worsening (2) Hyponatremia: Code(s): E87.1 - Hypo-osmolality and hyponatremia Status: Acute Assessment and Plan: sodium at arrival was 124, currently 130 continue with sodium chloride at 75 urine studies ordered FENa indicates ATN Continue to trend Na Consider nephrology if not an better (3) Urinary retention: Code(s): R33.9 - Retention of urine, unspecified Status: Acute Assessment and Plan: new finding urinary catheter inserted continue tamsulosin urology on board will probably need a voiding trial trend urine output bladder scan p.r.n. with voiding trial (4) Urinary tract infection: Code(s): N39.0 - Urinary tract infection, site not specified Status: Acute Assessment and Plan: UA does appear infectious continue ceftriaxone urine culture pending adjust therapy to support sensitivities trend urine output (5) Chronic anemia: Code(s): D64.9 - Anemia, unspecified Status: Chronic Assessment and Plan: H&H 8.3/24.6 anemia studies from 05/14/2022 show iron 100, TIBC 274, % saturation 36, ferritin 395, B12 437, folate 8.8 appears to be anemia of chronic disease, related to chronic kidney disease stage 3a continue trend H&H transfuse as indicated (6) Prostate cancer: Code(s): C61 - Malignant neoplasm of prostate Status: Acute Assessment and Plan: continue follow-up treatment as indicated (7) Generalized weakness: Code(s): R53.1 - Weakness Status: Acute Assessment and Plan: PT and OT ordered get out of bed with assistance fall precautions (8) Bacteremia: Code(s): R78.81 - Bacteremia Status: Acute Assessment and Plan: Aerobic bottle shows Gram-positive cocci in chains Noted fever prior to arrival Awaiting identification will increase ceftriaxone 2 g b.i.d. Add vancomycin Await sensitivities Adjust therapy as indicated Time Spent With Patient Time with patient: Greater than 35 minutes Subjective Date/time seen: 07/13/22844 Interval history: 07/13/22844 Patient stated that he is feeling okay. He did state that he has sore throat and that water was not helping him. He denies any chest pain, shortness a breath, nausea, vomiting, diarrhea, constipation Sweats, fevers, chills or cough. He did state that he was feeling pretty weak and fatigued. Creatinine does appear to be getting better. 07/12/22? 15:30 This is a very pleasant 86-year-old male with prostate cancer, chronic kidney disease, benign prostatic hyperplasia, chronic anemia, and other comorbidities presented to the emergency department for evaluation of weakness and fever. He has had ongoing issues with urinary retention and he had a cystoscopy with right retrograde pyelogram and right ureteral stent exchange fulguration of prostatic fossa per Dr. Jeroem on 06/22/2022. He felt okay initially however over the last several weeks he has gotten progressively more weak with decreased appetite, nausea, lightheadedness and dizziness on standing, loose stools, and occasional dysuria with difficulty starting his stream and dribbling of urine. He had a follow-up appointment with Dr. Queenie brumfield
--- NOTE | 2022-07-13 08:45 | P.PNIM_ITS ---
Progress Note: A&P Assessment and Plan (1) Acute on chronic renal failure: Code(s): N17.9 - Acute kidney failure, unspecified; N18.9 - Chronic kidney disease, unspecified Status: Acute Assessment and Plan: * Creatinine upon discharge was 4.4, currently 3.40 * baseline appears to be 1.3-1.8 * chronic kidney disease stage IIIA noted * sodium chloride run at 75 mL an hour * could be related to dehydration, urinary tension, UTI * continue trend labs * trend urine output * urinary catheter * Urology on board * consider nephrology if renal functions worsening (2) Hyponatremia: Code(s): E87.1 - Hypo-osmolality and hyponatremia Status: Acute Assessment and Plan: * sodium at arrival was 124, currently 130 * continue with sodium chloride at 75 * urine studies ordered * FENa indicates ATN * Continue to trend Na * Consider nephrology if not an better (3) Urinary retention: Code(s): R33.9 - Retention of urine, unspecified Status: Acute Assessment and Plan: * new finding * urinary catheter inserted * continue tamsulosin * urology on board * will probably need a voiding trial * trend urine output * bladder scan p.r.n. with voiding trial (4) Urinary tract infection: Code(s): N39.0 - Urinary tract infection, site not specified Status: Acute Assessment and Plan: * UA does appear infectious * continue ceftriaxone * urine culture pending * adjust therapy to support sensitivities * trend urine output (5) Chronic anemia: Code(s): D64.9 - Anemia, unspecified Status: Chronic Assessment and Plan: * H&H 8.3/24.6 * anemia studies from 05/14/2022 show iron 100, TIBC 274, % saturation 36, ferritin 395, B12 437, folate 8.8 * appears to be anemia of chronic disease, related to chronic kidney disease stage 3a * continue trend H&H * transfuse as indicated (6) Prostate cancer: Code(s): C61 - Malignant neoplasm of prostate Status: Acute Assessment and Plan: * continue follow-up treatment as indicated (7) Generalized weakness: Code(s): R53.1 - Weakness Status: Acute Assessment and Plan: * PT and OT ordered * get out of bed with assistance * fall precautions (8) Bacteremia: Code(s): R78.81 - Bacteremia Status: Acute Assessment and Plan: * Aerobic bottle shows Gram-positive cocci in chains * Noted fever prior to arrival * Awaiting identification * will increase ceftriaxone 2 g b.i.d. * Add vancomycin * Await sensitivities * Adjust therapy as indicated Time Spent With Patient Time with patient: Greater than 35 minutes Subjective Date/time seen: 07/13/22844 Interval history: 07/13/22844 Patient stated that he is feeling okay. He did state that he has sore throat and that water was not helping him. He denies any chest pain, shortness a breath, nausea, vomiting, diarrhea, constipation Sweats, fevers, chills or cough. He did state that he was feeling pretty weak and fatigued. Creatinine does appear to be getting better. 07/12/22? 15:30 This is a very pleasant 86-year-old male with prostate cancer, chronic ki
[2022-07-13] MEDS: PHENOL/SOD PHENO SPRAY CHERRY (*BKC) 1 SPRAY MUCOUS MEM ×3 (10:02→19:56)
[2022-07-13 14:00] VITALS: BP 143/57; PULSE 74; RESP 20; TEMP 36.4; O2SAT 99
--- NOTE | 2022-07-13 15:46 | WPDURCON ---
Assessment and Plan Assessment and plan (1) Bacteremia: Code(s): R78.81 - Bacteremia Status: Acute Assessment and Plan: Continue IV antibiotics, tailor to culture results. (2) Urinary retention: Code(s): R33.9 - Retention of urine, unspecified Status: Acute Assessment and Plan: Continue lugo for 7-10 days, will do a voiding trial in the office. Continue Flomax, start Finasteride. (3) Acute on chronic renal failure: Code(s): N17.9 - Acute kidney failure, unspecified; N18.9 - Chronic kidney disease, unspecified Status: Acute Assessment and Plan: Improving s/p catheter placement. Will watch until creatinine returns to baseline. (4) Hydronephrosis: Code(s): N13.30 - Unspecified hydronephrosis Status: Acute Assessment and Plan: Will get a YASEMIN to ensure hydro has resolved s/p catheter placement. (5) BPH (benign prostatic hyperplasia): Code(s): N40.0 - Benign prostatic hyperplasia without lower urinary tract symptoms Status: Acute Urology Consult Note HPI Date Seen: 07/13/22 Time Seen: 09:00 Requesting Physician: Mary Ellen Sheldon DO Primary Care Provider: Michele Lovell DO Consult Narrative Reason for consult: Retention/UTI Narrative: Dayron Arreaga is a 86 year old male who I directly admitted to the hospitalist service following an office visit yesterday. I saw him in the office for concerns by his for acute onset of weakness, confusion, fecal incontinence and urinary difficulty. She states that since his voiding trial that I performed on 07/06/22 in the office he started dribbling on Tuesday and has a very light stream. He had an ongoing fever of 100/101 reported by his that wouldn't subside with Tylenol and she couldn't care for him at home d/t his severe and worsening weakness. I was unable to get a urine sample from him in the office, and his bladder scan was 79cc therefore I didn't feel the need to place a lugo catheter. He was lethargic and wheelchair bound as well as nauseated requiring and emesis basin at his OV. I called and got him directly admitted to the medicine floor d/t stable blood pressure. He was found to have hyponatremia, hypocalcemia, elevated creatinine of 5.[address] scan showing bilateral hydronephrosis right stent in place upon admission as well as a fever. He had a cystoscopy right retrograde pyelogram, right stent exchange and prostate fulguration on 06/22/[address] Jerome. He remains on Flomax for BPH. When his lugo was placed on the floor 1200cc of urine was noted upon return. Review of Systems Constitutional: Constitutional: Reports fatigue, Reports lethargy and Reports weakness Cardiovascular: Cardiovascular: Denies chest pain Respiratory: Respiratory: Reports no additional respiratory complaints Gastrointestinal: Gastrointestinal: Denies abdominal pain, Reports nausea and Denies vomiting Comments: fecal incontinence Genitourinary: Genitourinary: Denies hematuria, Denies dysuria, Denies flank pain, Denies urinary frequency, Reports urinary hesitancy, Reports urinary incontinence and Denies urinary urgency PMF Past Medical History Medical History Anemia in chronic kidney disease Anxiety with depression Benign prostatic hyperplasia Chronic idiopathic urticaria Chronic kidney disease, stage 4 (severe) Constipation Depression Elbow fracture, right Essential (primary) hypertension Hyperparathyroidism Lumbar stenosis Nocturnal myoclonus Obesity Obstructive sleep apnea Prostate cancer Surgical History Surgical History History of cystoscopy History of open reduction and internal fixation (ORIF) procedure Repair of left arm fracture. History of transurethral resection of prostate (10/2019) History of ureter stent History of varicose vein ligation Bilateral. Famil
[2022-07-13] MEDS: cefTRIAXone 2 GM in SODIUM CHLORIDE 0.9% IV 100 ML 200 ML IVPB (16:30)
[2022-07-13] MEDS: BENZOCAINE/MENTHOL (*BKC) 18 EA LOZENGE 1 LOZENGE PO (19:56)
--- NOTE | 2022-07-13 20:36 | PC.NURSE ---
pt covid swabbed sent to lab for analysis.
[2022-07-13 20:46] LABS: EDCOVIDSCREEN Negative (Negative)
[2022-07-13 22:00] VITALS: BP 149/56; PULSE 64; RESP 18; TEMP 36.2; O2SAT 98
--- NOTE | 2022-07-14 00:31 | PC.NURSE ---
lab reported x2 bC results preliminary 1. aerobic bottle: gram + cocci in chains 2. anaerobic bottle: gram + cocci in clusters, pt currently on Rocephin 2 g q12hrs.
--- NOTE | 2022-07-14 00:42 | PC.NURSE ---
reported to Md Cesar, possible staph infection, called pharmacy to confirm pharmacy is dosing vancomycin already, order to repeat BC's.
[2022-07-14 03:09] LABS: Basophils Percent Auto 0.3 % (0.2-1.2); Eosinophils Absolute Auto 0.1 K/mm3 (0-0.3); Eosinophils Percent Auto 1.8 % (0-4.4); Hematocrit 25.1 % (42.0-52.0); Hemoglobin 8.4 g/dL (14.0-18.0); Immature Granulocyte Absolute 0.03 K/mm3 (0.00-0.031); Immature Granulocyte Percent A 0.8 % (0-0.5); Lymphocytes Absolute Auto 0.85 K/mm3 (0.9-3.2); Lymphocytes Percent Auto 21.6 % (18.3-44.2); Mean Corpuscular HGB Conc 33.5 g/dl (32-36); Mean Corpuscular Hemoglobin 35.1 pg (26-34); Mean Platelet Volume 9.5 fl (7.4-10.4); Monocytes Absolute Auto 0.4 K/mm3 (0.1-0.6); Monocytes Percent Auto 11.2 % (2.6-8.5); Neutrophils Absolute Auto 2.5 K/mm3 (1.3-6.7); Neutrophils Percent Auto 64.3 % (45.5-73.1); Platelet Count Result 160 k/mm3 (150-375); Red Blood Count 2.39 M/mm3 (4.6-6.20); Red Cell Distribution Width 13.5 % (11.5-14.5); White Blood Count 3.9 K/mm3 (4.5-10.0)
[2022-07-14] MEDS: cefTRIAXone 2 GM in SODIUM CHLORIDE 0.9% IV 100 ML 200 ML IVPB (04:03)
[2022-07-14 06:00] VITALS: BP 154/59; PULSE 68; RESP 20; TEMP 36.2; O2SAT 98
[2022-07-14 06:55] LABS: Alanine Aminotransferase 16 U/L (6-50); Albumin Level 2.8 g/dL (3.5-5.1); Alkaline Phosphatase 84 U/L (38-126); Anion Gap 6 mmol/L (8-16); Aspartate Amino Transferase 29 U/L (17-59); Bilirubin,Total 0.4 mg/dL (0.2-1.3); Blood Urea Nitrogen 35 mg/dL (9-20); Calcium 7.9 mg/dL (8.4-10.2); Carbon Dioxide 17 mmol/L (22-30); Chloride 110 mmol/L (98-107); Estimated CRCL calculation 24 ml/min; Estimated Glomerular Filt Rate 34; Glucose 100 mg/dL (65-110); Magnesium 2.1 mg/dL (1.6-2.3); Potassium 4.3 mmol/L (3.4-5.0); Sodium 133 mmol/L (137-145)
--- NOTE | 2022-07-14 08:10 | P.PNIM_ITS ---
Progress Note: A&P Assessment and Plan (1) Acute on chronic renal failure: Code(s): N17.9 - Acute kidney failure, unspecified; N18.9 - Chronic kidney disease, unspecified Status: Acute Assessment and Plan: Acute worsening of chronic disease, stage 3b. Creatinine 5.2, BUN 58, eGFR 11 on admission; baseline creatinine 1.8, BUN 28, eGFR 36-41. UA 2+ protein * baseline appears to be 1.3-1.8 * Likely multifactorial with poor oral intake and post-renal obstruction. * Started on sodium chloride run at 75 mL/hr on 07/13-07/14, DC'd with improved renal function. * continue trend labs * FENa 2.5% suggests intrinsic source from UTI * Monitor strict I/O. * Continue chronic indwelling catheter 7-10 days per Urology. * 07/14/22 BUN, 35, creatinine 1.9, eGFR 34. Encourage oral water intake. Saline lock IV fluids. (2) Hyponatremia: Code(s): E87.1 - Hypo-osmolality and hyponatremia Status: Acute Assessment and Plan: sodium at arrival was 124 on admission. Previous sodium levels 130-137 since 09/2021. Given his history and clinical picture this is likely secondary to hypovolemia hyponatremia. * Started on NS@75 mL/hour. * Monitor strict I/O * Urine sodium 65, urine osmolality pending. * 07/14/22 Sodium 133 today. Change Vancomycin fluid dilution from D5W to NS. * Trend sodium level. * Monitor levels with resumption of paxil. (3) Urinary retention: Code(s): R33.9 - Retention of urine, unspecified Status: Acute Assessment and Plan: Acute urinary retention noted on admission. +1200 mL immediate urine output with catheter insertion on 07/12/22 * continue tamsulosin 0.4 mg HS. * urology consulted and appreciate recommendations. * Continue lugo catheter 7-10 days and plan to attempt voiding trial in office with follow-up, per Urology notes. * Continue monitoring renal function, I/O. * Continue treatment for UTI. (4) Urinary tract infection: Qualifiers: Urinary tract infection type: acute pyelonephritis Qualified Code(s): N10 - Acute pyelonephritis Code(s): N39.0 - Urinary tract infection, site not specified Status: Acute Assessment and Plan: UA with 1+ leukocytosis, >75 WBC and 2+ blood * Started on IV ceftriaxone 1 gram IV on 07/13/22 * urine culture pending and plan to adjust antibiotics per culture and sensitivity * Vancomycin IV added with pharmacy to dose due to +blood culture with gram positive cocci from 07/12/22 (5) Chronic anemia: Code(s): D64.9 - Anemia, unspecified Status: Chronic Assessment and Plan: * H&H 9.1/28% on admission. Baseline 9.7-11 * anemia studies from 05/14/2022 show iron 100, TIBC 274, % saturation 36, ferritin 395, B12 437, folate 8.8 * Continue B12 supplement for B12 deficiency 202 on 03/2022 * appears to be anemia of chronic disease secondary to chronic kidney disease stage 3b * Monitor H&H * transfuse if Hgb<7 or symptomatic * no s/s acute bleeding. (6) Prostate cancer: Code(s): C61 - Malignant neoplasm of prostate Status: Chronic Assessment and Plan: s/p TURP in 2019 * Urology following * On Xtandi (7) Generalized weakness: Code(s): R53.1 - Weakness Status: Acute Assessment and Plan: c/o progressively worsening generalized weakness on admission and likely secondary to KEE on CKD and complicated UTI. * Continue PT and OT as ordered. * fall precautions (8) Bacteremia:
--- NOTE | 2022-07-14 08:10 | PM.IMPN ---
Progress Note: A&P Assessment and Plan (1) Acute on chronic renal failure: Code(s): N17.9 - Acute kidney failure, unspecified; N18.9 - Chronic kidney disease, unspecified Status: Acute Assessment and Plan: Acute worsening of chronic disease, stage 3b. Creatinine 5.2, BUN 58, eGFR 11 on admission; baseline creatinine 1.8, BUN 28, eGFR 36-41. UA 2+ protein baseline appears to be 1.3-1.8 Likely multifactorial with poor oral intake and post-renal obstruction. Started on sodium chloride run at 75 mL/hr on 07/13-07/14, DC'd with improved renal function. continue trend labs FENa 2.5% suggests intrinsic source from UTI Monitor strict I/O. Continue chronic indwelling catheter 7-10 days per Urology. 07/14/22 BUN, 35, creatinine 1.9, eGFR 34. Encourage oral water intake. Saline lock IV fluids. (2) Hyponatremia: Code(s): E87.1 - Hypo-osmolality and hyponatremia Status: Acute Assessment and Plan: sodium at arrival was 124 on admission. Previous sodium levels 130-137 since 09/2021. Given his history and clinical picture this is likely secondary to hypovolemia hyponatremia. Started on NS@75 mL/hour. Monitor strict I/O Urine sodium 65, urine osmolality pending. 07/14/22 Sodium 133 today. Change Vancomycin fluid dilution from D5W to NS. Trend sodium level. Monitor levels with resumption of paxil. (3) Urinary retention: Code(s): R33.9 - Retention of urine, unspecified Status: Acute Assessment and Plan: Acute urinary retention noted on admission. +1200 mL immediate urine output with catheter insertion on 07/12/22 continue tamsulosin 0.4 mg HS. urology consulted and appreciate recommendations. Continue lugo catheter 7-10 days and plan to attempt voiding trial in office with follow-up, per Urology notes. Continue monitoring renal function, I/O. Continue treatment for UTI. (4) Urinary tract infection: Qualifiers: Urinary tract infection type: acute pyelonephritis Qualified Code(s): N10 - Acute pyelonephritis Code(s): N39.0 - Urinary tract infection, site not specified Status: Acute Assessment and Plan: UA with 1+ leukocytosis, >75 WBC and 2+ blood Started on IV ceftriaxone 1 gram IV on 07/13/22 urine culture pending and plan to adjust antibiotics per culture and sensitivity Vancomycin IV added with pharmacy to dose due to +blood culture with gram positive cocci from 07/12/22 (5) Chronic anemia: Code(s): D64.9 - Anemia, unspecified Status: Chronic Assessment and Plan: H&H 9.1/28% on admission. Baseline 9.7-11 anemia studies from 05/14/2022 show iron 100, TIBC 274, % saturation 36, ferritin 395, B12 437, folate 8.8 Continue B12 supplement for B12 deficiency 202 on 03/2022 appears to be anemia of chronic disease secondary to chronic kidney disease stage 3b Monitor H&H transfuse if Hgb<7 or symptomatic no s/s acute bleeding. (6) Prostate cancer: Code(s): C61 - Malignant neoplasm of prostate Status: Chronic Assessment and Plan: s/p TURP in 2019 Urology following On Xtandi (7) Generalized weakness: Code(s): R53.1 - Weakness Status: Acute Assessment and Plan: c/o progressively worsening generalized weakness on admission and likely secondary to KEE on CKD and complicated UTI. Continue PT and OT as ordered. fall precautions (8) Bacteremia: Code(s): R78.81 - Bacteremia Status: Acute Assessment and Plan: 07/12/22 blood cultures with gram positive cocci in 2/2 Aerobic bottles Patient febrile prior to admission 100F-101F Ceftriaxone increased to 2 grams Q24 on 07/13/22 Vancomycin IV pharmacy to dose added 07/13/22 Repeat blood cultures 07/13/ and 07/14 pending. De-escalate antibiotics per culture an sensitivities. Plan CODE STATUS: FULL CODE Disposition: Pl
[2022-07-14] MEDS: CYANOCOBALAMIN 500 MCG TABLET 2500 MCG PO (08:42)
[2022-07-14] MEDS: PARoxetine 20 MG TABLET 40 MG PO (08:43)
[2022-07-14] MEDS: HEPARIN SODIUM 5,000 UNITS/ML VIAL 5000 UNITS SUB-Q ×2 (08:43→20:15)
[2022-07-14] MEDS: VANCOMYCIN HCL 1,250 MG in SODIUM CHLORIDE 0.9% IV 250 ML 200 MG IVPB (12:49)
[2022-07-14 14:00] VITALS: BP 145/60; PULSE 63; RESP 14; TEMP 36.2; O2SAT 100
--- NOTE | 2022-07-14 16:11 | WPDUROPN2 ---
Progress Note: A&P Assessment and Plan (1) BPH (benign prostatic hyperplasia): Code(s): N40.0 - Benign prostatic hyperplasia without lower urinary tract symptoms Status: Acute Assessment and Plan: Continue Flomax and Finasteride. Keep lugo in place and we will plan a voiding trial in 7-10 days. (2) Urinary retention: Code(s): R33.9 - Retention of urine, unspecified Status: Acute (3) Bacteremia: Code(s): R78.81 - Bacteremia Status: Acute (4) Hydronephrosis: Code(s): N13.30 - Unspecified hydronephrosis Status: Acute Subjective Subjective Date/Time Seen: 07/14/22 16:11 Patient continues to improve. His creatinine is 1.90, WBC is 3.9, he remains on antibiotics, but cultures are pending at this time. He is tolerating his diet with less nausea and is more alert today. He appears to be less weak. Review of Systems Constitutional: Constitutional: Reports weakness Cardiovascular: Cardiovascular: Reports no additional cardiovascular complaints Respiratory: Respiratory: Reports no additional respiratory complaints Gastrointestinal: Gastrointestinal: Denies abdominal pain, Denies nausea and Denies vomiting Genitourinary: Genitourinary: Denies hematuria, Denies dysuria, Denies flank pain, Denies testicular pain, Denies urinary frequency, Denies urinary hesitancy and Denies urinary urgency Exam Const: General: cooperative Resp: Effort & Inspection: normal respiratory effort Cardio: Rate: regular rate GI: GI Palp: Yes Soft to palpation and No Tenderness to palpation present (GI) : General: Yes no CVA tenderness Extrem: Right lower extremity: no edema Left lower extremity: no edema Objective Data Vital Signs Vital Signs: Vital Signs - 24 hr 07/13/22 20:00 07/13/22 22:00 07/14/22 06:00 Temperature 97.2 F L 97.1 F L Pulse Rate 64 68 Respiratory Rate 18 20 Blood Pressure 149/56 H 154/59 H Pulse Oximetry 98 98 Oxygen Delivery Room Air 07/14/22 07:16 07/14/22 09:54 07/14/22 14:00 Temperature 97.1 F L Pulse Rate 63 Respiratory Rate 14 Blood Pressure 145/60 H Pulse Oximetry 100 Oxygen Delivery Room Air Room Air Intake/Output Intake/Output: Intake & Output 11/07/12/22 07/13/22 07/14/22 23:59 23:59 23:59 23:59 Intake Total 240 1390 1630 Output Total 8746 5355 535 Balance 835 1460 980 Meds/Results Medications: Active Medications Generic Name Dose Route Start Last Admin Trade Name Freq PRN Reason Stop Dose Admin Acetaminophen 650 mg 07/12/22 13:37 07/12/22 14:12 Acetaminophen 325 Mg Tablet PO 650 mg Q4H PRN Administration Mild Pain (1-3) or Fever Benzocaine 1 lozenge 07/13/22 09:34 07/13/22 19:56 Benzocaine/Menthol (*Bkc) 18 Ea Lozenge PO 1 lozenge PRN PRN Administration Sore Throat Cyanocobalamin 2,500 mcg 07/13/22 09:00 07/14/22 08:42 Cyanocobalamin 500 Mcg Tablet PO 2,500 mcg QAM VIVEK Administration Guaifenesin/Codeine Phosphate 10 ml 07/13/22 09:34 Guaifenesin/Codeine (*Crx) 200/20 Mg 10 Ml Syrup PO Q4H PRN Cough Heparin Sodium (Porcine) 5,000 units 07/13/22 09:00 07/14/22 08:43 Heparin Sodium 5,000 Units/Ml Vial SUB-Q 5,000 units Q12HR VIVEK Administration Home Med 4 each 07/13/22 12:00 07/14/22 12:46 Enzalutamide [Xtandi] 40 Mg Capsule PO 08/12/22 11:59 4 each 1200 VIVEK Administration Vancomycin HCl 1,250 mg/ 250 mls @ 200 mls/hr 07/14/22 13:00 07/14/22 14:04 Sodium Chloride IVPB Infused Q36H VIVEK Infusion Ceftriaxone Sodium 2 gm/ 100 mls @ 200 mls/hr 07/15/22 09:00 Sodium Chloride IVPB DAILY VIVEK Paroxetine HCl 40 mg 07/13/22 09:00 07/14/22 08:43 Paroxetine 20 Mg Tablet PO 40 mg QAM VIVEK Administration Phenol 1 spray 07/13/22 09:34 07/13/22 19:56 Phenol/Sod Pheno [place] (*Bkc) MUCOUS MEM 1 spray PRN PRN Administration Sore Throat Polyethylene Glycol
[2022-07-14 20:00] VITALS: O2SAT 98
[2022-07-14] MEDS: TAMSULOSIN HCL 0.4 MG CAPSULE PO (20:15)
[2022-07-14 22:00] VITALS: BP 156/59; PULSE 60; RESP 16; TEMP 36; O2SAT 98
[2022-07-15 06:00] VITALS: BP 154/60; PULSE 66; RESP 16; TEMP 35.8; O2SAT 98
[2022-07-15 06:37] LABS: Basophils Percent Auto 0.3 % (0.2-1.2); Eosinophils Absolute Auto 0.1 K/mm3 (0-0.3); Eosinophils Percent Auto 3.6 % (0-4.4); Hematocrit 24.2 % (42.0-52.0); Hemoglobin 8.1 g/dL (14.0-18.0); Immature Granulocyte Absolute 0.04 K/mm3 (0.00-0.031); Immature Granulocyte Percent A 1.1 % (0-0.5); Lymphocytes Absolute Auto 1.09 K/mm3 (0.9-3.2); Lymphocytes Percent Auto 30.4 % (18.3-44.2); Mean Corpuscular HGB Conc 33.5 g/dl (32-36); Mean Corpuscular Hemoglobin 35.4 pg (26-34); Mean Corpuscular Volume 105.7 fl (80-100); Monocytes Absolute Auto 0.4 K/mm3 (0.1-0.6); Monocytes Percent Auto 10.3 % (2.6-8.5); Neutrophils Percent Auto 54.3 % (45.5-73.1); Platelet Count Result 172 k/mm3 (150-375); Red Blood Count 2.29 M/mm3 (4.6-6.20); Red Cell Distribution Width 13.3 % (11.5-14.5); White Blood Count 3.6 K/mm3 (4.5-10.0)
[2022-07-15 06:53] LABS: Anion Gap 13 mmol/L (8-16); Blood Urea Nitrogen 26 mg/dL (9-20); Calcium 8.3 mg/dL (8.4-10.2); Carbon Dioxide 18 mmol/L (22-30); Chloride 106 mmol/L (98-107); Estimated CRCL calculation 30 ml/min; Estimated Glomerular Filt Rate 44; Glucose 94 mg/dL (65-110); Potassium 4.1 mmol/L (3.4-5.0); Sodium 137 mmol/L (137-145)
[2022-07-15] MEDS: CYANOCOBALAMIN 500 MCG TABLET 2500 MCG PO (08:10)
[2022-07-15] MEDS: HEPARIN SODIUM 5,000 UNITS/ML VIAL 5000 UNITS SUB-Q (08:11)
[2022-07-15] MEDS: PARoxetine 20 MG TABLET 40 MG PO (08:11)
[2022-07-15] MEDS: cefTRIAXone 2 GM in SODIUM CHLORIDE 0.9% IV 100 ML 200 ML IVPB (08:14)
--- NOTE | 2022-07-15 10:51 | P.PNIM_ITS ---
Progress Note: A&P Assessment and Plan (1) Acute on chronic renal failure: Code(s): N17.9 - Acute kidney failure, unspecified; N18.9 - Chronic kidney disease, unspecified Status: Acute Assessment and Plan: Acute worsening of chronic disease, stage 3b. Creatinine 5.2, BUN 58, eGFR 11 on admission; baseline creatinine 1.8, BUN 28, eGFR 36-41. UA 2+ protein * baseline appears to be 1.3-1.8 * Likely multifactorial with poor oral intake and post-renal obstruction. * Started on sodium chloride run at 75 mL/hr on 07/13-07/14, DC'd with improved renal function. * continue trend labs * FENa 2.5% suggests intrinsic source from UTI * Monitor strict I/O. * Continue chronic indwelling catheter 7-10 days per Urology. * 07/14/22 BUN, 35, creatinine 1.9, eGFR 34. Encourage oral water intake. Saline lock IV fluids. * 07/15/2022 BUN 26,creatinine 1.5, eGFR 44. Improving and at baseline (2) Hyponatremia: Code(s): E87.1 - Hypo-osmolality and hyponatremia Status: Acute Assessment and Plan: sodium at arrival was 124 on admission. Previous sodium levels 130-137 since 09/2021. Given his history and clinical picture this is likely secondary to hypovolemia hyponatremia. * Started on NS@75 mL/hour. * Monitor strict I/O * Urine sodium 65, urine osmolality pending. * 07/14/22 Sodium 133 today. Change Vancomycin fluid dilution from D5W to NS. * Trend sodium level. * Monitor levels with resumption of paxil. * 07/15/2022 sodium 137 and improved with removal of antibiotic and D5W (3) Urinary retention: Code(s): R33.9 - Retention of urine, unspecified Status: Acute Assessment and Plan: Acute urinary retention noted on admission. +1200 mL immediate urine output with catheter insertion on 07/12/22 * continue tamsulosin 0.4 mg HS. * urology consulted and appreciate recommendations. * Continue lugo catheter 7-10 days and plan to attempt voiding trial in office with follow-up, per Urology notes. * Continue monitoring renal function, I/O. * Continue treatment for UTI. (4) Urinary tract infection: Qualifiers: Urinary tract infection type: acute pyelonephritis Qualified Code(s): N10 - Acute pyelonephritis Code(s): N39.0 - Urinary tract infection, site not specified Status: Acute Assessment and Plan: UA with 1+ leukocytosis, >75 WBC and 2+ blood * Started on IV ceftriaxone 1 gram IV on 07/13/22 * urine culture pending and plan to adjust antibiotics per culture and sensitivity * Vancomycin IV added with pharmacy to dose due to +blood culture with gram positive cocci from 07/12/22 * 07/15/2022 urine culture shows Enterococcus species sensitive to vancomycin. Stop Rocephin (5) Chronic anemia: Code(s): D64.9 - Anemia, unspecified Status: Chronic Assessment and Plan: * H&H 9.1/28% on admission. Baseline 9.7-11 * anemia studies from 05/14/2022 show iron 100, TIBC 274, % saturation 36, ferritin 395, B12 437, folate 8.8 * Continue B12 supplement for B12 deficiency 202 on 03/2022 * appears to be anemia of chronic disease secondary to chronic kidney disease stage 3b * Monitor H&H * transfuse if Hgb<7 or symptomatic * no s/s acute bleeding. (6) Prostate cancer: Code(s): C61 - Malignant neoplasm of prostate Status: Chronic Assessment and Plan: s/p TURP in 2019 * Urology following * On Xtandi (7) Generalized weakness: Code(s): R53.1 - Weakness Status: Acute Assessment and Plan: c/o p
--- NOTE | 2022-07-15 10:51 | PM.IMPN ---
Progress Note: A&P Assessment and Plan (1) Acute on chronic renal failure: Code(s): N17.9 - Acute kidney failure, unspecified; N18.9 - Chronic kidney disease, unspecified Status: Acute Assessment and Plan: Acute worsening of chronic disease, stage 3b. Creatinine 5.2, BUN 58, eGFR 11 on admission; baseline creatinine 1.8, BUN 28, eGFR 36-41. UA 2+ protein baseline appears to be 1.3-1.8 Likely multifactorial with poor oral intake and post-renal obstruction. Started on sodium chloride run at 75 mL/hr on 07/13-07/14, DC'd with improved renal function. continue trend labs FENa 2.5% suggests intrinsic source from UTI Monitor strict I/O. Continue chronic indwelling catheter 7-10 days per Urology. 07/14/22 BUN, 35, creatinine 1.9, eGFR 34. Encourage oral water intake. Saline lock IV fluids. 07/15/2022 BUN 26,creatinine 1.5, eGFR 44. Improving and at baseline (2) Hyponatremia: Code(s): E87.1 - Hypo-osmolality and hyponatremia Status: Acute Assessment and Plan: sodium at arrival was 124 on admission. Previous sodium levels 130-137 since 09/2021. Given his history and clinical picture this is likely secondary to hypovolemia hyponatremia. Started on NS@75 mL/hour. Monitor strict I/O Urine sodium 65, urine osmolality pending. 07/14/22 Sodium 133 today. Change Vancomycin fluid dilution from D5W to NS. Trend sodium level. Monitor levels with resumption of paxil. 07/15/2022 sodium 137 and improved with removal of antibiotic and D5W (3) Urinary retention: Code(s): R33.9 - Retention of urine, unspecified Status: Acute Assessment and Plan: Acute urinary retention noted on admission. +1200 mL immediate urine output with catheter insertion on 07/12/22 continue tamsulosin 0.4 mg HS. urology consulted and appreciate recommendations. Continue lugo catheter 7-10 days and plan to attempt voiding trial in office with follow-up, per Urology notes. Continue monitoring renal function, I/O. Continue treatment for UTI. (4) Urinary tract infection: Qualifiers: Urinary tract infection type: acute pyelonephritis Qualified Code(s): N10 - Acute pyelonephritis Code(s): N39.0 - Urinary tract infection, site not specified Status: Acute Assessment and Plan: UA with 1+ leukocytosis, >75 WBC and 2+ blood Started on IV ceftriaxone 1 gram IV on 07/13/22 urine culture pending and plan to adjust antibiotics per culture and sensitivity Vancomycin IV added with pharmacy to dose due to +blood culture with gram positive cocci from 07/12/22 07/15/2022 urine culture shows Enterococcus species sensitive to vancomycin. Stop Rocephin (5) Chronic anemia: Code(s): D64.9 - Anemia, unspecified Status: Chronic Assessment and Plan: H&H 9.1/28% on admission. Baseline 9.7-11 anemia studies from 05/14/2022 show iron 100, TIBC 274, % saturation 36, ferritin 395, B12 437, folate 8.8 Continue B12 supplement for B12 deficiency 202 on 03/2022 appears to be anemia of chronic disease secondary to chronic kidney disease stage 3b Monitor H&H transfuse if Hgb<7 or symptomatic no s/s acute bleeding. (6) Prostate cancer: Code(s): C61 - Malignant neoplasm of prostate Status: Chronic Assessment and Plan: s/p TURP in 2020 Urology following On Xtandi (7) Generalized weakness: Code(s): R53.1 - Weakness Status: Acute Assessment and Plan: c/o progressively worsening generalized weakness on admission and likely secondary to KEE on CKD and complicated UTI. Continue PT and OT as ordered. fall precautions Improving (8) Bacteremia: Code(s): R78.81 - Bacteremia Status: Acute Assessment and Plan: 07/12/22 blood cultures with gram positive cocci in 2/2 Aerobic bottles Patient febrile prior to admission 100F-101F Ceftriaxone increased
[2022-07-15] MEDS: NYSTATIN 100,000 UNITS/ML SUSP 5 ML ORAL.SUSP PO ×3 (11:47→22:48)
[2022-07-15 14:00] VITALS: BP 105/56; PULSE 86; RESP 16; TEMP 35.8; O2SAT 100
[2022-07-15] MEDS: TAMSULOSIN HCL 0.4 MG CAPSULE PO (22:48)
[2022-07-15 22:51] VITALS: BP 160/52; PULSE 64; RESP 21; TEMP 36.1; O2SAT 100
[2022-07-16] MEDS: VANCOMYCIN HCL 1,250 MG in SODIUM CHLORIDE 0.9% IV 250 ML 200 MG IVPB (03:30)
[2022-07-16 05:41] LABS: Vancomycin Trough 9.9 ug/mL (10.0-20.0)
[2022-07-16 06:00] VITALS: BP 153/42; PULSE 58; RESP 21; TEMP 36.2; O2SAT 100
[2022-07-16 07:49] LABS: Anion Gap 11 mmol/L (8-16); Blood Urea Nitrogen 22 mg/dL (9-20); Calcium 8.2 mg/dL (8.4-10.2); Carbon Dioxide 20 mmol/L (22-30); Chloride 106 mmol/L (98-107); Estimated CRCL calculation 36 ml/min; Estimated Glomerular Filt Rate 48; Glucose 100 mg/dL (65-110); Sodium 137 mmol/L (137-145)
[2022-07-16 07:52] LABS: Basophils Percent Auto 0.6 % (0.2-1.2); Eosinophils Absolute Auto 0.2 K/mm3 (0-0.3); Eosinophils Percent Auto 4.6 % (0-4.4); Hematocrit 23.1 % (42.0-52.0); Hemoglobin 7.8 g/dL (14.0-18.0); Immature Granulocyte Absolute 0.05 K/mm3 (0.00-0.031); Immature Granulocyte Percent A 1.4 % (0-0.5); Lymphocytes Absolute Auto 1.28 K/mm3 (0.9-3.2); Lymphocytes Percent Auto 36.7 % (18.3-44.2); Mean Corpuscular HGB Conc 33.8 g/dl (32-36); Mean Corpuscular Hemoglobin 34.8 pg (26-34); Mean Corpuscular Volume 103.1 fl (80-100); Mean Platelet Volume 10.2 fl (7.4-10.4); Monocytes Absolute Auto 0.3 K/mm3 (0.1-0.6); Monocytes Percent Auto 9.5 % (2.6-8.5); Neutrophils Absolute Auto 1.7 K/mm3 (1.3-6.7); Neutrophils Percent Auto 47.2 % (45.5-73.1); Platelet Count Result 168 k/mm3 (150-375); Red Blood Count 2.24 M/mm3 (4.6-6.20); Red Cell Distribution Width 13.2 % (11.5-14.5); White Blood Count 3.5 K/mm3 (4.5-10.0)
[2022-07-16] MEDS: NYSTATIN 100,000 UNITS/ML SUSP 5 ML ORAL.SUSP PO ×4 (09:34→20:35)
[2022-07-16] MEDS: CYANOCOBALAMIN 500 MCG TABLET 2500 MCG PO (10:01)
[2022-07-16] MEDS: PARoxetine 20 MG TABLET 40 MG PO (10:02)
--- NOTE | 2022-07-16 12:54 | WPDUROPN2 ---
Progress Note: A&P Assessment and Plan (1) BPH (benign prostatic hyperplasia): Code(s): N40.0 - Benign prostatic hyperplasia without lower urinary tract symptoms Status: Acute Assessment and Plan: Continue Finasteride and Tamsulosin. Keep lugo and f/u after Thanksgiving in 10-14 days for a voiding trial. (2) Urinary retention: Code(s): R33.9 - Retention of urine, unspecified Status: Acute (3) Hydronephrosis: Code(s): N13.30 - Unspecified hydronephrosis Status: Acute (4) Urinary tract infection: Qualifiers: Urinary tract infection type: acute pyelonephritis Qualified Code(s): N10 - Acute pyelonephritis Code(s): N39.0 - Urinary tract infection, site not specified Status: Acute Assessment and Plan: Continue Vancomycin as it is sensitive on her culture. (5) Bacteremia: Code(s): R78.81 - Bacteremia Status: Acute Assessment and Plan: Continue Vancomycin as it is sensitive on her culture. Ok to discharge home when stable, no further Urologic care needed. Ok to send on on culture appropriate oral antibiotics to cover both Enterococcus and Staph. Subjective Subjective Date/Time Seen: 07/16/22 12:54 Patient improving, creatinine at baseline of 1.40. Sitting up in the chair today working with PT. PT reports that the patient is ambulating well, but was weak after standing to brush his teeth and wash his face and lost his balance. He uses a walker at home, but she suggested that he may need to have home health with PT after discharge. Urine and Blood cultures were positive growing Enterococcus/Staphylococcus sensitive to Vancomycin. Review of Systems Cardiovascular: Cardiovascular: Denies chest pain Respiratory: Respiratory: Reports no additional respiratory complaints Gastrointestinal: Gastrointestinal: Denies abdominal pain, Denies nausea and Denies vomiting Genitourinary: Genitourinary: Denies hematuria and Denies flank pain Exam Const: General: cooperative and comfortable Resp: Effort & Inspection: normal respiratory effort Cardio: Rate: regular rate GI: GI Palp: Yes Soft to palpation and No Tenderness to palpation present (GI) : General: Yes no CVA tenderness Urinary Catheter: Urinary Catheter: patent and draining and urine clear Extrem: Right lower extremity: no edema Left lower extremity: no edema Objective Data Vital Signs Vital Signs: Vital Signs - 24 hr 07/15/22 14:00 07/15/22 22:51 07/16/22 06:00 Temperature 96.4 F L 97.0 F L 97.2 F L Pulse Rate 86 64 58 L Respiratory Rate 16 21 H 21 H Blood Pressure 105/56 L 160/52 H 153/42 H Pulse Oximetry 100 100 100 Intake/Output Intake/Output: Intake & Output 07/13/22 07/14/22 07/15/22 07/16/22 23:59 23:59 23:59 23:59 Intake Total 1390 1750 1939 1100 Output Total 2850 1175 2050 600 Balance -1460 575 -111 500 Meds/Results Medications: Active Medications Generic Name Dose Route Start Last Admin Trade Name Freq PRN Reason Stop Dose Admin Acetaminophen 650 mg 07/12/22 13:37 07/12/22 14:12 Acetaminophen 325 Mg Tablet PO 650 mg Q4H PRN Administration Mild Pain (1-3) or Fever Benzocaine 1 lozenge 07/13/22 09:34 07/13/22 19:56 Benzocaine/Menthol (*Bkc) 18 Ea Lozenge PO 1 lozenge PRN PRN Administration Sore Throat Cyanocobalamin 2,500 mcg 07/13/22 09:00 07/16/22 10:01 Cyanocobalamin 500 Mcg Tablet PO 2,500 mcg QAM VIVEK Administration Guaifenesin/Codeine Phosphate 10 ml 07/13/22 09:34 Guaifenesin/Codeine (*Crx) 200/20 Mg 10 Ml Syrup PO Q4H PRN Cough Heparin Sodium (Porcine) 5,000 units 07/13/22 09:00 07/15/22 08:11 Heparin Sodium 5,000 Units/Ml Vial SUB-Q 5,000 units Q12HR VIVEK Administration Home Med 4 each 07/13/22 12:00 07/16/22 12:35 Enzalutamide [Xtandi] 40 Mg Capsule PO 08/12/22 11:59 4 each 1200 VIVEK Administration Vancomycin HCl 1,250 mg/ 250 mls
[2022-07-16 14:00] VITALS: BP 140/55; PULSE 60; RESP 20; TEMP 35.9; O2SAT 100
--- NOTE | 2022-07-16 16:15 | P.PNIM_ITS ---
Progress Note: A&P Assessment and Plan (1) Acute on chronic renal failure: Code(s): N17.9 - Acute kidney failure, unspecified; N18.9 - Chronic kidney disease, unspecified Status: Acute Assessment and Plan: Acute worsening of chronic disease, stage 3b. Creatinine 5.2, BUN 58, eGFR 11 on admission; baseline creatinine 1.8, BUN 28, eGFR 36-41. UA 2+ protein * baseline appears to be 1.3-1.8 * Likely multifactorial with poor oral intake and post-renal obstruction. * Started on sodium chloride run at 75 mL/hr on 07/13-07/14, DC'd with improved renal function. * continue trend labs * FENa 2.5% suggests intrinsic source from UTI * Monitor strict I/O. * Continue chronic indwelling catheter 7-10 days per Urology. * 07/14/22 BUN, 35, creatinine 1.9, eGFR 34. Encourage oral water intake. Saline lock IV fluids. * 07/15/2022 BUN 26,creatinine 1.5, eGFR 44. Improving and at baseline * stable (2) Hyponatremia: Code(s): E87.1 - Hypo-osmolality and hyponatremia Status: Acute Assessment and Plan: sodium at arrival was 124 on admission. Previous sodium levels 130-137 since 09/2021. Given his history and clinical picture this is likely secondary to hypovolemia hyponatremia. * Started on NS@75 mL/hour. * Monitor strict I/O * Urine sodium 65, urine osmolality pending. * 07/14/22 Sodium 133 today. Change Vancomycin fluid dilution from D5W to NS. * Trend sodium level. * Monitor levels with resumption of paxil. * 07/15/2022 sodium 137 and improved with removal of antibiotic and D5W * resolved (3) Urinary retention: Code(s): R33.9 - Retention of urine, unspecified Status: Acute Assessment and Plan: Acute urinary retention noted on admission. +1200 mL immediate urine output with catheter insertion on 07/12/22 * continue tamsulosin 0.4 mg HS. * urology consulted and appreciate recommendations. * Continue lugo catheter 7-10 days and plan to attempt voiding trial in office with follow-up, per Urology notes. * Continue monitoring renal function, I/O. * Continue treatment for UTI. * stable (4) Urinary tract infection: Qualifiers: Urinary tract infection type: acute pyelonephritis Qualified Code(s): N10 - Acute pyelonephritis Code(s): N39.0 - Urinary tract infection, site not specified Status: Acute Assessment and Plan: UA with 1+ leukocytosis, >75 WBC and 2+ blood * Started on IV ceftriaxone 1 gram IV on 07/13/22 * urine culture pending and plan to adjust antibiotics per culture and sensitivity * Vancomycin IV added with pharmacy to dose due to +blood culture with gram positive cocci from 07/12/22 * 07/15/2022 urine culture shows Enterococcus species sensitive to vancomycin. Stop Rocephin * continue antibiotics as above (5) Chronic anemia: Code(s): D64.9 - Anemia, unspecified Status: Chronic Assessment and Plan: * H&H 9.1/28% on admission. Baseline 9.7-11 * anemia studies from 05/14/2022 show iron 100, TIBC 274, % saturation 36, ferritin 395, B12 437, folate 8.8 * Continue B12 supplement for B12 deficiency 202 on 03/2022 * appears to be anemia of chronic disease secondary to chronic kidney disease stage 3b * Monitor H&H * transfuse if Hgb<7 or symptomatic * no s/s acute bleeding. * 07/16/2022 hemoglobin 7.8, no active signs of bleeding. Heparin is on hold. Anemia workup as above. Patient does have CKD and anemia may be secondary to this as well as hospital induced anemia from repeated blood draws. Continue to monitor (6) P
--- NOTE | 2022-07-16 16:15 | PM.IMPN ---
Progress Note: A&P Assessment and Plan (1) Acute on chronic renal failure: Code(s): N17.9 - Acute kidney failure, unspecified; N18.9 - Chronic kidney disease, unspecified Status: Acute Assessment and Plan: Acute worsening of chronic disease, stage 3b. Creatinine 5.2, BUN 58, eGFR 11 on admission; baseline creatinine 1.8, BUN 28, eGFR 36-41. UA 2+ protein baseline appears to be 1.3-1.8 Likely multifactorial with poor oral intake and post-renal obstruction. Started on sodium chloride run at 75 mL/hr on 07/13-07/14, DC'd with improved renal function. continue trend labs FENa 2.5% suggests intrinsic source from UTI Monitor strict I/O. Continue chronic indwelling catheter 7-10 days per Urology. 07/14/22 BUN, 35, creatinine 1.9, eGFR 34. Encourage oral water intake. Saline lock IV fluids. 07/15/2022 BUN 26,creatinine 1.5, eGFR 44. Improving and at baseline stable (2) Hyponatremia: Code(s): E87.1 - Hypo-osmolality and hyponatremia Status: Acute Assessment and Plan: sodium at arrival was 124 on admission. Previous sodium levels 130-137 since 09/2021. Given his history and clinical picture this is likely secondary to hypovolemia hyponatremia. Started on NS@75 mL/hour. Monitor strict I/O Urine sodium 65, urine osmolality pending. 07/14/22 Sodium 133 today. Change Vancomycin fluid dilution from D5W to NS. Trend sodium level. Monitor levels with resumption of paxil. 07/15/2022 sodium 137 and improved with removal of antibiotic and D5W resolved (3) Urinary retention: Code(s): R33.9 - Retention of urine, unspecified Status: Acute Assessment and Plan: Acute urinary retention noted on admission. +1200 mL immediate urine output with catheter insertion on 07/12/22 continue tamsulosin 0.4 mg HS. urology consulted and appreciate recommendations. Continue lugo catheter 7-10 days and plan to attempt voiding trial in office with follow-up, per Urology notes. Continue monitoring renal function, I/O. Continue treatment for UTI. stable (4) Urinary tract infection: Qualifiers: Urinary tract infection type: acute pyelonephritis Qualified Code(s): N10 - Acute pyelonephritis Code(s): N39.0 - Urinary tract infection, site not specified Status: Acute Assessment and Plan: UA with 1+ leukocytosis, >75 WBC and 2+ blood Started on IV ceftriaxone 1 gram IV on 07/13/22 urine culture pending and plan to adjust antibiotics per culture and sensitivity Vancomycin IV added with pharmacy to dose due to +blood culture with gram positive cocci from 07/12/22 07/15/2022 urine culture shows Enterococcus species sensitive to vancomycin. Stop Rocephin continue antibiotics as above (5) Chronic anemia: Code(s): D64.9 - Anemia, unspecified Status: Chronic Assessment and Plan: H&H 9.1/28% on admission. Baseline 9.7-11 anemia studies from 05/14/2022 show iron 100, TIBC 274, % saturation 36, ferritin 395, B12 437, folate 8.8 Continue B12 supplement for B12 deficiency 202 on 03/2022 appears to be anemia of chronic disease secondary to chronic kidney disease stage 3b Monitor H&H transfuse if Hgb<7 or symptomatic no s/s acute bleeding. 07/16/2022 hemoglobin 7.8, no active signs of bleeding. Heparin is on hold. Anemia workup as above. Patient does have CKD and anemia may be secondary to this as well as hospital induced anemia from repeated blood draws. Continue to monitor (6) Prostate cancer: Code(s): C61 - Malignant neoplasm of prostate Status: Chronic Assessment and Plan: s/p TURP in 2019 Urology following On Xtandi (7) Generalized weakness: Code(s): R53.1 - Weakness Status: Acute Assessment and Plan: c/o progressively worsening generalized weakness on admission and likely secondary to KEE on CKD and complicated UTI. Continue P
[2022-07-16 17:12] LABS: Osmolality, Urine 418 mOsm/kg (50-1200)
--- NOTE | 2022-07-16 20:07 | PC.NURSE ---
Carrie Templeton came to place picc line. She had concerns about creat levels. Discussed with case coordination. patient to be here through the weekend. She did not place picc line today, will follow creat levels and place on tuesday if appropriate.
[2022-07-16] MEDS: TAMSULOSIN HCL 0.4 MG CAPSULE PO (20:35)
[2022-07-16] MEDS: BENZOCAINE/MENTHOL (*BKC) 18 EA LOZENGE 1 LOZENGE PO (20:35)
[2022-07-16 22:00] VITALS: BP 143/58; PULSE 64; RESP 18; TEMP 36.3; O2SAT 98
[2022-07-17] MEDS: VANCOMYCIN HCL 1,250 MG in SODIUM CHLORIDE 0.9% IV 250 ML 200 MG IVPB (02:20)
[2022-07-17 06:00] VITALS: BP 161/62; PULSE 60; RESP 16; TEMP 36; O2SAT 98
--- NOTE | 2022-07-17 06:58 | PM.IMPN ---
Progress Note: A&P Assessment and Plan (1) Acute on chronic renal failure: Code(s): N17.9 - Acute kidney failure, unspecified; N18.9 - Chronic kidney disease, unspecified Status: Acute Assessment and Plan: Acute worsening of chronic disease, stage 3b. Creatinine 5.2, BUN 58, eGFR 11 on admission; baseline creatinine 1.8, BUN 28, eGFR 36-41. UA 2+ protein baseline appears to be 1.3-1.8 Likely multifactorial with poor oral intake and post-renal obstruction. Started on sodium chloride run at 75 mL/hr on 07/13-07/14, DC'd with improved renal function. continue trend labs FENa 2.5% suggests intrinsic source from UTI Monitor strict I/O. Continue chronic indwelling catheter 7-10 days per Urology. 07/14/22 BUN, 35, creatinine 1.9, eGFR 34. Encourage oral water intake. Saline lock IV fluids. 07/15/22 BUN 26,creatinine 1.5, eGFR 44. Improving and at baseline 07/17/22 BUN 17, creatinine 1.3, EGFR 52. All improved. KEE secondary to post renal obstruction from acute urinary retention resolved with urinary catheter placement. (2) Hyponatremia: Code(s): E87.1 - Hypo-osmolality and hyponatremia Status: Acute Assessment and Plan: sodium at arrival was 124 on admission. Previous sodium levels 130-137 since 09/2021. Given his history and clinical picture this is likely secondary to hypovolemia hyponatremia. Started on NS@75 mL/hour. Monitor strict I/O Urine sodium 65, urine osmolality pending. 07/14/22 Sodium 133 today. Change Vancomycin fluid dilution from D5W to NS. Trend sodium level. Monitor levels with resumption of paxil. 07/15/2022 sodium 137 and improved with removal of antibiotic and D5W resolved (3) Urinary retention: Code(s): R33.9 - Retention of urine, unspecified Status: Acute Assessment and Plan: Acute urinary retention noted on admission. +1200 mL immediate urine output with catheter insertion on 07/12/22 continue tamsulosin 0.4 mg HS. urology consulted and appreciate recommendations. Continue lugo catheter 7-10 days and plan to attempt voiding trial in office with follow-up, per Urology notes. Continue monitoring renal function, I/O. Continue treatment for UTI. stable With urinary catheter (4) Urinary tract infection: Qualifiers: Urinary tract infection type: acute pyelonephritis Qualified Code(s): N10 - Acute pyelonephritis Code(s): N39.0 - Urinary tract infection, site not specified Status: Acute Assessment and Plan: UA with 1+ leukocytosis, >75 WBC and 2+ blood Started on IV ceftriaxone 1 gram IV on 07/13/22 urine culture pending and plan to adjust antibiotics per culture and sensitivity Vancomycin IV added with pharmacy to dose due to +blood culture with gram positive cocci from 07/12/22 07/15/2022 urine culture shows Enterococcus species sensitive to vancomycin. Stop Rocephin continue antibiotics as above. 07/16 vancomycin trough 9.9 and his infusions have been adjusted for improving renal function. Repeat vancomycin trough on 07/19 at 2:00 a.m. (5) Chronic anemia: Code(s): D64.9 - Anemia, unspecified Status: Chronic Assessment and Plan: H&H 9.1/28% on admission. Baseline 9.7-11 anemia studies from 05/14/2022 show iron 100, TIBC 274, % saturation 36, ferritin 395, B12 437, folate 8.8 Continue B12 supplement for B12 deficiency 202 on 03/2022 appears to be anemia of chronic disease secondary to chronic kidney disease stage 3b Monitor H&H transfuse if Hgb<7 or symptomatic no s/s acute bleeding. 07/16/2022 hemoglobin 7.8, no active signs of bleeding. Heparin is on hold. Anemia workup as above. Patient does have CKD and anemia may be secondary to this as well as hospital induced anemia from repeated blood draws. Continue to monitor 07/17/22 Improved. Hgb 8.5/Hct 25% today. No active bleeding noted. Continue current management.
[2022-07-17 07:31] LABS: Basophils Percent Auto 0.4 % (0.2-1.2); Eosinophils Absolute Auto 0.3 K/mm3 (0-0.3); Eosinophils Percent Auto 6.8 % (0-4.4); Hematocrit 25.6 % (42.0-52.0); Hemoglobin 8.5 g/dL (14.0-18.0); Immature Granulocyte Absolute 0.06 K/mm3 (0.00-0.031); Immature Granulocyte Percent A 1.3 % (0-0.5); Lymphocytes Absolute Auto 1.43 K/mm3 (0.9-3.2); Lymphocytes Percent Auto 31.5 % (18.3-44.2); Mean Corpuscular HGB Conc 33.2 g/dl (32-36); Mean Corpuscular Hemoglobin 35.3 pg (26-34); Mean Corpuscular Volume 106.2 fl (80-100); Mean Platelet Volume 9.8 fl (7.4-10.4); Monocytes Absolute Auto 0.4 K/mm3 (0.1-0.6); Neutrophils Absolute Auto 2.3 K/mm3 (1.3-6.7); Platelet Count Result 188 k/mm3 (150-375); Red Blood Count 2.41 M/mm3 (4.6-6.20); Red Cell Distribution Width 12.9 % (11.5-14.5); White Blood Count 4.5 K/mm3 (4.5-10.0)
[2022-07-17 07:44] LABS: Anion Gap 7 mmol/L (8-16); Blood Urea Nitrogen 17 mg/dL (9-20); Calcium 8.5 mg/dL (8.4-10.2); Carbon Dioxide 20 mmol/L (22-30); Chloride 108 mmol/L (98-107); Estimated CRCL calculation 39 ml/min; Estimated Glomerular Filt Rate 52; Glucose 102 mg/dL (65-110); Potassium 4.4 mmol/L (3.4-5.0); Sodium 135 mmol/L (137-145)
[2022-07-17] MEDS: CYANOCOBALAMIN 500 MCG TABLET 2500 MCG PO (07:59)
[2022-07-17] MEDS: NYSTATIN 100,000 UNITS/ML SUSP 5 ML ORAL.SUSP PO ×4 (07:59→21:20)
[2022-07-17] MEDS: PARoxetine 20 MG TABLET 40 MG PO (07:59)
[2022-07-17 14:00] VITALS: BP 150/57; PULSE 63; RESP 20; TEMP 36.2; O2SAT 97
[2022-07-17] MEDS: TAMSULOSIN HCL 0.4 MG CAPSULE PO (21:20)
[2022-07-17 22:00] VITALS: BP 162/50; PULSE 61; RESP 16; TEMP 36.1; O2SAT 99
[2022-07-17] MEDS: guaiFENesin/CODEINE (*CRX) 200/20 MG 10 ML SYRUP PO (22:28)
[2022-07-18] MEDS: VANCOMYCIN HCL 1,250 MG in SODIUM CHLORIDE 0.9% IV 250 ML 200 MG IVPB (03:35)
--- NOTE | 2022-07-18 05:05 | PC.NURSE ---
Patient was taken to the restroom at 0445, the door was cracked and patient came out of the bathroom cigarette smoke was filled the air. Patient has consistently been told throughout the day about smoking in the hospital and the dangers to his condition. Patient teaching has not been effective. Patient has also tried to hit staff when he doesn't get his way. Will continue educating patient.
[2022-07-18 06:00] VITALS: BP 134/50; PULSE 60; RESP 17; TEMP 36.3; O2SAT 99
--- NOTE | 2022-07-18 08:05 | P.PNIM_ITS ---
Progress Note: A&P Assessment and Plan (1) Acute on chronic renal failure: Code(s): N17.9 - Acute kidney failure, unspecified; N18.9 - Chronic kidney disease, unspecified Status: Acute Assessment and Plan: Acute worsening of chronic disease, stage 3b. Creatinine 5.2, BUN 58, eGFR 11 on admission; baseline creatinine 1.8, BUN 28, eGFR 36-41. UA 2+ protein * baseline appears to be 1.3-1.8 * Likely multifactorial with poor oral intake and post-renal obstruction. * Started on sodium chloride run at 75 mL/hr on 07/13-07/14, DC'd with improved renal function. * continue trend labs * FENa 2.5% suggests intrinsic source from UTI * Monitor strict I/O. * Continue chronic indwelling catheter 7-10 days per Urology. * 07/14/22 BUN, 35, creatinine 1.9, eGFR 34. Encourage oral water intake. Saline lock IV fluids. * 07/15/22 BUN 26,creatinine 1.5, eGFR 44. Improving and at baseline * 07/17/22 BUN 17, creatinine 1.3, EGFR 52. All improved. KEE secondary to post renal obstruction from acute urinary retention resolved with urinary catheter placement. * BMP in am. (2) Hyponatremia: Code(s): E87.1 - Hypo-osmolality and hyponatremia Status: Acute Assessment and Plan: sodium at arrival was 124 on admission. Previous sodium levels 130-137 since 09/2021. Given his history and clinical picture this is likely secondary to hypovolemia hyponatremia. * Started on NS@75 mL/hour. * Monitor strict I/O * Urine sodium 65, urine osmolality pending. * 07/14/22 Sodium 133 today. Change Vancomycin fluid dilution from D5W to NS. * Trend sodium level. * Monitor levels with resumption of paxil. * 07/15/2022 sodium 137 and improved with removal of antibiotic and D5W * resolved (3) Urinary retention: Code(s): R33.9 - Retention of urine, unspecified Status: Acute Assessment and Plan: Acute urinary retention noted on admission. +1200 mL immediate urine output with catheter insertion on 07/12/22 * continue tamsulosin 0.4 mg HS. * urology consulted and appreciate recommendations. * Continue lugo catheter 7-10 days and plan to attempt voiding trial in office with follow-up, per Urology notes. * Continue monitoring renal function, I/O. * Continue treatment for UTI. * stable With urinary catheter (4) Urinary tract infection: Qualifiers: Urinary tract infection type: acute pyelonephritis Qualified Code(s): N10 - Acute pyelonephritis Code(s): N39.0 - Urinary tract infection, site not specified Status: Acute Assessment and Plan: UA with 1+ leukocytosis, >75 WBC and 2+ blood * Started on IV ceftriaxone 1 gram IV on 07/13/22 * urine culture pending and plan to adjust antibiotics per culture and sensitivity * Vancomycin IV added with pharmacy to dose due to +blood culture with gram positive cocci from 07/12/22 * 07/15/2022 urine culture shows Enterococcus species sensitive to vancomycin. Stop Rocephin * continue antibiotics as above. * 07/16 vancomycin trough 9.9 and his infusions have been adjusted for improving renal function. Repeat vancomycin trough on 07/19 at 2:00 a.m. * Stable. (5) Chronic anemia: Code(s): D64.9 - Anemia, unspecified Status: Chronic Assessment and Plan: * H&H 9.1/28% on admission. Baseline 9.7-11 * anemia studies from 05/14/2022 show iron 100, TIBC 274, % saturation 36, ferritin 395, B12 437, folate 8.8 * Continue B12 supplement for B12 deficiency 202 on 03/2022 * appears to be anemia of chronic disease secondary to chronic kidney disease st
[2022-07-18] MEDS: PARoxetine 20 MG TABLET 40 MG PO (08:27)
[2022-07-18] MEDS: NYSTATIN 100,000 UNITS/ML SUSP 5 ML ORAL.SUSP PO ×4 (08:27→21:55)
[2022-07-18] MEDS: CYANOCOBALAMIN 500 MCG TABLET 2500 MCG PO (08:28)
[2022-07-18] MEDS: HEPARIN SODIUM 5,000 UNITS/ML VIAL 5000 UNITS SUB-Q ×2 (08:29→21:55)
[2022-07-18 13:52] VITALS: BP 128/50; PULSE 65; RESP 16; TEMP 36.4; O2SAT 99
[2022-07-18] MEDS: TAMSULOSIN HCL 0.4 MG CAPSULE PO (21:55)
[2022-07-18 22:00] VITALS: BP 129/51; PULSE 63; RESP 17; TEMP 36.3; O2SAT 99
[2022-07-19 02:15] LABS: Hematocrit 24.6 % (42.0-52.0); Hemoglobin 8.2 g/dL (14.0-18.0); Mean Corpuscular HGB Conc 33.3 g/dl (32-36); Mean Corpuscular Hemoglobin 34.5 pg (26-34); Mean Corpuscular Volume 103.4 fl (80-100); Platelet Count Result 216 k/mm3 (150-375); Red Blood Count 2.38 M/mm3 (4.6-6.20); White Blood Count 6.4 K/mm3 (4.5-10.0)
[2022-07-19 02:21] LABS: Anion Gap 6 mmol/L (8-16); Blood Urea Nitrogen 18 mg/dL (9-20); Calcium 8.3 mg/dL (8.4-10.2); Carbon Dioxide 25 mmol/L (22-30); Chloride 104 mmol/L (98-107); Estimated CRCL calculation 37 ml/min; Estimated Glomerular Filt Rate 48; Glucose 110 mg/dL (65-110); Potassium 5.2 mmol/L (3.4-5.0); Sodium 135 mmol/L (137-145)
[2022-07-19 02:22] LABS: INR 1.1; Prothrombin Time 13.6 Seconds (11.1-14.7)
[2022-07-19 03:22] LABS: Vancomycin Trough 18.9 ug/mL (10.0-20.0)
[2022-07-19 06:00] VITALS: BP 116/47; PULSE 69; RESP 16; TEMP 36.4; O2SAT 97
[2022-07-19] MEDS: NYSTATIN 100,000 UNITS/ML SUSP 5 ML ORAL.SUSP PO ×4 (08:05→20:52)
[2022-07-19] MEDS: HEPARIN SODIUM 5,000 UNITS/ML VIAL 5000 UNITS SUB-Q ×2 (08:05→20:52)
[2022-07-19] MEDS: CYANOCOBALAMIN 500 MCG TABLET 2500 MCG PO (08:06)
[2022-07-19] MEDS: PARoxetine 20 MG TABLET 40 MG PO (08:06)
--- NOTE | 2022-07-19 11:52 | PCPTNOTE ---
The patient treatment was not able to be completed on this date due to patient receiving PICC line. Will plan to continue treatment per plan of care.
[2022-07-19] MEDS: VANCOMYCIN HCL 1,250 MG in SODIUM CHLORIDE 0.9% IV 250 ML 200 MG IVPB (12:10)
[2022-07-19] MEDS: polyethylene glycoL 3350 17 GM POWD.PACK PO (12:16)
[2022-07-19] MEDS: BISACODYL 10 MG SUPPOSITORY RECTAL (12:16)
[2022-07-19 14:00] VITALS: BP 134/49; PULSE 63; RESP 14; TEMP 36.3; O2SAT 98
[2022-07-19] MEDS: CENTRAL LINE FLUSH 10 ML IV PUSH ×2 (14:00→20:56)
--- NOTE | 2022-07-19 14:10 | P.PNIM_ITS ---
Progress Note: A&P Assessment and Plan (1) Acute on chronic renal failure: Code(s): N17.9 - Acute kidney failure, unspecified; N18.9 - Chronic kidney disease, unspecified Status: Acute Assessment and Plan: Acute worsening of chronic disease, stage 3b. Creatinine 5.2, BUN 58, eGFR 11 on admission; baseline creatinine 1.8, BUN 28, eGFR 36-41. UA 2+ protein * baseline appears to be 1.3-1.8 * Likely multifactorial with poor oral intake and post-renal obstruction. * Started on sodium chloride run at 75 mL/hr on 07/13-07/14, DC'd with improved renal function. * continue trend labs * FENa 2.5% suggests intrinsic source from UTI * Monitor strict I/O. * Continue chronic indwelling catheter 7-10 days per Urology. * 07/14/22 BUN, 35, creatinine 1.9, eGFR 34. Encourage oral water intake. Saline lock IV fluids. * 07/15/22 BUN 26,creatinine 1.5, eGFR 44. Improving and at baseline * 07/17/22 BUN 17, creatinine 1.3, EGFR 52. All improved. KEE secondary to post renal obstruction from acute urinary retention resolved with urinary catheter placement. * Monitor daily BMP (2) Hyponatremia: Code(s): E87.1 - Hypo-osmolality and hyponatremia Status: Acute Assessment and Plan: sodium at arrival was 124 on admission. Previous sodium levels 130-137 since 09/2021. Given his history and clinical picture this is likely secondary to hypovolemia hyponatremia. * Started on NS@75 mL/hour. * Monitor strict I/O * Urine sodium 65, urine osmolality pending. * 07/14/22 Sodium 133 today. Change Vancomycin fluid dilution from D5W to NS. * Trend sodium level. * Monitor levels with resumption of paxil. * 07/15/2022 sodium 137 and improved with removal of antibiotic and D5W * resolved (3) Urinary retention: Code(s): R33.9 - Retention of urine, unspecified Status: Acute Assessment and Plan: Acute urinary retention noted on admission. +1200 mL immediate urine output with catheter insertion on 07/12/22 * continue tamsulosin 0.4 mg HS. * urology consulted and appreciate recommendations. * Continue lugo catheter 7-10 days and plan to attempt voiding trial in office with follow-up, per Urology notes. * Continue monitoring renal function, I/O. * Continue treatment for UTI. * stable With urinary catheter (4) Urinary tract infection: Qualifiers: Urinary tract infection type: acute pyelonephritis Qualified Code(s): N10 - Acute pyelonephritis Code(s): N39.0 - Urinary tract infection, site not specified Status: Acute Assessment and Plan: UA with 1+ leukocytosis, >75 WBC and 2+ blood * Started on IV ceftriaxone 1 gram IV on 07/13/22 * urine culture pending and plan to adjust antibiotics per culture and sensitivity * Vancomycin IV added with pharmacy to dose due to +blood culture with gram positive cocci from 07/12/22 * 07/15/2022 urine culture shows Enterococcus species sensitive to vancomycin. Stop Rocephin * continue antibiotics as above. * 07/16 vancomycin trough 9.9 and his infusions have been adjusted for improving renal function. Repeat vancomycin trough on 07/19 at 2:00 a.m. * 07/19/22 vancomycin trough 18 today. Continue IV vancomycin Q24 hour until 07/26 (5) Chronic anemia: Code(s): D64.9 - Anemia, unspecified Status: Chronic Assessment and Plan: * H&H 9.1/28% on admission. Baseline 9.7-11 * anemia studies from 05/14/2022 show iron 100, TIBC 274, % saturation 36, ferritin 395, B12 437, folate 8.8 * Continue B12 supplement for B12 deficiency 202 on 03/2022 *
--- NOTE | 2022-07-19 14:10 | PM.IMPN ---
Progress Note: A&P Assessment and Plan (1) Acute on chronic renal failure: Code(s): N17.9 - Acute kidney failure, unspecified; N18.9 - Chronic kidney disease, unspecified Status: Acute Assessment and Plan: Acute worsening of chronic disease, stage 3b. Creatinine 5.2, BUN 58, eGFR 11 on admission; baseline creatinine 1.8, BUN 28, eGFR 36-41. UA 2+ protein baseline appears to be 1.3-1.8 Likely multifactorial with poor oral intake and post-renal obstruction. Started on sodium chloride run at 75 mL/hr on 07/13-07/14, DC'd with improved renal function. continue trend labs FENa 2.5% suggests intrinsic source from UTI Monitor strict I/O. Continue chronic indwelling catheter 7-10 days per Urology. 07/14/22 BUN, 35, creatinine 1.9, eGFR 34. Encourage oral water intake. Saline lock IV fluids. 07/15/22 BUN 26,creatinine 1.5, eGFR 44. Improving and at baseline 07/17/22 BUN 17, creatinine 1.3, EGFR 52. All improved. KEE secondary to post renal obstruction from acute urinary retention resolved with urinary catheter placement. Monitor daily BMP (2) Hyponatremia: Code(s): E87.1 - Hypo-osmolality and hyponatremia Status: Acute Assessment and Plan: sodium at arrival was 124 on admission. Previous sodium levels 130-137 since 09/2021. Given his history and clinical picture this is likely secondary to hypovolemia hyponatremia. Started on NS@75 mL/hour. Monitor strict I/O Urine sodium 65, urine osmolality pending. 07/14/22 Sodium 133 today. Change Vancomycin fluid dilution from D5W to NS. Trend sodium level. Monitor levels with resumption of paxil. 07/15/2022 sodium 137 and improved with removal of antibiotic and D5W resolved (3) Urinary retention: Code(s): R33.9 - Retention of urine, unspecified Status: Acute Assessment and Plan: Acute urinary retention noted on admission. +1200 mL immediate urine output with catheter insertion on 07/12/22 continue tamsulosin 0.4 mg HS. urology consulted and appreciate recommendations. Continue lugo catheter 7-10 days and plan to attempt voiding trial in office with follow-up, per Urology notes. Continue monitoring renal function, I/O. Continue treatment for UTI. stable With urinary catheter (4) Urinary tract infection: Qualifiers: Urinary tract infection type: acute pyelonephritis Qualified Code(s): N10 - Acute pyelonephritis Code(s): N39.0 - Urinary tract infection, site not specified Status: Acute Assessment and Plan: UA with 1+ leukocytosis, >75 WBC and 2+ blood Started on IV ceftriaxone 1 gram IV on 07/13/22 urine culture pending and plan to adjust antibiotics per culture and sensitivity Vancomycin IV added with pharmacy to dose due to +blood culture with gram positive cocci from 07/12/22 07/15/2022 urine culture shows Enterococcus species sensitive to vancomycin. Stop Rocephin continue antibiotics as above. 07/16 vancomycin trough 9.9 and his infusions have been adjusted for improving renal function. Repeat vancomycin trough on 07/19 at 2:00 a.m. 07/19/22 vancomycin trough 18 today. Continue IV vancomycin Q24 hour until 07/26 (5) Chronic anemia: Code(s): D64.9 - Anemia, unspecified Status: Chronic Assessment and Plan: H&H 9.1/28% on admission. Baseline 9.7-11 anemia studies from 05/14/2022 show iron 100, TIBC 274, % saturation 36, ferritin 395, B12 437, folate 8.8 Continue B12 supplement for B12 deficiency 202 on 03/2022 appears to be anemia of chronic disease secondary to chronic kidney disease stage 3b Monitor H&H transfuse if Hgb<7 or symptomatic no s/s acute bleeding. 07/16/2022 hemoglobin 7.8, no active signs of bleeding. Heparin is on hold. Anemia workup as above. Patient does have CKD and anemia may be secondary to this as well as hospital induced anemia from repeated blood draws. Continue to monit
[2022-07-19] MEDS: CENTRAL LINE FLUSH 20 ML IV PUSH (15:14)
[2022-07-19 15:40] LABS: Albumin Level 2.9 g/dL (3.5-5.1); Anion Gap 6 mmol/L (8-16); Blood Urea Nitrogen 18 mg/dL (9-20); Calcium 7.9 mg/dL (8.4-10.2); Carbon Dioxide 23 mmol/L (22-30); Chloride 106 mmol/L (98-107); Estimated CRCL calculation 37 ml/min; Estimated Glomerular Filt Rate 48; Glucose 105 mg/dL (65-110); Magnesium 1.8 mg/dL (1.6-2.3); Phosphorus 3.5 mg/dL (2.5-4.5); Potassium 4.4 mmol/L (3.4-5.0); Sodium 135 mmol/L (137-145)
[2022-07-19] MEDS: TAMSULOSIN HCL 0.4 MG CAPSULE PO (20:53)
[2022-07-19 21:27] LABS: IFOB Positive Control Positive; Immunochemical Fecal Occult Bl Negative (N)
[2022-07-19 22:00] VITALS: BP 143/58; PULSE 63; RESP 14; TEMP 36.4; O2SAT 99
[2022-07-20 06:00] VITALS: BP 120/55; PULSE 67; RESP 14; TEMP 36.5; O2SAT 99
[2022-07-20] MEDS: polyethylene glycoL 3350 17 GM POWD.PACK PO (08:26)
[2022-07-20] MEDS: PARoxetine 20 MG TABLET 40 MG PO (08:26)
[2022-07-20] MEDS: HEPARIN SODIUM 5,000 UNITS/ML VIAL 5000 UNITS SUB-Q (08:26)
[2022-07-20] MEDS: CENTRAL LINE FLUSH 10 ML IV PUSH (08:26)
[2022-07-20] MEDS: NYSTATIN 100,000 UNITS/ML SUSP 5 ML ORAL.SUSP PO (08:26)
[2022-07-20] MEDS: CYANOCOBALAMIN 500 MCG TABLET 2500 MCG PO (08:26)
--- NOTE | 2022-07-20 10:24 | PCNWS ---
Weekly nutritional screen. Patient is tolerating current Regular diet with adequate intake at 75% of meals. No weight loss reported. No nutritional needs at this time.
[2022-07-20] MEDS: ACETAMINOPHEN 325 MG TABLET 650 MG PO (11:08)
[2022-07-20] MEDS: VANCOMYCIN HCL 1,250 MG in SODIUM CHLORIDE 0.9% IV 250 ML 250 MG IVPB (11:13)
--- NOTE | 2022-07-20 11:52 | P.DS_ITS ---
DS: Admitting Diagnosis Discharge Date 07/20/22 12:25 Admitting Diagnosis (1) Acute on chronic renal failure: ?Code(s): N17.9 - Acute kidney failure, unspecified; N18.9 - Chronic kidney disease, unspecified ?Status:?Acute (2) Hyponatremia: ?Code(s): E87.1 - Hypo-osmolality and hyponatremia ?Status:?Acute (3) Urinary retention: ?Code(s): R33.9 - Retention of urine, unspecified ?Status:?Acute (4) Urinary tract infection: ?Code(s): N39.0 - Urinary tract infection, site not specified ?Status:?Acute (5) Chronic anemia: ?Code(s): D64.9 - Anemia, unspecified ?Status:?Chronic (6) Prostate cancer: ?Code(s): C61 - Malignant neoplasm of prostate ?Status:?Acute (7) Generalized weakness: ?Code(s): R53.1 - Weakness ?Status:?Acute DS: Discharge Diagnosis Discharge Diagnosis (1) Acute on chronic renal failure: Code(s): N17.9 - Acute kidney failure, unspecified; N18.9 - Chronic kidney disease, unspecified Status: Acute Assessment and Plan: Acute worsening of chronic disease, stage 3b. Creatinine 5.2, BUN 58, eGFR 11 on admission; baseline creatinine 1.8, BUN 28, eGFR 36-41. UA 2+ protein * baseline appears to be 1.3-1.8 * Likely multifactorial with poor oral intake and post-renal obstruction. * Started on sodium chloride run at 75 mL/hr on 07/13-07/14, DC'd with improved renal function on 07/15/22. * continue trend labs * FENa 2.5% suggests intrinsic source from UTI * Monitor strict I/O. * Continue chronic indwelling catheter 7-10 days per Urology. * 07/14/22 BUN, 35, creatinine 1.9, eGFR 34. Encourage oral water intake. Saline lock IV fluids. * 07/15/22 BUN 26,creatinine 1.5, eGFR 44. Improving and at baseline * 07/17/22 BUN 17, creatinine 1.3, EGFR 52. All improved. KEE secondary to post renal obstruction from acute urinary retention resolved with urinary catheter placement. (2) Hyponatremia: Code(s): E87.1 - Hypo-osmolality and hyponatremia Status: Acute Assessment and Plan: sodium at arrival was 124 on admission. Previous sodium levels 130-137 since 09/2021. Given his history and clinical picture this is likely secondary to hypovolemia hyponatremia. * Started on NS@75 mL/hour. * Monitor strict I/O * Urine sodium 65, urine osmolality pending. * 07/14/22 Sodium 133. Change Vancomycin fluid dilution from D5W to NS. * Trended sodium level. * Monitor sodium on paxil. * 07/15/2022 sodium 137 and improved with removal of antibiotic with D5W * resolved (3) Urinary retention: Code(s): R33.9 - Retention of urine, unspecified Status: Acute Assessment and Plan: Acute urinary retention noted on admission. +1200 mL immediate urine output with catheter insertion on 07/12/22 * continue tamsulosin 0.4 mg HS. * urology consulted and appreciate recommendations. * Continue lugo catheter 7-10 days and plan to attempt voiding trial in office with follow-up, per Urology notes. * Continue monitoring renal function, I/O. * Continue treatment for UTI. * stable With urinary catheter (4) Urinary tract infection: Qualifiers: Urinary tract infection type: acute pyelonephritis Qualified Code(s): N10 - Acute pyelonephritis Code(s): N39.0 - Urinary tract infection, site not specified Status: Acute Assessment and Plan: UA with 1+ leukocytosis, >75 WBC and 2+ blood * Started on IV ceftriaxone 1 gram IV on 07/13/22 * urine culture pending and plan to adjust anti
--- NOTE | 2022-07-20 11:52 | PM.DS ---
DS: Admitting Diagnosis Discharge Date 07/20/22 12:25 Admitting Diagnosis (1) Acute on chronic renal failure: ?Code(s): N17.9 - Acute kidney failure, unspecified; N18.9 - Chronic kidney disease, unspecified ?Status:?Acute (2) Hyponatremia: ?Code(s): E87.1 - Hypo-osmolality and hyponatremia ?Status:?Acute (3) Urinary retention: ?Code(s): R33.9 - Retention of urine, unspecified ?Status:?Acute (4) Urinary tract infection: ?Code(s): N39.0 - Urinary tract infection, site not specified ?Status:?Acute (5) Chronic anemia: ?Code(s): D64.9 - Anemia, unspecified ?Status:?Chronic (6) Prostate cancer: ?Code(s): C61 - Malignant neoplasm of prostate ?Status:?Acute (7) Generalized weakness: ?Code(s): R53.1 - Weakness ?Status:?Acute DS: Discharge Diagnosis Discharge Diagnosis (1) Acute on chronic renal failure: Code(s): N17.9 - Acute kidney failure, unspecified; N18.9 - Chronic kidney disease, unspecified Status: Acute Assessment and Plan: Acute worsening of chronic disease, stage 3b. Creatinine 5.2, BUN 58, eGFR 11 on admission; baseline creatinine 1.8, BUN 28, eGFR 36-41. UA 2+ protein baseline appears to be 1.3-1.8 Likely multifactorial with poor oral intake and post-renal obstruction. Started on sodium chloride run at 75 mL/hr on 07/13-07/14, DC'd with improved renal function on 07/15/22. continue trend labs FENa 2.5% suggests intrinsic source from UTI Monitor strict I/O. Continue chronic indwelling catheter 7-10 days per Urology. 07/14/22 BUN, 35, creatinine 1.9, eGFR 34. Encourage oral water intake. Saline lock IV fluids. 07/15/22 BUN 26,creatinine 1.5, eGFR 44. Improving and at baseline 07/17/22 BUN 17, creatinine 1.3, EGFR 52. All improved. KEE secondary to post renal obstruction from acute urinary retention resolved with urinary catheter placement. (2) Hyponatremia: Code(s): E87.1 - Hypo-osmolality and hyponatremia Status: Acute Assessment and Plan: sodium at arrival was 124 on admission. Previous sodium levels 130-137 since 09/2021. Given his history and clinical picture this is likely secondary to hypovolemia hyponatremia. Started on NS@75 mL/hour. Monitor strict I/O Urine sodium 65, urine osmolality pending. 07/14/22 Sodium 133. Change Vancomycin fluid dilution from D5W to NS. Trended sodium level. Monitor sodium on paxil. 07/15/2022 sodium 137 and improved with removal of antibiotic with D5W resolved (3) Urinary retention: Code(s): R33.9 - Retention of urine, unspecified Status: Acute Assessment and Plan: Acute urinary retention noted on admission. +1200 mL immediate urine output with catheter insertion on 07/12/22 continue tamsulosin 0.4 mg HS. urology consulted and appreciate recommendations. Continue lugo catheter 7-10 days and plan to attempt voiding trial in office with follow-up, per Urology notes. Continue monitoring renal function, I/O. Continue treatment for UTI. stable With urinary catheter (4) Urinary tract infection: Qualifiers: Urinary tract infection type: acute pyelonephritis Qualified Code(s): N10 - Acute pyelonephritis Code(s): N39.0 - Urinary tract infection, site not specified Status: Acute Assessment and Plan: UA with 1+ leukocytosis, >75 WBC and 2+ blood Started on IV ceftriaxone 1 gram IV on 07/13/22 urine culture pending and plan to adjust antibiotics per culture and sensitivity Vancomycin IV added with pharmacy to dose due to +blood culture with gram positive cocci from 07/12/22 07/15/2022 urine culture shows Enterococcus species sensitive to vancomycin. Stop Rocephin continue antibiotics as above. 07/16 vancomycin trough 9.9 and his infusions have been adjusted for improving renal function. Repeat vancomycin trough on 07/19 at 2:00 a.m. 07/19/22 vancomycin tr
[2022-07-20 14:00] VITALS: BP 127/48; PULSE 73; RESP 20; TEMP 36.6; O2SAT 99
== END 2022-07-20 15:30 | disposition home health service (06) | DRG 683 ==
PROVIDERS: Nurse Practitioner; Physician Assistant; Admitting Provider Student in an Organized Health Care Education/Training Program; PCP Internal Medicine; Visit Provider Nurse Practitioner Family
DX: N17.0 Acute kidney failure with tubular necrosis (principal); E87.1 Hypo-osmolality and hyponatremia; R78.81 Bacteremia; R33.9 Retention of urine, unspecified; C61 Malignant neoplasm of prostate; N40.1 Benign prostatic hyperplasia with lower urinary tract symptoms; N18.31 Chronic kidney disease, stage 3a; D63.1 Anemia in chronic kidney disease; N10 Acute pyelonephritis; N13.30 Unspecified hydronephrosis; B95.2 Enterococcus as the cause of diseases classified elsewhere; F41.8 Other specified anxiety disorders; G47.33 Obstructive sleep apnea (adult) (pediatric); Z80.3 Family history of malignant neoplasm of breast; Z79.899 Other long term (current) drug therapy; Z88.8 Allergy status to other drugs, medicaments and biological substances; Z91.018 Allergy to other foods; Z20.822 Contact with and (suspected) exposure to COVID-19
CPT/HCPCS: 36415; 36569; 36600; 71045; 74176; 80048; 80053; 80069; 80202; 81001; 82274; 82375; 82550; 82565; 82570; 82805; 83050; 83605; 83735; 83930; 83935; 84145; 84300; 84443; 85025; 85027; 85610; 86140; 87040; 87077; 87086; 87088; 87186; 87426; 96361; 96365; 96372; 96375; 96376; 97110; 97116; 97161; 97165; 97530; 97535; A9270; C1751; C9803; G0378; G0379; J0696; J1644; J3370; J7030; J7050

== ENCOUNTER 2022-07-23 12:07 | Outpatient (NON) | payer MEDICARE, SELFPAY ==
[2022-07-23 12:34] LABS: Basophils Percent Auto 0.4 % (0.2-1.2); Eosinophils Absolute Auto 0.2 K/mm3 (0-0.3); Eosinophils Percent Auto 8.2 % (0-4.4); Hematocrit 23.4 % (42.0-52.0); Hemoglobin 7.6 g/dL (14.0-18.0); Immature Granulocyte Absolute 0.02 K/mm3 (0.00-0.031); Immature Granulocyte Percent A 0.9 % (0-0.5); Lymphocytes Absolute Auto 1.01 K/mm3 (0.9-3.2); Lymphocytes Percent Auto 43.3 % (18.3-44.2); Mean Corpuscular HGB Conc 32.5 g/dl (32-36); Mean Corpuscular Hemoglobin 34.2 pg (26-34); Mean Corpuscular Volume 105.4 fl (80-100); Mean Platelet Volume 10.4 fl (7.4-10.4); Monocytes Absolute Auto 0.3 K/mm3 (0.1-0.6); Monocytes Percent Auto 13.7 % (2.6-8.5); Neutrophils Absolute Auto 0.8 K/mm3 (1.3-6.7); Neutrophils Percent Auto 33.5 % (45.5-73.1); Platelet Count Result 194 k/mm3 (150-375); Red Blood Count 2.22 M/mm3 (4.6-6.20); Red Cell Distribution Width 13.6 % (11.5-14.5); White Blood Count 2.3 K/mm3 (4.5-10.0)
[2022-07-23 12:43] LABS: Alanine Aminotransferase 13 U/L (6-50); Albumin Level 2.9 g/dL (3.5-5.1); Alkaline Phosphatase 72 U/L (38-126); Anion Gap 7 mmol/L (8-16); Aspartate Amino Transferase 23 U/L (17-59); Bilirubin,Total 0.3 mg/dL (0.2-1.3); Blood Urea Nitrogen 16 mg/dL (9-20); Carbon Dioxide 21 mmol/L (22-30); Chloride 105 mmol/L (98-107); Estimated Glomerular Filt Rate 48; Glucose 131 mg/dL (65-110); Potassium 4.2 mmol/L (3.4-5.0); Sodium 133 mmol/L (137-145)
[2022-07-23 13:55] LABS: Vancomycin Random 22.6 ug/mL (10-20)
== END 2022-07-23 12:08 | disposition home or self-care (01) ==
LOC: HOME HLTH 12:15
PROVIDERS: PCP Internal Medicine; Visit Provider Nurse Practitioner Family
DX: N39.0 Urinary tract infection, site not specified (principal); R78.81 Bacteremia
CPT/HCPCS: 80053; 80202; 85025

== ENCOUNTER 2022-09-08 13:49 | Outpatient (CLI) | payer MEDICARE, SELFPAY ==
--- NOTE | ~2022-09-08 | DEXA_ITS ---
Bone Density Report Name: NUSRAT PATRICIA Age: 86 Sex: Male Ethnicity: White Date of : 1935 Indication: screening for osteoporosis; cancer; Referring Provider: SANJUANA IVORY Study: Bone densitometry was performed. Exam Date: September 08, 2022 Accession number: [id number] Bone Density: Region BMD T-score Z-score Classification AP Spine(L1, L3, L4) 0.939 -1.4 -0.1 Osteopenia Femoral Neck (Left) 0.547 -2.8 -1.1 Osteoporosis Total Hip (Left) 0.693 -2.3 -1.0 Osteopenia Femoral Neck (Right) 0.512 -3.1 -1.4 Osteoporosis Total Hip (Right) 0.686 -2.3 -1.0 Osteopenia Total Hip Mean 0.690 -2.3 -1.0 Osteopenia World Health Organization criteria for BMD impression classify patients as: Normal (T-score at or above -1.0), Osteopenia (T-score between -1.0 and -2.5), or Osteoporosis (T-score at or below -2.5). 10-year Fracture Risk: FRAX not reported because: Some T-score for Spine Total or Hip Total or Femoral Neck at or below -2.5 Clinical Information Provided by Patient: Has used the following medications: Vitamin D Has the following medical conditions: Cancer, prostate No regular weight bearing exercise Impression: The patient has osteoporosis, based on the Right Femoral Neck T-score. Discussion: INCREASED RISK OF FRACTURE. BONE DENSITY IS UNDESIRABLY LOW AT ONE OR MORE SKELETAL SITES, CONSISTENT WITH OSTEOPOROSIS. This patient's lowest T-score meets the World Health Organization's (WHO) criteria for osteoporosis at one or more sites (T-score -2.5 or below). In untreated patients, the risk of osteoporotic fracture increases approximately two-fold for each 1.0 SD decrease in T-score. Low bone density is not the only risk factor for fracture; also consider factors such as patient's age, frailty or poor health, risk of falling, risk of injury, previous osteoporotic fracture, family history of osteoporosis, cigarette smoking, low body weight, etc. Not everyone with low bone mineral density has osteoporosis; osteomalacia and other metabolic bone disorders should also be considered. Patients who have osteoporosis should be evaluated for specific diseases and conditions (secondary causes) that may cause or contribute to bone loss. The National Osteoporosis Foundation (NOF) recommends pharmacologic intervention for men with BMD at this level (a T-score of -2.5 or below). The patient should follow a healthful lifestyle (good nutrition with adequate calcium and vitamin D, and appropriate weight-bearing exercise). Follow-Up: Consider repeating this study in 2 years to reassess this patient's status, or sooner if there is some new clinical indication. Reported by: HAMZAH on 09/08/2022 2:15:00 PM. Reviewed, dictated and finalized at location [facility]LL[facility]
== END 2022-09-08 13:50 | disposition home or self-care (01) ==
LOC: ANHIMG 13:50
PROVIDERS: PCP Internal Medicine; Visit Provider Nurse Practitioner Adult Health
DX: C61 Malignant neoplasm of prostate (principal); M85.88 Other specified disorders of bone density and structure, other site; M81.0 Age-related osteoporosis without current pathological fracture; M85.852 Other specified disorders of bone density and structure, left thigh; M85.851 Other specified disorders of bone density and structure, right thigh
CPT/HCPCS: 77080

== ENCOUNTER 2022-10-01 12:17 | Outpatient (CLI) | payer MEDICARE, SELFPAY ==
--- NOTE | ~2022-10-01 | PE_ITS ---
EXAMINATION: PET_PETPSMAST_PT DATE: 10/01/2022 15:42 INDICATION: Prostate cancer TECHNIQUE: 8.63 mCi of pipflufolastat F-18 (18-F-DCFPyL) was administered i.v. Low dose computed angela ography (CT) images were acquired from the base of the brain to the base of the brain to the proximal thighs for attenuation correction and anatomic localization. Positron emission tomography (PET) imag es were acquired in the same distribution beginning 103 minutes after injection. Images including fus ed PET/CT images were reconstructed in axial, coronal, and sagittal planes. Automated exposure contro l technique was employed. The dose-length product was 630.57mGy-cm. COMPARISON: 07/12/2022 FINDINGS: Head/neck: Typical pattern of symmetric physiologic increased activity in the lacrimal, parotid and submandibula r glands as well as along the mucosa of the nasal cavity, nasopharynx, oropharynx and cervical esopha wilfredo. No pathologically enlarged cervical lymphadenopathy or suspicious foci of increased uptake in th e visualized head or neck. Chest: Typical pattern of likely physiologic mild diffuse uptake along the esophagus, trachea and bronchi at the bilateral lindsay. Small calcified left lower lobe nodule consistent with old granulomatous disease . Heart size is normal. Small amount of atherosclerotic coronary artery calcific location. No pericar dial or pleural effusion. Ascending thoracic aortic aneurysm measuring up to 4.7 cm in maximal diamet er. Small sliding-type hiatal hernia. No pathologically enlarged or PSMA avid thoracic lymphadenopath y. Relatively recent-appearing ununited comminuted fractures of the medial head of the right clavicle which is both posterior displacement and angulated exerting mild mass effect upon the distal innomin ate artery. There is relatively mild diffuse uptake throughout the fracture without a definitive unde rlying lytic or blastic bone lesion. There is mild increased uptake with maximal SUV of 3.3 associate d with a subtle sclerotic lesion at the posterior left fourth rib. Abdomen/pelvis/proximal thighs: Physiologic renal accumulation and excretion of activity in the kidneys, bladder and along portions o f ureters. There is asymmetric moderate atrophy of the right kidney with moderate right hydronephrosi s despite the presence of a right internal ureteral stent which is in expected position with loops fo rmed in the bladder and dilated right renal pelvis. There is activity within the bladder and in the l eft renal collecting system but could only minimally the right renal collecting system suggesting dec reased right renal function. Normal degree and slightly heterogenous pattern of increased uptake thro ughout the liver and spleen without radiologic correlate or dominant PSMA avid lesion. The gallbladde r, pancreas and bilateral adrenal glands are normal. Moderate uptake scattered throughout the bowels with typical duodenal and proximal jejunal predominance and without radiologic correlate, also likely physiologic. Bladder is decompressed around a Dietz catheter. There is relatively diffuse increased PSA may activity throughout the prostate suggesting residual or recurrent disease. There is also prominent extension of activity into the left seminal vesicle which appears asymmetrically enlarged with soft tissue infiltrating posteriorly to the left perirectal spa ce with maximal SUV of 13. Results for also some increased activity in the region of the right semina l vesicle. There are several small foci of increased uptake in the right perirectal fat position post erior to the right ureter as identified by the ureteral stent consistent with very small soft tissue densities likely representing metastatic perirectal lymph nodes. For reference the most intense uptak e with maximal SUV of 8.9 associated with a 1.3 x 0.7 cm lymph node. There are several enlarged left external iliac chain lymph nodes whi
== END 2022-10-01 12:18 | disposition home or self-care (01) ==
PROVIDERS: PCP Internal Medicine; Visit Provider Nurse Practitioner Adult Health
DX: C61 Malignant neoplasm of prostate (principal)
CPT/HCPCS: 78815; A9595

== ENCOUNTER 2023-01-27 13:59 | Inpatient (IN) | payer MEDICARE, SELFPAY ==
[2023-01-27] VITALS (12 sets, daily range): BP systolic 115–174; BP diastolic 48–96; PULSE 59–78; RESP 11–21; TEMP 36.1–36.6; O2SAT 96–100; BMI 26.2
--- NOTE | ~2023-01-27 | CT_ITS ---
Non-contrast CT scan of the Abdomen and Pelvis Clinical indication: Left hydronephrosis, renal failure, prostate cancer Technique: 2.5 mm axial scans were obtained through the abdomen and pelvis without intravenous or or al contrast. Dose reduction technique was used on this scan by utilizing automated exposure control a nd iterative reconstruction technique. The dose-length product (DLP) was 641.90 mGy-cm. COMPARISON: 07/12/2022 Findings: Images through the lung bases reveal small bilateral pleural effusions. Right kidney is mildly atrophic. Right ureteral stent present. No right hydronephrosis. There is mode rate left hydroureteronephrosis. The liver, spleen, pancreas, gallbladder, and adrenals appear normal. There is no aortic aneurysm. P robable mildly enlarged lymph node between the left psoas major muscle and the left common iliac maria luisa ry measuring 1.8 x 1.0 cm. There are enlarged left pelvic sidewall lymph nodes, largest measuring kaz roximately 3.0 x 1.4 cm (axial image 158). There is no evidence of bowel obstruction. Prominent stool suggests constipation. Images through the pelvis were performed. There is no evidence of ascites or lymphadenopathy. Dietz c atheter present within the urinary bladder. There is probable urinary bladder wall thickening. There is irregular mass at the expected region of the prostate gland, extending to the posterior urinary bl adder and probably obstructing the very distal left ureter. This lesion measures approximately 4.9 x 3.4 cm in transverse dimensions (axial image 162). Stable compression deformity or large Schmorl's node versus other lytic lesion at the inferior endpla te of T12. Impression: Suspected irregular mass inseparable from the prostate gland and extending to the posterior urinary b ladder and likely obstructing the distal left ureter. This is suspicious for prostate cancer given th e provided history, with lesion measuring approximately 4.9 x 3.4 cm in diameter. Moderate left hydroureteronephrosis. Lymphadenopathy, as detailed above, predominantly the left pelvic sidewall region, consistent with me tastatic prostate cancer. Right ureteral stent present. Small bilateral pleural effusions. Possible urinary bladder wall thickening. Correlate for cystitis. Constipation. Reviewed, dictated and finalized at location M. Impression: Suspected irregular mass inseparable from the prostate gland and extending to t he posterior urinary bladder and likely obstructing the distal left ureter. Thi s is suspicious for prostate cancer given the provided history, with lesion abigail suring approximately 4.9 x 3.4 cm in diameter. Moderate left hydroureteronephrosis. Lymphadenopathy, as detailed above, predominantly the left pelvic sidewall cass on, consistent with metastatic prostate cancer. Right ureteral stent present. Small bilateral pleural effusions. Possible urinary bladder wall thickening. Correlate for cystitis. Constipation.
--- NOTE | ~2023-01-27 | CT_ITS ---
EXAMINATION: CT guide nephro tube pl LT DATE: 02/02/2023 14:25 INDICATION: Left hydronephrosis. TECHNIQUE: The procedure including the risks, benefits, and alternatives was discussed with the patie nt. Risks discussed included bleeding and infection. The patient understood the risks and benefits an d agreed to proceed. The skin overlying the left kidney was prepped and draped in usual sterile fashi on. Anesthetic was administered with 1% lidocaine subcutaneously. An 18 gauge trochar needle was ins erted into a calyx of the kidney under CT guidance. The needle was exchanged over a wire for 6 [place] and 8 [place] dilators and then for an 8.5 [place] pigtail catheter under CT guidance. The catheter wa s stitched to the skin. A dressing was applied. The mA was adjusted according to patient size. Iterat evelio reconstruction technique was employed. The dose-length product was 259.62 mGy-cm. There were no i mmediate complications. FINDINGS: CT images demonstrate the nephrostomy tube in the renal pelvis. IMPRESSION: 1. Successful CT-guided left nephrostomy tube placement. Reviewed, dictated and finalized at location A.
--- NOTE | ~2023-01-27 | XR_ITS ---
EXAMINATION: XR stent kub - surgery DATE: 02/01/2023 12:07 INDICATION: Right hydronephrosis. TECHNIQUE: 4 intraoperative fluoroscopic views of the abdomen and pelvis were obtained. I was not pre sent. Fluoroscopy exposure time was 11 seconds. COMPARISON: CT abdomen and pelvis 01/30/2023 FINDINGS: There is a new right internal ureteral stent in expected position. IMPRESSION: 1. New right internal ureteral stent in expected position. Reviewed, dictated and finalized at location A.
--- NOTE | ~2023-01-27 | XR_ITS ---
EXAMINATION: XR chest 2V DATE: 01/27/2023 15:11 INDICATION: Weakness. TECHNIQUE: Frontal and lateral views of the chest were obtained on 3 radiographs. COMPARISON: Chest single view 07/12/2022, PET/CT 10/01/22 FINDINGS: There is eventration of anterior right hemidiaphragm. No pneumonia, pleural effusion, or pn eumothorax. The heart size is normal. There is a chronic compression fracture of T12. IMPRESSION: 1. No acute cardiopulmonary disease. Reviewed, dictated and finalized at location A.
--- NOTE | ~2023-01-27 | US_ITS ---
EXAMINATION: US renal BI DATE: 01/28/2023 09:03 INDICATION: Acute renal failure. TECHNIQUE: Multiple ultrasound grayscale images of the kidneys were obtained. COMPARISON: PET CT 10/01/2022 FINDINGS: The right kidney measures 9.5 x 5.2 x 4.5 cm. The left kidney measures 12.8 x 6.1 x 4.9 cm. There is cortical thinning in right kidney. The kidneys demonstrate normal parenchymal echogenicity. There is mild right and moderate left hydronephrosis. The bladder is decompressed by Dietz catheter. IMPRESSION: 1. Mild right and moderate left hydronephrosis. The right internal ureteral stent is not well visual ized. 2. Mild right kidney atrophy. Reviewed, dictated and finalized at location A. IMPRESSION: 1. Mild right and moderate left hydronephrosis. The right internal ureteral st ent is not well visualized. 2. Mild right kidney atrophy.
--- NOTE | 2023-01-27 14:12 | ECG_ITS ---
Measurements Intervals [place] Rate: 62 P: -19 [place]: 185 QRS: -14 QRSD: 90 T: 31 QT: 391 QTc: 399 Interpretive Statements SINUS RHYTHM NONSPECIFIC T-WAVE ABNORMALITY COMPARED TO ECG 04/26/2022 16:40:09 NO SIGNIFICANT CHANGES Electronically Signed On 01-27-2023 15:32:36 CDT by Joan Love M.D.
[2023-01-27 14:31] LABS: Appearance Urine Cloudy (Clear); Bilirubin Urine Negative (Negative); Blood Urine 2+ (Negative); Color Urine Yellow (Yellow); Glucose Urine UA Negative (Negative); Ketones Urine Negative (Negative); Leukocyte Esterase Ur 3+ LEU/UL (Negative); Nitrate Urine Negative (Negative); Protein Urine 2+ mg/dL (Negative); Specific Grav Ur 1.015 (1.001-1.035); Urobilinogen Urine 0.2 mg/dL (<2.0)
[2023-01-27 14:36] LABS: Add Urine Microscopic? YES
[2023-01-27 14:37] LABS: Squamous Epithelial Cell Urine Rare /hpf (Few); WBC Urine 21-50 /hpf (0-3)
[2023-01-27 14:38] LABS: Bacteria Urine 1+ /hpf
[2023-01-27 14:39] LABS: Basophils Percent Auto 0.6 % (0.2-1.2); Eosinophils Absolute Auto 0.5 K/mm3 (0-0.3); Hematocrit 24.8 % (42.0-52.0); Hemoglobin 8.2 g/dL (14.0-18.0); Immature Granulocyte Absolute 0.03 K/mm3 (0.00-0.031); Immature Granulocyte Percent A 0.6 % (0-0.5); Lymphocytes Absolute Auto 1.52 K/mm3 (0.9-3.2); Lymphocytes Percent Auto 29.2 % (18.3-44.2); Mean Corpuscular HGB Conc 33.1 g/dl (32-36); Mean Corpuscular Hemoglobin 35.2 pg (26-34); Mean Corpuscular Volume 106.4 fl (80-100); Mean Platelet Volume 9.6 fl (7.4-10.4); Monocytes Absolute Auto 0.5 K/mm3 (0.1-0.6); Monocytes Percent Auto 9.2 % (2.6-8.5); Neutrophils Absolute Auto 2.6 K/mm3 (1.3-6.7); Neutrophils Percent Auto 50.4 % (45.5-73.1); Platelet Count Result 259 k/mm3 (150-375); Red Blood Count 2.33 M/mm3 (4.6-6.20); Red Cell Distribution Width 12.5 % (11.5-14.5); White Blood Count 5.2 K/mm3 (4.5-10.0)
[2023-01-27 14:42] LABS: Alanine Aminotransferase 14 U/L (6-50); Albumin Level 3.8 g/dL (3.5-5.1); Alkaline Phosphatase 100 U/L (38-126); Anion Gap 13 mmol/L (8-16); Aspartate Amino Transferase 26 U/L (17-59); Bilirubin,Total 0.4 mg/dL (0.2-1.3); Blood Urea Nitrogen 43 mg/dL (9-20); Carbon Dioxide 17 mmol/L (22-30); Chloride 104 mmol/L (98-107); Estimated CRCL calculation 16 ml/min; Estimated Glomerular Filt Rate 21; Glucose 126 mg/dL (65-110); Potassium 5.1 mmol/L (3.4-5.0); Sodium 134 mmol/L (137-145)
--- NOTE | 2023-01-27 14:44 | ED.WEAKNESS ---
HPI - Weakness General Chief complaint: Weakness Stated complaint: weakness Time Seen by Provider: 01/27/23 14:33 Source: patient, family and EMS Mode of arrival: EMS Limitations: no limitations History of Present Illness HPI Narrative: 87 years old white male came to the emergency room from home with his by ambulance complaining of general weakness in the last few days. Patient vomited once yesterday, noticed blood in the Dietz catheter bag and bloody urine leaking around the catheter. Catheter supposed to be changed every month, last change was 2 weeks ago by home visiting nurse. The pt was discharged to home.the pt,s condition upon discharge was fair,education was provided to the pt in reference to the final impression,discharge study results,treatment,prognosis and need for follow up . Patient denies any fever, chills, nausea, chest pain, abdominal pain, back pain, headache Related Data Home Medications Medication Instructions Recorded Confirmed docusate sodium 100 mg capsule 100 mg PO BID 11/12/19 11/04/22 (Colace) polyethylene glycol 3350 17 17 g PO DAILY PRN Constipation 10/05/21 11/04/22 gram/dose oral powder (Miralax) enzalutamide 40 mg capsule (Xtandi) 160 mg PO QACLUNCH 06/11/22 11/04/22 acetaminophen 325 mg tablet (Mapap 650 mg PO Q4H PRN Fever 07/12/22 11/04/22 (acetaminophen)) Allergies Allergy/AdvReac Type Severity Reaction Status Date / Time aspartame Allergy Intermediate HIVE Verified 01/27/23 14:15 lisinopril Allergy Intermediate Rash, Verified 01/27/23 14:15 itching Review of Systems Review of Systems: All systems reviewed & are unremarkable except as noted in HPI and below PMFSH Past Medical History Medical History Anemia in chronic kidney disease Anxiety with depression Benign prostatic hyperplasia Chronic idiopathic urticaria Chronic kidney disease, stage 4 (severe) Constipation COVID-19 Depression Elbow fracture, right Essential (primary) hypertension Hyperparathyroidism Lumbar stenosis Nocturnal myoclonus Obesity Obstructive sleep apnea Prostate cancer Surgical History Surgical History History of cystoscopy History of open reduction and internal fixation (ORIF) procedure Repair of left arm fracture. History of transurethral resection of prostate (10/2019) History of ureter stent History of varicose vein ligation Bilateral. Family History Family History Mother Breast cancer Social History Social History Social History: The patient lives with his in [place]. They have 2 children. He retired from doing factory work. Lifelong nonsmoker. No alcohol or illicit substance abuse. He designates his , Tiffany Arreaga, as his surrogate medical decision maker. Code status: Full code. Smoking status: Never smoker Alcohol intake: never Substance use: never Lack of Transportation: No Lack of Food: Never True Current Housing: I Have Housing Concerned About Future Housing: No Difficulty Paying Gas/Electric Bills: No Difficulty Paying for Meds: No Currently Unemployed: No Education: High School Diploma/GED Difficulty w/ Childcare or Family Care: No Living arrangements: with family Additional living arrangements comments: - TIFFANY Occupation/Education: retired Spiritual care concerns: No Agree to blood products: Yes Exam Narrative: General appearance: Well-developed, well-nourished Skin: pale Head: Normocephalic, nontraumatic Eyes: Clear conjunctiva ENT: Oropharynx normal, ears normal, nose normal Neck: Supple, nontender Chest and respiratory: Airway patent, no respiratory distress, no accessory muscle use Heart: Regular rate/rhythm Abdomen: Soft, nontender, no organomegaly, quiet bowel sounds, Dietz catheter i
[2023-01-27 14:51] LABS: Platelet Estimate Adequate (Adequate)
[2023-01-27 14:52] LABS: Macrocytosis 1+ (NORMAL); Ovalocytes 1+ (NORMAL); Schistocytes None Seen (NORMAL)
--- NOTE | 2023-01-27 15:26 | WPDURCON ---
Assessment and Plan Assessment and plan (1) Generalized weakness: Code(s): R53.1 - Weakness Status: Acute (2) Hydronephrosis: Code(s): N13.30 - Unspecified hydronephrosis Status: Acute (3) Urinary retention: Code(s): R33.9 - Retention of urine, unspecified Status: Acute (4) Prostate cancer: Code(s): C61 - Malignant neoplasm of prostate Status: Chronic Assessment and Plan: Hormone sensitive prostate cancer being managed with leuprolide and enzalutamide Chronic urinary retention managed with a indwelling Dietz catheter. Has a history of recurrent urinary tract infections. Chronic right hydronephrosis managed with a right ureteral stent Current admission for weakness likely secondary to another urinary tract infection. Urology Consult Note HPI Date Seen: 01/27/23 Primary Care Provider: Chriss Smith MD Consult Narrative Narrative: Dayron Arreaga is a 87 year old male well known to Dr. Jerome with a long history of prostate cancer currently being managed with androgen deprivation and enzalutamide. Approximately 6 months ago a PSMA scan showed uptake in the prostate. He has slow PSA progression and decision has been made not to change his current regimen. I also has a chronic indwelling catheter is management for retention and chronic right ureteral stent is managed for right hydronephrosis. The stent was last changed in June 2022.. He has history of intermittent urinary tract infections. He presents to the ED today with generalized weakness and appears to have another UTI. He is being admitted for antibiotics pending culture results Review of Systems Constitutional: Constitutional: Denies chills, Denies fever(s), Reports malaise and Reports weakness Cardiovascular: Cardiovascular: Denies chest pain, Denies lightheadedness, Denies palpitations and Denies dyspnea Respiratory: Respiratory: Denies dyspnea Gastrointestinal: Gastrointestinal: Denies diarrhea, Denies nausea and Denies vomiting Genitourinary: Genitourinary: Denies hematuria and Denies dysuria Endocrine: Endocrine: Denies palpitations PMFSH Past Medical History Medical History Anemia in chronic kidney disease Anxiety with depression Benign prostatic hyperplasia Chronic idiopathic urticaria Chronic kidney disease, stage 4 (severe) Constipation COVID-19 Depression Elbow fracture, right Essential (primary) hypertension Hyperparathyroidism Lumbar stenosis Nocturnal myoclonus Obesity Obstructive sleep apnea Prostate cancer Surgical History Surgical History History of cystoscopy History of open reduction and internal fixation (ORIF) procedure Repair of left arm fracture. History of transurethral resection of prostate (10/2019) History of ureter stent History of varicose vein ligation Bilateral. Family History Family History Mother Breast cancer Social History Social History Social History: The patient lives with his in [place]. They have 2 children. He retired from doing factory work. Lifelong nonsmoker. No alcohol or illicit substance abuse. He designates his , Tiffany Arreaga, as his surrogate medical decision maker. Code status: Full code. Smoking status: Never smoker Alcohol intake: never Substance use: never Lack of Transportation: No Lack of Food: Never True Current Housing: I Have Housing Concerned About Future Housing: No Difficulty Paying Gas/Electric Bills: No Difficulty Paying for Meds: No Currently Unemployed: No Education: High School Diploma/GED Difficulty w/ Childcare or Family Care: No Living arrangements: with family Additional living arrangements comments: - [place] Occupation/Education: retired Spiritual care jose raul
[2023-01-27] MEDS: SODIUM CHLORIDE 0.9% IV 1,000 ML 100 ML IV CONT (16:45)
--- NOTE | 2023-01-27 18:37 | ADMGEN ---
This patient, Dayron Arreaga, was admitted to [facility] Surg Room 331-02. Patient/family oriented to hospital policies and general routines including ID bracelet, bed and alarms, visiting hours, pain management, procedures, bathroom and other care routines, personal items, smoking policy, room service/diet, and visiting hours. Information on how to activate the Rapid Response Team has been discussed. Patient/Family are encouraged to report perceived risks to care and to ask questions if they do not understand what they are told or what they should do.
--- NOTE | 2023-01-27 18:46 | PM.IMHP ---
H&P: HPI History of Present Illness Date/Time: 01/27/23 18:46 Chief Complaint: Weakness Narrative: this is an 87-year-old male patient who has a history of bladder cancer. The patient is very hard of here and is having difficulty answering questions. The patient was brought to the emergency room via ambulance with his . The patient has been complaining of weakness for the last few days. The patient vomit once. The also noted that the patient was having blood in the Dietz catheter bag and that he had bloody urine leaking around the catheter. The patient has his catheter changed every month. It was last changed 2 weeks ago by the home visiting nurse. The patient is being followed by Urology. The patient does have bright red blood in his urine. His H&H is 8.2 was 24.8. Patient's last known H&H on 07/23/2022 was 7.6 and 23.4 . the patient was started on IV fluids and ceftriaxone. His urinalysis has 2+ blood 3+ leukocyte esterase 1+ bacteria. Urology has been consulted. The patient is being admitted to inpatient status on the date of service of 01/27/2023. Review of Systems Review of Systems: All systems reviewed & are unremarkable except as noted in HPI and below Constitutional: Constitutional: Reports as per HPI and Reports no additional constitutional complaints Eyes: Eyes: Reports as per HPI and Reports no additional eye complaints ENT: Reports system reviewed and no additional complaints, except as documented and Reports Normal hearing present Cardiovascular: Cardiovascular: Reports no additional cardiovascular complaints Respiratory: Respiratory: Reports no additional respiratory complaints and Reports no additional respiratory complaints Gastrointestinal: Gastrointestinal: Reports as per HPI and Reports no additional gastrointestinal complaints Musculoskeletal: Musculoskeletal: Reports no additional musculoskeletal complaints Integumentary/Breasts: Skin/Breast: Reports system reviewed and no additional complaints, except as docu and Reports as per HPI Neurologic: Reports system reviewed and no additional complaints, except as documented, Reports as per HPI and Reports Normal hearing present Psychiatric: Psychiatric: Reports no additional psychiatric complaints and Reports as per HPI Endocrine: Endocrine: Reports no additional endocrine complaints Hematologic/Lymphatic: Hematologic/Lymphatic: Reports no additional hematologic/lymphatic complaints Allergic/Immunologic: Allergic/Immunologic: Reports no additional allergic/immunologic complaints PMFSH Past Medical History Medical History Anemia in chronic kidney disease Anxiety with depression Benign prostatic hyperplasia Chronic idiopathic urticaria Chronic kidney disease, stage 4 (severe) Constipation COVID-19 Depression Elbow fracture, right Essential (primary) hypertension Hyperparathyroidism Lumbar stenosis Nocturnal myoclonus Obesity Obstructive sleep apnea Prostate cancer Surgical History Surgical History History of cystoscopy History of open reduction and internal fixation (ORIF) procedure Repair of left arm fracture. History of transurethral resection of prostate (10/2019) History of ureter stent History of varicose vein ligation Bilateral. Family History Family History Mother Breast cancer Social History Social History Social History: The patient lives with his in [place]. They have 2 children. He retired from doing factory work. Lifelong nonsmoker. No alcohol or illicit substance abuse. He designates his , Faith Arreaga, as his surrogate medical decision maker. Code status: Full code. Smoking status: Never smoker Alcohol intake: never Substance use: never Lack of Transportation: No Lack of Food
--- NOTE | 2023-01-28 01:25 | PC.NURSE ---
Pt continues to have blood in his catheter, since arrival from the ED. Pt currently has bladder and prostate CA. FRANCISCO and Dr Yu have both been notified and are aware. Urology has been consulted. No new orders at this time.
[2023-01-28 01:49] LABS: Hematocrit 23.9 % (42.0-52.0); Hemoglobin 7.8 g/dL (14.0-18.0)
[2023-01-28] MEDS: TAMSULOSIN HCL 0.4 MG CAPSULE PO ×2 (01:57→20:49)
[2023-01-28 02:00] LABS: Anion Gap 7 mmol/L (8-16); Blood Urea Nitrogen 41 mg/dL (9-20); Carbon Dioxide 19 mmol/L (22-30); Chloride 108 mmol/L (98-107); Estimated CRCL calculation 16 ml/min; Estimated Glomerular Filt Rate 21; Glucose 87 mg/dL (65-110); Potassium 5.1 mmol/L (3.4-5.0); Sodium 134 mmol/L (137-145)
[2023-01-28] MEDS: VANCOMYCIN 1,250 MG/NS 250 ML 1,250 MG/250 ML BAG 166.67 MG IVPB (02:00)
[2023-01-28] MEDS: SODIUM CHLORIDE 0.9% IV 1,000 ML 100 ML IV CONT ×2 (02:00→20:52)
[2023-01-28 06:00] VITALS: BP 112/46; PULSE 64; RESP 18; TEMP 36.2; O2SAT 99
[2023-01-28 06:43] LABS: Basophils Percent Auto 0.4 % (0.2-1.2); Eosinophils Absolute Auto 0.5 K/mm3 (0-0.3); Eosinophils Percent Auto 6.4 % (0-4.4); Hematocrit 23.6 % (42.0-52.0); Hemoglobin 7.7 g/dL (14.0-18.0); Immature Granulocyte Absolute 0.03 K/mm3 (0.00-0.031); Immature Granulocyte Percent A 0.4 % (0-0.5); Lymphocytes Absolute Auto 1.35 K/mm3 (0.9-3.2); Lymphocytes Percent Auto 16.9 % (18.3-44.2); Mean Corpuscular HGB Conc 32.6 g/dl (32-36); Mean Corpuscular Hemoglobin 34.5 pg (26-34); Mean Corpuscular Volume 105.8 fl (80-100); Mean Platelet Volume 9.9 fl (7.4-10.4); Monocytes Absolute Auto 0.6 K/mm3 (0.1-0.6); Monocytes Percent Auto 7.6 % (2.6-8.5); Neutrophils Absolute Auto 5.5 K/mm3 (1.3-6.7); Neutrophils Percent Auto 68.3 % (45.5-73.1); Platelet Count Result 230 k/mm3 (150-375); Red Blood Count 2.23 M/mm3 (4.6-6.20); Red Cell Distribution Width 12.7 % (11.5-14.5)
[2023-01-28 06:50] LABS: Anion Gap 8 mmol/L (8-16); Blood Urea Nitrogen 40 mg/dL (9-20); Calcium 8.7 mg/dL (8.4-10.2); Carbon Dioxide 18 mmol/L (22-30); Chloride 109 mmol/L (98-107); Estimated CRCL calculation 16 ml/min; Estimated Glomerular Filt Rate 21; Glucose 102 mg/dL (65-110); Magnesium 2.5 mg/dL (1.6-2.3); Potassium 4.4 mmol/L (3.4-5.0); Sodium 135 mmol/L (137-145)
[2023-01-28 07:55] LABS: Free T4 Free Thyroxine Reflex 0.93 ng/dL (0.78-2.19)
[2023-01-28] MEDS: PARoxetine 20 MG TABLET PO (08:21)
[2023-01-28] MEDS: MULTIVITAMINS /C LUTEIN (CENTRUM SILVER) TABLET *BKC 1 TAB PO (08:21)
[2023-01-28] MEDS: DOCUSATE SODIUM 100 MG CAPSULE PO ×2 (08:21→20:49)
[2023-01-28] MEDS: CYANOCOBALAMIN 500 MCG TABLET 2500 MCG PO (08:21)
--- NOTE | 2023-01-28 09:04 | PHAR ---
HOME MED VERIFIED Enzalutamide [Xtandi] 40 mg TABLET TAKE 4 TABLETS BY MOUTH ONCE DAILY
[2023-01-28 09:43] LABS: Total Triiodothyronine (T3) 1.02 NG/ML (0.97-1.69)
--- NOTE | 2023-01-28 12:50 | PM.IMPN ---
Progress Note: A&P Assessment and Plan (1) KEE (acute kidney injury): Code(s): N17.9 - Acute kidney failure, unspecified Status: Acute Assessment and Plan: BUN is 43 creatinine is 2.8. Patient's previous creatinine is 1.4. Continue to hydrate the patient renal ultrasound avoid nephrotoxic medication may consider Nephrology consult if no improvement after fluids. the patient does have a chronic indwelling Dietz catheter and is currently draining bloody urine but no clots are noted it appears to be draining without difficulty. He has a history of urinary retention. Urology consult (2) Catheter-associated urinary tract infection: Qualifiers: Encounter type: sequela Indwelling urinary catheter type: indwelling urethral catheter Qualified Code(s): T83.511S - Infection and inflammatory reaction due to indwelling urethral catheter, sequela; N39.0 - Urinary tract infection, site not specified Code(s): T83.511A - Infection and inflammatory reaction due to indwelling urethral catheter, initial encounter; N39.0 - Urinary tract infection, site not specified Status: Acute Assessment and Plan: The patient is on Rocephin. Patient's urine was positive for Enterococcus species on 07/12/2022. This is catheter associated UTI. 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 However after reviewing his records it was noted that the patient had a TURP in 2019 for malignant neoplasm of prostate. Continue with Flomax (4) BPH (benign prostatic hyperplasia): Code(s): N40.0 - Benign prostatic hyperplasia without lower urinary tract symptoms Status: Acute Assessment and Plan: continue with Flomax patient has a chronic indwelling Dietz catheter. (5) Anxiety with depression: Code(s): F41.8 - Other specified anxiety disorders Status: Acute Assessment and Plan: Continue with Paxil Plan the patient stated that he was diagnosed with obstructive sleep apnea but he has does not wear CPAP machine. Subjective Date/time seen: 01/28/23 12:50 Interval history: No complaints Exam Const: General: cooperative, comfortable, no acute distress, well developed, alert, awake, Physically active, average body habitus, well nourished and thin Nutritional Appearance: average body habitus, well nourished and thin Orientation/consciousness: oriented to person, oriented to place, oriented to time and patient oriented x3 Limitations: no limitations Other: the patient is pale HENMT: Head: normal to inspection, No palpable skull fracture present, normocephalic and atraumatic Ears: external ears normal and hearing grossly impaired Face/Nose/Sinus: Normal external nose present and Normal nares present Eyes: General: appearance normal, both eyes and all related structures Alignment and Position: alignment normal Periorbital: periorbital findings normal Conjunctivae: conjunctivae normal Sclera: sclerae normal Pupils: Equal, round and reactive pupils present EOM: EOMs intact bilaterally Neck: Neck: normal visual inspection, full ROM, no lymphadenopathy, trachea midline and supple Chest: Chest palpation & inspection: normal inspection of the chest Resp: Effort & Inspection: normal respiratory effort Auscultation: diminished lung sounds Cardio: Palpation: normal PMI Rate: regular rate Rhythm: regular rhythm Heart sounds: S1 normal heart sound present and S2 normal heart sound present Peripheral pulses: Peripheral pulses 2+ throughout GI: Inspect
[2023-01-28 12:58] LABS: Hematocrit 23.1 % (42.0-52.0); Hemoglobin 7.5 g/dL (14.0-18.0)
--- NOTE | 2023-01-28 13:10 | PM.CNNEP ---
Assessment and Plan Assessment and plan (1) KEE (acute kidney injury): Code(s): N17.9 - Acute kidney failure, unspecified Status: Acute Assessment and Plan: likely related to UTI (?) evaluation to date: renal ultrasound with mild right and moderate left hydronephrosis; the right internal ureteral stent is not well visualized; mild right kidney atrophy UA consistent with infection urine culture not done known history of right ureteral stent placement -- does he need a left stent as well??? -- discuss with Urology (since renal function not improving) no improvement in renal function with IVFs follow trend of repeat labs and UOP (2) Catheter-associated urinary tract infection: Qualifiers: Encounter type: sequela Indwelling urinary catheter type: indwelling urethral catheter Qualified Code(s): T83.511S - Infection and inflammatory reaction due to indwelling urethral catheter, sequela; N39.0 - Urinary tract infection, site not specified Code(s): T83.511A - Infection and inflammatory reaction due to indwelling urethral catheter, initial encounter; N39.0 - Urinary tract infection, site not specified Status: Acute Assessment and Plan: as suggested by admission UA follow culture data on antibiotics (3) Stage 3a chronic kidney disease: Code(s): N18.31 - Chronic kidney disease, stage 3a Status: Chronic Assessment and Plan: baseline creatinine runs around 1.2 - 1.4mg/dl in the last several years presumably due to issues related to frequent UTIs, urinary retention with need for chronic lugo, and age-related change (4) Benign prostatic hyperplasia: Code(s): N40.0 - Benign prostatic hyperplasia without lower urinary tract symptoms Status: Chronic Assessment and Plan: already has chronic lugo catheter continue flomax I will continue to follow patient with you while he remains hospitalized and make further recommendations during his hospital course. Thank you for allowing me to participate in care this patient. History of Present Illness Reason for Consult Consult date: 01/28/23 Reason for consult: acute renal failure (on chronic kidney disease) Chief Complaint Chief complaint: Urinary Tract Infection,Catheter Related,KEE History of Present Illness Narrative: The patient is an 87-year-old male with a past medical history as outlined below who presented to [facility] Emergency room via EMS for further evaluation of generalized weakness. The patient states that for the last few days if not longer he has been more weaker than usual. He also reports a few episodes of vomiting and increased amount of gross hematuria in his Lugo catheter bag in association with bloody urine leaking around the entry site of the catheter. The patient has his catheter exchanged every month and it was last changed about 2 weeks ago by the home visiting nurse. He follows with Urology for his chronic Lugo catheter care in association with chronic urinary retention. Unfortunately, he is always prone to urinary tract infections due to the presence of the indwelling Lugo catheter and history of bladder cancer. Workup and evaluation emergency room demonstrated the patient to be hemodynamically stable and routine blood test demonstrated relative anemia with a hemoglobin of 8.2 and hematocrit 24.8. however, his chemistry showed what appeared to be acute kidney injury on top of his baseline kidney disease in association with a urinalysis does highly suggestive of another urinary tract infection with 2+ blood 3+ leukocyte esterase, and 1+ bacteria. It was felt that his generalized weakness may be due to his possible urine tract infection as well as possible mild volume depletion. After appropriate cultures were obtained, he was started on IV fluids as well as IV antibiotics and Urology was consulted and he was subsequently admitted to the hospital for fu
[2023-01-28 13:31] VITALS: BMI 26.2
[2023-01-28 14:00] VITALS: BP 120/52; PULSE 78; RESP 12; TEMP 36.6; O2SAT 98
[2023-01-28 19:27] LABS: Hematocrit 21.4 % (42.0-52.0); Hemoglobin 7.1 g/dL (14.0-18.0)
[2023-01-28] MEDS: HYOSCYAMINE SULFATE 0.125 MG TABLET PO (20:49)
[2023-01-28] MEDS: MELATONIN 5 MG TABLET PO (20:49)
[2023-01-28 22:00] VITALS: BP 116/46; PULSE 70; RESP 18; TEMP 36.2; O2SAT 100
[2023-01-29 01:45] LABS: Vancomycin Random 11.3 ug/mL (10-20)
[2023-01-29] MEDS: VANCOMYCIN 1,250 MG/NS 250 ML 1,250 MG/250 ML BAG 166.67 MG IVPB (04:07)
[2023-01-29 06:00] VITALS: BP 126/44; PULSE 66; RESP 18; TEMP 36.3; O2SAT 97
[2023-01-29 06:45] LABS: Estimated CRCL calculation 17 ml/min; Estimated Glomerular Filt Rate 22
[2023-01-29] MEDS: PARoxetine 20 MG TABLET PO (08:51)
[2023-01-29] MEDS: CYANOCOBALAMIN 500 MCG TABLET 2500 MCG PO (08:51)
[2023-01-29] MEDS: MULTIVITAMINS /C LUTEIN (CENTRUM SILVER) TABLET *BKC 1 TAB PO (08:51)
[2023-01-29] MEDS: DOCUSATE SODIUM 100 MG CAPSULE PO (08:51)
[2023-01-29] MEDS: SODIUM CHLORIDE 0.9% IV 1,000 ML 100 ML IV CONT ×2 (08:54→20:27)
--- NOTE | 2023-01-29 12:22 | PM.PNNEP ---
Progress Note: A&P Assessment and Plan (1) KEE (acute kidney injury): Code(s): N17.9 - Acute kidney failure, unspecified Status: Acute Assessment and Plan: likely related to UTI (?) evaluation to date: renal ultrasound with mild right and moderate left hydronephrosis; the right internal ureteral stent is not well visualized; mild right kidney atrophy UA consistent with infection urine culture not done known history of right ureteral stent placement -- does he need a left stent as well??? -- discuss with Urology (since renal function not improving) no improvement in renal function with IVFs follow trend of repeat labs and UOP (2) Catheter-associated urinary tract infection: Qualifiers: Encounter type: sequela Indwelling urinary catheter type: indwelling urethral catheter Qualified Code(s): T83.511S - Infection and inflammatory reaction due to indwelling urethral catheter, sequela; N39.0 - Urinary tract infection, site not specified Code(s): T83.511A - Infection and inflammatory reaction due to indwelling urethral catheter, initial encounter; N39.0 - Urinary tract infection, site not specified Status: Acute Assessment and Plan: as suggested by admission UA follow culture data on antibiotics (3) Stage 3a chronic kidney disease: Code(s): N18.31 - Chronic kidney disease, stage 3a Status: Chronic Assessment and Plan: baseline creatinine runs around 1.2 - 1.4mg/dl in the last several years presumably due to issues related to frequent UTIs, urinary retention with need for chronic lugo, and age-related change (4) Benign prostatic hyperplasia: Code(s): N40.0 - Benign prostatic hyperplasia without lower urinary tract symptoms Status: Chronic Assessment and Plan: already has chronic lugo catheter continue flomax Will continue to follow. Subjective Date/time seen: 01/29/23 12:22 Interval history: Follow-up for acute kidney injury/acute renal failure on top of chronic kidney disase. Appears to be doing reasonably well; creatinine is about the same but he reports hematuria is clearing at this time; continues to make reasonable urine output; no other acute issues/events overnight or earlier this morning. Exam Narrative: General: elederly male in NAD Heart: normal S1 and S2; no rub Lungs: clear to auscultation Abdomen: soft, nontender, nondistended, positive bowel sounds Extremities: no cyanosis or clubbing; no edema Skin: warm and dry Objective Data Vital Signs Vital Signs: Vital Signs Temp Pulse Resp BP Pulse Ox O2 Del Method 01/29/23 11:51 97.1 F L 70 18 128/45 L 99 01/29/23 07:44 Room Air 01/29/23 06:00 97.3 F L 66 18 126/44 L 97 01/28/23 22:00 97.2 F L 70 18 116/46 L 100 01/28/23 20:00 Room Air Intake/Output Intake/Output: Intake & Output 01/26/23 01/27/23 01/28/23 01/29/23 23:59 23:59 23:59 23:59 Intake Total 50 2500 2246 Output Total 300 1075 1350 Balance -250 1425 896 Meds/Results Medications: Active Medications Generic Name Dose Route Start Last Admin Trade Name Freq PRN Reason Stop Dose Admin Acetaminophen 650 mg 01/27/23 16:11 Acetaminophen 325 Mg Tablet PO Q4H PRN Mild Pain (1-3) or Fever Calcium Carbonate 500 mg 01/28/23 09:00 01/29/23 08:51 Calcium/Vitamin D 500 Mg Tablet PO 500 mg DAILY VIVEK Administration Cyanocobalamin 2,500 mcg 01/28/23 09:00 01/29/23 08:51 Cyanocobalamin 500 Mcg Tablet PO 2,500 mcg QAM VIVEK Administration Docusate Sodium 100 mg 01/28/23 09:00 01/29/23 08:51 Docusate Sodium 100 Mg Capsule PO 100 mg Q12HR VIVEK Administration Hyoscyamine 0.125 mg 01/28/23 20:36 01/28/23 20:49 Hyoscyamine Sulfate 0.125 Mg Tablet PO 0.125 mg Q4H PRN Administration Bladder Spasm Ceftriaxone Sodium 1 gm in 50 mls @ 100 mls/hr 01/27/23 16:00
--- NOTE | 2023-01-29 12:22 | PM.IMPN ---
Progress Note: A&P Assessment and Plan (1) KEE (acute kidney injury): Code(s): N17.9 - Acute kidney failure, unspecified Status: Acute Assessment and Plan: BUN is 43 creatinine is 2.7. Patient's previous creatinine is 1.4. Continue to hydrate the patient renal ultrasound avoid nephrotoxic medication Appreciate Nephrology input. Urology consult pending (2) Catheter-associated urinary tract infection: Qualifiers: Encounter type: sequela Indwelling urinary catheter type: indwelling urethral catheter Qualified Code(s): T83.511S - Infection and inflammatory reaction due to indwelling urethral catheter, sequela; N39.0 - Urinary tract infection, site not specified Code(s): T83.511A - Infection and inflammatory reaction due to indwelling urethral catheter, initial encounter; N39.0 - Urinary tract infection, site not specified Status: Acute Assessment and Plan: The patient is on Rocephin. Patient's urine was positive for Enterococcus species on 07/12/2022. This is catheter associated UTI. 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 However after reviewing his records it was noted that the patient had a TURP in 2019 for malignant neoplasm of prostate. Continue with Flomax (4) BPH (benign prostatic hyperplasia): Code(s): N40.0 - Benign prostatic hyperplasia without lower urinary tract symptoms Status: Acute Assessment and Plan: continue with Flomax patient has a chronic indwelling Idetz catheter. (5) Anxiety with depression: Code(s): F41.8 - Other specified anxiety disorders Status: Acute Assessment and Plan: Continue with Paxil Plan the patient stated that he was diagnosed with obstructive sleep apnea but he has does not wear CPAP machine. Subjective Date/time seen: 01/29/23 12:22 Interval history: Patient is sleepy this morning. Denies any complaints Exam Narrative: GENERAL APPEARANCE: elderly male in no acute distress HEENT: normocephalic, atraumatic, normal conjunctiva and sclera, nares patient NECK: no lymphadenopathy, thyromegaly, or JVD MOUTH: normal lips, teeth, and gums CARDIOVASCULAR: RRR, normal S1 and S2, no rub RESPIRATORY: clear to auscultation bilaterally ABDOMEN: soft, nontender, nondistended, positive bowel sounds present EXTREMITIES: no evidence of cyanosis, clubbing, or edema NEUROLOGICAL: alert and oriented x 3; CN II - XII intact bilaterally; no focal deficits noted Const: General: cooperative, comfortable, no acute distress, well developed, alert, awake, Physically active, average body habitus, well nourished and thin Nutritional Appearance: average body habitus, well nourished and thin Orientation/consciousness: oriented to person, oriented to place, oriented to time and patient oriented x3 Limitations: no limitations Other: the patient is pale HENMT: Head: normal to inspection, No palpable skull fracture present, normocephalic and atraumatic Ears: external ears normal and hearing grossly impaired Face/Nose/Sinus: Normal external nose present and Normal nares present Eyes: General: appearance normal, both eyes and all related structures Alignment and Position: alignment normal Periorbital: periorbital findings normal Conjunctivae: conjunctivae normal Sclera: sclerae normal Pupils: Equal, round and reactive pupils present EOM: EOMs intact bilaterally Neck: Neck: normal visual inspection, full ROM, no lymphadenopathy, trachea midline and supple Chest: Chest
[2023-01-29 13:51] VITALS: BP 128/45; PULSE 70; RESP 18; TEMP 36.2; O2SAT 99
[2023-01-29] MEDS: TAMSULOSIN HCL 0.4 MG CAPSULE PO (20:21)
[2023-01-29] MEDS: MELATONIN 5 MG TABLET PO (20:21)
[2023-01-29] MEDS: HYOSCYAMINE SULFATE 0.125 MG TABLET PO (20:23)
[2023-01-29 22:00] VITALS: BP 151/40; PULSE 57; RESP 16; TEMP 36.1; O2SAT 99
[2023-01-30] VITALS (17 sets, daily range): BP systolic 137–165; BP diastolic 47–68; PULSE 57–68; RESP 14–18; TEMP 36.1–36.3; O2SAT 96–100
[2023-01-30] MEDS: SODIUM CHLORIDE 0.9% IV 1,000 ML 100 ML IV CONT (05:47)
[2023-01-30 06:09] LABS: Basophils Percent Auto 0.4 % (0.2-1.2); Eosinophils Absolute Auto 0.7 K/mm3 (0-0.3); Eosinophils Percent Auto 14.6 % (0-4.4); Hematocrit 21.4 % (42.0-52.0); Immature Granulocyte Absolute 0.01 K/mm3 (0.00-0.031); Immature Granulocyte Percent A 0.2 % (0-0.5); Lymphocytes Percent Auto 28.3 % (18.3-44.2); Mean Corpuscular HGB Conc 32.2 g/dl (32-36); Mean Corpuscular Volume 108.6 fl (80-100); Mean Platelet Volume 10.1 fl (7.4-10.4); Monocytes Absolute Auto 0.5 K/mm3 (0.1-0.6); Monocytes Percent Auto 9.7 % (2.6-8.5); Neutrophils Absolute Auto 2.3 K/mm3 (1.3-6.7); Neutrophils Percent Auto 46.8 % (45.5-73.1); Platelet Count Result 198 k/mm3 (150-375); Red Blood Count 1.97 M/mm3 (4.6-6.20); Red Cell Distribution Width 12.7 % (11.5-14.5); White Blood Count 4.9 K/mm3 (4.5-10.0)
[2023-01-30 06:23] LABS: Anion Gap 5 mmol/L (8-16); Blood Urea Nitrogen 38 mg/dL (9-20); Calcium 8.4 mg/dL (8.4-10.2); Carbon Dioxide 20 mmol/L (22-30); Chloride 110 mmol/L (98-107); Estimated CRCL calculation 18 ml/min; Estimated Glomerular Filt Rate 24; Glucose 101 mg/dL (65-110); Phosphorus 4.6 mg/dL (2.5-4.5); Potassium 4.8 mmol/L (3.4-5.0); Sodium 135 mmol/L (137-145)
[2023-01-30 06:38] LABS: Hemoglobin 6.9 g/dL (14.0-18.0)
[2023-01-30] MEDS: CYANOCOBALAMIN 500 MCG TABLET 2500 MCG PO (08:24)
[2023-01-30] MEDS: PARoxetine 20 MG TABLET PO (08:24)
[2023-01-30] MEDS: DOCUSATE SODIUM 100 MG CAPSULE PO ×2 (08:24→20:43)
[2023-01-30] MEDS: MULTIVITAMINS /C LUTEIN (CENTRUM SILVER) TABLET *BKC 1 TAB PO (08:24)
--- NOTE | 2023-01-30 09:03 | WPDUROPN2 ---
Progress Note: A&P Assessment and Plan (1) Stage 3a chronic kidney disease: Code(s): N18.31 - Chronic kidney disease, stage 3a Status: Chronic (2) KEE (acute kidney injury): Code(s): N17.9 - Acute kidney failure, unspecified Status: Acute (3) Hydronephrosis: Code(s): N13.30 - Unspecified hydronephrosis Status: Acute Assessment and Plan: now with renal ultrasound showing left hydronephrosis Rec we check non contrast CT abd and pelvis and see if location of possible obstruction may need retrograde and attempt left stent---may consider perc on left pending CT (4) Prostate cancer: Code(s): C61 - Malignant neoplasm of prostate Status: Chronic Assessment and Plan: likely advancing and question if causing obstruction on left with new hydronephrosis (5) Urinary retention: Code(s): R33.9 - Retention of urine, unspecified Status: Acute Subjective Subjective Date/Time Seen: 01/30/23 09:03 Interval history: Cr in 2.5 range and renal ultrasound with some left sided hydronephrosis and has a right stent in atrophic right kidney. Patient with prostate cancer-- local and distant metastatic disease. Concern of local advancement. Exam : General: Yes bladder normal to palpation and Yes no CVA tenderness Other: no flank pain Urinary Catheter: Urinary Catheter: patent and draining Extrem: General: normal to inspection Objective Data Vital Signs Vital Signs: Vital Signs - 24 hr 01/29/23 13:51 01/29/23 20:00 01/29/23 22:00 Temperature 36.2 C L 36.1 C L Pulse Rate 70 57 L Respiratory Rate 18 16 Blood Pressure 128/45 L 151/40 H Pulse Oximetry 99 99 Oxygen Delivery Room Air 01/30/23 06:00 01/30/23 07:56 Temperature 36.3 C L Pulse Rate 60 Respiratory Rate 18 Blood Pressure 158/62 H Pulse Oximetry 100 Oxygen Delivery Room Air Intake/Output Intake/Output: Intake & Output 01/27/23 01/28/23 01/29/23 01/30/23 23:59 23:59 23:59 23:59 Intake Total 50 2500 3770 2135 Output Total 300 1075 1350 650 Balance -250 1425 2420 1485 Meds/Results Medications: Active Medications Generic Name Dose Route Start Last Admin Trade Name Freq PRN Reason Stop Dose Admin Acetaminophen 650 mg 01/27/23 16:11 Acetaminophen 325 Mg Tablet PO Q4H PRN Mild Pain (1-3) or Fever Calcium Carbonate 500 mg 01/28/23 09:00 01/30/23 08:24 Calcium/Vitamin D 500 Mg Tablet PO 500 mg DAILY VIVEK Administration Cyanocobalamin 2,500 mcg 01/28/23 09:00 01/30/23 08:24 Cyanocobalamin 500 Mcg Tablet PO 2,500 mcg QAM VIVEK Administration Docusate Sodium 100 mg 01/28/23 09:00 01/30/23 08:24 Docusate Sodium 100 Mg Capsule PO 100 mg Q12HR VIVEK Administration Hyoscyamine 0.125 mg 01/28/23 20:36 01/29/23 20:23 Hyoscyamine Sulfate 0.125 Mg Tablet PO 0.125 mg Q4H PRN Administration Bladder Spasm Ceftriaxone Sodium 1 gm in 50 mls @ 100 mls/hr 01/27/23 16:00 01/29/23 16:07 Rocephin 1 Gm/Ns 50 Ml IVPB Infused Q24H VIVEK Infusion Sodium Chloride 1,000 mls @ 75 mls/hr 01/27/23 16:15 01/30/23 05:47 Normal Saline Iv IV CONT 100 mls/hr .[id number] VIVEK Administration Sodium Chloride 250 mls @ 30 mls/hr 01/30/23 08:54 Normal Saline Iv IV CONT 01/30/23 17:13 .[id number] STA Melatonin 5 mg 01/29/23 21:00 01/29/23 20:21 Melatonin 5 Mg Tablet PO 5 mg HS VIVEK Administration Multivitamins/Minerals 1 tab 01/28/23 09:00 01/30/23 08:24 Multivitamins /C Lutein (Centrum Silver) Tablet *Bkc PO 1 tab DAILY VIVEK Administration Home Med ( 160 mg 01/28/23 13:20 01/29/23 12:17 Enzalutamide [Xtandi PO 02/27/23 13:19 160 mg ] 40 Mg Tablet DAILY@1200 VIVEK Administration Ondansetron HCl 4 mg 01/27/23 16:11 Ondansetron Inj 4 Mg/2 Ml Vial IV PUSH Q4H PRN Nausea Paroxetine HCl 20 mg 01/28/23 09:00 01/30/23 08:24 Paroxetine 20 Mg Tablet PO 20
--- NOTE | 2023-01-30 10:25 | PM.IMPN ---
Progress Note: A&P Assessment and Plan (1) KEE (acute kidney injury): Code(s): N17.9 - Acute kidney failure, unspecified Status: Acute Assessment and Plan: BUN is 43 creatinine is 2.7. Patient's previous creatinine is 1.4. Continue to hydrate the patient renal ultrasound avoid nephrotoxic medication Appreciate Nephrology input. Urology consult pending (2) Catheter-associated urinary tract infection: Qualifiers: Encounter type: sequela Indwelling urinary catheter type: indwelling urethral catheter Qualified Code(s): T83.511S - Infection and inflammatory reaction due to indwelling urethral catheter, sequela; N39.0 - Urinary tract infection, site not specified Code(s): T83.511A - Infection and inflammatory reaction due to indwelling urethral catheter, initial encounter; N39.0 - Urinary tract infection, site not specified Status: Acute Assessment and Plan: The patient is on Rocephin. Patient's urine was positive for Enterococcus species on 07/12/2022. This is catheter associated UTI. 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 However after reviewing his records it was noted that the patient had a TURP in 2019 for malignant neoplasm of prostate. Continue with Flomax (4) BPH (benign prostatic hyperplasia): Code(s): N40.0 - Benign prostatic hyperplasia without lower urinary tract symptoms Status: Acute Assessment and Plan: continue with Flomax patient has a chronic indwelling Dietz catheter. (5) Anxiety with depression: Code(s): F41.8 - Other specified anxiety disorders Status: Acute Assessment and Plan: Continue with Paxil Plan the patient stated that he was diagnosed with obstructive sleep apnea but he has does not wear CPAP machine. Subjective Date/time seen: 01/30/23 10:25 Interval history: No complaints Exam Narrative: GENERAL APPEARANCE: elderly male in no acute distress HEENT: normocephalic, atraumatic, normal conjunctiva and sclera, nares patient NECK: no lymphadenopathy, thyromegaly, or JVD MOUTH: normal lips, teeth, and gums CARDIOVASCULAR: RRR, normal S1 and S2, no rub RESPIRATORY: clear to auscultation bilaterally ABDOMEN: soft, nontender, nondistended, positive bowel sounds present EXTREMITIES: no evidence of cyanosis, clubbing, or edema NEUROLOGICAL: alert and oriented x 3; CN II - XII intact bilaterally; no focal deficits noted Objective Data Vital Signs Vital Signs: Vital Signs - 24 hr 01/29/23 13:51 01/29/23 20:00 01/29/23 22:00 Temperature 97.1 F L 97 F L Pulse Rate 70 57 L Respiratory Rate 18 16 Blood Pressure 128/45 L 151/40 H Pulse Oximetry 99 99 Oxygen Delivery Room Air 01/30/23 06:00 01/30/23 07:56 01/30/23 09:37 Temperature 97.3 F L Pulse Rate 60 Respiratory Rate 18 Blood Pressure 158/62 H Pulse Oximetry 100 100 Oxygen Delivery Room Air Room Air Intake/Output Intake/Output: Intake & Output 01/27/23 01/28/23 01/29/23 01/30/23 23:59 23:59 23:59 23:59 Intake Total 50 2500 3770 2135 Output Total 300 1075 1350 650 Balance -250 1425 2420 1485 Meds/Results Medications: Active Medications Generic Name Dose Route Start Last Admin Trade Name Freq PRN Reason Stop Dose Admin Acetaminophen 650 mg 01/27/23 16:11 Acetaminophen 325 Mg Tablet PO Q4H PRN Mild Pain (1-3) or Fever Calcium Carbonate 500 mg 01/28/23 09:00 01/30/23 08:24 Calcium/Vitamin D 500 Mg Tablet PO 500 mg DAILY VIVEK Adminis
[2023-01-30] MEDS: TUBING, BLOOD PLUM PUMP TUBING 1 EACH XX ×2 (12:13→16:20)
[2023-01-30] MEDS: SODIUM CHLORIDE 0.9% IV 250 ML 30 ML IV CONT (12:13)
--- NOTE | 2023-01-30 13:31 | P.PNNP_ITS ---
Progress Note: A&P Assessment and Plan (1) KEE (acute kidney injury): Code(s): N17.9 - Acute kidney failure, unspecified Status: Acute Assessment and Plan: * likely related to UTI (?) * evaluation to date: * renal ultrasound with mild right and moderate left hydronephrosis; the right internal ureteral stent is not well visualized; mild right kidney atrophy * UA consistent with infection * urine culture with no growth * known history of right ureteral stent placement * does he need a left stent as well??? * Urology recommendations noted * no improvement in renal function with IVFs * follow trend of repeat labs and UOP (2) Stage 3a chronic kidney disease: Code(s): N18.31 - Chronic kidney disease, stage 3a Status: Chronic Assessment and Plan: * baseline creatinine runs around 1.2 - 1.4mg/dl in the last several years * presumably due to issues related to frequent UTIs, urinary retention with need for chronic lugo, and age-related change (3) Catheter-associated urinary tract infection: Qualifiers: Encounter type: sequela Indwelling urinary catheter type: indwelling urethral catheter Qualified Code(s): T83.511S - Infection and inflammatory krystal ction due to indwelling urethral catheter, sequela; N39.0 - Urinary tract infection, site not specified Code(s): T83.511A - Infection and inflammatory reaction due to indwelling urethral catheter, initial encounter; N39.0 - Urinary tract infection, site not specified Status: Acute Assessment and Plan: * as suggested by admission UA * follow culture data - negative to date * on antibiotics (4) Benign prostatic hyperplasia: Code(s): N40.0 - Benign prostatic hyperplasia without lower urinary tract symptoms Status: Chronic Assessment and Plan: * already has chronic lugo catheter * complicated by known history of bladder cancer * continue flomax * Urology following Will continue to follow. Subjective Date/time seen: 01/30/23 13:31 Interval history: Follow-up for acute kidney injury/acute renal failure on top of chronic kidney disase. No apparent distress noted at the time of my visit; creatinine slightly better by AM labs; seen again by Urology this morning; no other issues/events overnight or earlier this morning; low H/H noted by AM labs so PRBC transfusion today. Exam Narrative: General: elderly male in NAD Heart: normal S1 and S2; no rub Lungs: clear to auscultation Abdomen: soft, nontender, nondistended, positive bowel sounds Extremities: no cyanosis or clubbing; no edema Skin: warm and intact Objective Data Vital Signs Vital Signs: Vital Signs Temp Pulse Resp BP Pulse Ox O2 Del Method 01/30/23 13:26 97.1 F L 61 16 158/51 H 99 01/30/23 13:10 97.1 F L 61 16 158/51 H 99 01/30/23 12:10 97.1 F L 64 15 165/50 H 99 01/30/23 12:10 97.1 F L 64 15 165/50 H 99 01/30/23 11:48 97.2 F L 65 16 154/50 H 98 01/30/23 09:37 100 Room Air 01/30/23 07:56 Room Air 01/30/23 06:00 97.3 F L 60 18 158/62 H 100 01/29/23 22:00 97 F L 57 L 16 151/40 H 99 01/29/23 20:00 Room Air Intake/Output Intake/Output: Intake & Output 01/27/23 01/28/23 01/29/23 01/30/23 2
--- NOTE | 2023-01-30 13:31 | PM.PNNEP ---
Progress Note: A&P Assessment and Plan (1) KEE (acute kidney injury): Code(s): N17.9 - Acute kidney failure, unspecified Status: Acute Assessment and Plan: likely related to UTI (?) evaluation to date: renal ultrasound with mild right and moderate left hydronephrosis; the right internal ureteral stent is not well visualized; mild right kidney atrophy UA consistent with infection urine culture with no growth known history of right ureteral stent placement does he need a left stent as well??? Urology recommendations noted no improvement in renal function with IVFs follow trend of repeat labs and UOP (2) Stage 3a chronic kidney disease: Code(s): N18.31 - Chronic kidney disease, stage 3a Status: Chronic Assessment and Plan: baseline creatinine runs around 1.2 - 1.4mg/dl in the last several years presumably due to issues related to frequent UTIs, urinary retention with need for chronic lugo, and age-related change (3) Catheter-associated urinary tract infection: Qualifiers: Encounter type: sequela Indwelling urinary catheter type: indwelling urethral catheter Qualified Code(s): T83.511S - Infection and inflammatory reaction due to indwelling urethral catheter, sequela; N39.0 - Urinary tract infection, site not specified Code(s): T83.511A - Infection and inflammatory reaction due to indwelling urethral catheter, initial encounter; N39.0 - Urinary tract infection, site not specified Status: Acute Assessment and Plan: as suggested by admission UA follow culture data - negative to date on antibiotics (4) Benign prostatic hyperplasia: Code(s): N40.0 - Benign prostatic hyperplasia without lower urinary tract symptoms Status: Chronic Assessment and Plan: already has chronic lugo catheter complicated by known history of bladder cancer continue flomax Urology following Will continue to follow. Subjective Date/time seen: 01/30/23 13:31 Interval history: Follow-up for acute kidney injury/acute renal failure on top of chronic kidney disase. No apparent distress noted at the time of my visit; creatinine slightly better by AM labs; seen again by Urology this morning; no other issues/events overnight or earlier this morning; low H/H noted by AM labs so PRBC transfusion today. Exam Narrative: General: elderly male in NAD Heart: normal S1 and S2; no rub Lungs: clear to auscultation Abdomen: soft, nontender, nondistended, positive bowel sounds Extremities: no cyanosis or clubbing; no edema Skin: warm and intact Objective Data Vital Signs Vital Signs: Vital Signs Temp Pulse Resp BP Pulse Ox O2 Del Method 01/30/23 13:26 97.1 F L 61 16 158/51 H 99 01/30/23 13:10 97.1 F L 61 16 158/51 H 99 01/30/23 12:10 97.1 F L 64 15 165/50 H 99 01/30/23 12:10 97.1 F L 64 15 165/50 H 99 01/30/23 11:48 97.2 F L 65 16 154/50 H 98 01/30/23 09:37 100 Room Air 01/30/23 07:56 Room Air 01/30/23 06:00 97.3 F L 60 18 158/62 H 100 01/29/23 22:00 97 F L 57 L 16 151/40 H 99 01/29/23 20:00 Room Air Intake/Output Intake/Output: Intake & Output 01/27/23 01/28/23 01/29/23 01/30/23 23:59 23:59 23:59 23:59 Intake Total 50 2500 3770 3409 Output Total 300 1075 1350 1600 Balance -250 1425 2420 1809 Meds/Results Medications: Active Medications Generic Name Dose Route Start Last Admin Trade Name Kylerq PRN Reason Stop Dose Admin Acetaminophen 650 mg 01/27/23 16:11 Acetaminophen 325 Mg Tablet PO Q4H PRN Mild Pain (1-3) or Fever Calcium Carbonate 500 mg 01/28/23 09:00 01/30/23 08:24 Calcium/Vitamin D 500 Mg Tablet PO 500 mg DAILY VIVEK Administration Cyanocobalamin 2,500 mcg 01/28/23 09:00 01/30/23 08:24 Cyanocobalamin 500 Mcg Tablet PO 2,500 mcg QAM VIVEK Administration Docusate Sodium 100 mg
[2023-01-30 15:40] LABS: Vancomycin Random 15.4 ug/mL (10-20)
[2023-01-30] MEDS: HYOSCYAMINE SULFATE 0.125 MG TABLET PO (20:43)
[2023-01-30] MEDS: MELATONIN 5 MG TABLET PO (20:43)
[2023-01-30] MEDS: VANCOMYCIN 1,000 MG/NS 250 ML 1,000 MG/250 ML BAG 250 MG IVPB (20:44)
[2023-01-30] MEDS: TAMSULOSIN HCL 0.4 MG CAPSULE PO (20:44)
[2023-01-31 06:00] VITALS: BP 166/44; PULSE 60; RESP 18; TEMP 35.5; O2SAT 94
[2023-01-31 06:40] LABS: Basophils Percent Auto 0.7 % (0.2-1.2); Eosinophils Absolute Auto 0.8 K/mm3 (0-0.3); Eosinophils Percent Auto 14.3 % (0-4.4); Hematocrit 31.5 % (42.0-52.0); Hemoglobin 9.8 g/dL (14.0-18.0); Immature Granulocyte Absolute 0.02 K/mm3 (0.00-0.031); Immature Granulocyte Percent A 0.4 % (0-0.5); Lymphocytes Absolute Auto 1.47 K/mm3 (0.9-3.2); Lymphocytes Percent Auto 25.9 % (18.3-44.2); Mean Corpuscular HGB Conc 31.1 g/dl (32-36); Mean Corpuscular Hemoglobin 32.7 pg (26-34); Mean Platelet Volume 9.9 fl (7.4-10.4); Monocytes Absolute Auto 0.6 K/mm3 (0.1-0.6); Monocytes Percent Auto 10.1 % (2.6-8.5); Neutrophils Absolute Auto 2.8 K/mm3 (1.3-6.7); Neutrophils Percent Auto 48.6 % (45.5-73.1); Platelet Count Result 170 k/mm3 (150-375); White Blood Count 5.7 K/mm3 (4.5-10.0)
[2023-01-31 07:00] LABS: Albumin Level 2.9 g/dL (3.5-5.1); Anion Gap 8 mmol/L (8-16); Blood Urea Nitrogen 38 mg/dL (9-20); Calcium 8.5 mg/dL (8.4-10.2); Carbon Dioxide 16 mmol/L (22-30); Chloride 111 mmol/L (98-107); Estimated CRCL calculation 20 ml/min; Estimated Glomerular Filt Rate 27; Glucose 80 mg/dL (65-110); Potassium 5.1 mmol/L (3.4-5.0); Sodium 135 mmol/L (137-145)
[2023-01-31] MEDS: DOCUSATE SODIUM 100 MG CAPSULE PO ×2 (09:02→21:09)
[2023-01-31] MEDS: CYANOCOBALAMIN 500 MCG TABLET 2500 MCG PO (09:02)
[2023-01-31] MEDS: PARoxetine 20 MG TABLET PO (09:03)
[2023-01-31] MEDS: MULTIVITAMINS /C LUTEIN (CENTRUM SILVER) TABLET *BKC 1 TAB PO (09:03)
--- NOTE | 2023-01-31 10:43 | PM.PNNEP ---
Progress Note: A&P Assessment and Plan (1) KEE (acute kidney injury): Code(s): N17.9 - Acute kidney failure, unspecified Status: Acute Assessment and Plan: likely related to UTI (?) evaluation to date: renal ultrasound with mild right and moderate left hydronephrosis; the right internal ureteral stent is not well visualized; mild right kidney atrophy UA consistent with infection urine culture with no growth known history of right ureteral stent placement does he need a left stent as well??? Urology recommendations noted recent CT imaging noted.... no improvement in renal function with IVFs follow trend of repeat labs and UOP (2) Stage 3a chronic kidney disease: Code(s): N18.31 - Chronic kidney disease, stage 3a Status: Chronic Assessment and Plan: baseline creatinine runs around 1.2 - 1.4mg/dl in the last several years presumably due to issues related to frequent UTIs, urinary retention with need for chronic lugo, and age-related change (3) Catheter-associated urinary tract infection: Qualifiers: Encounter type: sequela Indwelling urinary catheter type: indwelling urethral catheter Qualified Code(s): T83.511S - Infection and inflammatory reaction due to indwelling urethral catheter, sequela; N39.0 - Urinary tract infection, site not specified Code(s): T83.511A - Infection and inflammatory reaction due to indwelling urethral catheter, initial encounter; N39.0 - Urinary tract infection, site not specified Status: Acute Assessment and Plan: as suggested by admission UA follow culture data - negative to date on antibiotics (4) Benign prostatic hyperplasia: Code(s): N40.0 - Benign prostatic hyperplasia without lower urinary tract symptoms Status: Chronic Assessment and Plan: already has chronic lugo catheter complicated by known history of bladder cancer continue [facility] Urology following Will continue to follow. Subjective Date/time seen: 01/31/23 10:43 Interval history: Follow-up for acute kidney injury/acute renal failure on top of chronic kidney disase. No new complaints or issues to report at this time; creatinine seems to be improving albeit slowly; no issues/events overnight or earlier this AM; no apparent distress noted. Exam Narrative: General: elderly male in NAD Heart: normal S1 and S2; no rub Lungs: clear to auscultation Abdomen: soft, nontender, nondistended, positive bowel sounds Extremities: no cyanosis or clubbing; no edema Skin: no rash Objective Data Vital Signs Vital Signs: Vital Signs Temp Pulse Resp BP Pulse Ox O2 Del Method 01/31/23 08:00 Room Air 01/31/23 06:00 96 F L 60 18 166/44 H 94 01/30/23 22:00 97.3 F L 58 L 18 162/68 H 96 01/30/23 20:00 Room Air 01/30/23 18:55 96.9 F L 61 15 158/49 H 98 01/30/23 18:28 97.0 F L 60 16 161/51 H 99 01/30/23 17:28 97.0 F L 63 15 161/50 H 99 01/30/23 16:28 97.3 F L 62 14 148/51 H 99 01/30/23 16:28 97.3 F L 62 14 148/51 H 99 01/30/23 16:28 97.3 F L 62 14 148/51 H 99 01/30/23 16:27 97.3 F L 62 14 148/51 H 99 01/30/23 16:12 97.0 F L 68 15 137/51 L 99 01/30/23 16:05 97.0 F L 68 15 137/51 L 99 01/30/23 15:41 97.0 F L 57 L 15 157/47 H 98 01/30/23 15:10 97.0 F L 57 L 15 157/47 H 98 01/30/23 13:56 97.1 F L 61 16 158/51 H 99 01/30/23 14:10 97.1 F L 63 14 147/50 H 99 01/30/23 13:10 97.1 F L 61 16 158/51 H 99 01/30/23 12:10 97.1 F L 64 15 165/50 H 99 01/30/23 12:10 97.1 F L 64 15 165/50 H 99 01/30/23 11:48 97.2 F L 65 16 154/50 H 98 Intake/Output Intake/Output: Intake & Output 01/28/23 01/29/23 01/30/23 01/31/23 23:59 23:59 23:59 23:59 Intake Total 2500 3770 3759 240 Output Total 1075 1350 1600 1000 Balance 1425 2420 2159 -608 Meds/Results Medications: Active
--- NOTE | 2023-01-31 10:43 | P.PNNP_ITS ---
Progress Note: A&P Assessment and Plan (1) KEE (acute kidney injury): Code(s): N17.9 - Acute kidney failure, unspecified Status: Acute Assessment and Plan: * likely related to UTI (?) * evaluation to date: * renal ultrasound with mild right and moderate left hydronephrosis; the right internal ureteral stent is not well visualized; mild right kidney atrophy * UA consistent with infection * urine culture with no growth * known history of right ureteral stent placement * does he need a left stent as well??? * Urology recommendations noted * recent CT imaging noted.... * no improvement in renal function with IVFs * follow trend of repeat labs and UOP (2) Stage 3a chronic kidney disease: Code(s): N18.31 - Chronic kidney disease, stage 3a Status: Chronic Assessment and Plan: * baseline creatinine runs around 1.2 - 1.4mg/dl in the last several years * presumably due to issues related to frequent UTIs, urinary retention with need for chronic lugo, and age-related change (3) Catheter-associated urinary tract infection: Qualifiers: Encounter type: sequela Indwelling urinary catheter type: indwelling urethral catheter Qualified Code(s): T83.511S - Infection and inflammatory reaction due to indwelling urethral catheter, sequela; N39.0 - Urinary tract infection, site not specified Code(s): T83.511A - Infection and inflammatory reaction due to indwelling urethral catheter, initial encounter; N39.0 - Urinary tract infection, site not specified Status: Acute Assessment and Plan: * as suggested by admission UA * follow culture data - negative to date * on antibiotics (4) Benign prostatic hyperplasia: Code(s): N40.0 - Benign prostatic hyperplasia without lower urinary tract symptoms Status: Chronic Assessment and Plan: * already has chronic lugo catheter * complicated by known history of bladder cancer * continue flomax * Urology following Will continue to follow. Subjective Date/time seen: 01/31/23 10:43 Interval history: Follow-up for acute kidney injury/acute renal failure on top of chronic kidney disase. No new complaints or issues to report at this time; creatinine seems to be improving albeit slowly; no issues/events overnight or earlier this AM; no apparent distress noted. Exam Narrative: General: elderly male in NAD Heart: normal S1 and S2; no rub Lungs: clear to auscultation Abdomen: soft, nontender, nondistended, positive bowel sounds Extremities: no cyanosis or clubbing; no edema Skin: no rash Objective Data Vital Signs Vital Signs: Vital Signs Temp Pulse Resp BP Pulse Ox O2 Del Method 01/31/23 08:00 Room Air 01/31/23 06:00 96 F L 60 18 166/44 H 94 01/30/23 22:00 97.3 F L 58 L 18 162/68 H 96 01/30/23 20:00 Room Air 01/30/23 18:55 96.9 F L 61 15 158/49 H 98 01/30/23 18:28 97.0 F L 60 16 161/51 H 99 01/30/23 17:28 97.0 F L 63 15 161/50 H 99 01/30/23 16:28 97.3 F L 62 14 148/51 H 99 01/30/23 16:28 97.3 F L 62 14 148/51 H 99 01/30/23 16:28 97.3 F L 62 14 148/51 H 99 01/30/23 16:27 97.3 F L 62 14 148/51 H 99 01/30/23 16:12 97.0 F L 68 15 137/51 L 99 01/30/23 16:05 97.0 F L 68 15 137/51 L 99
--- NOTE | 2023-01-31 10:57 | PM.IMPN ---
Progress Note: A&P Assessment and Plan (1) KEE (acute kidney injury): Code(s): N17.9 - Acute kidney failure, unspecified Status: Acute Assessment and Plan: Creatinine is improving. renal ultrasound avoid nephrotoxic medication creatinine Appreciate Nephrology input. Urology consult pending - ? Stent (2) Catheter-associated urinary tract infection: Qualifiers: Encounter type: sequela Indwelling urinary catheter type: indwelling urethral catheter Qualified Code(s): T83.511S - Infection and inflammatory reaction due to indwelling urethral catheter, sequela; N39.0 - Urinary tract infection, site not specified Code(s): T83.511A - Infection and inflammatory reaction due to indwelling urethral catheter, initial encounter; N39.0 - Urinary tract infection, site not specified Status: Acute Assessment and Plan: The patient is on Rocephin. Patient's urine was positive for Enterococcus species on 07/12/2022. This is catheter associated UTI. Blood cultures are pending with the urine cultures. 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 However after reviewing his records it was noted that the patient had a TURP in 2019 for malignant neoplasm of prostate. Continue with Flomax (4) BPH (benign prostatic hyperplasia): Code(s): N40.0 - Benign prostatic hyperplasia without lower urinary tract symptoms Status: Acute Assessment and Plan: continue with Flomax patient has a chronic indwelling Dietz catheter. (5) Anxiety with depression: Code(s): F41.8 - Other specified anxiety disorders Status: Acute Assessment and Plan: Continue with Paxil Plan the patient stated that he was diagnosed with obstructive sleep apnea but he has does not wear CPAP machine. Subjective Date/time seen: 01/31/23 10:57 Interval history: No complaints Exam Narrative: GENERAL APPEARANCE: elderly male in no acute distress HEENT: normocephalic, atraumatic, normal conjunctiva and sclera, nares patient NECK: no lymphadenopathy, thyromegaly, or JVD MOUTH: normal lips, teeth, and gums CARDIOVASCULAR: RRR, normal S1 and S2, no rub RESPIRATORY: clear to auscultation bilaterally ABDOMEN: soft, nontender, nondistended, positive bowel sounds present EXTREMITIES: no evidence of cyanosis, clubbing, or edema NEUROLOGICAL: alert and oriented x 3; CN II - XII intact bilaterally; no focal deficits noted Objective Data Vital Signs Vital Signs: Vital Signs - 24 hr 01/30/23 11:48 01/30/23 12:10 01/30/23 12:10 Temperature 97.2 F L 97.1 F L 97.1 F L Pulse Rate 65 64 64 Respiratory Rate 16 15 15 Blood Pressure 154/50 H 165/50 H 165/50 H Pulse Oximetry 98 99 99 Oxygen Delivery 01/30/23 13:10 01/30/23 14:10 01/30/23 13:56 Temperature 97.1 F L 97.1 F L 97.1 F L Pulse Rate 61 63 61 Respiratory Rate 16 14 16 Blood Pressure 158/51 H 147/50 H 158/51 H Pulse Oximetry 99 99 99 Oxygen Delivery 01/30/23 15:10 01/30/23 15:41 01/30/23 16:05 Temperature 97.0 F L 97.0 F L 97.0 F L Pulse Rate 57 L 57 L 68 Respiratory Rate 15 15 15 Blood Pressure 157/47 H 157/47 H 137/51 L Pulse Oximetry 98 98 99 Oxygen Delivery 01/30/23 16:12 01/30/23 16:27 01/30/23 16:28 Temperature 97.0 F L 97.3 F L 97.3 F L Pulse Rate 68 62 62 Respiratory Rate 15 14 14 Blood Pressure 137/51 L 148/51 H 148/51 H Pulse Oximetry 99 99 99 Oxygen Delivery 01/30/23 16:28 01/30/23 16:28 01/30/23 17:28 Temperature 97.3 F L 97.3 F L 97.0 F L Pulse Rate 62 62 63 Respiratory Rate 14 14 15 Blood Pressure 148/51 H 148/51 H 161/
--- NOTE | 2023-01-31 13:12 | WPDUROPN2 ---
Progress Note: A&P Assessment and Plan (1) Prostate cancer: Code(s): C61 - Malignant neoplasm of prostate Status: Chronic (2) Hydronephrosis: Code(s): N13.30 - Unspecified hydronephrosis Status: Acute Assessment and Plan: Obtain Consent: Cystoscopy, left ureteral stent placement, right stent exchange, bilateral retrograde pyelogram. Keep NPO after midnight. Will plan to go to the OR tomorrow with Dr. Jerome. Secondary to advancing prostate cancer into left ureter as seen on CT. Will need stent placement and monitoring of creatinine to seek improvement. Patient is due for a right stent exchange as well, we will do both at the same time. Urine Culture negative from 01/28/23. Subjective Subjective Date/Time Seen: 01/31/23 13:12 Urine Culture Negative KEE CT scan: Suspected irregular mass inseparable from the prostate gland and extending to the posterior urinary bladder and likely obstructing the distal left ureter. This is suspicious for prostate cancer given the provided history, with lesion measuring approximately 4.9 x 3.4 cm in diameter. Moderate left hydroureteronephrosis. Lymphadenopathy, as detailed above, predominantly the left pelvic sidewall region, consistent with metastatic prostate cancer. Right ureteral stent present. Review of Systems Cardiovascular: Cardiovascular: Denies chest pain Gastrointestinal: Gastrointestinal: Denies abdominal pain, Denies nausea and Denies vomiting Genitourinary: Genitourinary: Denies hematuria, Denies genital pain and Denies flank pain Exam Const: General: cooperative and comfortable Resp: Effort & Inspection: normal respiratory effort Cardio: Rate: regular rate GI: GI Palp: Yes Soft to palpation and No Tenderness to palpation present (GI) : General: Yes no CVA tenderness Urinary Catheter: Urinary Catheter: patent and draining and urine clear Extrem: Right lower extremity: no edema Left lower extremity: no edema Objective Data Vital Signs Vital Signs: Vital Signs - 24 hr 01/30/23 14:10 01/30/23 13:56 01/30/23 15:10 Temperature 97.1 F L 97.1 F L 97.0 F L Pulse Rate 63 61 57 L Respiratory Rate 14 16 15 Blood Pressure 147/50 H 158/51 H 157/47 H Pulse Oximetry 99 99 98 Oxygen Delivery 01/30/23 15:41 01/30/23 16:05 01/30/23 16:12 Temperature 97.0 F L 97.0 F L 97.0 F L Pulse Rate 57 L 68 68 Respiratory Rate 15 15 15 Blood Pressure 157/47 H 137/51 L 137/51 L Pulse Oximetry 98 99 99 Oxygen Delivery 01/30/23 16:27 01/30/23 16:28 01/30/23 16:28 Temperature 97.3 F L 97.3 F L 97.3 F L Pulse Rate 62 62 62 Respiratory Rate 14 14 14 Blood Pressure 148/51 H 148/51 H 148/51 H Pulse Oximetry 99 99 99 Oxygen Delivery 01/30/23 16:28 01/30/23 17:28 01/30/23 18:28 Temperature 97.3 F L 97.0 F L 97.0 F L Pulse Rate 62 63 60 Respiratory Rate 14 15 16 Blood Pressure 148/51 H 161/50 H 161/51 H Pulse Oximetry 99 99 99 Oxygen Delivery 01/30/23 18:55 01/30/23 20:00 01/30/23 22:00 Temperature 96.9 F L 97.3 F L Pulse Rate 61 58 L Respiratory Rate 15 18 Blood Pressure 158/49 H 162/68 H Pulse Oximetry 98 96 Oxygen Delivery Room Air 01/31/23 06:00 01/31/23 08:00 Temperature 96 F L Pulse Rate 60 Respiratory Rate 18 Blood Pressure 166/44 H Pulse Oximetry 94 Oxygen Delivery Room Air Intake/Output Intake/Output: Intake & Output 01/28/23 01/29/23 01/30/23 01/31/23 23:59 23:59 23:59 23:59 Intake Total 2500 3770 3759 240 Output Total 1075 1350 1600 1000 Balance 1424 6464 2157 -094 Meds/Results Medications: Active Medications Generic Name Dose Route Start Last Admin Trade Name Freq PRN Reason Stop Dose Admin Acetaminophen 650 mg 01/27/23 16:11 Acetaminophen 325 Mg Tablet PO Q4H PRN Mild Pain (1-3) or Fever Calcium Carbonate 500 mg 01/28/23 09:00 01/31/23 09:03 Calcium/Vitamin D 500 Mg Tablet PO 500 mg DAILY VIVEK Administration Cyanocobalam
[2023-01-31 14:31] VITALS: BP 158/47; PULSE 57; RESP 14; TEMP 36.3; O2SAT 97
--- NOTE | 2023-01-31 14:31 | WPDANESEPPF ---
Anes - Initial Pre Proc Eval Procedure: Operation Date: 02/01/23 12:00 Proposed Procedures p Cystoscopy, Bilateral Retrograde Pyelogram, Left Stent Placement, Right Stent Exchange - J Luis Jerome MD Date/Time: 01/31/23 14:31 Surgeon: Lucien Sidhu MD Pre Op Diagnosis: Urinary Tract Infection,Catheter Related,KEE Patient Data Age: 87 Gender: M Height: 1.73 m Weight: 78.2 kg Last Vital Signs Temp 35.5 C L 01/31/23 06:00 Pulse 60 01/31/23 06:00 Resp 18 01/31/23 06:00 BP 166/44 H 01/31/23 06:00 Pulse Ox 94 01/31/23 06:00 O2 Del Method Room Air 01/31/23 08:00 Allergies Allergy/AdvReac Type Severity Reaction Status Date / Time aspartame Allergy Intermediate HIVE Verified 01/27/23 14:15 lisinopril Allergy Intermediate Rash, Verified 01/27/23 14:15 itching Home Medications Medication Instructions Recorded Confirmed Type docusate sodium 100 mg capsule 100 mg PO Q12H 11/12/19 01/27/23 History (Colace) enzalutamide 40 mg capsule (Xtandi) 160 mg PO DAILY 06/11/22 01/27/23 History cyanocobalamin (vitamin B-12) 2,500 mcg PO QAM #90 tabs 07/21/22 01/27/23 Rx 1,000 mcg tablet (Vitamin B-12) paroxetine HCl 20 mg tablet 20 mg PO QAM #90 tabs 12/01/22 01/27/23 Rx tamsulosin 0.4 mg capsule 0.4 mg PO HS #90 caps 12/20/22 01/27/23 Rx calcium carbonate 500 mg-vitamin 1 tablet PO DAILY 01/27/23 01/27/23 History D3 5 mcg (200 unit) tablet (Oyster Shell Calcium-Vitamin D3) multivit with minerals-iron 18 1 tablet PO DAILY 01/27/23 01/27/23 History mg-folic ac 400 mcg-vit K 25 mcg tablet (Adults Multivitamin) Laboratory Tests 01/30/23 01/30/23 01/31/23 09:06 14:53 05:57 WBC 5.7 K/mm3 (4.5-10.0) RBC 3.00 L M/mm3 (4.6-6.20) Hgb 9.8 L g/dL (14.0-18.0) Hct 31.5 L % (42.0-52.0) MCV 105.0 H fl (80-100) MCH 32.7 D pg (26-34) MCHC 31.1 L g/dl (32-36) RDW 17.0 H % (11.5-14.5) Plt Count 170 k/mm3 (150-375) MPV 9.9 fl (7.4-10.4) Immature Gran % (Auto) 0.4 % (0-0.5) Neut % (Auto) 48.6 % (45.5-73.1) Lymph % (Auto) 25.9 % (18.3-44.2) Garden % (Auto) 10.1 H % (2.6-8.5) Eos % (Auto) 14.3 H % (0-4.4) Baso % (Auto) 0.7 % (0.2-1.2) Lymph # (Auto) 1.47 K/mm3 (0.9-3.2) Garden # (Auto) 0.6 K/mm3 (0.1-0.6) Eos # (Auto) 0.8 H K/mm3 (0-0.3) Baso # (Auto) 0.0 K/mm3 (0.0-0.1) Abs Immat Gran (auto) 0.02 K/mm3 (0.00-0.031) Absolute Neuts (auto) 2.8 K/mm3 (1.3-6.7) Absolute Nucleated RBC 0.0 K/mm3 (0.0-0.012) Nucleated RBC % 0.0 % (0.0-0.2) Sodium 135 L mmol/L (137-145) Potassium 5.1 H mmol/L (3.4-5.0) Chloride 111 H mmol/L (98-107) Carbon Dioxide 16 L mmol/L (22-30) Anion Gap 8 mmol/L (8-16) BUN 38 H mg/dL (9-20) Creatinine 2.30 H mg/dL (0.7-1.3) Estim Creat Clear Calc 20 ml/min Estimated GFR 27 L (59 - ) Glucose 80 mg/dL (65-110) Calcium 8.5 mg/dL (8.4-10.2) Phosphorus 5.0 H mg/dL (2.5-4.5) Albumin 2.9 L g/dL (3.5-5.1) Random Vancomycin 15.4 ug/mL (10-20) Blood Type A Positive Antibody Screen Negative Crossmatch See Detail Patient hx anesthesia problems: none Family hx anesthesia problems: none Results Review: All pre-operative results and documents have been reviewed as part of the pre-operative evaluation. [facility] Past Medical History Medical History Anemia in chronic kidney disease Anxiety with depression Benign prostatic hyperplasia Chronic idiopathic urticaria Chronic kidney disease, stage 4 (severe) Constipation COVID-19 Depression E
[2023-01-31 20:00] VITALS: PULSE 57; RESP 14; O2SAT 97
[2023-01-31] MEDS: TAMSULOSIN HCL 0.4 MG CAPSULE PO (21:10)
[2023-01-31] MEDS: MELATONIN 5 MG TABLET PO (21:10)
[2023-01-31 21:47] VITALS: BP 181/56; PULSE 57; RESP 18; TEMP 36.2; O2SAT 99
[2023-02-01] VITALS (13 sets, daily range): BP systolic 126–183; BP diastolic 47–62; PULSE 54–64; RESP 14–18; TEMP 36–36.6; O2SAT 92–99
[2023-02-01 09:32] LABS: Basophils Percent Auto 0.5 % (0.2-1.2); Eosinophils Absolute Auto 0.9 K/mm3 (0-0.3); Eosinophils Percent Auto 14.8 % (0-4.4); Hematocrit 33.1 % (42.0-52.0); Hemoglobin 10.8 g/dL (14.0-18.0); Immature Granulocyte Absolute 0.02 K/mm3 (0.00-0.031); Immature Granulocyte Percent A 0.3 % (0-0.5); Immature Platelet Fraction Pct 2.9 % (0.9-11.2); Lymphocytes Absolute Auto 1.57 K/mm3 (0.9-3.2); Mean Corpuscular HGB Conc 32.6 g/dl (32-36); Mean Corpuscular Hemoglobin 33.1 pg (26-34); Mean Corpuscular Volume 101.5 fl (80-100); Mean Platelet Volume 10.1 fl (7.4-10.4); Monocytes Absolute Auto 0.6 K/mm3 (0.1-0.6); Monocytes Percent Auto 10.5 % (2.6-8.5); Neutrophils Absolute Auto 2.7 K/mm3 (1.3-6.7); Neutrophils Percent Auto 46.9 % (45.5-73.1); Platelet Count Result 209 k/mm3 (150-375); Red Blood Count 3.26 M/mm3 (4.6-6.20); Red Cell Distribution Width 15.4 % (11.5-14.5); White Blood Count 5.8 K/mm3 (4.5-10.0)
[2023-02-01 09:43] LABS: Albumin Level 3.5 g/dL (3.5-5.1); Anion Gap 11 mmol/L (8-16); Blood Urea Nitrogen 41 mg/dL (9-20); Calcium 8.7 mg/dL (8.4-10.2); Carbon Dioxide 13 mmol/L (22-30); Chloride 110 mmol/L (98-107); Estimated CRCL calculation 20 ml/min; Estimated Glomerular Filt Rate 27; Glucose 91 mg/dL (65-110); Phosphorus 5.4 mg/dL (2.5-4.5); Potassium 4.9 mmol/L (3.4-5.0); Sodium 134 mmol/L (137-145)
--- NOTE | 2023-02-01 10:08 | PM.PNNEP ---
Progress Note: A&P Assessment and Plan (1) KEE (acute kidney injury): Code(s): N17.9 - Acute kidney failure, unspecified Status: Acute Assessment and Plan: likely related to UTI (?) evaluation to date: renal ultrasound with mild right and moderate left hydronephrosis; the right internal ureteral stent is not well visualized; mild right kidney atrophy UA consistent with infection urine culture with no growth known history of right ureteral stent placement does he need a left stent as well??? Urology recommendations noted -- to OR today for cystoscopy, right ureteral stent exchange, and possible left ureteral stent placement no significant improvement in renal function with IVFs start oral sodium bicarbonate given acidosis follow trend of repeat labs and UOP (2) Stage 3a chronic kidney disease: Code(s): N18.31 - Chronic kidney disease, stage 3a Status: Chronic Assessment and Plan: baseline creatinine runs around 1.2 - 1.4mg/dl in the last several years presumably due to issues related to frequent UTIs, urinary retention with need for chronic lugo, and age-related change (3) Catheter-associated urinary tract infection: Qualifiers: Encounter type: sequela Indwelling urinary catheter type: indwelling urethral catheter Qualified Code(s): T83.511S - Infection and inflammatory reaction due to indwelling urethral catheter, sequela; N39.0 - Urinary tract infection, site not specified Code(s): T83.511A - Infection and inflammatory reaction due to indwelling urethral catheter, initial encounter; N39.0 - Urinary tract infection, site not specified Status: Acute Assessment and Plan: as suggested by admission UA follow culture data - negative to date on antibiotics (4) Benign prostatic hyperplasia: Code(s): N40.0 - Benign prostatic hyperplasia without lower urinary tract symptoms Status: Chronic Assessment and Plan: already has chronic lugo catheter complicated by known history of bladder cancer continue flomax Urology following Will continue to follow. Subjective Date/time seen: 02/01/23 10:08 Interval history: Follow-up for acute kidney injury/acute renal failure on top of chronic kidney disase. Creatinine/renal function remains about the same as yesterday; continue to make reasonably urine output; noted plans for OR by Urology today; no apparent distress noted at the time of my visit; no issues/events overnight or earlier this morning. Exam Narrative: General: elderly male in NAD Heart: normal S1 and S2; no rub Lungs: clear to auscultation Abdomen: soft, nontender, nondistended, positive bowel sounds Extremities: no cyanosis or clubbing; no edema Skin: no nodules Objective Data Vital Signs Vital Signs: Vital Signs Temp Pulse Resp BP Pulse Ox O2 Del Method 02/01/23 10:00 97.5 F L 58 L 14 183/58 H 99 Room Air 02/01/23 08:35 Room Air 02/01/23 08:47 Room Air 02/01/23 06:05 96.8 F L 63 15 144/47 H 98 01/31/23 21:47 97.2 F L 57 L 18 181/56 H 99 01/31/23 20:00 57 L 14 97 Room Air 01/31/23 14:31 97.3 F L 57 L 14 158/47 H 97 Intake/Output Intake/Output: Intake & Output 01/29/23 01/30/23 01/31/23 02/01/23 23:59 23:59 23:59 23:59 Intake Total 3770 3759 940 Output Total 1350 1600 1500 1000 Balance 2420 2159 -560 -1000 Meds/Results Medications: Active Medications Generic Name Dose Route Start Last Admin Trade Name Freq PRN Reason Stop Dose Admin Acetaminophen 650 mg 01/27/23 16:11 Acetaminophen 325 Mg Tablet PO Q4H PRN Mild Pain (1-3) or Fever Calcium Carbonate 500 mg 01/28/23 09:00 01/31/23 09:03 Calcium/Vitamin D 500 Mg Tablet PO 500 mg DAILY [facility] Administration Cyanocobalamin 2,500 mcg 01/28/23 09:00 01/31/23 09:02 Cyanocobalamin 500 Mcg Tablet PO 2,500 mcg QAM [facility] Administrat
--- NOTE | 2023-02-01 10:08 | P.PNNP_ITS ---
Progress Note: A&P Assessment and Plan (1) KEE (acute kidney injury): Code(s): N17.9 - Acute kidney failure, unspecified Status: Acute Assessment and Plan: * likely related to UTI (?) * evaluation to date: * renal ultrasound with mild right and moderate left hydronephrosis; the right internal ureteral stent is not well visualized; mild right kidney atrophy * UA consistent with infection * urine culture with no growth * known history of right ureteral stent placement * does he need a left stent as well??? * Urology recommendations noted -- to OR today for cystoscopy, right ureteral stent exchange, and possible left ureteral stent placement * no significant improvement in renal function with IVFs * start oral sodium bicarbonate given acidosis * follow trend of repeat labs and UOP (2) Stage 3a chronic kidney disease: Code(s): N18.31 - Chronic kidney disease, stage 3a Status: Chronic Assessment and Plan: * baseline creatinine runs around 1.2 - 1.4mg/dl in the last several years * presumably due to issues related to frequent UTIs, urinary retention with need for chronic lugo, and age-related change (3) Catheter-associated urinary tract infection: Qualifiers: Encounter type: sequela Indwelling urinary catheter type: indwelling urethral catheter Qualified Code(s): T83.511S - Infection and inflammatory reaction due to indwelling urethral catheter, sequela; N39.0 - Urinary tract infection, site not specified Code(s): T83.511A - Infection and inflammatory reaction due to indwelling urethral catheter, initial encounter; N39.0 - Urinary tract infection, site not specified Status: Acute Assessment and Plan: * as suggested by admission UA * follow culture data - negative to date * on antibiotics (4) Benign prostatic hyperplasia: Code(s): N40.0 - Benign prostatic hyperplasia without lower urinary tract symptoms Status: Chronic Assessment and Plan: * already has chronic lugo catheter * complicated by known history of bladder cancer * continue flomax * Urology following Will continue to follow. Subjective Date/time seen: 02/01/23 10:08 Interval history: Follow-up for acute kidney injury/acute renal failure on top of chronic kidney disase. Creatinine/renal function remains about the same as yesterday; continue to make reasonably urine output; noted plans for OR by Urology today; no apparent distress noted at the time of my visit; no issues/events overnight or earlier this morning. Exam Narrative: General: elderly male in NAD Heart: normal S1 and S2; no rub Lungs: clear to auscultation Abdomen: soft, nontender, nondistended, positive bowel sounds Extremities: no cyanosis or clubbing; no edema Skin: no nodules Objective Data Vital Signs Vital Signs: Vital Signs Temp Pulse Resp BP Pulse Ox O2 Del Method 02/01/23 10:00 97.5 F L 58 L 14 183/58 H 99 Room Air 02/01/23 08:35 Room Air 02/01/23 08:47 Room Air 02/01/23 06:05 96.8 F L 63 15 144/47 H 98 01/31/23 21:47 97.2 F L 57 L 18 181/56 H 99 01/31/23 20:00 57 L 14 97 Room Air 01/31/23 14:31 97.3 F L 57 L 14 158/47 H 97 Intake/Output Intake/Output: Intake & Output 01/29/23 01/30/23 01/31/23
--- NOTE | 2023-02-01 10:13 | WPDHPUPDATE1 ---
History and Physical Update Update Date/Time: 02/01/23 10:13 History and Physical has been reviewed, including an updated exam of the patient. There are NO changes in the patient's condition. Risks, benefits, and alternatives have been discussed and questions answered. Patient agrees to proceed with procedure. Proceed with cystoscopy, right stent exchange, bilateral retrograde pyelograms, left ureteral stent placement
[2023-02-01 10:14] LABS: Vancomycin Random 16.2 ug/mL (10-20)
--- NOTE | 2023-02-01 10:35 | PC.NURSE ---
To OR via stretcher.
--- NOTE | 2023-02-01 10:51 | PM.IMPN ---
Progress Note: A&P Assessment and Plan (1) KEE (acute kidney injury): Code(s): N17.9 - Acute kidney failure, unspecified Status: Acute Assessment and Plan: Creatinine is improving. renal ultrasound avoid nephrotoxic medication creatinine Appreciate Nephrology input. Urology consult pending - ? Stent, procedure planned today. (2) Catheter-associated urinary tract infection: Qualifiers: Encounter type: sequela Indwelling urinary catheter type: indwelling urethral catheter Qualified Code(s): T83.511S - Infection and inflammatory reaction due to indwelling urethral catheter, sequela; N39.0 - Urinary tract infection, site not specified Code(s): T83.511A - Infection and inflammatory reaction due to indwelling urethral catheter, initial encounter; N39.0 - Urinary tract infection, site not specified Status: Acute Assessment and Plan: Culture negative. Adjust antibiotics to oral to complete course. Spoke with Pharm ID he is to adjust that today. 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 Continue with Flomax (4) BPH (benign prostatic hyperplasia): Code(s): N40.0 - Benign prostatic hyperplasia without lower urinary tract symptoms Status: Acute Assessment and Plan: continue with Flomax patient has a chronic indwelling Dietz catheter. (5) Anxiety with depression: Code(s): F41.8 - Other specified anxiety disorders Status: Acute Assessment and Plan: Continue with Paxil Plan the patient stated that he was diagnosed with obstructive sleep apnea but he has does not wear CPAP machine. Subjective Date/time seen: 02/01/23 10:51 Interval history: Feeling better after transfusion. Hemoglobin has been stable. Creatinine about the same. No complaints of pain. Exam Narrative: GENERAL APPEARANCE: elderly male in no acute distress HEENT: normocephalic, atraumatic, normal conjunctiva and sclera, nares patient NECK: no lymphadenopathy, thyromegaly, or JVD MOUTH: normal lips, teeth, and gums CARDIOVASCULAR: RRR, normal S1 and S2, no rub RESPIRATORY: clear to auscultation bilaterally ABDOMEN: soft, nontender, nondistended, positive bowel sounds present EXTREMITIES: no evidence of cyanosis, clubbing, or edema NEUROLOGICAL: alert and oriented x 3; CN II - XII intact bilaterally; no focal deficits noted Psych: Attitude: cooperative Objective Data Vital Signs Vital Signs: Vital Signs - 24 hr 01/31/23 14:31 01/31/23 20:00 01/31/23 21:47 Temperature 97.3 F L 97.2 F L Pulse Rate 57 L 57 L 57 L Respiratory Rate 14 14 18 Blood Pressure 158/47 H 181/56 H Pulse Oximetry 97 97 99 Oxygen Delivery Room Air 02/01/23 06:05 02/01/23 08:47 02/01/23 08:35 Temperature 96.8 F L Pulse Rate 63 Respiratory Rate 15 Blood Pressure 144/47 H Pulse Oximetry 98 Oxygen Delivery Room Air Room Air Intake/Output Intake/Output: Intake & Output 01/29/23 01/30/23 01/31/23 02/01/23 23:59 23:59 23:59 23:59 Intake Total 3770 3759 940 Output Total 1350 1600 1500 1000 Balance 2420 2159 -560 -1000 Meds/Results Medications: Active Medications Generic Name Dose Route Start Last Admin Trade Name Freq PRN Reason Stop Dose Admin Acetaminophen 650 mg 01/27/23 16:11 Acetaminophen 325 Mg Tablet PO Q4H PRN Mild Pain (1-3) or Fever Calcium Carbonate 500 mg 01/28/23 09:00 01/31/23 09:03 Calcium/Vitamin D 500 Mg Tablet PO 500 mg DAILY [facility] Administration Cyanocobalamin 2,500 mcg 01/28/23 09:00 01/31/23 09:02 Cyanocobalamin 500 Mcg Tablet PO 2,500 mcg QAM [facility] Administration Docusate Sod[place]
[2023-02-01] MEDS: LIDOCAINE HCL 2% GEL UROJET 10 ML PKG MUCOUS MEM (11:45)
--- NOTE | 2023-02-01 12:02 | W.PM.PROC2 ---
Procedure Note - Detailed Date of Procedure 02/01/23 Pre-op Diagnosis Urinary Tract Infection,Catheter Related,KEE bilateral hydronephrosis Post-op Diagnosis Same Procedure Performed Cystoscopy, right ureteral stent exchange 4.8 Trin[place] contour stent, complex Dietz catheter placement, fulguration of prostatic urethra. Surgeon J Luis Jerome MD Anesthesia General Findings Friable prostatic urethra, edematous left alan trigone with inability to visualize ureteral orifice most likely secondary to local invasion of prostate cancer Description of Procedure Patient is taken the operative suite correctly identified. Once anesthesia was obtained was placed in dorsal lithotomy position and prepped and draped usual sterile fashion. Nineteen Trinidadian scope was inserted in the bladder. The right ureteral stent was visualized. This was grasped and brought out the meatus. A Sensor wire was passed through this up into the kidney. 4.8 Trin[place] contour stent was then passed over the wire with the proximal end coiled in the renal pelvis and distal in the bladder. The left alan trigone was obliterated or obscured by edema most likely secondary local invasion was prostate cancer. We could not visualized orifice. The prostatic urethra was friable and oozing and thus I used the Bugbee to fulgurated. I placed a wire in the bladder and then placed a [address] the wire and inflated balloon with 15 cc of normal saline. This connected continuous bladder irrigation. Patient is taken recovery stable condition. Will see a was creatinine does and how he is clinically. He is not complaining of any left flank pain. They will need to decide whether they want to pursue left nephrostomy tube placement. Urine Output 500 Drains Yes Packing No Pathology None sent Complications No immediate complications Condition Stable Disposition PACU
[2023-02-01] MEDS: LACTATED RINGERS 1,000 ML 30 ML IV CONT (12:08)
--- NOTE | 2023-02-01 13:05 | PC.NURSE ---
Back from OR via stretcher.
[2023-02-01] MEDS: PARoxetine 20 MG TABLET PO (14:09)
[2023-02-01] MEDS: AMOXICILLIN 500 MG CAPSULE PO ×2 (14:23→20:09)
[2023-02-01] MEDS: SODIUM BICARBONATE TAB 650 MG TABLET 1300 MG PO (17:37)
[2023-02-01] MEDS: TAMSULOSIN HCL 0.4 MG CAPSULE PO (20:09)
[2023-02-01] MEDS: DOCUSATE SODIUM 100 MG CAPSULE PO (20:09)
[2023-02-01] MEDS: MELATONIN 5 MG TABLET PO (20:10)
[2023-02-02 06:00] VITALS: BP 165/46; PULSE 64; RESP 14; TEMP 36.3; O2SAT 96
[2023-02-02 06:28] LABS: Basophils Percent Auto 0.6 % (0.2-1.2); Eosinophils Absolute Auto 0.7 K/mm3 (0-0.3); Eosinophils Percent Auto 9.9 % (0-4.4); Hematocrit 28.5 % (42.0-52.0); Hemoglobin 9.4 g/dL (14.0-18.0); Immature Granulocyte Absolute 0.03 K/mm3 (0.00-0.031); Immature Granulocyte Percent A 0.4 % (0-0.5); Immature Platelet Fraction Pct 3.1 % (0.9-11.2); Lymphocytes Absolute Auto 1.16 K/mm3 (0.9-3.2); Lymphocytes Percent Auto 16.7 % (18.3-44.2); Mean Corpuscular Hemoglobin 32.9 pg (26-34); Mean Corpuscular Volume 99.7 fl (80-100); Mean Platelet Volume 10.3 fl (7.4-10.4); Monocytes Absolute Auto 0.7 K/mm3 (0.1-0.6); Monocytes Percent Auto 9.8 % (2.6-8.5); Neutrophils Absolute Auto 4.4 K/mm3 (1.3-6.7); Neutrophils Percent Auto 62.6 % (45.5-73.1); Platelet Count Result 182 k/mm3 (150-375); Red Blood Count 2.86 M/mm3 (4.6-6.20); Red Cell Distribution Width 15.1 % (11.5-14.5)
[2023-02-02 06:49] LABS: Anion Gap 7 mmol/L (8-16); Blood Urea Nitrogen 46 mg/dL (9-20); Carbon Dioxide 17 mmol/L (22-30); Chloride 108 mmol/L (98-107); Estimated CRCL calculation 17 ml/min; Estimated Glomerular Filt Rate 23; Glucose 98 mg/dL (65-110); Phosphorus 5.6 mg/dL (2.5-4.5); Potassium 5.4 mmol/L (3.4-5.0); Sodium 132 mmol/L (137-145)
[2023-02-02] MEDS: CYANOCOBALAMIN 500 MCG TABLET 2500 MCG PO (08:19)
[2023-02-02] MEDS: DOCUSATE SODIUM 100 MG CAPSULE PO ×2 (08:20→21:55)
[2023-02-02] MEDS: PARoxetine 20 MG TABLET PO (08:20)
[2023-02-02] MEDS: MULTIVITAMINS /C LUTEIN (CENTRUM SILVER) TABLET *BKC 1 TAB PO (08:20)
[2023-02-02] MEDS: SODIUM BICARBONATE TAB 650 MG TABLET 1300 MG PO ×2 (08:20→17:04)
[2023-02-02] MEDS: AMOXICILLIN 500 MG CAPSULE PO ×2 (08:20→21:55)
[2023-02-02 08:23] LABS: Platelet Estimate Adequate (Adequate); Schistocytes None Seen (NORMAL)
--- NOTE | 2023-02-02 09:40 | WPDANESPN ---
Anes - Prog Note Post-Op Date/Time: 02/02/23 09:40 Cardiovascular status: normal Respiratory status: normal Airway patency: baseline Mental status: baseline Post-Op hydration status: normal Vital Signs: Last Vital Signs Temp 97.4 F L 02/02/23 06:00 Pulse 64 02/02/23 06:00 Resp 14 02/02/23 06:00 BP 165/46 H 02/02/23 06:00 Pulse Ox 96 02/02/23 06:00 O2 Del Method Room Air 02/01/23 22:39 O2 Flow Rate 8 02/01/23 12:20 Pain Score (VAS): 7 I/O: Intake & Output 02/01/23 02/02/23 02/02/23 23:59 07:59 15:59 Intake Total 480 750 0 Output Total 475 0 Balance 5 750 0 Laboratory Tests 02/02/23 06:16 02/02/23 06:16 02/01/23 02/02/23 09:15 06:16 WBC 7.0 RBC 2.86 L Hgb 9.4 L Hct 28.5 L MCV 99.7 MCH 32.9 MCHC 33.0 RDW 15.1 H Plt Count 182 MPV 10.3 Immature Gran % (Auto) 0.4 Neut % (Auto) 62.6 Lymph % (Auto) 16.7 L [place] % (Auto) 9.8 H Eos % (Auto) 9.9 H Baso % (Auto) 0.6 Lymph # (Auto) 1.16 [place] # (Auto) 0.7 H Eos # (Auto) 0.7 H Baso # (Auto) 0.0 Abs Immat Gran (auto) 0.03 Absolute Neuts (auto) 4.4 Absolute Nucleated RBC 0.0 Nucleated RBC % 0.0 Platelet Estimate Adequate % Immature Plt Fraction 3.1 Schistocytes None seen Sodium 134 L 132 L Potassium 4.9 5.4 H Chloride 110 H 108 H Carbon Dioxide 13 L 17 L Anion Gap 11 7 L BUN 41 H 46 H Creatinine 2.30 H 2.60 H Estim Creat Clear Calc 20 17 Estimated GFR 27 L 23 L Glucose 91 98 Calcium 8.7 8.0 L Phosphorus 5.4 H 5.6 H Albumin 3.5 3.0 L Random Vancomycin 16.2 Post-procedural complaints: none Patient Feedback: Patient satisfied with anesthetic care.
--- NOTE | 2023-02-02 11:16 | PM.IMPN ---
Progress Note: A&P Assessment and Plan (1) KEE (acute kidney injury): Code(s): N17.9 - Acute kidney failure, unspecified Status: Acute Assessment and Plan: likely related to UTI (?) renal ultrasound with mild right and moderate left hydronephrosis; the right internal ureteral stent is not well visualized; mild right kidney atrophy UA consistent with infection urine culture with no growth Urology consulted--patient was taken to OR for cystoscopy, right ureteral stent exchange, and possible left ureteral stent placement. Left ureteral stent could not be placed due to localized edema. Pending further workup and recommendations by Urology Monitor BMP (2) Stage 3a chronic kidney disease: Code(s): N18.31 - Chronic kidney disease, stage 3a Status: Chronic Assessment and Plan: baseline creatinine runs around 1.2 - 1.4mg/dl in the last several years presumably due to issues related to frequent UTIs, urinary retention with need for chronic lugo, and age-related change (3) Catheter-associated urinary tract infection: Qualifiers: Encounter type: sequela Indwelling urinary catheter type: indwelling urethral catheter Qualified Code(s): T83.511S - Infection and inflammatory reaction due to indwelling urethral catheter, sequela; N39.0 - Urinary tract infection, site not specified Code(s): T83.511A - Infection and inflammatory reaction due to indwelling urethral catheter, initial encounter; N39.0 - Urinary tract infection, site not specified Status: Acute Assessment and Plan: as suggested by admission UA follow culture data - negative to date on antibiotics (4) Benign prostatic hyperplasia: Code(s): N40.0 - Benign prostatic hyperplasia without lower urinary tract symptoms Status: Chronic Assessment and Plan: already has chronic lugo catheter complicated by known history of bladder cancer continue [facility] Urology following Subjective Date/time seen: 02/02/23 11:16 Interval history: Patient reports abdominal pain and just not feeling well. He states he did not sleep well last night Review of Systems Cardiovascular: Cardiovascular: Denies chest pain Gastrointestinal: Gastrointestinal: Denies abdominal pain, Denies nausea and Denies vomiting Genitourinary: Genitourinary: Denies hematuria, Denies genital pain and Denies flank pain Exam Narrative: General: elderly male in NAD Heart: normal S1 and S2; no rub Lungs: clear to auscultation Abdomen: soft, nontender, nondistended, positive bowel sounds Extremities: no cyanosis or clubbing; no edema Skin: no nodules Objective Data Vital Signs Vital Signs: Vital Signs - 24 hr 02/01/23 12:08 02/01/23 12:20 02/01/23 12:30 Temperature 97.4 F L Pulse Rate 61 59 L Respiratory Rate 16 14 Blood Pressure 126/50 L 155/60 H Pulse Oximetry 98 99 Oxygen Delivery Simple Face Mask Simple Face Mask Room Air Oxygen Flow Rate 8 8 02/01/23 12:35 02/01/23 12:50 02/01/23 13:35 Temperature 97.6 F Pulse Rate 55 L 54 L 57 L Respiratory Rate 14 14 16 Blood Pressure 161/57 H 154/51 H 174/54 H Pulse Oximetry 92 92 97 Oxygen Delivery Room Air Room Air Oxygen Flow Rate 02/01/23 14:05 02/01/23 15:11 02/01/23 16:15 Temperature 97.6 F 97.8 F 97.9 F Pulse Rate 54 L 56 L 62 Respiratory Rate 16 16 18 Blood Pressure 174/54 H 170/60 H 168/62 H Pulse Oximetry 97 96 99 Oxygen Delivery Oxygen Flow Rate 02/01/23 21:33 02/01/23 20:00 02/02/23 06:00 Temperature 97.3 F L 97.4 F L Pulse Rate 64 64 Respiratory Rate 14 14 Blood Pressure 168/61 H 165/46 H Pulse Oximetry 98 96 Oxygen Delivery Room Air Oxygen Flow Rate 02/01/23 22:39 Temperature Pulse Rate Respiratory Rate Blood Pressure Pulse Oximetry 97 Oxygen Delivery Room Air Oxygen Flow Rate Intake/Output Intake/Output: Intake & Output 01/30/23
--- NOTE | 2023-02-02 11:24 | PCNFU ---
Nutrition Follow-Up Complete: Inadequate oral intake related to loss of appetite, chewing difficulty, medications as evidenced by patient report of poor appetite; need for minced & post level 5 diet; weight loss 8%/6 months. Goal: Improve PO intake to at least 50% meals and supplements - progressing Maintain weight during admission - progressing Pt current nutrition is NPO for nephrostomy tube placement. Nutrition recommendation: When diet is advanced, recommend keeping liberalized diet despite renal labs to encourage intakes. Appetite has been poor, restricted diet not recommended. Will recommend Nepro supplement instead of Ensure due to renal labs, elevated K+ and PO4. Last recorded weight is 78.2 kg. Bowel Motility:+1 BM 02/02/23 Labs Reviewed: Hgb 9.4, Hct 28.5, Na 132, K+ 5.4, GFR 23, BUN 46, Cre 2.6, PO4 5.6 Meds Noted: Vit B12, Zofran, Vanco, Xtandi Skin: WNL Additional Notes: Pt was made NPO for nephro tube placement. He initially said he wanted chopped meat with gravy but then he did not like it, so it was changed back to regular. Monitor intakes, weights, labs, supplement tolerance, plan of care Follow up in 5 days
[2023-02-02 11:28] LABS: Prothrombin Time 13.4 Seconds (11.1-14.7)
[2023-02-02 11:29] LABS: Partial Thromboplastin Time 31.8 SECONDS (22.3-36.8)
[2023-02-02] MEDS: ACETAMINOPHEN 325 MG TABLET 650 MG PO ×2 (12:13→18:18)
--- NOTE | 2023-02-02 12:58 | PM.PNNEP ---
Progress Note: A&P Assessment and Plan (1) KEE (acute kidney injury): Code(s): N17.9 - Acute kidney failure, unspecified Status: Acute Assessment and Plan: evaluation to date: renal ultrasound with mild right and moderate left hydronephrosis; the right internal ureteral stent is not well visualized; mild right kidney atrophy UA consistent with infection urine culture with no growth known history of right ureteral stent placement does he need a left stent as well??? Urology recommendations noted -- s/p cystoscopy and right ureteral stent exchange but unable to place left ureteral stent placement...may need to consider left nephrostomy tube no significant improvement in renal function with IVFs on oral sodium bicarbonate given acidosis follow trend of repeat labs and UOP (2) Stage 3a chronic kidney disease: Code(s): N18.31 - Chronic kidney disease, stage 3a Status: Chronic Assessment and Plan: baseline creatinine runs around 1.2 - 1.4mg/dl in the last several years presumably due to issues related to frequent UTIs, urinary retention with need for chronic lugo, and age-related change (3) Catheter-associated urinary tract infection: Qualifiers: Encounter type: sequela Indwelling urinary catheter type: indwelling urethral catheter Qualified Code(s): T83.511S - Infection and inflammatory reaction due to indwelling urethral catheter, sequela; N39.0 - Urinary tract infection, site not specified Code(s): T83.511A - Infection and inflammatory reaction due to indwelling urethral catheter, initial encounter; N39.0 - Urinary tract infection, site not specified Status: Acute Assessment and Plan: as suggested by admission UA follow culture data - negative to date on antibiotics (4) Benign prostatic hyperplasia: Code(s): N40.0 - Benign prostatic hyperplasia without lower urinary tract symptoms Status: Chronic Assessment and Plan: already has chronic lugo catheter complicated by known history of bladder cancer continue flomax Urology following Will continue to follow. Subjective Date/time seen: 02/02/23 12:58 Interval history: Follow-up for acute kidney injury/acute renal failure on top of chronic kidney disase. Status post cystoscopy, right renal stent exchange but unable to place left renal stent as unable to localize left ureteral orifice...creatinine a tad worse today in comparison to yesterday; only other complaint was that of intermittent abdominal/pelvic pain. Exam Narrative: General: elderly male in NAD Heart: normal S1 and S2; no rub Lungs: clear to auscultation Abdomen: soft, nontender, nondistended, positive bowel sounds Extremities: no cyanosis or clubbing; no edema Skin: warm and dry Objective Data Vital Signs Vital Signs: Vital Signs Temp Pulse Resp BP Pulse Ox O2 Del Method 02/02/23 12:53 87 93 Room Air 02/02/23 08:15 Room Air 02/01/23 22:39 97 Room Air 02/02/23 06:00 97.4 F L 64 14 165/46 H 96 02/01/23 20:00 Room Air 02/01/23 21:33 97.3 F L 64 14 168/61 H 98 Intake/Output Intake/Output: Intake & Output 01/30/23 01/31/23 02/01/23 02/02/23 23:59 23:59 23:59 23:59 Intake Total 3759 940 2780 750 Output Total 1600 1500 4375 600 Balance 4634 -746 -7187 150 Meds/Results Medications: Active Medications Generic Name Dose Route Start Last Admin Trade Name Freq PRN Reason Stop Dose Admin Acetaminophen 650 mg 01/27/23 16:11 02/02/23 12:13 Acetaminophen 325 Mg Tablet PO 650 mg Q4H PRN Administration Mild Pain (1-3) or Fever Amoxicillin 500 mg 02/01/23 12:30 02/02/23 08:20 Amoxicillin 500 Mg Capsule PO 02/03/23 21:01 500 mg Q12HR [facility] Administration Calcium Carbonate 500 mg 01/28/23 09:00 02/02/23 08:20 Calcium/Vitamin D 500 Mg Tablet PO 500 mg DAILY [facility] Administration Cyanocob
--- NOTE | 2023-02-02 12:58 | P.PNNP_ITS ---
Progress Note: A&P Assessment and Plan (1) KEE (acute kidney injury): Code(s): N17.9 - Acute kidney failure, unspecified Status: Acute Assessment and Plan: * evaluation to date: * renal ultrasound with mild right and moderate left hydronephrosis; the right internal ureteral stent is not well visualized; mild right kidney atrophy * UA consistent with infection * urine culture with no growth * known history of right ureteral stent placement * does he need a left stent as well??? * Urology recommendations noted -- s/p cystoscopy and right ureteral stent e xchange but unable to place left ureteral stent placement...may need to consider left nephrostomy tube * no significant improvement in renal function with IVFs * on oral sodium bicarbonate given acidosis * follow trend of repeat labs and UOP (2) Stage 3a chronic kidney disease: Code(s): N18.31 - Chronic kidney disease, stage 3a Status: Chronic Assessment and Plan: * baseline creatinine runs around 1.2 - 1.4mg/dl in the last several years * presumably due to issues related to frequent UTIs, urinary retention with need for chronic lugo, and age-related change (3) Catheter-associated urinary tract infection: Qualifiers: Encounter type: sequela Indwelling urinary catheter type: indwelling urethral catheter Qualified Code(s): T83.511S - Infection and inflammatory reaction due to indwelling urethral catheter, sequela; N39.0 - Urinary tract infection, site not specified Code(s): T83.511A - Infection and inflammatory reaction due to indwelling urethral catheter, initial encounter; N39.0 - Urinary tract infection, site not specified Status: Acute Assessment and Plan: * as suggested by admission UA * follow culture data - negative to date * on antibiotics (4) Benign prostatic hyperplasia: Code(s): N40.0 - Benign prostatic hyperplasia without lower urinary tract symptoms Status: Chronic Assessment and Plan: * already has chronic lugo catheter * complicated by known history of bladder cancer * continue flomax * Urology following Will continue to follow. Subjective Date/time seen: 02/02/23 12:58 Interval history: Follow-up for acute kidney injury/acute renal failure on top of chronic kidney disase. Status post cystoscopy, right renal stent exchange but unable to place left renal stent as unable to localize left ureteral orifice...creatinine a tad worse today in comparison to yesterday; only other complaint was that of intermittent abdominal/pelvic pain. Exam Narrative: General: elderly male in NAD Heart: normal S1 and S2; no rub Lungs: clear to auscultation Abdomen: soft, nontender, nondistended, positive bowel sounds Extremities: no cyanosis or clubbing; no edema Skin: warm and dry Objective Data Vital Signs Vital Signs: Vital Signs Temp Pulse Resp BP Pulse Ox O2 Del Method 02/02/23 12:53 87 93 Room Air 02/02/23 08:15 Room Air 02/01/23 22:39 97 Room Air 02/02/23 06:00 97.4 F L 64 14 165/46 H 96 02/01/23 20:00 Room Air 02/01/23 21:33 97.3 F L 64 14 168/61 H 98 Intake/Output Intake/Output: Intake & Output 01/30/23 01/31/23 02/01/23 02/02/23 23:59 23:59 23:59 23:59 Intake
[2023-02-02 13:03] VITALS: PULSE 87; O2SAT 93
--- NOTE | 2023-02-02 13:10 | PC.NURSE ---
To Radiology per bed.
--- NOTE | 2023-02-02 13:11 | WPDUROPN2 ---
Progress Note: A&P Assessment and Plan (1) KEE (acute kidney injury): Code(s): N17.9 - Acute kidney failure, unspecified Status: Acute Assessment and Plan: Creatinine up to 2.60 from 2.30. Patient wants to proceed with left nephrostomy tube placement in IR today. Keep NPO. (2) Urinary retention: Code(s): R33.9 - Retention of urine, unspecified Status: Acute Assessment and Plan: Keep lugo in place and continue monthly cath changes indefinitely. (3) Hydronephrosis: Code(s): N13.30 - Unspecified hydronephrosis Status: Acute Assessment and Plan: Right stent exchanged, will need it exchanged again in [address] a left stent, will proceed with left nephrostomy instead. (4) Chronic infective cystitis: Code(s): N30.20 - Other chronic cystitis without hematuria Status: Acute Assessment and Plan: We will start prophylactic Keflex 250mg daily after discharge. (5) Prostate cancer: Code(s): C61 - Malignant neoplasm of prostate Status: Chronic Assessment and Plan: Patient's daughter has requested he have some Hydrocodone at home for intermittent pelvic pain in relation to the metastatic cancer. Subjective Subjective Date/Time Seen: 02/02/23 13:11 POD #1 Cystoscopy, right ureteral stent exchange, complex Lugo placement, fulguration of prostatic urethra Patient was not able to have a left stent placement d/t no visible ureteral orifice. CBI is weaned to off this afternoon and urine is clear. Patient tolerating pain and diet well. His and daughter at the bedside have concerns with chronic UTI's at home as well as intermittent pain secondary to the metastatic cancer. They also have concerns as well as the patient with worsening depression and anxiety. We discussed the options of left nephrostomy tube placement to improve creatinine versus hospice or dialysis. They have chosen to proceed with a left nephrostomy tube placement. We discussed the benefits and risks and they verbalize an understanding. Post Op day: 1 Review of Systems Cardiovascular: Cardiovascular: Denies chest pain Respiratory: Respiratory: Reports no additional respiratory complaints Gastrointestinal: Gastrointestinal: Denies abdominal pain, Denies nausea and Denies vomiting Genitourinary: Genitourinary: Denies hematuria and Denies flank pain Exam Const: General: cooperative, comfortable and lethargic Resp: Effort & Inspection: normal respiratory effort Cardio: Rate: regular rate : General: Yes no CVA tenderness Urinary Catheter: Urinary Catheter: patent and draining and urine clear Extrem: Right lower extremity: no edema Left lower extremity: no edema Objective Data Vital Signs Vital Signs: Vital Signs - 24 hr 02/01/23 13:35 02/01/23 14:05 02/01/23 15:11 Temperature 97.6 F 97.6 F 97.8 F Pulse Rate 57 L 54 L 56 L Respiratory Rate 16 16 16 Blood Pressure 174/54 H 174/54 H 170/60 H Pulse Oximetry 97 97 96 Oxygen Delivery 02/01/23 16:15 02/01/23 21:33 02/01/23 20:00 Temperature 97.9 F 97.3 F L Pulse Rate 62 64 Respiratory Rate 18 14 Blood Pressure 168/62 H 168/61 H Pulse Oximetry 99 98 Oxygen Delivery Room Air 02/02/23 06:00 02/01/23 22:39 02/02/23 08:15 Temperature 97.4 F L Pulse Rate 64 Respiratory Rate 14 Blood Pressure 165/46 H Pulse Oximetry 96 97 Oxygen Delivery Room Air Room Air Intake/Output Intake/Output: Intake & Output 01/30/23 01/31/23 02/01/23 02/02/23 23:59 23:59 23:59 23:59 Intake Total 3759 940 2780 750 Output Total 1600 1500 4375 600 Balance 0572 -785 -5639 150 Meds/Results Medications: Active Medications Generic Name Dose Route Start Last Admin Trade Name Freq PRN Reason Stop Dose Admin Acetaminophen 650 mg 01/27/23 16:11 02/02/23 12:13 Acetaminophen 325 Mg Tablet PO 650 mg Q4H PRN Administration Mild Pain (1-3) or Fever Amoxic
[2023-02-02 14:30] VITALS: BP 157/53; PULSE 63; TEMP 36.5; O2SAT 95
--- NOTE | 2023-02-02 14:30 | PC.NURSE ---
Return from Radiology per bed.
[2023-02-02] MEDS: polyethylene glycoL 3350 17 GM POWD.PACK PO (17:06)
[2023-02-02] MEDS: MELATONIN 5 MG TABLET PO (21:55)
[2023-02-02] MEDS: TAMSULOSIN HCL 0.4 MG CAPSULE PO (21:55)
[2023-02-02 22:00] VITALS: BP 174/62; PULSE 62; RESP 13; TEMP 37.3; O2SAT 98
[2023-02-03 06:00] VITALS: BP 162/47; PULSE 65; RESP 14; TEMP 36.3; O2SAT 98
[2023-02-03 06:49] LABS: Basophils Percent Auto 0.5 % (0.2-1.2); Eosinophils Absolute Auto 0.7 K/mm3 (0-0.3); Eosinophils Percent Auto 12.4 % (0-4.4); Hematocrit 27.4 % (42.0-52.0); Hemoglobin 9.1 g/dL (14.0-18.0); Immature Granulocyte Absolute 0.02 K/mm3 (0.00-0.031); Immature Granulocyte Percent A 0.3 % (0-0.5); Lymphocytes Absolute Auto 1.19 K/mm3 (0.9-3.2); Lymphocytes Percent Auto 20.2 % (18.3-44.2); Mean Corpuscular HGB Conc 33.2 g/dl (32-36); Mean Corpuscular Hemoglobin 32.9 pg (26-34); Mean Corpuscular Volume 98.9 fl (80-100); Mean Platelet Volume 9.9 fl (7.4-10.4); Monocytes Absolute Auto 0.6 K/mm3 (0.1-0.6); Monocytes Percent Auto 9.7 % (2.6-8.5); Neutrophils Absolute Auto 3.3 K/mm3 (1.3-6.7); Neutrophils Percent Auto 56.9 % (45.5-73.1); Platelet Count Result 171 k/mm3 (150-375); Red Blood Count 2.77 M/mm3 (4.6-6.20); Red Cell Distribution Width 14.8 % (11.5-14.5); White Blood Count 5.9 K/mm3 (4.5-10.0)
[2023-02-03 07:00] LABS: Anion Gap 6 mmol/L (8-16); Blood Urea Nitrogen 41 mg/dL (9-20); Calcium 8.3 mg/dL (8.4-10.2); Carbon Dioxide 22 mmol/L (22-30); Chloride 107 mmol/L (98-107); Estimated CRCL calculation 17 ml/min; Estimated Glomerular Filt Rate 23; Glucose 95 mg/dL (65-110); Phosphorus 4.7 mg/dL (2.5-4.5); Sodium 135 mmol/L (137-145)
[2023-02-03] MEDS: PARoxetine 20 MG TABLET PO (08:17)
[2023-02-03] MEDS: AMOXICILLIN 500 MG CAPSULE PO ×2 (08:17→21:10)
[2023-02-03] MEDS: CYANOCOBALAMIN 500 MCG TABLET 2500 MCG PO (08:17)
[2023-02-03] MEDS: polyethylene glycoL 3350 17 GM POWD.PACK PO (08:17)
[2023-02-03] MEDS: SODIUM BICARBONATE TAB 650 MG TABLET 1300 MG PO ×2 (08:17→16:30)
[2023-02-03] MEDS: MULTIVITAMINS /C LUTEIN (CENTRUM SILVER) TABLET *BKC 1 TAB PO (08:17)
[2023-02-03] MEDS: DOCUSATE SODIUM 100 MG CAPSULE PO ×2 (08:18→21:10)
--- NOTE | 2023-02-03 10:44 | P.PNIM_ITS ---
Progress Note: A&P Assessment and Plan (1) KEE (acute kidney injury): Code(s): N17.9 - Acute kidney failure, unspecified Status: Acute Assessment and Plan: * likely related to UTI (?) * * renal ultrasound with mild right and moderate left hydronephrosis; the right internal ureteral stent is not well visualized; mild right kidney atrophy * UA consistent with infection * urine culture with no growth * Urology consulted--patient was taken to OR for cystoscopy, right ureteral stent exchange, and possible left ureteral stent placement. Left ureteral stent could not be placed due to localized edema. Patient underwent left nephrostomy tube. Creatinine is about the same. Further recommendations per Urology * Monitor BMP (2) Stage 3a chronic kidney disease: Code(s): N18.31 - Chronic kidney disease, stage 3a Status: Chronic Assessment and Plan: * baseline creatinine runs around 1.2 - 1.4mg/dl in the last several years * presumably due to issues related to frequent UTIs, urinary retention with need for chronic lugo, and age-related change * Nephrology consulted. Appreciate input (3) Catheter-associated urinary tract infection: Qualifiers: Encounter type: sequela Indwelling urinary catheter type: indwelling urethral catheter Qualified Code(s): T83.511S - Infection and inflammatory reaction due to indwelling urethral catheter, sequela; N39.0 - Urinary tract infection, site not specified Code(s): T83.511A - Infection and inflammatory reaction due to indwelling urethral catheter, initial encounter; N39.0 - Urinary tract infection, site not specified Status: Acute Assessment and Plan: * as suggested by admission UA * follow culture data - negative to date * on antibiotics (4) Benign prostatic hyperplasia: Code(s): N40.0 - Benign prostatic hyperplasia without lower urinary tract symptoms Status: Chronic Assessment and Plan: * already has chronic lugo catheter * complicated by known history of bladder cancer * continue flomax * Urology following Subjective Date/time seen: 02/03/23 10:44 Interval history: Stable. Asymptomatic Review of Systems Cardiovascular: Cardiovascular: Denies chest pain Gastrointestinal: Gastrointestinal: Denies abdominal pain, Denies nausea and Denies vomiting Genitourinary: Genitourinary: Denies hematuria, Denies genital pain and Denies flank pain Exam Narrative: General: elderly male in NAD Heart: normal S1 and S2; no rub Lungs: clear to auscultation Abdomen: soft, nontender, nondistended, positive bowel sounds Extremities: no cyanosis or clubbing; no edema Skin: no nodules Objective Data Vital Signs Vital Signs: Vital Signs - 24 hr 02/02/23 13:03 02/02/23 14:30 02/02/23 22:00 Temperature 97.7 F 99.1 F Pulse Rate 87 63 62 Respiratory Rate 13 Blood Pressure 157/53 H 174/62 H Pulse Oximetry 93 95 98 Oxygen Delivery Room Air 02/02/23 20:00 02/03/23 06:00 02/03/23 08:00 Temperature 97.4 F L Pulse Rate 65 Respiratory Rate 14 Blood Pressure 162/47 H Pulse Oximetry 98 Oxygen Delivery Room Air Room Air Intake/Output Intake/Output: Intake & Output
--- NOTE | 2023-02-03 10:44 | PM.IMPN ---
Progress Note: A&P Assessment and Plan (1) KEE (acute kidney injury): Code(s): N17.9 - Acute kidney failure, unspecified Status: Acute Assessment and Plan: likely related to UTI (?) renal ultrasound with mild right and moderate left hydronephrosis; the right internal ureteral stent is not well visualized; mild right kidney atrophy UA consistent with infection urine culture with no growth Urology consulted--patient was taken to OR for cystoscopy, right ureteral stent exchange, and possible left ureteral stent placement. Left ureteral stent could not be placed due to localized edema. Patient underwent left nephrostomy tube. Creatinine is about the same. Further recommendations per Urology Monitor BMP (2) Stage 3a chronic kidney disease: Code(s): N18.31 - Chronic kidney disease, stage 3a Status: Chronic Assessment and Plan: baseline creatinine runs around 1.2 - 1.4mg/dl in the last several years presumably due to issues related to frequent UTIs, urinary retention with need for chronic lugo, and age-related change Nephrology consulted. Appreciate input (3) Catheter-associated urinary tract infection: Qualifiers: Encounter type: sequela Indwelling urinary catheter type: indwelling urethral catheter Qualified Code(s): T83.511S - Infection and inflammatory reaction due to indwelling urethral catheter, sequela; N39.0 - Urinary tract infection, site not specified Code(s): T83.511A - Infection and inflammatory reaction due to indwelling urethral catheter, initial encounter; N39.0 - Urinary tract infection, site not specified Status: Acute Assessment and Plan: as suggested by admission UA follow culture data - negative to date on antibiotics (4) Benign prostatic hyperplasia: Code(s): N40.0 - Benign prostatic hyperplasia without lower urinary tract symptoms Status: Chronic Assessment and Plan: already has chronic lugo catheter complicated by known history of bladder cancer continue flomax Urology following Subjective Date/time seen: 02/03/23 10:44 Interval history: Stable. Asymptomatic Review of Systems Cardiovascular: Cardiovascular: Denies chest pain Gastrointestinal: Gastrointestinal: Denies abdominal pain, Denies nausea and Denies vomiting Genitourinary: Genitourinary: Denies hematuria, Denies genital pain and Denies flank pain Exam Narrative: General: elderly male in NAD Heart: normal S1 and S2; no rub Lungs: clear to auscultation Abdomen: soft, nontender, nondistended, positive bowel sounds Extremities: no cyanosis or clubbing; no edema Skin: no nodules Objective Data Vital Signs Vital Signs: Vital Signs - 24 hr 02/02/23 13:03 02/02/23 14:30 02/02/23 22:00 Temperature 97.7 F 99.1 F Pulse Rate 87 63 62 Respiratory Rate 13 Blood Pressure 157/53 H 174/62 H Pulse Oximetry 93 95 98 Oxygen Delivery Room Air 02/02/23 20:00 02/03/23 06:00 02/03/23 08:00 Temperature 97.4 F L Pulse Rate 65 Respiratory Rate 14 Blood Pressure 162/47 H Pulse Oximetry 98 Oxygen Delivery Room Air Room Air Intake/Output Intake/Output: Intake & Output 01/31/23 02/01/23 02/02/23 02/03/23 23:59 23:59 23:59 23:59 Intake Total 940 / 940 2780 / 2780 750 / 750 500 / 500 Output Total 1500 / 1500 4375 / 3875 1300 / 1300 1000 / 1000 Balance -560 / -560 -1595 / -1095 -550 / -550 -500 / -500 Meds/Results Medications: Active Medications Generic Name Dose Route Start Last Admin Trade Name Freq PRN Reason Stop Dose Admin Acetaminophen 650 mg 01/27/23 16:11 02/02/23 18:18 Acetaminophen 325 Mg Tablet PO 650 mg Q4H PRN Administration Mild Pain (1-3) or Fever Amoxicillin 500 mg 02/01/23 12:30 02/03/23 08:17 Amoxicillin 500 Mg Capsule PO 02/03/23 21:01 500 mg Q12HR VIVEK Administration Calcium Carbonate 500 mg 01/28/23 09:00 02/03/23
--- NOTE | 2023-02-03 13:18 | PM.PNNEP ---
Progress Note: A&P Assessment and Plan (1) KEE (acute kidney injury): Code(s): N17.9 - Acute kidney failure, unspecified Status: Acute Assessment and Plan: evaluation to date: renal ultrasound with mild right and moderate left hydronephrosis; the right internal ureteral stent is not well visualized; mild right kidney atrophy UA consistent with infection urine culture with no growth known history of right ureteral stent placement does he need a left stent as well??? Urology recommendations noted -- s/p cystoscopy and right ureteral stent exchange but unable to place left ureteral stent placement s/p left nephrostomy tube placement (on 02/02/23) on oral sodium bicarbonate with improvement in acidosis follow trend of repeat labs and UOP (2) Stage 3a chronic kidney disease: Code(s): N18.31 - Chronic kidney disease, stage 3a Status: Chronic Assessment and Plan: baseline creatinine runs around 1.2 - 1.4mg/dl in the last several years presumably due to issues related to frequent UTIs, urinary retention with need for chronic lugo, and age-related change possibly new baseline creatinine (?) (3) Catheter-associated urinary tract infection: Qualifiers: Encounter type: sequela Indwelling urinary catheter type: indwelling urethral catheter Qualified Code(s): T83.511S - Infection and inflammatory reaction due to indwelling urethral catheter, sequela; N39.0 - Urinary tract infection, site not specified Code(s): T83.511A - Infection and inflammatory reaction due to indwelling urethral catheter, initial encounter; N39.0 - Urinary tract infection, site not specified Status: Acute Assessment and Plan: as suggested by admission UA follow culture data - negative to date on antibiotics (4) Benign prostatic hyperplasia: Code(s): N40.0 - Benign prostatic hyperplasia without lower urinary tract symptoms Status: Chronic Assessment and Plan: already has chronic lugo catheter complicated by known history of bladder cancer continue flomax Urology following Will continue to follow. Subjective Date/time seen: 02/03/23 13:18 Interval history: Follow-up for acute kidney injury/acute renal failure on top of chronic kidney disase. Status post left nephrostomy tube placement by IR yesterday - tolerated procedure reasonably well; no real improvement in creatinine noted; no apparent distress noted; no issues/events overnight or earlier this AM. Exam Narrative: General: elderly male in NAD Heart: normal S1 and S2; no rub Lungs: clear to auscultation Abdomen: soft, nontender, nondistended, positive bowel sounds Extremities: no cyanosis or clubbing; no edema Skin: warm and intact Objective Data Vital Signs Vital Signs: Vital Signs Temp Pulse Resp BP Pulse Ox O2 Del Method 02/03/23 13:00 96.7 F L 62 14 139/59 L 98 02/03/23 08:00 Room Air 02/03/23 06:00 97.4 F L 65 14 162/47 H 98 02/02/23 20:00 Room Air 02/02/23 22:00 99.1 F 62 13 174/62 H 98 Intake/Output Intake/Output: Intake & Output 01/31/23 02/01/23 02/02/23 02/03/23 23:59 23:59 23:59 23:59 Intake Total 940 2780 750 1520 Output Total 1500 4375 1300 1900 Balance -560 -1595 -550 -380 Meds/Results Medications: Active Medications Generic Name Dose Route Start Last Admin Trade Name Segundo PRN Reason Stop Dose Admin Acetaminophen 650 mg 01/27/23 16:11 02/02/23 18:18 Acetaminophen 325 Mg Tablet PO 650 mg Q4H PRN Administration Mild Pain (1-3) or Fever Amoxicillin 500 mg 02/01/23 12:30 02/03/23 08:17 Amoxicillin 500 Mg Capsule PO 02/03/23 21:01 500 mg Q12HR VIVEK Administration Calcium Carbonate 500 mg 01/28/23 09:00 02/03/23 08:17 Calcium/Vitamin D 500 Mg Tablet PO 500 mg DAILY VIVEK Administration Cyanocobalamin 2,500 mcg 01/28/23 09:00 02/03/23 08:17 Cyanocobalami
--- NOTE | 2023-02-03 13:18 | P.PNNP_ITS ---
Progress Note: A&P Assessment and Plan (1) KEE (acute kidney injury): Code(s): N17.9 - Acute kidney failure, unspecified Status: Acute Assessment and Plan: * evaluation to date: * renal ultrasound with mild right and moderate left hydronephrosis; the right internal ureteral stent is not well visualized; mild right kidney atrophy * UA consistent with infection * urine culture with no growth * known history of right ureteral stent placement * does he need a left stent as well??? * Urology recommendations noted -- s/p cystoscopy and right ureteral stent e xchange but unable to place left ureteral stent placement * s/p left nephrostomy tube placement (on 02/02/23) * on oral sodium bicarbonate with improvement in acidosis * follow trend of repeat labs and UOP (2) Stage 3a chronic kidney disease: Code(s): N18.31 - Chronic kidney disease, stage 3a Status: Chronic Assessment and Plan: * baseline creatinine runs around 1.2 - 1.4mg/dl in the last several years * presumably due to issues related to frequent UTIs, urinary retention with need for chronic lugo, and age-related change * possibly new baseline creatinine (?) (3) Catheter-associated urinary tract infection: Qualifiers: Encounter type: sequela Indwelling urinary catheter type: indwelling urethral catheter Qualified Code(s): T83.511S - Infection and inflammatory reaction due to indwelling urethral catheter, sequela; N39.0 - Urinary tract infection, site not specified Code(s): T83.511A - Infection and inflammatory reaction due to indwelling urethral catheter, initial encounter; N39.0 - Urinary tract infection, site not specified Status: Acute Assessment and Plan: * as suggested by admission UA * follow culture data - negative to date * on antibiotics (4) Benign prostatic hyperplasia: Code(s): N40.0 - Benign prostatic hyperplasia without lower urinary tract symptoms Status: Chronic Assessment and Plan: * already has chronic lugo catheter * complicated by known history of bladder cancer * continue flomax * Urology following Will continue to follow. Subjective Date/time seen: 02/03/23 13:18 Interval history: Follow-up for acute kidney injury/acute renal failure on top of chronic kidney disase. Status post left nephrostomy tube placement by IR yesterday - tolerated procedure reasonably well; no real improvement in creatinine noted; no apparent distress noted; no issues/events overnight or earlier this AM. Exam Narrative: General: elderly male in NAD Heart: normal S1 and S2; no rub Lungs: clear to auscultation Abdomen: soft, nontender, nondistended, positive bowel sounds Extremities: no cyanosis or clubbing; no edema Skin: warm and intact Objective Data Vital Signs Vital Signs: Vital Signs Temp Pulse Resp BP Pulse Ox O2 Del Method 02/03/23 13:00 96.7 F L 62 14 139/59 L 98 02/03/23 08:00 Room Air 02/03/23 06:00 97.4 F L 65 14 162/47 H 98 02/02/23 20:00 Room Air 02/02/23 22:00 99.1 F 62 13 174/62 H 98 Intake/Output Intake/Output: Intake & Output 01/31/23 02/01/23 02/02/23 02/03/23 23:59 23:59 23:59 23:59 Intake Total 940 2780 750 1520 Output Total 1500 4375 1300 1900 Bal
[2023-02-03 14:00] VITALS: BP 139/59; PULSE 62; RESP 14; TEMP 35.9; O2SAT 98
[2023-02-03] MEDS: TAMSULOSIN HCL 0.4 MG CAPSULE PO (21:10)
[2023-02-03] MEDS: MELATONIN 5 MG TABLET PO (21:10)
[2023-02-03 21:49] VITALS: BP 140/60; PULSE 63; RESP 16; TEMP 36.4; O2SAT 97
[2023-02-04 05:39] VITALS: BP 130/42; PULSE 57; RESP 16; TEMP 36.6; O2SAT 98
[2023-02-04 05:56] LABS: Basophils Percent Auto 0.5 % (0.2-1.2); Eosinophils Absolute Auto 0.9 K/mm3 (0-0.3); Eosinophils Percent Auto 15.3 % (0-4.4); Hematocrit 27.7 % (42.0-52.0); Hemoglobin 9.1 g/dL (14.0-18.0); Immature Granulocyte Absolute 0.02 K/mm3 (0.00-0.031); Immature Granulocyte Percent A 0.4 % (0-0.5); Lymphocytes Absolute Auto 1.41 K/mm3 (0.9-3.2); Lymphocytes Percent Auto 25.4 % (18.3-44.2); Mean Corpuscular HGB Conc 32.9 g/dl (32-36); Mean Corpuscular Hemoglobin 32.6 pg (26-34); Mean Corpuscular Volume 99.3 fl (80-100); Monocytes Absolute Auto 0.6 K/mm3 (0.1-0.6); Monocytes Percent Auto 10.4 % (2.6-8.5); Neutrophils Absolute Auto 2.7 K/mm3 (1.3-6.7); Platelet Count Result 161 k/mm3 (150-375); Red Blood Count 2.79 M/mm3 (4.6-6.20); Red Cell Distribution Width 14.8 % (11.5-14.5); White Blood Count 5.6 K/mm3 (4.5-10.0)
[2023-02-04 06:08] LABS: Anion Gap 5 mmol/L (8-16); Blood Urea Nitrogen 39 mg/dL (9-20); Calcium 8.2 mg/dL (8.4-10.2); Carbon Dioxide 23 mmol/L (22-30); Chloride 106 mmol/L (98-107); Estimated CRCL calculation 18 ml/min; Estimated Glomerular Filt Rate 24; Glucose 92 mg/dL (65-110); Potassium 4.6 mmol/L (3.4-5.0); Sodium 134 mmol/L (137-145)
[2023-02-04] MEDS: CYANOCOBALAMIN 500 MCG TABLET 2500 MCG PO (08:55)
[2023-02-04] MEDS: DOCUSATE SODIUM 100 MG CAPSULE PO (08:55)
[2023-02-04] MEDS: PARoxetine 20 MG TABLET PO (08:55)
[2023-02-04] MEDS: MULTIVITAMINS /C LUTEIN (CENTRUM SILVER) TABLET *BKC 1 TAB PO (08:55)
[2023-02-04] MEDS: SODIUM BICARBONATE TAB 650 MG TABLET 1300 MG PO (08:55)
--- NOTE | 2023-02-04 10:40 | P.PNNP_ITS ---
Progress Note: A&P Assessment and Plan (1) KEE (acute kidney injury): Code(s): N17.9 - Acute kidney failure, unspecified Status: Acute Assessment and Plan: * He has KEE. * Baseline creatinine seems to run around 1.4. * evaluation to date: * renal ultrasound with mild right and moderate left hydronephrosis; the right internal ureteral stent is not well visualized; mild right kidney atrophy * UA consistent with infection * urine culture with no growth * possibly KEE due to left-sided obstruction. * s/p left nephrostomy tube placement (on 02/02/23) * Hopefully renal function will improve soon. * on oral sodium bicarbonate with improvement in acidosis (2) Stage 3a chronic kidney disease: Code(s): N18.31 - Chronic kidney disease, stage 3a Status: Chronic Assessment and Plan: * baseline creatinine runs around 1.2 - 1.4mg/dl in the last several years * presumably due to issues related to frequent UTIs, urinary retention with need for chronic lugo, and age-related change * possibly new baseline creatinine (?) (3) Catheter-associated urinary tract infection: Qualifiers: Encounter type: sequela Indwelling urinary catheter type: indwelling urethral catheter Qualified Code(s): T83.511S - Infection and inflammatory reaction due to indwelling urethral catheter, sequela; N39.0 - Urinary tract infection, site not specified Code(s): T83.511A - Infection and inflammatory reaction due to indwelling urethral catheter, initial encounter; N39.0 - Urinary tract infection, site not specified Status: Acute Assessment and Plan: * as suggested by admission UA * follow culture data - negative * on antibiotics (4) Benign prostatic hyperplasia: Code(s): N40.0 - Benign prostatic hyperplasia without lower urinary tract symptoms Status: Chronic Assessment and Plan: * already has chronic lugo catheter * complicated by known history of bladder cancer * continue flomax * Urology following Subjective Date/time seen: 02/04/23 10:40 Interval history: Patient feels a little better. He is eating pretty well. He slept well. Exam Narrative: General: elderly male in NAD Heart: normal S1 and S2; no rub or gallop Lungs: clear to auscultation Abdomen: soft, nontender, nondistended, positive bowel sounds Extremities: no cyanosis or clubbing; no edema Skin: no rash Objective Data Vital Signs Vital Signs: Vital Signs - 24 hr 02/03/23 14:00 02/03/23 21:49 02/03/23 20:00 Temperature 96.7 F L 97.6 F Pulse Rate 62 63 Respiratory Rate 14 16 Blood Pressure 139/59 L 140/60 Pulse Oximetry 98 97 Oxygen Delivery Room Air 02/04/23 05:39 Temperature 97.8 F Pulse Rate 57 L Respiratory Rate 16 Blood Pressure 130/42 L Pulse Oximetry 98 Oxygen Delivery Intake/Output Intake/Output: Intake & Output 02/01/23 02/02/23 02/03/23 02/04/23 23:59 23:59 23:59 23:59 Intake Total 2780 750 1520 Output Total 4375 1300 1900 650 Balance -1595 -550 -380 -650 Meds/Results Medications: Active Medications Generic Name Dose Route Start Last Admin Trade
--- NOTE | 2023-02-04 10:40 | PM.PNNEP ---
Progress Note: A&P Assessment and Plan (1) KEE (acute kidney injury): Code(s): N17.9 - Acute kidney failure, unspecified Status: Acute Assessment and Plan: He has KEE. Baseline creatinine seems to run around 1.4. evaluation to date: renal ultrasound with mild right and moderate left hydronephrosis; the right internal ureteral stent is not well visualized; mild right kidney atrophy UA consistent with infection urine culture with no growth possibly KEE due to left-sided obstruction. s/p left nephrostomy tube placement (on 02/02/23) Hopefully renal function will improve soon. on oral sodium bicarbonate with improvement in acidosis (2) Stage 3a chronic kidney disease: Code(s): N18.31 - Chronic kidney disease, stage 3a Status: Chronic Assessment and Plan: baseline creatinine runs around 1.2 - 1.4mg/dl in the last several years presumably due to issues related to frequent UTIs, urinary retention with need for chronic lugo, and age-related change possibly new baseline creatinine (?) (3) Catheter-associated urinary tract infection: Qualifiers: Encounter type: sequela Indwelling urinary catheter type: indwelling urethral catheter Qualified Code(s): T83.511S - Infection and inflammatory reaction due to indwelling urethral catheter, sequela; N39.0 - Urinary tract infection, site not specified Code(s): T83.511A - Infection and inflammatory reaction due to indwelling urethral catheter, initial encounter; N39.0 - Urinary tract infection, site not specified Status: Acute Assessment and Plan: as suggested by admission UA follow culture data - negative on antibiotics (4) Benign prostatic hyperplasia: Code(s): N40.0 - Benign prostatic hyperplasia without lower urinary tract symptoms Status: Chronic Assessment and Plan: already has chronic lugo catheter complicated by known history of bladder cancer continue [facility] following Subjective Date/time seen: 02/04/23 10:40 Interval history: Patient feels a little better. He is eating pretty well. He slept well. Exam Narrative: General: elderly male in NAD Heart: normal S1 and S2; no rub or gallop Lungs: clear to auscultation Abdomen: soft, nontender, nondistended, positive bowel sounds Extremities: no cyanosis or clubbing; no edema Skin: no rash Objective Data Vital Signs Vital Signs: Vital Signs - 24 hr 02/03/23 14:00 02/03/23 21:49 02/03/23 20:00 Temperature 96.7 F L 97.6 F Pulse Rate 62 63 Respiratory Rate 14 16 Blood Pressure 139/59 L 140/60 Pulse Oximetry 98 97 Oxygen Delivery Room Air 02/04/23 05:39 Temperature 97.8 F Pulse Rate 57 L Respiratory Rate 16 Blood Pressure 130/42 L Pulse Oximetry 98 Oxygen Delivery Intake/Output Intake/Output: Intake & Output 02/01/23 02/02/23 02/03/23 02/04/23 23:59 23:59 23:59 23:59 Intake Total 2780 750 1520 Output Total 4375 1300 1900 650 Balance -1595 -550 -380 -650 Meds/Results Medications: Active Medications Generic Name Dose Route Start Last Admin Trade Name Freq PRN Reason Stop Dose Admin Acetaminophen 650 mg 01/27/23 16:11 02/02/23 18:18 Acetaminophen 325 Mg Tablet PO 650 mg Q4H PRN Administration Mild Pain (1-3) or Fever Calcium Carbonate 500 mg 01/28/23 09:00 02/04/23 08:55 Calcium/Vitamin D 500 Mg Tablet PO 500 mg DAILY VIVEK Administration Cyanocobalamin 2,500 mcg 01/28/23 09:00 02/04/23 08:55 Cyanocobalamin 500 Mcg Tablet PO 2,500 mcg QAM VIVEK Administration Docusate Sodium 100 mg 01/28/23 09:00 02/04/23 08:55 Docusate Sodium 100 Mg Capsule PO 100 mg Q12HR VIVEK Administration Hyoscyamine 0.125 mg 01/28/23 20:36 01/30/23 20:43 Hyoscyamine Sulfate 0.125 Mg Tablet PO 0.125 mg Q4H PRN Administration Bladder Spasm Melatonin 5 mg 01/29/23 21:00 02/03/23 21:10 Me
--- NOTE | 2023-02-04 11:49 | PM.IMPN ---
Progress Note: A&P Assessment and Plan (1) KEE (acute kidney injury): Code(s): N17.9 - Acute kidney failure, unspecified Status: Acute Assessment and Plan: likely related to UTI renal ultrasound with mild right and moderate left hydronephrosis; the right internal ureteral stent is not well visualized; mild right kidney atrophy UA consistent with infection urine culture with no growth Urology consulted--patient was taken to OR for cystoscopy, right ureteral stent exchange, and possible left ureteral stent placement. Left ureteral stent could not be placed due to localized edema. Patient underwent left nephrostomy tube. Creatinine is about the same. Nephrology consulted. Appreciate their input. Monitor BMP (2) Stage 3a chronic kidney disease: Code(s): N18.31 - Chronic kidney disease, stage 3a Status: Chronic Assessment and Plan: baseline creatinine runs around 1.2 - 1.4mg/dl in the last several years presumably due to issues related to frequent UTIs, urinary retention with need for chronic lugo, and age-related change Nephrology consulted. Appreciate input (3) Catheter-associated urinary tract infection: Qualifiers: Encounter type: sequela Indwelling urinary catheter type: indwelling urethral catheter Qualified Code(s): T83.511S - Infection and inflammatory reaction due to indwelling urethral catheter, sequela; N39.0 - Urinary tract infection, site not specified Code(s): T83.511A - Infection and inflammatory reaction due to indwelling urethral catheter, initial encounter; N39.0 - Urinary tract infection, site not specified Status: Acute Assessment and Plan: as suggested by admission UA Cultures negative (4) Benign prostatic hyperplasia: Code(s): N40.0 - Benign prostatic hyperplasia without lower urinary tract symptoms Status: Chronic Assessment and Plan: already has chronic lugo catheter complicated by known history of bladder cancer [facility] following Subjective Date/time seen: 02/04/23 11:49 Interval history: No complaint at this time. No abdominal pain Review of Systems Cardiovascular: Cardiovascular: Denies chest pain Gastrointestinal: Gastrointestinal: Denies abdominal pain, Denies nausea and Denies vomiting Genitourinary: Genitourinary: Denies hematuria, Denies genital pain and Denies flank pain Exam Narrative: General: elderly male in NAD Heart: normal S1 and S2; no rub or gallop Lungs: clear to auscultation Abdomen: soft, nontender, nondistended, positive bowel sounds Extremities: no cyanosis or clubbing; no edema Skin: no rash Objective Data Vital Signs Vital Signs: Vital Signs - 24 hr 02/03/23 14:00 02/03/23 21:49 02/03/23 20:00 Temperature 96.7 F L 97.6 F Pulse Rate 62 63 Respiratory Rate 14 16 Blood Pressure 139/59 L 140/60 Pulse Oximetry 98 97 Oxygen Delivery Room Air 02/04/23 05:39 02/04/23 08:00 Temperature 97.8 F Pulse Rate 57 L Respiratory Rate 16 Blood Pressure 130/42 L Pulse Oximetry 98 Oxygen Delivery Room Air Intake/Output Intake/Output: Intake & Output 02/01/23 02/02/23 02/03/23 02/04/23 23:59 23:59 23:59 23:59 Intake Total 2780 / 2780 750 / 750 1520 / 1520 Output Total 4375 / 3875 1300 / 1300 1900 / 1900 650 / 650 Balance -1595 / -1095 -550 / -550 -380 / -380 -650 / -650 Meds/Results Medications: Active Medications Generic Name Dose Route Start Last Admin Trade Name Freq PRN Reason Stop Dose Admin Acetaminophen 650 mg 01/27/23 16:11 02/02/23 18:18 Acetaminophen 325 Mg Tablet PO 650 mg Q4H PRN Administration Mild Pain (1-3) or Fever Calcium Carbonate 500 mg 01/28/23 09:00 02/04/23 08:55 Calcium/Vitamin D 500 Mg Tablet PO 500 mg DAILY VIVEK Administration Cyanocobalamin 2,500 mcg 01/28/23 09:00 02/04/23 08:55 Cyanocobalamin 500 Mcg Tablet
--- NOTE | 2023-02-04 12:32 | PM.DS ---
DS: Admitting Diagnosis Discharge Date 02/04/2023 Admitting Diagnosis Left-sided hydronephrosis Acute kidney injury DS: Discharge Diagnosis Discharge Diagnosis (1) KEE (acute kidney injury): Code(s): N17.9 - Acute kidney failure, unspecified Status: Acute (2) Hydronephrosis: Code(s): N13.30 - Unspecified hydronephrosis Status: Acute DS: Summary Hospital Course Hospital Course: Assessment and Plan (1) KEE (acute kidney injury): ?Code(s): N17.9 - Acute kidney failure, unspecified ?Status:?Acute ?Assessment and Plan: ? He has KEE. ? Baseline creatinine seems to run around 1.4. evaluation to date: renal ultrasound with mild right and?moderate?left?hydronephrosis; the right internal ureteral stent is not well visualized; mild right kidney atrophy UA consistent with infection urine culture with no growth ?possibly KEE due to left-sided obstruction. s/p left nephrostomy tube placement (on 02/02/23) ? Hopefully renal function will improve soon. on oral sodium bicarbonate with improvement in acidosis (2) Stage 3a chronic kidney disease: ?Code(s): N18.31 - Chronic kidney disease, stage 3a ?Status:?Chronic ?Assessment and Plan: baseline creatinine runs around 1.2 - 1.4mg/dl in the last several years presumably due to issues related to frequent UTIs, urinary retention with need for chronic lugo, and age-related change possibly new baseline creatinine (?) (3) Catheter-associated urinary tract infection: ?Qualifiers: ?Encounter type:?sequela??Indwelling urinary catheter type:?indwelling urethral catheter? Qualified Code(s):?T83.511S - Infection and inflammatory reaction due to indwelling urethral catheter, sequela; N39.0 - Urinary tract infection, site not specified ?Code(s): T83.511A - Infection and inflammatory reaction due to indwelling urethral catheter, initial encounter; N39.0 - Urinary tract infection, site not specified ?Status:?Acute ?Assessment and Plan: as suggested by admission UA follow culture data - negative on antibiotics (4) Benign prostatic hyperplasia: ?Code(s): N40.0 - Benign prostatic hyperplasia without lower urinary tract symptoms ?Status:?Chronic ?Assessment and Plan: already has chronic lugo catheter complicated by known history of bladder cancer continue [facility] following Patient clinically stable. Creatinine at at 2.5. Creatinine has plateaued at this time. It may take some time for the renal functions improve. Will have the patient get BMP done as an outpatient and follow-up with Nephrology. Nephrostomy tube to be changed in 3 months by radiology. Patient is clinically stable and is being discharged home with home health Time Spent with Patient Time attestation: Total time spent providing and/or coordinating discharge services: DS: Data Data Completed and Pending Labs on day of discharge: Labs from last 24 hours 02/04/23 05:29 WBC 5.6 RBC 2.79 L Hgb 9.1 L Hct 27.7 L MCV 99.3 MCH 32.6 MCHC 32.9 RDW 14.8 H Plt Count 161 MPV 10.0 Immature Gran % (Auto) 0.4 Neut % (Auto) 48.0 Lymph % (Auto) 25.4 Stearns % (Auto) 10.4 H Eos % (Auto) 15.3 H Baso % (Auto) 0.5 Lymph # (Auto) 1.41 Stearns # (Auto) 0.6 Eos # (Auto) 0.9 H Baso # (Auto) 0.0 Abs Immat Gran (auto) 0.02 Absolute Neuts (auto) 2.7 Absolute Nucleated RBC 0.0 Nucleated RBC % 0.0 Sodium 134 L Potassium 4.6 Chloride 106 Carbon Dioxide 23 Anion Gap 5 L BUN 39 H Creatinine 2.50 H Estim Creat Clear Calc 18 Estimated GFR 24 L Glucose 92 Calcium 8.2 L Phosphorus 4.0 Albumin 3.0 L Discharge Plan Discharge Consulting providers: Kirt Guzman; Harsh Henderson Discharging Clinician: Cesar Carey Anticipated Discharge Date/Time: 02/04/23 12:31 Patient Disposition: Home Health Service Activity: no preference Diet: renal Discharge Instruc
== END 2023-02-04 16:20 | disposition home health service (06) | DRG 660 ==
LOC: ANHED 15:27 → ANH3MEDSUR 17:09
PROVIDERS: Internal Medicine Nephrology; Nurse Practitioner; Nurse Practitioner Adult Health; Urology; Admitting Provider Chiropractor; Emergency Provider Emergency Medicine; PCP Family Medicine; Visit Provider Hospitalist
PROC: 0T5D8ZZ Destruction of Urethra, Via Natural or Artificial Opening Endoscopic (ICD-10-PCS; CPT 52352; principal; 2023-02-01 11:45)
DX: T83.511A Infection and inflammatory reaction due to indwelling urethral catheter, initial encounter (principal); N13.30 Unspecified hydronephrosis; N17.9 Acute kidney failure, unspecified; N39.0 Urinary tract infection, site not specified; C61 Malignant neoplasm of prostate; D63.1 Anemia in chronic kidney disease; E11.22 Type 2 diabetes mellitus with diabetic chronic kidney disease; E21.3 Hyperparathyroidism, unspecified; F41.8 Other specified anxiety disorders; G47.33 Obstructive sleep apnea (adult) (pediatric); H91.90 Unspecified hearing loss, unspecified ear; I12.9 Hypertensive chronic kidney disease with stage 1 through stage 4 chronic kidney disease, or unspecified chronic kidney disease; L50.1 Idiopathic urticaria; M48.061 Spinal stenosis, lumbar region without neurogenic claudication; N40.1 Benign prostatic hyperplasia with lower urinary tract symptoms; N18.31 Chronic kidney disease, stage 3a; R33.8 Other retention of urine; Z96.0 Presence of urogenital implants; Z85.51 Personal history of malignant neoplasm of bladder; Z86.16 Personal history of COVID-19
CPT/HCPCS: 36415; 36430; 50432; 71046; 74176; 76775; 80048; 80053; 80069; 80202; 81001; 82565; 83735; 84439; 84443; 84480; 85014; 85018; 85025; 85055; 85610; 85730; 86850; 86900; 86901; 86923; 87040; 87086; 93005; 97110; 97116; 97161; 97165; 97530; 97535; 99285; A9270; C1729; C1769; C2617; J0696; J2405; J2704; J3010; J3370; J7030; J7050; J7120; P9016

== ENCOUNTER 2023-02-07 16:53 | Outpatient (NON) | payer MEDICARE, SELFPAY ==
[2023-02-07 17:23] LABS: Anion Gap 9 mmol/L (8-16); Blood Urea Nitrogen 34 mg/dL (9-20); Calcium 8.7 mg/dL (8.4-10.2); Carbon Dioxide 23 mmol/L (22-30); Chloride 102 mmol/L (98-107); Estimated Glomerular Filt Rate 32; Glucose 110 mg/dL (65-110); Potassium 4.1 mmol/L (3.4-5.0); Sodium 134 mmol/L (137-145)
== END 2023-02-07 16:54 | disposition home or self-care (01) ==
PROVIDERS: PCP Family Medicine; Visit Provider Hospitalist
DX: N17.9 Acute kidney failure, unspecified (principal)
CPT/HCPCS: 80048

== ENCOUNTER 2023-02-15 11:25 | Inpatient (IN) | payer MEDICARE, SELFPAY ==
[2023-02-15] VITALS (24 sets, daily range): BP systolic 116–148; BP diastolic 41–82; PULSE 68–81; RESP 13–23; TEMP 36.5–36.8; O2SAT 96–100
--- NOTE | ~2023-02-15 | XR_ITS ---
EXAMINATION: XR chest 2V 02/15/2023 13:15 INDICATION: Weakness. PROCEDURE: 2 view chest COMPARISON: 01/27/2023 FINDINGS: The lungs are clear. The cardiomediastinal silhouette is within normal limits. There are no pleural effusions. There is no pneumothorax suspected. IMPRESSION: 1: NO ACUTE CARDIOPULMONARY DISEASE. Reviewed, dictated and finalized at location L.
--- NOTE | 2023-02-15 12:44 | ECG_ITS ---
Measurements Intervals Waterproof Rate: 69 P: 4 MN: 194 QRS: -14 QRSD: 87 T: 42 QT: 386 QTc: 414 Interpretive Statements SINUS RHYTHM COMPARED TO ECG 01/27/2023 14:29:29 NO SIGNIFICANT CHANGES Electronically Signed On 02-15-2023 16:20:50 CDT by Joan Love M.D.
[2023-02-15 13:08] LABS: Basophils Percent Auto 0.3 % (0.2-1.2); Eosinophils Absolute Auto 0.4 K/mm3 (0-0.3); Eosinophils Percent Auto 5.5 % (0-4.4); Hematocrit 28.9 % (42.0-52.0); Hemoglobin 9.7 g/dL (14.0-18.0); Immature Granulocyte Absolute 0.04 K/mm3 (0.00-0.031); Immature Granulocyte Percent A 0.6 % (0-0.5); Lymphocytes Absolute Auto 1.26 K/mm3 (0.9-3.2); Lymphocytes Percent Auto 18.3 % (18.3-44.2); Mean Corpuscular HGB Conc 33.6 g/dl (32-36); Mean Corpuscular Hemoglobin 33.2 pg (26-34); Mean Platelet Volume 9.7 fl (7.4-10.4); Monocytes Absolute Auto 0.7 K/mm3 (0.1-0.6); Monocytes Percent Auto 9.6 % (2.6-8.5); Neutrophils Absolute Auto 4.5 K/mm3 (1.3-6.7); Neutrophils Percent Auto 65.7 % (45.5-73.1); Platelet Count Result 230 k/mm3 (150-375); Red Blood Count 2.92 M/mm3 (4.6-6.20); Red Cell Distribution Width 14.6 % (11.5-14.5); White Blood Count 6.9 K/mm3 (4.5-10.0)
[2023-02-15 13:13] LABS: Appearance Urine Clear (Clear); Bacteria Urine 4+ /hpf; Bilirubin Urine Negative (Negative); Blood Urine 3+ (Negative); Color Urine Yellow (Yellow); Glucose Urine UA Negative (Negative); Ketones Urine Negative (Negative); Leukocyte Esterase Ur 2+ LEU/UL (Negative); Nitrate Urine Negative (Negative); Non Pathogenic Casts 0-2; Protein Urine 2+ mg/dL (Negative); RBC Urine >100 /hpf (0-2); Specific Grav Ur 1.018 (1.001-1.035); Squamous Epithelial Cell Urine None seen /hpf (Few); Urobilinogen Urine 0.2 mg/dL (<2.0); WBC Urine 21-50 /hpf; pH Urine 6.5 (5.0-9.0)
--- NOTE | 2023-02-15 13:16 | ED.WEAKNESS ---
HPI - Weakness General Chief complaint: Weakness Stated complaint: weakness Time Seen by Provider: 02/15/23 12:37 History of Present Illness HPI Narrative: Pt presents with generalized weakness progressively worsening over the last two weeks. Pt is so weak today that it took two people to get him into the car. Pt denies one sided deficit just feels generally weak. Pt has renal CA and has nephrostomy tube and lugo. Pt denies fever or vomiting. Related Data Home Medications Medication Instructions Recorded Confirmed docusate sodium 100 mg capsule 100 mg PO Q12H 11/12/19 02/15/23 (Colace) enzalutamide 40 mg capsule (Xtandi) 160 mg PO DAILY 06/11/22 02/15/23 calcium carbonate 500 mg-vitamin 1 tablet PO DAILY 01/27/23 02/15/23 D3 5 mcg (200 unit) tablet (Oyster Shell Calcium-Vitamin D3) multivit with minerals-iron 18 1 tablet PO DAILY 01/27/23 02/15/23 mg-folic ac 400 mcg-vit K 25 mcg tablet (Adults Multivitamin) Allergies Allergy/AdvReac Type Severity Reaction Status Date / Time aspartame Allergy Intermediate HIVE Verified 01/27/23 14:15 lisinopril Allergy Intermediate Rash, Verified 01/27/23 14:15 itching Review of Systems Review of Systems: All systems reviewed & are unremarkable except as noted in HPI and below PMFSH Past Medical History Medical History Anemia in chronic kidney disease Anxiety with depression Benign prostatic hyperplasia Chronic idiopathic urticaria Chronic kidney disease, stage 4 (severe) Constipation COVID-19 Depression Elbow fracture, right Essential (primary) hypertension Hyperparathyroidism Lumbar stenosis Nocturnal myoclonus Obesity Obstructive sleep apnea Prostate cancer Surgical History Surgical History History of cystoscopy History of open reduction and internal fixation (ORIF) procedure Repair of left arm fracture. History of transurethral resection of prostate (10/2019) History of ureter stent History of varicose vein ligation Bilateral. Family History Family History Mother Breast cancer Social History Social History Social History: The patient lives with his in [place]. They have 2 children. He retired from doing factory work. Lifelong nonsmoker. No alcohol or illicit substance abuse. He designates his , Tiffany Arreaga, as his surrogate medical decision maker. Code status: Full code. Smoking status: Never smoker Second hand tobacco smoke exposure: No Alcohol intake: never Substance use: never Lack of Transportation: No Lack of Food: Never True Current Housing: I Have Housing Concerned About Future Housing: No Difficulty Paying Gas/Electric Bills: No Difficulty Paying for Meds: No Currently Unemployed: No Education: High School Diploma/GED Difficulty w/ Childcare or Family Care: No Living arrangements: with family Additional living arrangements comments: - [place] Occupation/Education: retired Spiritual care concerns: No Agree to blood products: Yes Exam Const: General: healthy appearing Nutritional Appearance: well nourished Orientation/consciousness: patient oriented x3 Limitations: no limitations HENMT: Mouth: Yes Normal oral and palatal mucosa present Eyes: Conjunctivae: conjunctival abnormality (pale) Pupils: Equal, round and reactive pupils present EOM: EOMs intact bilaterally Neck: Neck: normal visual inspection and no lymphadenopathy Resp: Effort & Inspection: normal respiratory effort Auscultation: clear to auscultation bilaterally Cardio: Rate: regular rate Rhythm: regular rhythm GI: GI Palp: Yes Soft to palpation Skin: General skin exam: pallor Rashes: no rashes Wounds: no wounds Neuro: General: patient oriented x3, moves all extremities, no meningeal
[2023-02-15 13:17] LABS: Lactic Acid Reflex 1.2 mmol/L (0.7-2.0)
[2023-02-15 13:18] LABS: Add Urine Microscopic? YES
[2023-02-15 13:23] LABS: Alanine Aminotransferase 12 U/L (6-50); Albumin Level 3.7 g/dL (3.5-5.1); Alkaline Phosphatase 99 U/L (38-126); Anion Gap 9 mmol/L (8-16); Aspartate Amino Transferase 25 U/L (17-59); Bilirubin,Total 0.4 mg/dL (0.2-1.3); Blood Urea Nitrogen 38 mg/dL (9-20); CRP 3.6 mg/dL (<1.0); Calcium 9.3 mg/dL (8.4-10.2); Carbon Dioxide 26 mmol/L (22-30); Chloride 98 mmol/L (98-107); Estimated CRCL calculation 24 ml/min; Estimated Glomerular Filt Rate 34; Glucose 103 mg/dL (65-110); Potassium 4.3 mmol/L (3.4-5.0); Prothrombin Time 13.3 Seconds (11.1-14.7); Sodium 133 mmol/L (137-145)
[2023-02-15 13:24] LABS: Partial Thromboplastin Time 26.1 SECONDS (22.3-36.8)
[2023-02-15 13:29] LABS: Troponin I < 0.012 ng/mL (0.000-0.034)
--- NOTE | 2023-02-15 16:10 | ADMGEN ---
This patient, Dayron Arreaga, was admitted to Medical Room 252-. Patient/family oriented to hospital policies and general routines including ID bracelet, bed and alarms, visiting hours, pain management, procedures, bathroom and other care routines, personal items, smoking policy, room service/diet, and visiting hours. Information on how to activate the Rapid Response Team has been discussed. Patient/Family are encouraged to report perceived risks to care and to ask questions if they do not understand what they are told or what they should do.
--- NOTE | 2023-02-15 16:15 | PM.IMHP ---
H&P: HPI History of Present Illness Date/Time: 02/15/23 16:15 Chief Complaint: Weakness Narrative: This is an 87-year-old male patient who has a history of chronic anemia and renal carcinoma with the nephrostomy in a Dietz. The patient denies any focal weakness and has generalized weakness. The patient admits that he has had decreased oral intake. The patient was so weak today that it took 2 people to get him into the car. Patient denies any discomfort. No fever or chills no nausea vomiting or diarrhea. H&H is 9.7 and 28.9 which is slightly above his baseline. The patient is pale but denies having any bloody stools are hematemesis. Sodium is 133 which is around his baseline. His creatinine is 1.9 which is around his baseline. GFR is 34 which is higher than his baseline. C reactive protein 3.6. The patient was positive for UTI. The patient was started on Rocephin. Chest x-ray was read as no acute cardiopulmonary disease. The patient is being admitted to inpatient status on the date of service of 02/15/2023. Review of Systems Review of Systems: All systems reviewed & are unremarkable except as noted in HPI and below Constitutional: Constitutional: Reports as per HPI and Reports no additional constitutional complaints Eyes: Eyes: Reports as per HPI and Reports no additional eye complaints ENT: Reports system reviewed and no additional complaints, except as documented and Reports Normal hearing present Cardiovascular: Cardiovascular: Reports no additional cardiovascular complaints Respiratory: Respiratory: Reports no additional respiratory complaints and Reports no additional respiratory complaints Gastrointestinal: Gastrointestinal: Reports as per HPI and Reports no additional gastrointestinal complaints Musculoskeletal: Musculoskeletal: Reports no additional musculoskeletal complaints Integumentary/Breasts: Skin/Breast: Reports system reviewed and no additional complaints, except as docu and Reports as per HPI Neurologic: Reports system reviewed and no additional complaints, except as documented, Reports as per HPI and Reports Normal hearing present Psychiatric: Psychiatric: Reports no additional psychiatric complaints and Reports as per HPI Endocrine: Endocrine: Reports no additional endocrine complaints Hematologic/Lymphatic: Hematologic/Lymphatic: Reports no additional hematologic/lymphatic complaints Allergic/Immunologic: Allergic/Immunologic: Reports no additional allergic/immunologic complaints PMFSH Past Medical History Medical History Anemia in chronic kidney disease Anxiety with depression Benign prostatic hyperplasia Chronic idiopathic urticaria Chronic kidney disease, stage 4 (severe) Constipation COVID-19 Depression Elbow fracture, right Essential (primary) hypertension Hyperparathyroidism Lumbar stenosis Nocturnal myoclonus Obesity Obstructive sleep apnea Prostate cancer Surgical History Surgical History History of cystoscopy History of open reduction and internal fixation (ORIF) procedure Repair of left arm fracture. History of transurethral resection of prostate (10/2019) History of ureter stent History of varicose vein ligation Bilateral. Family History Family History Mother Breast cancer Social History Social History Social History: The patient lives with his in [place]. They have 2 children. He retired from doing factory work. Lifelong nonsmoker. No alcohol or illicit substance abuse. He designates his , Faith Arreaga, as his surrogate medical decision maker. Code status: Full code. Smoking status: Never smoker Second hand tobacco smoke exposure: No Alcohol intake: never Substance use: never Lack of Transportation: No Lack of Food: Never True
--- NOTE | 2023-02-15 20:49 | PHAR ---
PT'S HOME MED XTANDI (ENZALUTAMIDE) 40 MG TABS VERIFIED BY PHARMACY
[2023-02-15] MEDS: DOCUSATE SODIUM 100 MG CAPSULE PO (21:26)
[2023-02-15] MEDS: TAMSULOSIN HCL 0.4 MG CAPSULE PO (21:26)
[2023-02-15] MEDS: SODIUM BICARBONATE TAB 650 MG TABLET 1300 MG PO (21:27)
[2023-02-15] MEDS: polyethylene glycoL 3350 17 GM POWD.PACK PO (21:27)
[2023-02-16 06:00] VITALS: BP 136/50; PULSE 70; RESP 18; TEMP 36.6; O2SAT 98
[2023-02-16 06:43] LABS: Basophils Percent Auto 0.3 % (0.2-1.2); Eosinophils Absolute Auto 0.4 K/mm3 (0-0.3); Eosinophils Percent Auto 6.2 % (0-4.4); Hematocrit 28.7 % (42.0-52.0); Hemoglobin 9.5 g/dL (14.0-18.0); Immature Granulocyte Absolute 0.03 K/mm3 (0.00-0.031); Immature Granulocyte Percent A 0.5 % (0-0.5); Lymphocytes Absolute Auto 1.48 K/mm3 (0.9-3.2); Lymphocytes Percent Auto 22.5 % (18.3-44.2); Mean Corpuscular HGB Conc 33.1 g/dl (32-36); Mean Corpuscular Hemoglobin 32.4 pg (26-34); Mean Platelet Volume 9.7 fl (7.4-10.4); Monocytes Absolute Auto 0.6 K/mm3 (0.1-0.6); Monocytes Percent Auto 8.4 % (2.6-8.5); Neutrophils Absolute Auto 4.1 K/mm3 (1.3-6.7); Neutrophils Percent Auto 62.1 % (45.5-73.1); Platelet Count Result 246 k/mm3 (150-375); Red Blood Count 2.93 M/mm3 (4.6-6.20); Red Cell Distribution Width 14.6 % (11.5-14.5); White Blood Count 6.6 K/mm3 (4.5-10.0)
[2023-02-16 06:49] LABS: Lactic Acid Reflex 0.9 mmol/L (0.7-2.0)
[2023-02-16 06:50] LABS: Alanine Aminotransferase 12 U/L (6-50); Albumin Level 3.9 g/dL (3.5-5.1); Alkaline Phosphatase 112 U/L (38-126); Anion Gap 8 mmol/L (8-16); Aspartate Amino Transferase 26 U/L (17-59); Bilirubin,Total 0.5 mg/dL (0.2-1.3); Blood Urea Nitrogen 38 mg/dL (9-20); Calcium 9.1 mg/dL (8.4-10.2); Carbon Dioxide 24 mmol/L (22-30); Chloride 100 mmol/L (98-107); Estimated CRCL calculation 25 ml/min; Estimated Glomerular Filt Rate 36; Glucose 109 mg/dL (65-110); Magnesium 2.4 mg/dL (1.6-2.3); Potassium 4.6 mmol/L (3.4-5.0); Sodium 132 mmol/L (137-145)
[2023-02-16 08:06] LABS: Free T4 Free Thyroxine Reflex 1.21 ng/dL (0.78-2.19)
--- NOTE | 2023-02-16 08:06 | WPDURCON ---
Assessment and Plan Assessment and plan (1) Generalized weakness: Code(s): R53.1 - Weakness Status: Acute Assessment and Plan: Possibly secondary to his UTI as well as his progressive prostate cancer. Will check a PSA on him this admission. He was due to have an Eligard injection in our office I believe today and that can be scheduled as an outpatient after discharge. (2) Catheter-associated urinary tract infection: Qualifiers: Encounter type: sequela Indwelling urinary catheter type: indwelling urethral catheter Qualified Code(s): T83.511S - Infection and inflammatory reaction due to indwelling urethral catheter, sequela; N39.0 - Urinary tract infection, site not specified Code(s): T83.511A - Infection and inflammatory reaction due to indwelling urethral catheter, initial encounter; N39.0 - Urinary tract infection, site not specified Status: Acute Assessment and Plan: Awaiting cultures but will plan on changing his indwelling Dietz to a 16 [place] Dietz today. (3) Hydronephrosis: Code(s): N13.30 - Unspecified hydronephrosis Status: Acute Assessment and Plan: Secondary to obstruction from the locally invasive prostate cancer. Had recent nephrostomy tube placed and his renal function has been improving with a creatinine level of 1.8 today. (4) Prostate cancer: Code(s): C61 - Malignant neoplasm of prostate Status: Chronic Assessment and Plan: See above. Will check PSA level. Urology Consult Note HPI Date Seen: 02/16/23 Time Seen: 08:06 Requesting Physician: Monty Seay MD Primary Care Provider: Chriss Smith MD Consult Narrative Reason for consult: Prostate cancer and UTI Narrative: Dayron Arreaga is a 87 year old male who is well known to me. 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 Most recently he has been managed with androgen deprivation therapy. Most recent PSA that I had was 0.35 a few months ago. Patient has locally progressive and possibly dat involvement of his prostate cancer. He has obstructed his left ureter and had a recent left nephrostomy tube placed. Also has an indwelling Dietz at this time. He was admitted for progressive weakness. Essentially all his labs looked stable except for possibly urinary tract infection. Patient is feeling better today although will require physical therapy. He denied any fevers. Review of Systems Review of Systems: All systems reviewed & are unremarkable except as noted in HPI and below PMFSH Past Medical History Medical History Anemia in chronic kidney disease Anxiety with depression Benign prostatic hyperplasia Chronic idiopathic urticaria Chronic kidney disease, stage 4 (severe) Constipation COVID-19 Depression Elbow fracture, right Essential (primary) hypertension Hyperparathyroidism Lumbar stenosis Nocturnal myoclonus Obesity Obstructive sleep apnea Prostate cancer Surgical History Surgical History History of cystoscopy History of open reduction and internal fixation (ORIF) procedure Repair of left arm fracture. History of transurethral resection of prostate (10/2019) History of ureter stent History of varicose vein ligation Bilateral. Family History Family History Mother Breast cancer Social History Social History Social History: The patient lives with his in [place]. They have 2 children. He retired from doing factory work. Lifelong nonsmoker. No alcohol or illicit substance abuse. He designates his , Faith Arreaga, as his surrogate medical decision maker. Code status: Full code. Smoking status: Never smoker Second hand tobacco smoke ex
[2023-02-16 08:37] VITALS: RESP 18; O2SAT 98
[2023-02-16] MEDS: CYANOCOBALAMIN 1,000 MCG TABLET 2000 MCG PO (08:37)
[2023-02-16] MEDS: MULTIVITAMINS /C LUTEIN (CENTRUM SILVER) TABLET *BKC 1 TAB PO (08:37)
[2023-02-16] MEDS: CYANOCOBALAMIN 500 MCG TABLET PO (08:37)
[2023-02-16] MEDS: PARoxetine 20 MG TABLET PO (08:37)
[2023-02-16] MEDS: SODIUM BICARBONATE TAB 650 MG TABLET 1300 MG PO ×2 (08:37→16:23)
[2023-02-16] MEDS: DOCUSATE SODIUM 100 MG CAPSULE PO ×2 (08:37→21:38)
[2023-02-16 10:04] LABS: Prostate Specific Antigen 0.8 ng/mL (< OR = 4.0)
[2023-02-16 10:40] VITALS: BMI 25.7
--- NOTE | 2023-02-16 12:27 | WPDPN ---
Progress Note: A&P Assessment and Plan (1) UTI (urinary tract infection): Code(s): N39.0 - Urinary tract infection, site not specified Status: Acute Assessment and Plan: The patient has a chronic indwelling Dietz catheter as well as a nephrostomy tube on the left. The patient has had a history of Enterococcus species in the past. His last microbiology showed no growth. The patient was started on Rocephin. Blood and urine cultures are pending. 02/16/2023 interval history: patient with prostate CA had been seen by urologist and treated presented with c/o weakness, seen by his urologist suspect his symptoms are due to UTI and worsening his prostate cancer, stats feels better, his Dietz was replaced, treated with ceftriaxone will follow up on urine culture, patient stats he feels little better, will have PT/OT evaluate patient, will continue to monitor. (2) Depression: Qualifiers: Depression Type: major depressive disorder Code(s): F32.9 - Major depressive disorder, single episode, unspecified Status: Acute Assessment and Plan: Continue with Paxil (3) Chronic kidney disease: Code(s): N18.9 - Chronic kidney disease, unspecified Status: Chronic Assessment and Plan: Patient's creatinine is 1.9 which is usually 2 point something and GFR is 34 which is above his baseline. (4) Generalized weakness: Code(s): R53.1 - Weakness Status: Acute Assessment and Plan: The patient has had poor oral intake. I did start him on supplements. Will need dietary consult as well. He has a urinary tract infection and is on antibiotics. PT OT evaluation home health care case manager consult for possible rehab. (5) Chronic anemia: Code(s): D64.9 - Anemia, unspecified Status: Chronic Assessment and Plan: Most likely related to his chronic renal disease. The patient is at his baseline. Continue to monitor. (6) IGOR (obstructive sleep apnea): Code(s): G47.33 - Obstructive sleep apnea (adult) (pediatric) Status: Acute Assessment and Plan: The patient no longer wears a CPAP machine. (7) Prostate cancer: Code(s): C61 - Malignant neoplasm of prostate Status: Chronic Assessment and Plan: Continue with Xtandi. Continue with Flomax. Subjective Date/time seen: 02/16/23 12:27 Interval history: Weakness HPI-Narrative: This is an 87-year-old male patient who has a history of chronic anemia and renal carcinoma with the nephrostomy in a Dietz.? The patient denies any focal weakness and has generalized weakness.? The patient admits that he has had decreased oral intake.? The patient was so weak today that it took 2 people to get him into the car.? Patient denies any discomfort.? No fever or chills no nausea vomiting or diarrhea.? H&H is 9.7 and 28.9 which is slightly above his baseline.? The patient is pale but denies having any bloody stools are hematemesis.? Sodium is 133 which is around his baseline.? His creatinine is 1.9 which is around his baseline.? GFR is 34 which is higher than his baseline.? C reactive protein 3.6.? The patient was positive for UTI.? The patient was started on Rocephin.? Chest x-ray was read as no acute cardiopulmonary disease.? 02/16/2023 interval history: patient with prostate CA had been seen by urologist and treated presented with c/o weakness, seen by his urologist suspect his symptoms are due to UTI and worsening his prostate cancer, stats feels better, his Dietz was replaced, treated with ceftriaxone will follow up on urine culture, patient stats he feels little better, will have PT/OT evaluate patient, will continue to monitor. Review of Systems Review of Systems: All systems reviewed & are unremarkable except as noted in HPI and below Constitutional: Constitutional: Reports as per HPI and Reports no additional constitutional complaints Objective Data Vital Signs Vital Signs: Vital Signs - 24 hr
[2023-02-16 14:10] VITALS: BP 121/43; PULSE 67; RESP 18; TEMP 36.5; O2SAT 100
--- NOTE | 2023-02-16 15:42 | PCPTNOTE ---
attempted to see pt on 3 different times, but pt unavailable each time. Will follow
[2023-02-16 20:54] VITALS: BP 132/57; PULSE 76; RESP 17; TEMP 36.7; O2SAT 100
[2023-02-16] MEDS: MELATONIN 3 MG TABLET PO (21:37)
[2023-02-16] MEDS: TAMSULOSIN HCL 0.4 MG CAPSULE PO (21:38)
[2023-02-16] MEDS: polyethylene glycoL 3350 17 GM POWD.PACK PO (21:38)
[2023-02-17 05:28] VITALS: BP 118/52; PULSE 79; RESP 17; TEMP 37; O2SAT 97
[2023-02-17] MEDS: CYANOCOBALAMIN 500 MCG TABLET PO (08:22)
[2023-02-17] MEDS: PARoxetine 20 MG TABLET PO (08:22)
[2023-02-17] MEDS: SODIUM BICARBONATE TAB 650 MG TABLET 1300 MG PO ×2 (08:22→16:34)
[2023-02-17] MEDS: DOCUSATE SODIUM 100 MG CAPSULE PO ×2 (08:22→20:12)
[2023-02-17] MEDS: MULTIVITAMINS /C LUTEIN (CENTRUM SILVER) TABLET *BKC 1 TAB PO (08:22)
[2023-02-17] MEDS: CYANOCOBALAMIN 1,000 MCG TABLET 2000 MCG PO (08:22)
--- NOTE | 2023-02-17 10:04 | PCPTNOTE ---
Per family request, hold off on therapy until they make halfway decision of placement. RN aware. Will Follow
[2023-02-17 13:57] VITALS: BP 108/85; PULSE 84; RESP 17; TEMP 36.4; O2SAT 98
--- NOTE | 2023-02-17 14:16 | PCPTNOTE ---
Spoke with Hospitalist DORETHA Salazar to DC therapy orders at this time.
--- NOTE | 2023-02-17 14:21 | WPDPN ---
Progress Note: A&P Assessment and Plan (1) UTI (urinary tract infection): Code(s): N39.0 - Urinary tract infection, site not specified Status: Acute Assessment and Plan: The patient has a chronic indwelling Dietz catheter as well as a nephrostomy tube on the left. The patient has had a history of Enterococcus species in the past. His last microbiology showed no growth. The patient was started on Rocephin. Blood and urine cultures are pending. 02/17/2023 interval history: patient with prostate CA had been seen by urologist and treated presented with Eligard injection, c/o weakness, seen by his urologist suspect his symptoms are due to UTI and worsening his prostate cancer, stats feels better, his Dietz was replaced, treated with ceftriaxone, urine culture is growing Pseudomonas putida, will start the patient on Levaquin, patient and his family had decided to enter under hospice care, will discharge the patient tomorrow under hospice. (2) Depression: Qualifiers: Depression Type: major depressive disorder Code(s): F32.9 - Major depressive disorder, single episode, unspecified Status: Acute Assessment and Plan: Continue with Paxil (3) Chronic kidney disease: Code(s): N18.9 - Chronic kidney disease, unspecified Status: Chronic Assessment and Plan: Patient's creatinine is 1.9 which is usually 2 point something and GFR is 34 which is above his baseline. (4) Generalized weakness: Code(s): R53.1 - Weakness Status: Acute Assessment and Plan: The patient has had poor oral intake. I did start him on supplements. Will need dietary consult as well. He has a urinary tract infection and is on antibiotics. PT OT evaluation livestock caretaker consult for possible rehab. (5) Chronic anemia: Code(s): D64.9 - Anemia, unspecified Status: Chronic Assessment and Plan: Most likely related to his chronic renal disease. The patient is at his baseline. Continue to monitor. (6) IGOR (obstructive sleep apnea): Code(s): G47.33 - Obstructive sleep apnea (adult) (pediatric) Status: Acute Assessment and Plan: The patient no longer wears a CPAP machine. (7) Prostate cancer: Code(s): C61 - Malignant neoplasm of prostate Status: Chronic Assessment and Plan: Continue with Xtandi. Continue with Flomax. Subjective Date/time seen: 02/17/23 14:21 Interval history: Weakness HPI-Narrative: This is an 87-year-old male patient who has a history of chronic anemia and renal carcinoma with the nephrostomy in a Dietz.? The patient denies any focal weakness and has generalized weakness.? The patient admits that he has had decreased oral intake.? The patient was so weak today that it took 2 people to get him into the car.? Patient denies any discomfort.? No fever or chills no nausea vomiting or diarrhea.? H&H is 9.7 and 28.9 which is slightly above his baseline.? The patient is pale but denies having any bloody stools are hematemesis.? Sodium is 133 which is around his baseline.? His creatinine is 1.9 which is around his baseline.? GFR is 34 which is higher than his baseline.? C reactive protein 3.6.? The patient was positive for UTI.? The patient was started on Rocephin.? Chest x-ray was read as no acute cardiopulmonary disease.? 02/17/2023 interval history: patient with prostate CA had been seen by urologist and treated presented with Eligard injection, c/o weakness, seen by his urologist suspect his symptoms are due to UTI and worsening his prostate cancer, stats feels better, his Dietz was replaced, treated with ceftriaxone, urine culture is growing Pseudomonas putida, will start the patient on Levaquin, patient and his family had decided to enter under hospice care, will discharge the patient tomorrow under hospice. Review of Systems Review of Systems: All systems reviewed & are unremarkable except as noted in HPI and below Ob
[2023-02-17] MEDS: levoFLOXacin 750 MG TABLET PO (16:37)
[2023-02-17] MEDS: TAMSULOSIN HCL 0.4 MG CAPSULE PO (20:12)
[2023-02-17 20:29] VITALS: BP 122/51; PULSE 70; RESP 17; TEMP 36.5; O2SAT 98
[2023-02-17] MEDS: MELATONIN 3 MG TABLET PO (20:34)
[2023-02-18 05:39] VITALS: BP 113/54; PULSE 67; RESP 18; TEMP 36.7; O2SAT 100
--- NOTE | 2023-02-18 08:31 | PCOTNOTE ---
Pt. transitioning to hospice services. D/C therapy services on this date.
[2023-02-18] MEDS: CYANOCOBALAMIN 1,000 MCG TABLET 2000 MCG PO (08:47)
[2023-02-18] MEDS: CYANOCOBALAMIN 500 MCG TABLET PO (08:48)
[2023-02-18] MEDS: levoFLOXacin 750 MG TABLET PO (08:48)
[2023-02-18] MEDS: DOCUSATE SODIUM 100 MG CAPSULE PO (08:48)
[2023-02-18] MEDS: PARoxetine 20 MG TABLET PO (08:49)
[2023-02-18] MEDS: MULTIVITAMINS /C LUTEIN (CENTRUM SILVER) TABLET *BKC 1 TAB PO (08:49)
[2023-02-18] MEDS: SODIUM BICARBONATE TAB 650 MG TABLET 1300 MG PO (08:49)
[2023-02-18 09:54] VITALS: O2SAT 100
--- NOTE | 2023-02-18 11:10 | PM.DS ---
DS: Admitting Diagnosis Discharge Date 02/18/2023 Admitting Diagnosis Weakness DS: Discharge Diagnosis Discharge Diagnosis (1) UTI (urinary tract infection): Code(s): N39.0 - Urinary tract infection, site not specified Status: Acute Assessment and Plan: The patient has a chronic indwelling Dietz catheter as well as a nephrostomy tube on the left. The patient has had a history of Enterococcus species in the past. His last microbiology showed no growth. The patient was started on Rocephin. Blood and urine cultures are pending. 02/17/2023 interval history: patient with prostate CA had been seen by urologist and treated presented with Eligard injection, c/o weakness, seen by his urologist suspect his symptoms are due to UTI and worsening his prostate cancer, stats feels better, his Dietz was replaced, treated with ceftriaxone, urine culture is growing Pseudomonas putida, will start the patient on Levaquin, patient and his family had decided to enter under hospice care, will discharge the patient tomorrow under hospice. (2) Depression: Qualifiers: Depression Type: major depressive disorder Code(s): F32.9 - Major depressive disorder, single episode, unspecified Status: Acute Assessment and Plan: Continue with Paxil (3) Chronic kidney disease: Code(s): N18.9 - Chronic kidney disease, unspecified Status: Chronic Assessment and Plan: Patient's creatinine is 1.9 which is usually 2 point something and GFR is 34 which is above his baseline. (4) Generalized weakness: Code(s): R53.1 - Weakness Status: Acute Assessment and Plan: The patient has had poor oral intake. I did start him on supplements. Will need dietary consult as well. He has a urinary tract infection and is on antibiotics. PT OT evaluation career services coordinator consult for possible rehab. (5) Chronic anemia: Code(s): D64.9 - Anemia, unspecified Status: Chronic Assessment and Plan: Most likely related to his chronic renal disease. The patient is at his baseline. Continue to monitor. (6) IGOR (obstructive sleep apnea): Code(s): G47.33 - Obstructive sleep apnea (adult) (pediatric) Status: Acute Assessment and Plan: The patient no longer wears a CPAP machine. (7) Prostate cancer: Code(s): C61 - Malignant neoplasm of prostate Status: Chronic Assessment and Plan: Continue with Xtandi. Continue with Flomax. DS: Summary Hospital Course Reason for hospitalization: Weakness Narrative: This is an 87-year-old male patient who has a history of chronic anemia and renal carcinoma with the nephrostomy in a Dietz.? The patient denies any focal weakness and has generalized weakness.? The patient admits that he has had decreased oral intake.? The patient was so weak today that it took 2 people to get him into the car.? Patient denies any discomfort.? No fever or chills no nausea vomiting or diarrhea.? H&H is 9.7 and 28.9 which is slightly above his baseline.? The patient is pale but denies having any bloody stools are hematemesis.? Sodium is 133 which is around his baseline.? His creatinine is 1.9 which is around his baseline.? GFR is 34 which is higher than his baseline.? C reactive protein 3.6.? The patient was positive for UTI.? The patient was started on Rocephin.? Chest x-ray was read as no acute cardiopulmonary disease. Hospital Course: patient with prostate CA had been seen by urologist and treated presented with Eligard injection, c/o weakness, seen by his urologist suspect his symptoms are due to UTI and worsening his prostate cancer, stats feels better, his Dietz was replaced, treated with ceftriaxone, urine culture is growing Pseudomonas putida, will start the patient on Levaquin, patient and his family had decided to enter under hospice care, will discharge the patient tomorrow under hospice. patient is being discharged home, will be admitted und
== END 2023-02-18 13:25 | disposition hospice, home (50) | DRG 699 ==
LOC: ANHED 14:35 → ANH2MED 15:52
PROVIDERS: Nurse Practitioner; Urology; Admitting Provider Internal Medicine; Emergency Provider Emergency Medicine; PCP Family Medicine; Visit Provider Family Medicine
DX: T83.511A Infection and inflammatory reaction due to indwelling urethral catheter, initial encounter (principal); N13.39 Other hydronephrosis; N18.4 Chronic kidney disease, stage 4 (severe); N39.0 Urinary tract infection, site not specified; C61 Malignant neoplasm of prostate; B96.5 Pseudomonas (aeruginosa) (mallei) (pseudomallei) as the cause of diseases classified elsewhere; N40.0 Benign prostatic hyperplasia without lower urinary tract symptoms; F32.9 Major depressive disorder, single episode, unspecified; D63.1 Anemia in chronic kidney disease; G47.33 Obstructive sleep apnea (adult) (pediatric); M48.061 Spinal stenosis, lumbar region without neurogenic claudication; Z86.16 Personal history of COVID-19
CPT/HCPCS: 36415; 71046; 80053; 81001; 83605; 83735; 84153; 84439; 84443; 84480; 84484; 85025; 85610; 85730; 86140; 87040; 87077; 87086; 87186; 93005; 97165; 99285; A9270; J0696